=== PATIENT | female | born 1950 | race Caucasian/White ===

== ENCOUNTER → 2017-09-19 11:12 | Outpatient (CLI) | payer MEDICARE, OTHER, SELFPAY | PROVIDERS: Family Provider Internal Medicine; PCP Internal Medicine; Visit Provider Nurse Practitioner Adult Health | DX: R31.9 Hematuria, unspecified (principal) | CPT/HCPCS: 87086; 87088 ==

== ENCOUNTER → 2017-09-28 16:40 | Outpatient (CLI) | payer MEDICARE, OTHER, SELFPAY ==
--- NOTE | 2017-09-28 16:40 | DT_ITS ---
This patient was seen during an EMR downtime September 24, 2017 - October 01, 2017. This patient may have a combination of paper and electronic documentation or all paper documentation. All documentation is viewable within the e-chart portion of [facility] for each patient visit.
--- NOTE | 2017-09-28 16:48 | CT_ITS ---
STUDY: CT ABDOMEN AND PELVIS WITH AND WITHOUT CONTRAST REASON FOR EXAM: Female, 66 years old. Microscopic hematuria and LLQ pain x 6 weeks. Increased frequency of urination. Prev GIDEON/BSO,appendectomy and cholecystectomy. Noncontrast images included in scan. RADIATION DOSAGE (If Supplied By Facility): CTDIvol = ( 12.40 ) mGy, DLP = ( 848.35 ) mGycm TECHNIQUE: Transaxial images were obtained from the dome of the diaphragm to the symphysis pubis without oral contrast. 100ml ml of Isovue 300 contrast was administered. Sagittal and coronal images were reconstructed. Individualized dose optimization techniques were used for this CT. COMPARISON: None. FINDINGS: The visualized lung bases are unremarkable. The visualized portions of the heart are within normal limits. Normal liver. Normal spleen. Normal pancreas. Normal bilateral adrenal glands. Normal right kidney. Normal left kidney. Normal visualized stomach. Normal small intestine. Normal colon. The appendix is visualized and appears normal. There is diffuse atherosclerotic calcification of the abdominal aorta with elongation and tortuosity, there is an infrarenal aneurysm measures 3 cm in greatest diameter. Normal inferior vena cava. Normal retroperitoneum. Normal urinary bladder. Normal abdominal wall. There are diffuse degenerative changes of the visualized lumbar spine. CT/CT Abd/Pelvis W/WO Contrast IMPRESSION: There is an infrarenal abdominal aortic aneurysm measures 3 cm in greatest diameter. There is no evidence of kidney stones or renal neoplasm. Electronically Signed: Siomara Eduardo MD at 7:58 EDT Tel , Service support ,
[2017-10-07 14:59] LABS: CREATININE FINGERSTICK 0.89 mg/dL (0.55-1.02)
== END ==
PROVIDERS: Family Provider Internal Medicine; PCP Internal Medicine; Visit Provider Nurse Practitioner Adult Health
DX: R31.9 Hematuria, unspecified (principal); R10.32 Left lower quadrant pain
CPT/HCPCS: 74178; Q9967

== ENCOUNTER → 2018-04-22 15:31 | Outpatient (CLI) | payer MEDICARE, OTHER, SELFPAY ==
[2015-10-29 06:32] VITALS: BMI 23.1
== END ==
PROVIDERS: Family Provider Internal Medicine; PCP Internal Medicine; Referring Provider Otolaryngology; Visit Provider Otolaryngology
DX: J02.9 Acute pharyngitis, unspecified (principal)
CPT/HCPCS: 87070

== ENCOUNTER 2018-05-07 10:50 | Outpatient (RCR) | payer MEDICARE, OTHER, SELFPAY ==
--- NOTE | 2018-05-07 12:33 | HP.PTEVAL_ITS ---
Patient's Visit Information CLEVE WAGGONER is a 67 year old F referred to Physical Therapy by Guero Gonzalez DO with a diagnosis of c-spine disc disease and gait and balance off.. Date of Evaluation: 05/07/18 Physical Therapist: INGA Holguin - Visit Plan Plan: Pt wishes to return back to physician as she feels that there is something more going on and wishes to have more testing or referral to a specialist as her gait and balance have gotten so much worse over the last year and she has not been evaluated for her symptoms aside from her neck. - Subjective Findings: Dr Gonzalez did an MRI and she also has some arthritis. She did massage for years (about 4.5 years ago) and that really helps. Last year her neck pain got worse (had a shot of cortizone last July). Her balance is really off and her gait is bad for about a year ago... it gets better throughout the day. Pt report that she feels that she is going to lose her balance throughtout the day. She reports that she has a fuuny gait. Her gait is getting worse. Pt is getting freezing episodes and some withering movements.... that started about a year ago. She is cautious with her gait...she has to tell her self to walk at times heel to toe pattern. TENS, head and ice helps the neck pain. Pt has not been to a neurologist. Pt can not sleep unless she has ambien. She falls asleep all the time and has incredible fatigue. Pt reports that she has pain that is strictly on the L side and she has arthritis on the L side. Her neck is swollen and she can not twist her neck very far. The pain comes and goes. She can not bend over in the shower to shave her legs. She definitly has muscle spasm back there..... Pt does not think that PT is going to help with the shoulder....when she moves it, it is worse. Pt can get up and down the stairs fine and uses the handrail. Clif gup she is fine and going down the steps she is not good....she is like frozen at the top of the stairs. It is like she is frozen. Pt reports that she has a really bad sore metallic taste. SHe also has a hiatal hernia. Pt reports that she is chronically dizzy and is dizzy and off balance currently. Pt reports that she feels that something else is going on. She can not do the things she needs to do. IF she were to bend over to wash the bathtub she would fall fw. - Pain neck pain Pain Intensity (Out of 10): 7 - Objective c-spine AROM: R Rotation 50% and L rotation 25%, ext 50% normal ROM, flex 25% flexion and drastically decreased c-spine side bending. UE AROM: B WFL. Gait: pt stood up and first few steps pt was only able to take tiny festination of gait steps and then was able to take bigger steps that were still less than normal step length with decreased heel to toe gait pattern. Pt has decreased arm swing on the L as well. She also had this increased festination when turning around. Stairs: Pt was able to ascend a flight of stairs with 2 hand rails with reciprical gait pattern with SBA. On descending the stairs the pt's LE's were visably shaky and pt was fatigued at the end of ascending and descending the stairs. CATSIB 108/120. FGA: 02/19 (head turns with gait made pt nauseated) (turning 180 degrees pt was festination and almost tripping on her feet). Patella DTR's B 3+/3. +Clonus B at 2-3 beats each. LE MMT: hip flex B 4-/5, Leg extension R 4-/5 and L 3-/5, hip abd R 4/5 and L 4-/5, L knee flex 3- /5 and R 4/5. Pt reports that she was sweaty after todays eval and she gets sweaty when getting out of the shower. Pt very fatigued at the end of the evaluation - Balance Scores Functional Gait Assessment Score: 10 % Disability: 66.6700 CATSIB Score (Max score 120 seconds): 108 - Rehabilitation Potential Rehabilitation Potential: Good - Anticipated Interventions Thank you for the opportunity to evaluate your patient. For Medicare and Medicare HMO plans, please review the plan of care and approve it. It will need to be FAXED BACK to us at [phone] for Medicare purposes. For Medicare only, by signing this I certify the plan of care. Please let me know if there are questions or concerns regarding this plan of care. Physician Signature: Date:
--- NOTE | 2018-05-07 12:33 | HP.PTDCSUM ---
HP - PT D/C Summary It has been my pleasure to treat CLEVE WAGGONER under orders from Guero Gonzalez DO, for the diagnosis of c-spine disc disease and gait and balance off. for a total of 1 visit(s). Discharge Date: 05/07/18 Please see the following information for a summary of their discharge status. - Pain neck pain Pain Intensity (Out of 10): 7 - Plan Plan: Pt wishes to return back to physician as she feels that there is something more going on and wishes to have more testing or referral to a specialist as her gait and balance have gotten so much worse over the last year and she has not been evaluated for her symptoms aside from her neck. - D/C Information Discharge Comments: DC back to physician If there are questions or concerns regarding this patient's physical therapy, please feel free to call me at [phone]. Thank you for the referral of this patient. Sincerely, Emmanuelle Magallon, MPT
== END 2018-05-07 19:00 | disposition home or self-care (01) ==
LOC: PT 10:50
PROVIDERS: Family Provider Internal Medicine; PCP Internal Medicine; Referring Provider Orthopaedic Surgery; Visit Provider Orthopaedic Surgery
DX: M50.30 Other cervical disc degeneration, unspecified cervical region (principal)
CPT/HCPCS: 97162

== ENCOUNTER → 2018-10-14 16:19 | Outpatient (CLI) | payer MEDICARE, OTHER, SELFPAY ==
[2015-10-29 06:32] VITALS: BMI 23.1
--- NOTE | 2018-10-14 | CYSPIN_PTH ---
PATIENT: CLEVE WAGGONER LOC: [facility] U#:[id number] AGE/SX: 74/F ROOM: RE10/14/[address]: BETZAIDA Isbell : 1950 BED: DIS: SPEC #: [id number] RECD: 10/15/18 09:26 STATUS: STEPHANIE RENiyah #: [id number] PILI: 10/14/18 00:[address]: Angela Hyatt NP DEPT: CYTOLOGY RECD BY: Saul Arnold ENTERED: 10/15/18 09:27 SP TYPE: CYSPIN FL OTHR DR: Dr. Rocio Phoenix MD Tissues: Urine Procedures: Pap Stain (control) Special Stain Group II Cytospin Fluid HEADER OPERATION: Not noted PRE-OP DIAGNOSIS: R31.29 TISSUE SUBMITTED: Urine for cytology DIAGNOSIS CYTOLOGY Urine for cytology (cytospin): No malignant cells identified. See cytology study. FA:mable 10/16/18 CYTOLOGY STUDY Slides are reviewed. The specimen consists of reactive urothelial cells, squamous epithelial cells, WBCs and casts. CYTOLOGY GROSS Received is 10 ml of yellow cloudy fluid labeled with the patient's name and and designated per the requisition as urine. Submitted for cytology preparation. / 10/15/18 TC:4 CPT: 55058
[2018-10-14 16:42] LABS: Cytology, Body Fluid / CSF SEE PATHOLOGY REPORT
== END ==
PROVIDERS: Family Provider Internal Medicine; PCP Internal Medicine; Referring Provider Nurse Practitioner Adult Health; Visit Provider Nurse Practitioner Adult Health
DX: R31.29 Other microscopic hematuria (principal)
CPT/HCPCS: 88108; 88313

== ENCOUNTER → 2020-09-10 10:44 | Outpatient (CLI) | payer MEDICARE, OTHER, SELFPAY ==
[2020-08-31 14:29] VITALS: BMI 22.7
--- NOTE | 2020-09-10 10:47 | US_ITS ---
PROCEDURES: ULTRASOUND AORTA REASON FOR EXAM: Female, 69 years old. Abdominal aortic aneurysm infrarenal on CT 2018 TECHNIQUE: Ultrasound evaluation of the aorta was performed with real-time and static kauffman-scale imaging. COMPARISON: None. FINDINGS: There is tortuous elongation of the abdominal aorta along with diffuse atherosclerosis. Aorta measures: Proximal 1.6 cm. Middle 2.6 cm. Distal 1.9 cm. Aorta measure transversely: Proximal 1.8 cm. Middle 3.0 cm. Distal 2.2 cm. Right iliac artery measures: 0.8 cm. Right iliac artery measure transversely: 1.0 cm. Left iliac artery measures: 0.9 cm. Left iliac artery measure transversely: 1.0 cm. There is a peripherally calcified, saccular, infrarenal 3 x 4.6 cm peripherally calcified abdominal aortic aneurysm. No sonographic evidence of free fluid in the retroperitoneum US/Aorta IMPRESSION: Peripherally calcified infrarenal abdominal aortic aneurysm with maximum transverse dimensions of 3.0 x 4.6 cm Electronically Signed: Myles Stewart MD at 11:37 EDT , Service support ,
== END ==
PROVIDERS: PCP Internal Medicine; Referring Provider Internal Medicine; Visit Provider Internal Medicine
DX: I71.4 Abdominal aortic aneurysm, without rupture (principal)
CPT/HCPCS: 76775

== ENCOUNTER → 2021-02-10 16:54 | Outpatient (CLI) | payer MEDICARE, OTHER, SELFPAY ==
[2021-02-10 17:13] LABS: Mucous, Urine 0 SEEN /hpf (<or=2+); Squamous Epithelial Cells - UA 0 SEEN /hpf (5-10); White Blood Cells 0 SEEN /hpf (0-5)
[2021-02-10 17:21] LABS: Color, Urine Yellow (Yellow); Glucose, Dipstick Normal (Normal); Ketone-Dipstick Negative (Negative); Leukocyte Esterase-Dipstick Negative /ul (Negative); Nitrite-Dipstick Negative (Negative); Occult Blood-Urine 50 /ul (Negative); Protein-Dipstick Negative (Negative); Specific Gravity, Urine 1.015 (1.002-1.030); Urine Bilirubin Dipstick Negative (Negative); Urine Clarity Sl. Cloudy (Clear); Urine Urobilinogen Normal (Normal)
[2021-02-10 17:43] LABS: Bacteria 1+ /hpf (None Seen); Red Blood Cells-Urine 0-5 SEEN /hpf (0-5)
== END ==
PROVIDERS: PCP Internal Medicine; Visit Provider Urology
DX: R30.0 Dysuria (principal); R31.29 Other microscopic hematuria
CPT/HCPCS: 81001; 87086; 87088

== ENCOUNTER → 2021-04-06 10:56 | Outpatient (CLI) | payer MEDICARE, OTHER, SELFPAY ==
--- NOTE | 2021-04-06 11:09 | MRI_ITS ---
STUDY: MRI BRAIN WITH AND WITHOUT CONTRAST (ATTENTION INTERNAL AUDITORY CANALS - I.A.C.''s) REASON FOR EXAM: Female, 70 years old. DIZZINESS, ATTN IAC''S TECHNIQUE: Standardized multiplanar fat and water weighted pulse sequences were obtained. IV Yes YES was administered for the contrast portion of the examination. COMPARISON: 03 February 2015 FINDINGS: Normal bilateral temporal bones. Normal bilateral internal auditory canals. There is no demonstrated intracanalicular or cisternal vestibular schwannoma (acoustic neuroma). There is no enhancement of the bilateral VIIth or VIIIth cranial nerves. Normal bilateral cochlea, vestibules and semicircular canals. Normal size of the ventricles and extra-axial spaces for the patient''s age. Normal white matter tracts of the supratentorial brain. Normal bilateral basal ganglia. Normal thalami. Normal flow voids within the major intracranial circulation suggesting patency by spin echo criteria. Normal venous enhancement. There is no enhancing intra-axial or extra-axial abnormality. There is no extra-axial fluid accumulation. Normal sella turcica, pituitary gland, infundibular stalk, optic chiasm and hypothalamus. Normal tectal plate and pineal gland. Normal midbrain, pablo and medulla. Normal cerebellum. Normal basal cisterns. No demonstrated orbital abnormality, within the constraints of a routine brain study. Normal visualized paranasal sinuses. Normal calvarium and skull base. Normal visualized soft tissue structures. Normal visualized upper cervical spine. MRI/Brain W/WO Contrast IMPRESSION: Normal unenhanced and enhanced MRI of the bilateral internal auditory canals (I.A.C''s). Electronically Signed: Logan Velez MD at 15:35 EST Tel , Service support ,
[2021-04-06 11:30] LABS: CREATININE FINGERSTICK 0.7 mg/dL (0.55-1.02); EGFR FINGERSTICK > 60.0000 mL/min (>60)
== END ==
PROVIDERS: PCP Internal Medicine; Visit Provider Otolaryngology
DX: R42 Dizziness and giddiness (principal)
CPT/HCPCS: 70553; A9575

== ENCOUNTER 2021-08-15 12:00 | Outpatient (RCR) | payer MEDICARE, OTHER, SELFPAY ==
--- NOTE | 2021-08-01 14:32 | HP.PTEVAL_ITS ---
Patient's Visit Information CLEVE WAGGONER is a 70 year old F referred to Physical Therapy by Dr. Jimmy Calderon MD with a diagnosis of vestibular dysfunction. Date of Evaluation: 08/01/21 Physical Therapist: Lennox Ervin, BREONNAT, OCS, CSCS - Visit Plan Frequency: 2x /Week Duration: 4-6 Weeks Plan: 2x/week for 4 weeks for. 1. Given VOR standing todya, please progress as safety allows. 2. Pt needs functional weight shifting balance to help with turns, steps and is hesitant to shift weight on her own. Nataly ex to address this. - Subjective Had vertigo long time and has been treated for her neck. Went back to [facility] where she had seen Dr. Gerardo in the past under orders from Dr Altamirano. Used to get botox and cortisone for neck spasms. Balance has not been great the whole time. Decided to go back to [facility] and thought it was an ear problem. Saw ENT prior to [facility] and [facility] found no problems with PD or MS. Nothing to do and did not want to treat it at [facility] but that got old and went Back to [facility] again and has had therapy ordered and will have VNG and EEG. Is on meclizine for this which puts her to sleep and does not take it regularly. Takes flexeril for L shoulder spasms and pain. Describes symptoms as having no balance. L ear does not feel clean. No spinning. Lightheadedness and imbalance. Turning corners is hard. Going down steps is hard. No neuropathy. It has been bad for a year but started with pain in neck 5 yrs ago. The ear thing for a year and described as imbalance. Feels like L side of face feels swollen at times but not unsteady in sitting or lying down. Sleep is OK with ambien. NO cane or walker needed. Has walker. No falls. stops and can't get going at times though. Retired. Lives with in two story and basement and going up and down steps with rail, dresses self and cooks whoich is normal for her. Does avoid deep cleaning due to balance/unsteadiness. - Pain L neck Pain Intensity (Out of 10): 2 Pain Intensity Range: 0, 8 - Objective Walks I without AD. Straight lines are I and slightly hunched over but good gait pattern otherwise. That all changes with turns which are very small steps and hesitant taking extra time. Also slow when she gets to chair to take the final few steps, hesitant and worried. Steps are reciprocal requiring 2 rails and avoids FW weight shift. Transfers bed and chair I. Cervical aROM very limited to 30 L and 45 R and 25 extension which she says is normal for her. Scapula aare elevated and prominent UT on L with palpable noduiles that are not overly tender. reflexes 3/3 bi and tri and patella and achilles. Sensation UE and LE WNL to gross light touch.,. oculomotor: no nystagmus with gaze or head shake, - skew eye deviation, - ocular tilt. Pursuit and saccades are slow but asymptomatic. VOr is slightlydizzy but recovers quickly 07/31. - head thrust. - B hallpike dereje, - roll test. No MSQ positions create dizzyness. - Balance/Special Test Scores Functional Gait Assessment Score: 22 % Disability: 26.6700 Dizziness Score: 32 - Goals Goal 1:: Pt score 25/30 on FGA to diminish fall risk. Goal Time Frame: 2-4 Weeks Goal 2:: Pt I in appropriate HEp to minimze future problems Goal Time Frame: 2-4 Weeks Goal 3:: Pt feel dizzyness balance is 50% improved Goal Time Frame: 2-4 Weeks Goal 4:: Pt able to turn 180 degree turns in onyl 3 weight shifts easily adn I. Goal Time Frame: 2-4 Weeks - Rehabilitation Potential Physical Therapy Diagnosis: imbalance with possible vestibular dysfunction. Rehabilitation Potential: Questionable - Anticipated Interventions Patient/Client Instruction: Educate patient on: Condition, Plan of Care For the Purpose of:: To improve muscle performance and motor function, To increase tolerance to activity/condition/position, To improve gait and locomotor functions Therapeutic Exercise to Include: Balance training, Postural training, Gait and locomotor training, Neuromotor development For the Purpose of:: To improve muscle performance and motor function, To increase tolerance to activity/condition/position, To improve ability of physical actions for home/community/work/leisure, To improve gait and locomotor functions Thank you for the opportunity to evaluate your patient. For Medicare and Medicare HMO plans, please review the plan of care and approve it. It will need to be FAXED BACK to us at [phone] for Medicare purposes. For Medicare only, by signing this I certify the plan of care. Please let me know if there are questions or concerns regarding this plan of care. Physician Signature: Date:
--- NOTE | 2021-10-04 18:33 | HP.PTDCNRP_ITS ---
CLEVE WAGGONER was seen in my office for initial evaluation on 08/01/21. The following Plan of Care was established for this patient: Initial Frequency: 2x /Week Initial Duration: 4-6 Weeks Patient/Client Instruction: Educate patient on: Condition, Plan of Care For the Purpose of:: To improve muscle performance and motor function, To increase tolerance to activity/condition/position, To improve gait and locomotor functions Therapeutic Exercise to Include: Balance training, Postural training, Gait and locomotor training, Neuromotor development For the Purpose of:: To improve muscle performance and motor function, To incre ase tolerance to activity/condition/position, To improve ability of physical actions for home/community/work/leisure, To improve gait and locomotor functions This patient was last seen in our office 08/15/21. Pertinent comments regarding their Physical therapy will appear below: pt seen 4 visits of positional and balance exercises. she cancelled all of her visits after the last session stating she was having an inner ear test and wishes to hold on PT. At this point, it has been over 6 weeks and I will discontinue due to nonattendance At this point I will be discontinuing this patient from physical therapy. I would be happy to see this patient again in the future if found appropriate by the physician. Thank you! Lennox Ervin, DPT, OCS, CSCS Balance/Gait/Functional tests - Balance/Special Test Scores Functional Gait Assessment Score: 22 % Disability: 26.6700 Dizziness Score: 32
== END 2021-08-15 19:00 | disposition home or self-care (01) ==
LOC: PT 12:00
PROVIDERS: PCP Internal Medicine; Referring Provider Psychiatry & Neurology Neurology; Visit Provider Psychiatry & Neurology Neurology
DX: H81.92 Unspecified disorder of vestibular function, left ear (principal)
CPT/HCPCS: 97110; 97162; 97530

== ENCOUNTER 2021-12-13 12:30 | Outpatient (RCR) | payer SELFPAY ==
--- NOTE | 2022-03-23 07:30 | HP.PT.NRP ---
CLEVE WAGGONER was seen in my office for initial evaluation on 11/23/21. The following Plan of Care was established for this patient: Initial Frequency: 1x/Week Initial Duration: 3 Months Manual Therapy Techniques to Include: Functional dry needling This patient was last seen in our office . Pertinent comments regarding their Physical therapy will appear below: Self Pay DN- d/c At this point I will be discontinuing this patient from physical therapy. I would be happy to see this patient again in the future if found appropriate by the physician. Thank you! Gela Webster, BREONNAT
== END 2021-12-13 19:00 | disposition home or self-care (01) ==
LOC: PT 12:30
PROVIDERS: PCP Internal Medicine
DX: R69 Illness, unspecified (principal)

== ENCOUNTER → 2022-11-28 | Outpatient (CLI) | payer MEDICARE, OTHER, SELFPAY | END | disposition home or self-care (01) | LOC: LABSPEC 15:52 | PROVIDERS: PCP Internal Medicine; Referring Provider Urology; Visit Provider Urology | DX: N30.01 Acute cystitis with hematuria (principal) | CPT/HCPCS: 87086 ==

== ENCOUNTER → 2023-04-18 | Outpatient (CLI) | payer MEDICARE, OTHER, SELFPAY | END | disposition home or self-care (01) | LOC: LABSPEC 15:17 | PROVIDERS: PCP Internal Medicine; Referring Provider Otolaryngology; Visit Provider Otolaryngology | DX: J32.8 Other chronic sinusitis (principal) | CPT/HCPCS: 87070; 87205 ==

== ENCOUNTER → 2024-09-26 | Outpatient (CLI) | payer MEDICARE, OTHER, SELFPAY | END | disposition home or self-care (01) | LOC: LABSPEC 16:09 | PROVIDERS: PCP Internal Medicine; Referring Provider Otolaryngology; Visit Provider Otolaryngology | DX: J32.8 Other chronic sinusitis (principal) | CPT/HCPCS: 87070; 87205 ==

== ENCOUNTER → 2024-11-04 | Outpatient (CLI) | payer MEDICARE, OTHER, SELFPAY ==
--- OUTSIDE RECORDS SUMMARY | 2024-11-04 22:19 | XMS RPT_ITS | CCD ---
Author Organization [facility] Care Team Providers Care Burning Supervisor Name Role Phone DHARMESH SEVILLA JR. Attending Unavailable STEFANY SHERIDAN Primary Care Unavailable Stefany Sheridan MD Primary Care Provider Raine Min RN Unavailable Cinthia MARKHAM, Duarte Watson Unavailable Unavailhardeep Sheridan MD, Stefany Dc Primary Care Provider Cinthia MARKHAM, Duarte Watson Unavailable Unavailhardeep Sheridan MD, Stefany Dc Primary Care Provider Duarte RN, Cinthia Watson Unavailable Unavailhardeep Ramachandran RN, Cinthia Watson Unavailable Unavailhardeep Sheridan MD, Stefany Dc Primary Care Provider Almendarez SODA FOUNTAIN MANAGER.BASE FILLER, Vicky Unavailable Dieter SODA FOUNTAIN MANAGER.WOOD WEB WEAVING MACHINE OPERATOR, Sanjuana Unavailable Dieter SODA FOUNTAIN MANAGER.WOOD WEB WEAVING MACHINE OPERATOR, Sanjuana Unavailable Dieter SODA FOUNTAIN MANAGER.WOOD WEB WEAVING MACHINE OPERATOR, Sanjuana Unavailable Dieter SODA FOUNTAIN MANAGER.WOOD WEB WEAVING MACHINE OPERATOR, Sanjuana Unavailable Dr. Stefany Sheridan MD Primary Care Provider Dr. Ramos Hernandez MD Attending Provider Dr. Ramos Hernandez MD Referring Provider Stefany Sheridan Primary Care Unavailable Ramos Hernandez Referring UnavailRamos Singh Attending Unavailabl e Almendarez SODA FOUNTAIN MANAGER.BASE FILLER, Vicky Unavailable STEFANY SHERIDAN Attending Unavailable STEFANY SHERIDAN Primary Care Unavailable ARIANNA PEREZ Attending Unavailable TALAMPAS, STEFANY D Referring Unavailable TALAMPAS, STEFANY D Primary Care Unavailable TALAMPAS, STEFANY D Attending Unavailable TALAMPAS, STEFANY D Primary Care Unavailable ALMENDAREZ, VICKY Referring Unavailable TALAMPAS, STEFANY D Primary Care Unavailable TALAMPAS, STEFANY D Attending Unavailable TALAMPAS, STEFANY D Primary Care Unavailable ALMENDAREZ, VICKY Attending Unavailable TALAMPAS, STEFANY D Primary Care Unavailable ALMENDAREZ, VICKY Attending Unavailable TALAMPAS, STEFANY D Primary Care Unavailable ALMENDAREZ, VICKY Attending Unavailable TALAMPAS, STEFANY D Primary Care Unavailable ALMENDAREZ, VICKY Attending Unavailable TALAMPAS, STEFANY D Primary Care Unavailable CHRISTOPHE RAMOS Attending Unavailable ARIANNA PEREZ Referring Unavailable TALAMPAS, STEFANY D Primary Care Unavailable Allergies Allergy Classification Reported Allergen(s) Allergy Type Date of Onset Reaction(s) Facility Adrenergic Agonists (1 source) Pseudoephedrine Drug Allergy 3 Intolerance [facility] Amoxicillin / Clavulanate (1 source) Amoxicillin / Clavulanate Drug Allergy 7 GI Upset [facility] Work Phone: Cephalosporins (antibiotic) (2 sources) cefdinir Drug Allergy 8 Unknown, Diarrhea [facility] Work Phone: Corticosteroids (1 source) fluticasone Drug Allergy 8 [facility] Work Phone: cyclobenzaprine (1 source) cyclobenzaprine Drug Allergy 0 Intolerance [facility] Lincosamides (antibiotic) (1 source) Clindamycin Drug Allergy 8 Other: See Comments [facility] Macrolides (antibiotic) (1 source) Clarithromycin Drug Allergy 1 Diarrhea [facility] Work Phone: NITROFURANTOIN, MACROCRYSTALS / Nitrofurantoin, Monohydrate (1 source) NITROFURANTOIN, MACROCRYSTALS / Nitrofurantoin, Monohydrate Drug Allergy 2 Other: See Comments [facility] Proton Pump Inhibitors (1 source) Omeprazole Drug Allergy 8 [facility] (20 sources) Amoxicillin / Clavulanate; Translations: [AMOXICILLIN-POT CLAVULANATE] Drug Allergy 7 GI Upset [facility] Work Phone: (20 sources) Cefuroxime; Translations: [CEFUROXIME] Drug Allergy 8 Diarrhea [facility] Work Phone: [phone] (20 sources) Clarithromycin; Translations: [CLARITHROMYCIN] Drug Allergy 1 Diarrhea [facility] Work Phone: (20 sources) Clindamycin; Translations: [CLINDAMYCIN] Drug Allergy 8 Other: See Comments [facility] (20 sources) cyclobenzaprine; Translations: [CYCLOBENZAPRINE HCL] Drug Allergy 0 Intolerance [facility] Work Phone: (20 sources) fluticasone; Translations: [FLUTICASONE PROPIONATE] Drug Allergy 8 [facility] Work Phone: (20 sources) NITROFURANTOIN, MACROCRYSTALS / Nitrofurantoin, Monohydrate; Translations: [NITROFURANTOIN MONOHYD/M-CRYST] Drug Allergy 2 Other: See Comments [facility] Work Phone: [phone] (20 sources) Omeprazole; Translations: [OMEPRAZOLE] Drug Allergy 8 [facility] Work Phone: (20 sources) Pseudoephedrine; Translations: [PSEUDOEPHEDRINE] Drug Allergy 3 Intolerance [facility] Work Phone: [phone] (20 sources) cefdinir; Translations: [CEFDINIR] Drug Allergy 1 Unknown [facility] (1 source) cefdinir Drug Allergy 1 [facility] Repository Medications Current Medications Medication Drug Class(es) Dates Sig (Normalized) Sig (Original) [id number] 200 actuat albuterol 0.09 mg/actuat metered dose inhaler (20 sources) beta2-Adrenergic Agonist Start: 01-01-2024 End: 02-04-2024 take 2 puff(s) by inhalation every four hours as needed for wheezing albuterol HFA (VENTOLIN HFA) 90 mcg/actuation inhaler Indications: Obstructive chronic bronchitis without exacerbation (HCC) Inhale 2 Puffs as instructed every 4 hours as needed for wheezing/shortness of breath. 3 Each 3 02/04/2024 Active Start: 11-08-2021 End: 01-01-2024 take 2 puff(s) by inhalation every four hours as needed for wheezing albuterol HFA (VENTOLIN HFA) 90 mcg/actuation inhaler Inhale 2 Puffs as instructed every 4 hours as needed for wheezing/shortness of breath. 6.7 g 5 11/08/2021 01/01/2024 Discontinued Start: 11-29-2020 End: 11-04-2021 take 2 puff(s) by inhalation every four hours as needed for wheezing albuterol HFA (VENTOLIN HFA) 90 mcg/actuation inhaler Inhale 2 Puffs as instructed every 4 hours as needed for wheezing/shortness of breath. 6.7 g 5 11/29/2020 11/04/2021 Discontinued Start: 03-02-2020 Albuterol Sulf ate 90 mcg/actuation HFA aerosol inhaler Active 2 NMA INHALATION EVERY 6 HOURS March 02, 2020 1:00am Start: 03-02-2020 take 1 puff(s) by in halation every six hours Albuterol Sulfate Active 2 PUFF INHALATION EVERY 6 HOURS March 02, 2020 12:00am Comment on above: Inhale 2 Puffs as in structed every 4 hours as needed for wheezing/shortness of breath. amLODIPine 2.5 mg oral tablet (20 sources) Dihydropyridine Calcium Channel Jessica Star t: 02-21 End: 12-22 take 1 tablet by mouth once daily amLODIPine (NORVASC) 2.5 mg tablet Indications: Essential hypertension Take 1 tablet by mouth once daily. 90 tablet 3 01/01/2024 12/31/2024 Active Comment on above: Take 1 tablet by jeanette once daily. atorvastatin 10 mg oral tablet (20 sources) HMG-CoA Reductase Inhibitor Star t: 08-22 take 1 tablet by mouth once daily for hyperlipidemia atorvastatin (LIPITOR) 10 mg tablet Indications: Pure hypercholesterolemia Take 1 tablet by mouth once daily. For cholesterol 90 tablet 3 09/10/2024 Active Start: 10-22-2015 End: 11-21-2023 take 1 tablet by mouth at bedtime Atorvastatin 10 MG tablet Active 10 mg PO AT BEDTIME October 22, 2015 12:00am Comment on above: Take 1 tablet by jeanette once daily. For cholesterol cholecalciferol 0.025 mg oral tablet (5 sources) Vitamin D Start: take 1 tablet by mouth once daily Cholecalciferol (Vitamin D3) 1,000 UNIT tablet Active 1000 U PO DAILY October 22, 2015 12:00am ciprofloxacin 500 mg oral tablet (7 sources) Quinolone Antimicrobial Start: End: take 1 tablet by mouth twice daily ciprofloxacin HCl (CIPRO) 500 mg tablet Indications: Acute recurrent frontal sinusitis Take 1 tablet by mouth two times a day for 5 days. 10 tablet 0 11/29/2023 12/04/2023 Active Start: 07-16-2023 End: 07-21-2023 take 1 tablet by mouth twice daily ciprofloxacin HCl (CIPRO) 500 mg tablet Indications: Acute recurrent frontal sinusitis Take 1 tablet by mouth two times a day for 5 days. 10 tablet 0 07/16/2023 07/21/2023 Active Start: 07-16-2023 End: 07-16-2023 take 2 tablets by mouth twice daily ciprofloxacin HCl (CIPRO) 250 mg tablet Indications: UTI symptoms Take 2 tablets by mouth two times a day for 5 days. 10 tablet 0 07/16/2023 07/16/2023 Discontinued Comment on above: [facility] clotrimazole 10 mg oral lozenge (1 source) Azole Antifungal Start: End: clotrimazole (MYCELEX) 10 mg yoni Indications: Acute recurrent frontal sinusitis Use 1 Yoni as instructed four times daily for 14 days. 56 tablet 06/09/2024 06/23/2024 Active dicyclomine hydrochloride 20 mg oral tablet (20 sources) Anticholinergic Start: End: take 1 tablet by mouth three times daily before mealtime dicyclomine (BENTYL) 20 mg tablet Indications: Irritable bowel syndrome with constipation Take 1 tablet by mouth three times a day before meals. 90 tablet 5 01/01/2024 Active Comment on above: Take 1 tablet by jeanette three times daily before meals. doxycycline hyclate 100 mg oral tablet (15 sources) Tetracycline-class Drug Start: End: take 1 tablet by mouth twice daily doxycycline (VIBRA-TABS) 100 mg tablet Indications: Acute recurrent frontal sinusitis Take 1 tablet by mouth two times a day for 7 days. 14 tablet 06/09/2024 06/16/2024 Active Start: 04-14-2024 End: 04-21-2024 take 1 tablet by mouth twice daily doxycycline (VIBRA-TABS) 100 mg tablet Indications: UTI symptoms , Frequent urination , Burning with urination , Hematuria, microscopic Take 1 tablet by mouth two times a day for 7 days. 14 tablet 04/14/2024 04/21/2024 Active Start: 01-01-2024 End: 01-15-2024 take 1 tablet by mouth twice daily doxycycline (VIBRA-TABS) 100 mg tablet Indications: Acute non-recurrent pansinusitis Take 1 tablet by mouth two times a day for 14 days. 28 tablet 01/01/2024 01/15/2024 Active Start: 09-08-2023 End: 09-15-2023 take 1 tablet by mouth twice daily doxycycline (VIBRA-TABS) 100 mg tablet Take 1 tablet by mouth two times a day for 7 days. 14 tablet 0 09/08/2023 09/15/2023 Active Start: 02-02-2023 End: 02-12-2023 take 1 tablet by mouth twice daily doxycycline (VIBRA-TABS) 100 mg tablet Indications: Acute non-recurrent maxillary sinusitis Take 1 tablet by mouth two times a day for 10 days. 20 tablet 0 02/02/2023 02/12/2023 Start: 05-11-2022 End: 05-25-2022 take 1 capsule by mouth twice daily at mealtime doxycycline monohydrate (MONODOX) 100 mg capsule Take 1 capsule by mouth twice daily for 14 days. Take with food 28 capsule 0 05/11/2022 05/25/2022 Active Start: 01-31-2022 End: 02-14-2022 take 1 capsule by mouth twice daily at mealtime doxycycline monohydrate (MONODOX) 100 mg capsule Indications: Acute non-recurrent maxillary sinusitis Take 1 capsule by mouth twice daily for 14 days. Take with food 28 capsule 0 01/31/2022 02/14/2022 Start: 09-26-2021 End: 10-10-2021 take 1 capsule by mouth twice daily at mealtime doxycycline monohydrate (MONODOX) 100 mg capsule Indications: Acute non-recurrent maxillary sinusitis Take 1 capsule by mouth twice daily for 14 days. Take with food 28 capsule 0 09/26/2021 10/10/2021 Active Start: 08-31-2020 End: 09-10-2020 take 1 tablet by mouth twice daily as needed Doxycycline Hyclate 100 mg tablet Discontinued 100 mg PO TWICE A DAY as needed for sinus symptoms 09 02August 31, 2020 12:00am September 09, 2020 12:00am September 10, 2020 12:01am Comment on above: Take 1 capsule by [facility] twice daily for 14 days. Take with food Take 1 tablet by [facility] two times a day for 10 days. esomeprazole 20 mg delayed release oral capsule (20 sources) Proton Pump Inhibitor Start: 6 End: take 1 capsule by mouth once daily as needed esomeprazole (NEXIUM) 20 mg capsule Take 1 capsule by mouth once daily as needed. 05/05/2020 Active Comment on above: Take 1 capsule by [facility] once daily as needed. estrogens, conjugated (shelter) 0.625 mg/ml vaginal cream (20 sources) Estrogen Start: 3 End: conjugated estrogens (PREMARIN) vaginal cream Indications: Vaginitis and vulvovaginitis use 0.5 grams twice weekly as directed 90 g 3 07/07/2024 Active Start: 11-29-2020 End: 01-31-2022 conjugated estrogens (PREMAR IN) vaginal cream Indications: Vaginitis and vulvovaginitis use 0.5 grams twice weekly as directed 90 g 3 01/31/2022 Active Start: 08-19-2020 Conjugated Est rogens (Premarin) 0.625 mg/gram cream Active 0.625 mg VAGINAL TWICE A WEEK August 19, 2020 12:00am off 5 days; repeat cycle Comment on above: use 0.5 grams twice weekly as directed fexofenadine hydrochloride 30 mg oral tablet (20 sources) Histamine-1 Receptor Antagonist FEXOFENADINE HCL (TOÑO ALLERGY ORAL) Take 30 mg by mouth. Active Comment on above: Take 30 mg by mouth. 12 hr fexofenadine hydrochloride 60 mg / pseudoephedrine hydrochloride 120 mg extended release oral tablet (5 sources) alpha-Adrenergic Agonist, Histamine-1 Receptor Antagonist Start: 10-22-19 take 1 tablet by mouth every twelve hours as needed Fexofenadine-Pseudoe phedrine 1 EACH tablet extended release 12 hr Active 1 NMA PO DAILY as needed for Allergies October 22, 2015 12:00am Start: 10-22-2015 Fexofenadine-P seudoephedrine Active 1 EACH PO DAILY October 21, 2015 11:00pm fluconazole 150 mg oral tablet (4 sources) Azole Antifungal Start: 02-04-2024 End: 02-04-2024 fluconazole (DIFLUCAN) 150 mg tablet Indications: Antibiotic-induced yeast infection , Thrush Take 1 tablet by mouth one time only for 1 dose. Repeat in 3 to 5 days as needed. Treat for recurrent yeast infection as directed 6 tablet 02/04/2024 02/04/2024 Active Start: 08-03-2023 End: 08-03-2023 fluconazole (DIFLUCAN) 150 m g tablet Indications: Antibiotic-induced yeast infection , Thrush Take 1 tablet by mouth one time only for 1 dose. Repeat in 3 to 5 days as needed. Treat for recurrent yeast infection as directed 6 tablet 0 08/03/2023 08/03/2023 Active Start: 02-02-2023 End: 02-02-2023 fluconazole (DIFLUCAN) 150 m g tablet Indications: Antibiotic-induced yeast infection Take 1 tablet by mouth one time only for 1 dose. Repeat in 3 to 5 days as needed. Treat for recurrent yeast infection as directed 6 tablet 0 02/02/2023 02/02/2023 Start: 05-11-2022 End: 05-11-2022 fluconazole (DIFLUCAN) 150 m g tablet Indications: Thrush Take 1 tablet by mouth one time only for 1 dose. Repeat after 5 days if needed 2 tablet 0 05/11/2022 05/11/2022 Discontinued Comment on above: Take 1 tablet by jeanette th one time only for 1 dose. Repeat after 5 days if needed Take 1 tablet by jeanette th one time only for 1 dose. Repeat in 3 to 5 days as needed. Treat for recurrent yeast infection as directed lactobacillus acidophilus [id number] unt oral capsule (20 sources) Start: 6 Acidophilus-Bif Animalis 10 billion cell cap Take by mouth. 0 09/29/2015 Active Comment on above: Take by mouth. lisinopril 40 mg oral tablet (20 sources) Angiotensin Converting Enzyme Inhibitor Start: End: take 1 tablet by mouth once daily lisinopril (ZESTRIL) 40 mg tablet Indications: Essential hypertension Take 1 tablet by mouth once daily. 90 tablet 3 03/07/2024 Active Start: 03-02-2020 End: 08-19-2020 take 2 tablets by mouth once daily Lisinopril 20 mg tablet Discontinued 40 mg PO DAILY March 02, 2020 3:55pm August 19, 2020 11:37am Start: 03-02-2020 End: 08-19-2020 take 40 mg by mouth once daily Lisinopril Discontinued 40 MG PO DAILY March 02, 2020 2:55pm August 19, 2020 10:37am Start: 10-22-2015 End: 03-02-2020 take 1 tablet by mouth once daily Lisinopril 20 MG tablet Discontinued 20 mg PO DAILY October 22, 2015 12:00am March 02, 2020 4:00pm Comment on above: Take 1 tablet by jeanette th once daily. metroNIDAZOLE 500 mg oral tablet (2 sources) Nitroimidazole Antimicrobial Start: 06-09-19 End: 06-16-19 take 1 tablet by mouth three times daily metroNIDAZOLE (FLAGYL) 500 mg tablet Indications: Acute recurrent frontal sinusitis Take 1 tablet by mouth three times a day for 7 days. 21 tablet 06/09/2024 06/16/2024 Active Start: 05-11-2022 End: 05-18-2022 take 1 tablet by mouth three times daily metroNIDAZOLE (FLAGYL) 500 mg tablet Take 1 tablet by mouth three times daily for 7 days. 21 tablet 0 05/11/2022 05/18/2022 Active Comment on above: Take 1 tablet by jeanette th three times daily for 7 days. PARoxetine hydrochloride 10 mg oral tablet (20 sources) Serotonin Reuptake Inhibitor Start: take 1 tablet by mouth once daily PARoxetine (PAXIL) 10 mg tablet Take 1 tablet by mouth once daily. 90 each 3 10/09/2024 Active Start: 01-31-2022 End: 06-09-2024 take 1 tablet by mouth once daily PARoxetine (PAXIL) 10 mg tablet Indications: Anxiety and depression Take 1 tablet by mouth once daily. 90 tablet 3 06/12/2023 06/09/2024 Discontinued Start: 03-02-2020 End: 10-09-2024 take 1 tablet by mouth once daily Paroxetine Hcl 10 mg tablet Discontinued 10 mg PO DAILY March 02, 2020 1:00am August 19, 2020 11:39am Comment on above: Take 1 tablet by jeanette th once daily. polyethylene glycol 3350 [id number] mg / potassium chloride 2970 mg / sodium bicarbonate 6740 mg / sodium chloride 5860 mg / sodium sulfate 78896 mg powder for oral solution (1 source) Osmotic Laxative Start: 04-04-20 End: 04-04-20 peg 3350-Electrolytes (GOLYTELY) 236-22.74-6.74 -5.86 gram suspension Indications: Screen for colon cancer Take 4,000 mL by mouth one time only for 1 dose. Refer to printed prep instructions from your provider. 4000 mL 04/04/2024 04/04/2024 Active sulfamethoxazole 800 mg / trimethoprim 160 mg oral tablet (3 sources) Dihydrofolate Reductase Inhibitor Antibacterial, Sulfonamide Antimicrobial Start: 10-10-19 End: 10-13-19 take 1 tablet by mouth twice daily sulfamethoxazole-tr imethoprim (BACTRIM DS) 800-160 mg per tablet Take 1 tablet by mouth two times a day for 3 days. 6 tablet 10/09/2024 10/12/2024 Active Start: 08-01-2022 End: 08-04-2022 take 1 tablet by mouth twice daily at mealtime sulfamethoxazole-trimethoprim (BACTRIM D S) 800-160 mg per tablet Indications: UTI symptoms Take 1 tablet by mouth twice daily for 3 days. antibiotic, take with food 6 tablet 0 08/01/2022 08/04/2022 Active Comment on above: Take 1 tablet by jeanette th twice daily for 3 days. antibiotic, take with food vitamin b12 1 mg/ml injectable solution (20 sources) Vitamin B12 Start: End: inject 1 mL by intramuscular injection every month cyanocobalamin 1,000 mcg/mL Indications: B12 deficiency Inject 1 mL intramuscularly once every month. 3 Each 3 04/14/2024 Active Start: 10-22-2015 take 2 tablets by mo [facility] once daily Cyanocobalamin (Vitamin B-12) 500 MCG tablet Active 1000 ug PO DAILY@0800 October 22, 2015 12:00am Start: 10-22-2015 take 1000 ug by mout h once daily Cyanocobalamin (Vitamin B-12) Active 1000 MCG PO DAILY@00 October 21, 2015 11:00pm Comment on above: Inject 1 mL intramus cularly once every month. zolpidem tartrate 10 mg oral tablet (20 sources) gamma-Aminobutyric Acid-ergic Agonist Start: End: 5 take 0.5-1 tablets by mouth at bedtime as needed zolpidem (AMBIEN) 10 mg Indications: Primary insomnia Take 0.5-1 tablets by mouth at bedtime as needed (insomnia) for up to 180 days. 30 tablet 5 06/27/2024 12/24/2024 Active Start: 10-22-2015 End: 08-31-2020 take 1 tablet by mouth at bedtime as needed for sleep Zolpidem 5 MG tablet Discontinued 5 mg PO AT BEDTIME NEEDED as needed for Sleep October 22, 2015 12:00am August 31, 2020 2:23pm Comment on above: Take 0.5-1 tablets b y mouth at bedtime as needed (insomnia) for up to 180 days. Completed/Discontinued Medications Medication Drug Class(es) Dates Sig (Normalized) Sig (Original) acetaminophen 325 mg / oxyCODONE hydrochloride 7.5 mg oral tablet (5 sources) Opioid Agonist Start: 10-29-2015 End: 03-02-2020 Oxycodone-Acetamino phen 1 EACH tablet Discontinued 1 - 2 {tbl} PO EVERY 4 HOURS NEEDED as needed for Pain 60 October 29, 2015 8:37am March 02, 2020 3:55pm Start: 10-29-2015 End: 03-02-2020 take 1 tablet by mouth every four hours as needed Oxycodone-Acetaminophen Discontinued 1 - 2 TABLET PO EVERY 4 HOURS NEEDED 60 October 29, 2015 7:37am March 02, 2020 2:55pm aspirin 325 mg oral tablet (5 sources) Platelet Aggregation Inhibitor, Nonsteroidal Anti-inflammatory Drug Start: 10-29-2015 End: 03-02-2020 take 1 tablet by mouth twice daily Aspirin 325 MG tablet Discontinued 325 mg PO TWICE A DAY 60 October 29, 2015 12:00am March 02, 2020 3:58pm ciclesonide 0.05 mg/actuat metered dose nasal spray (5 sources) Start: 03-02-2020 End: 08-19-2020 take 50 ug nasal route once daily Ciclesonide 50 mcg spray,non-aerosol Discontinued 2 NMA INTRANASAL DAILY March 02, 2020 1:00am August 19, 2020 11:39am into each nostril Start: 03-02-2020 End: 08-19-2020 take 1 spray(s) nasal route once daily Ciclesonide Discontinued 2 SPRAY INTRANASAL DAILY March 02, 2020 12:00am August 19, 2020 10:39am into each nostril docusate sodium 100 mg oral capsule (5 sources) Start: 10-29-2015 End: 08-31-2020 take 1 capsule by mouth twice daily Docusate Sodium 100 MG capsule Discontinued 100 mg PO TWICE A DAY 20 October 29, 2015 12:00am August 31, 2020 2:22pm hydroCHLOROthiazide 12.5 mg oral capsule (5 sources) Thiazide Diuretic Start: 03-02-2020 End: 08-19-2020 take 1 capsule by mouth once daily Hydrochlorothiazide 12.5 mg capsule Discontinued 12.5 mg PO DAILY March 02, 2020 1:00am August 19, 2020 11:38am LORazepam 0.5 mg oral tablet (5 sources) Benzodiazepine Start: 10-22-2015 End: 03-02-2020 take 1 tablet by mouth at bedtime as needed for sleep Lorazepam 0.5 MG tablet Discontinued 0.5 mg PO AT BEDTIME as needed for Sleep October 22, 2015 12:00am March 02, 2020 3:55pm nystatin [id number] unt/ml oral suspension (20 sources) Polyene Antifungal Start: 01-01-2024 End: 06-09-2024 take 5 mL by mouth four times daily nystatin (MYCOSTATIN) 100,000 unit/mL suspension Indications: Thrush, oral 5 mL four times daily. Swish/swallow or swish/expectorate. For 10 to 14 days as directed 200 mL 01/01/2024 06/09/2024 Discontinued Start: 10-21-2021 End: 08-03-2023 nystatin (MYCOSTATIN) 100,00 0 unit/mL suspension 5 mL four times daily. Swish/swallow or swish/expectorate 200 mL 0 05/11/2022 08/03/2023 Discontinued Start: 10-20-2021 nystatin (MYCO STATIN) 100,000 unit/mL suspension 5 mL four times daily. Swish/swallow or swish/expectorate 200 mL 0 10/20/2021 Active Comment on above: 5 mL four times meliza y. Swish/swallow or swish/expectorate ondansetron 4 mg disintegrating oral tablet (5 sources) Serotonin-3 Receptor Antagonist Start: 016 End: take 1 tablet by mouth every six hours as needed for nausea Ondansetron 4 MG tablet Discontinued 4 mg PO EVERY 6 HOURS NEEDED as needed for Nausea October 29, 2015 12:00am March 02, 2020 3:55pm predniSONE 10 mg oral tablet (10 sources) Start: 024 End: predniSONE (DELTASONE) 10 mg tablet Take 4 tabs daily for 3 days, then 2 tabs daily for 3 days, then 1 tab daily for 3 days with food. 21 tablet 09/08/2023 04/04/2024 Discontinued (Discontinued by Patient) sertraline 25 mg oral tablet (11 sources) Serotonin Reuptake Inhibitor Start: 025 End: 025 take 1 tablet by mouth once daily sertraline (ZOLOFT) 25 mg tablet Indications: Anxiety and depression Take 1 tablet by mouth once daily. 90 tablet 3 06/09/2024 10/09/2024 Discontinued (Side Effects) Start: 12-06-2020 End: 01-31-2022 take 1 tablet by mouth once daily, then take 1 tablet by mouth once daily sertraline (ZOLOFT) 50 mg tablet Indications: Anxiety and depression Take 1 tablet by mouth once daily. Pill strength change: TAKE ONE DAILY 90 tablet 3 12/06/2020 01/31/2022 Discontinued (Patient chooses alternative therapy) Comment on above: Take 1 tablet by jeanette th once daily. Pill strength change: TAKE ONE DAILY traMADol hydrochloride 50 mg oral tablet (5 sources) Opioid Agonist Start: 10-29-19 End: 03-02-20 take 50-100 mg by mouth every four hours as needed for pain Tramadol 50 MG tablet Discontinued 50 - 100 mg PO EVERY 4 HOURS NEEDED as needed for Pain 60 October 29, 2015 12:00am March 02, 2020 3:56pm trihexyphenidyl hydrochloride 5 mg oral tablet (20 sources) Start: 03-02-20 End: 08-20-19 take 1 tablet by mouth after mealtime Trihexyphenidyl 5 mg tablet Discontinued 5 mg PO after meals March 02, 2020 1:00am August 19, 2020 11:39am End: 04-04-2024 take 1 mg by mouth twice daily trihexyphenidyl (ARTANE) 2 mg tablet Take 1 mg by mouth two times a day. Dr. Bond, Neurology 04/04/2024 Discontinued (Discontinued by Patient) Comment on above: Take 1 mg by mouth t wice daily. Dr. Bond, Neurology Problems Active Problems Problem Classification Problem Date Documented Da te Episodic/Chronic Anxiety disorders (20 sources) Anxiety; Translations: [Anxiety disorder, unspecified] Onset: 2 Resolved: 4 09-26-2011 Chronic Aortic; peripheral; and visceral artery aneurysms (20 sources) Abdominal aortic aneurysm; Translations: [Abdominal aortic aneurysm, without rupture] Onset: 8 10-09-2017 Chronic Asthma (5 sources) Asthma; Translations: [Unspecified asthma, uncomplicated] 03-02-2020 Chronic Chronic obstructive pulmonary disease and bronchiectasis (20 sources) Emphysematous bronchitis; Translations: [Chronic obstructive pulmonary disease, unspecified] Onset: 7 12-06-2006 Chronic Disorders of lipid metabolism (20 sources) Pure hypercholesterolemia; Translations: [Pure hypercholesterolemia, unspecified] Onset: 7 12-06-2006 Chronic Esophageal disorders (20 sources) Gastroesophageal reflux disease; Translations: [Gastro-esophageal reflux disease without esophagitis] Onset: 7 12-06-2006 Chronic Essential hypertension (20 sources) Essential hypertension; Translations: [Essential (primary) hypertension] Onset: 4 06-09-2021 Chronic Gastroduodenal ulcer (except hemorrhage) (20 sources) Peptic ulcer; Translations: [Peptic ulcer, site unspecified, unspecified as acute or chronic, without hemorrhage or perforation] 12-06-2006 Chronic Genitourinary symptoms and ill-defined conditions (1 source) Incontinence without sensory awareness; Translations: [Incontinence without sensory awareness] 01-01-2024 Chronic Inflammatory diseases of female pelvic organs (2 sources) Vulvovaginitis; Translations: [Acute vaginitis] Episodic Miscellaneous mental health disorders (20 sources) Primary insomnia; Translations: [Primary insomnia] Onset: 2 06-09-2021 Chronic Mood disorders (1 source) Mood disorders; Translations: [Anxiety and depression] Onset: 5 Nutritional deficiencies (20 sources) Vitamin D deficiency; Translations: [Vitamin D deficiency, unspecified] Onset: 4 12-13-2013 Chronic Occlusion or stenosis of precerebral arteries (5 sources) Bilateral stenosis of carotid arteries; Translations: [Occlusion and stenosis of bilateral carotid arteries] 03-02-2020 Chronic Other aftercare (4 sources) Patient encounter status; Translations: [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 watermelon inspector (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) drug therapy] Episodic Other and unspecified benign neoplasm (1 source) Tubular adenoma ; Translations: [Benign neoplasm, unspecified site] 01-01-2024 Episodic Other bone disease and musculoskeletal deformities (1 source) Osteopenia; Translations: [Other specified disorders of bone density and structure, unspecified site] 08-03-2023 Episodic Other gastrointestinal disorders (20 sources) Irritable bowel syndrome; Translations: [Other irritable bowel syndrome] Onset: 2 06-09-2021 Chronic Other gastrointestinal disorders (1 source) Irritable bowel syndrome characterized by constipation; Translations: [Irritable bowel syndrome with constipation] 01-01-2024 Chronic Other gastrointestinal disorders (1 source) Other irritable bowel syndrome; Translations: [Other irritable bowel syndrome] Onset: 2 Chronic Other gastrointestinal disorders (3 sources) History of irritable bowel syndrome; Translations: [Personal history of other diseases of the digestive system] 12-06-2022 Episodic Other upper respiratory disease (20 sources) Allergic rhinitis; Translations: [Allergic rhinitis, unspecified] Onset: 7 10-09-2017 Chronic Other upper respiratory infections (4 sources) Recurrent sinusitis; Translations: [Chronic sinusitis, unspecified] Onset: 5 Chronic Residual codes; unclassified (1 source) Postmenopausal state; Translations: [Asymptomatic menopausal state] 08-03-2023 Episodic Residual codes; unclassified (1 source) Intolerance to drug; Translations: [Other specified health status] 04-14-2024 Episodic Substance-related disorders (20 sources) Tobacco user; Translations: [Nicotine dependence, unspecified, uncomplicated] Onset: 7 12-06-2006 Chronic Thyroid disorders (20 sources) Goiter; Translations: [Nontoxic goiter, unspecified] 12-06-2006 Chronic Unclassified (20 sources) Parkinson's disease; Translations: [Parkinson's disease, unspecified whether dyskinesia present, unspecified whether manifestations fluctuate] Onset: 4 03-06-2023 Chronic Unclassified (10 sources) High Risk Chronic Disease Home Monitoring Problem Onset: 3 09-05-2022 Unclassified (1 source) History of colonic polyps; Translations: [History of colonic polyps] Onset: 5 Urinary tract infections (1 source) Acute cystitis; Translations: [Acute cystitis with hematuria] Episodic Past or Other Problems Problem Classification Problem Date Documented Date Episodic/Chronic Abdominal pain (20 sources) Abdominal pain; Translations: [Unspecified abdominal pain] Onset: 10-01-2008 10-01-2008 Episodic Biliary tract disease (20 sources) Gallstone; Translations: [Calculus of gallbladder without cholecystitis without obstruction] Onset: 05-10-2010 05-10-2010 Episodic E Codes: Adverse effects of medical drugs (1 source) Adverse effect of unspecified systemic antibiotic, initial encounter; Translations: [Antibiotic-induced yeast infection] Onset: 02-04-2024 Episodic Gastritis and duodenitis (20 sources) Acute gastritis; Translations: [Acute gastritis without bleeding] Onset: 10-01-2008 10-01-2008 Episodic Genitourinary symptoms and ill-defined conditions (20 sources) Blood in urine; Translations: [Hematuria, unspecified] Onset: 09-26-2011 09-26-2011 Episodic Hemorrhoids (20 sources) Internal hemorrhoids; Translations: [Other hemorrhoids] Onset: 10-01-2008 10-01-2008 Episodic Immunizations and screening for infectious disease (1 source) Encounter for immunization; Translations: [Encounter for immunization] Onset: 02-04-2024 Episodic Joint disorders and dislocations; trauma-related (20 sources) Dislocation of temporomandibular joint; Translations: [Dislocation of jaw, unspecified side, initial encounter] Onset: 12-11-2013 12-11-2013 Episodic Malaise and fatigue (20 sources) Fatigue; Translations: [Other fatigue] Onset: 06-09-2021 06-09-2021 Episodic Mycoses (10 sources) Candidiasis of mouth; Translations: [Candidal stomatitis] Onset: 02-04-2024 Episodic Nutritional deficiencies (20 sources) Cobalamin deficiency; Translations: [Deficiency of other specified B group vitamins] Onset: 06-09-2021 06-09-2021 Episodic Other and unspecified benign neoplasm (20 sources) History of polyp of colon; Translations: [Personal history of colonic polyps] Onset: 10-01-2008 10-01-2008 Episodic Other nervous system disorders (20 sources) H/O: brain disorder; Translations: [Personal history of other diseases of the nervous system and sense organs] Onset: 04-28-2019 04-28-2019 Episodic Other nervous system disorders (20 sources) Impairment of balance; Translations: [Other abnormalities of gait and mobility] Onset: 06-09-2021 06-09-2021 Episodic Other screening for suspected conditions (not mental disorders or infectious disease) (20 sources) Suspected malignancy; Translations: [Encounter for observation for other suspected diseases and conditions ruled out] Onset: 10-01-2008 10-01-2008 Episodic Other upper respiratory infections (20 sources) Acute maxillary sinusitis; Translations: [Acute maxillary sinusitis, unspecified] Onset: 12-06-2006 Episodic Residual codes; unclassified (20 sources) Difficulty sleeping ; Translations: [Sleep disorder, unspecified] Onset: 12-11-2013 12-11-2013 Episodic Residual codes; unclassified (1 source) Other specified health status; Translations: [Drug intolerance] Onset: 04-14-2024 Episodic Screening and history of mental health and substance abuse codes (20 sources) Tobacco use and exposure - finding; Translations: [Personal history of nicotine dependence] Onset: 03-23-2016 03-23-2016 Episodic Spondylosis; intervertebral disc disorders; other back problems (20 sources) Torticollis; Translations: [Torticollis] Onset: 04-28-2019 04-28-2019 Episodic Results Test Name Value Interpretation Reference Range Facility Bacteria Ur Culton 5 Bacteria identified Cx Nom (U) ORGANISM ID: 1 10,000 -<50,000 CFU/ml Normal urogenital kirk Normal [facility] [place] Comment on above: Performed By: #### 6 30-4 ####[facility] LABCLIA [id number] [address] [facility] CNOVon 10-09-2024 CNOV Office Visit (INTMWS ) CLEVE WAGGONER ([id number]) 1950 F Date Time Provider Department 10/09/24 1:40 PM VICKY ALMENDAREZ INTMWS During your visit today, we recorded the following information about you: Temperature Pulse Respiration Blood pressure 97.8 degrees 106/minute 16/minute 159/72 Weight 52 kg Vicky Almendarez, DEREJE.BASE FILLER 10/09/2024 2:11 PM Signed Subjective Patient ID: Luke is a 73 year old female who presents for uti symptom. HPI Luke Waggoner is a 73-year-old female with a history of depression, presenting for evaluation of a suspected UTI. Suspected UTI: - Onset of symptoms approximately 2 weeks ago. - Reports lower back pain and dysuria. - Increased urinary frequency; notes nocturnal enuresis. - Previous effective treatment with Macrobid for UTIs. Depression: - Recently switched from Zoloft to Paxil due to excessive somnolence. - Took Paxil this morning and reports it works for her. Family History: - Sister a month ago from alcoholic poisoning, liver and kidney failure. ROS Constitutional: (+) excessive sleepiness Genitourinary: (+) urinary frequency, (+) urinary incontinence, (+) dysuria Musculoskeletal: (+) burning lower back pain Objective BP 159/72 Pulse 106 Temp 36.6 ?C (97.8 ?F) Resp 16 Wt 52 kg (114 lb 10.2 oz) BMI 23.96 kg/m? Physical Exam Vitals and nursing note reviewed. Constitutional: Appearance: Normal appearance. HENT: Head: Normocephalic and atraumatic. Eyes: Conjunctiva/sclera: Conjunctivae normal. Cardiovascular: Rate and Rhythm: Normal rate. Pulmonary: Effort: Pulmonary effort is normal. Skin: General: Skin is warm and dry. Neurological: Mental Status: She is alert. Gait: Gait abnormal (shuffling/ataxic). 1. UTI symptoms (R39.9) - Dysuria and increased urinary frequency for approximately two weeks; suspect urinary tract infection. - Prescribed Macrobid, sent to [facility]. 2. Anxiety and depression (F41.9) - Previously on Zoloft, discontinued due to excessive somnolence. - Resumed Paxil with reported improvement in symptoms. - Refilled Paxil prescription, sent to [facility]. Vicky Almendarez APRN.BASE FILLER Medical Decision Making: Problems: Low: Acute, uncomplicated illness or injury Moderate: 2+ stable chronic illnesses Data: Unique test(s) ordered: 2 Risk: Moderate: Drug management Medical Decision Making Level: 4 - Moderate Allergies As of Date: 10/09/2024 Noted Allergy Reaction AUGMENTIN (AMOXICILLIN-POT CLAVUL*01/28/2007 8 - GI Upset CEFDINIR 08/31/2020 16 - Unknown CEFTIN (CEFUROXIME) 09/02/2007 6 - Diarrhea CLARITHROMYCIN 06/08/2010 6 - Diarrhea CLINDAMYCIN 10/16/2017 14 - Other: See Comments Comments: oral thrush FLEXERIL (CYCLOBENZAPRINE HCL) 12/28/2009 5 - Intolerance Comments: Hangover effect even with half a pill FLONASE (FLUTICASONE PROPIONATE) 08/21/2007 Comments: Severe headaches MACROBID (NITROFURANTOIN MONOHYD/*09/19/2011 14 - Other: See Comments Comments: Constipation, gi upset, overall sense of feeling ill. PRILOSEC (OMEPRAZOLE) 08/21/2007 Comments: Gi bloating PSEUDOEPHEDRINE 10/22/2012 5 - Intolerance Comments: drives BP up and causes heart racing Date Reviewed: 10/09/2024 Reviewed by: Amparo Toney LPN - Fully Assessed Reason for Visit: uti symptom [Other] Primary Visit Diagnosis:UTI symptoms [R39.9] Other Visit Diagnosis:Anxiety and depression [F41.9, F32.A] Order(s):UA DIP, URINE (POC) [[id number]] Order #: [id number]. #:[id number] BACTERIAL CULTURE, URINE [SQURCUL] Order #: [id number]. #:[id number] PARoxetine (PAXIL) 10 mg tabletTake 1 tablet by mouth once daily.Disp: 90 eachRfl: 3 sulfamethoxazole-trimet hoprim (BACTRIM DS) 800-160 mg per tabletTake 1 tablet by mouth two times a day for 3 days.Disp: 6 tabletRfl: 0 Prescriptions as of 10/09/2024 - PARoxetine (PAXIL) 10 mg tablet Take 1 tablet by mouth once daily. - sulfamethoxazole-trimet hoprim (BACTRIM DS) 800-160 mg per tablet Take 1 tablet by mouth two times a day for 3 days. - atorvastatin (LIPITOR) 10 mg tablet Take 1 tablet by mouth once daily. For cholesterol - conjugated estrogens (PREMARIN) vaginal cream use 0.5 grams twice weekly as directed - zolpidem (AMBIEN) 10 mg Take 0.5-1 tablets by mouth at bedtime as needed (insomnia) for up to 180 days. - cyanocobalamin 1,000 mcg/mL Inject 1 mL intramuscularly once every month. - lisinopril (ZESTRIL) 40 mg tablet Take 1 tablet by mouth once daily. - albuterol HFA (VENTOLIN HFA) 90 mcg/actuation inhaler Inhale 2 Puffs as instructed every 4 hours as needed for wheezing/shortness of breath. - dicyclomine (BENTYL) 20 mg tablet Take 1 tablet by mouth three times a day before meals. - amLODIPine (NORVASC) 2.5 mg tablet Take 1 tablet by mouth once daily. - esomeprazole (NEXIUM) 20 mg capsule Ta (more content not included)... Normal [facility] [place] UA DIP, URINE (POC)on 2024 BILIRUBIN UA (POCT) Negative Negative [facility] CLARITY UA (POCT) Cloudy [facility] COLOR UA (POCT) Yellow [facility] GLUCOSE UA (POCT) Negative Negative mg/dL [facility] Hemoglobin Ql (U) Moderate Abnormal Negative [facility] Interpretation and review of laboratory results Abnormal [facility] KETONE UA (POCT) Negative Negative mg/dL [facility] LEUKOCYTES UA (POCT) Negative Negative [facility] NITRITE UA (POCT) Negative Negative [facility] PH UA (POCT) 5.5 4.5 - 8.0 [facility] Protein Ql (U) Negative Negative mg/dL [facility] SPECIFIC GRAVITY UA (POCT) <=1.005 Abnormal 1.005 - 1.030 [facility] UROBILINOGEN UA (POCT) 0.2 Annita l E.U./dL [facility] Location:[address], [place], [address] [facility] POINT OF CARE [facility] Gram Stainon 09-29-2024 GS Gram Stain Rare Gram positive cocci 1+ Epithelial cells * This is an amended result. * A prior result that was reported as final has been changed. 09/29/24 1324 by CHAO Normal [facility] Comment on above: Performed By: #### M 100.1999, M100.2500 #### [facility] [address] [place], [place], [id number] Nasopharyngeal Cultureon NAC No growth in 48 hours. Normal [facility] Comment on above: Performed By: #### M 100.1999, M100.2500 #### [facility] [address] [place], [place], [id number] Gram stainOrdered By: Israel Hernandez on 09-26-2024 Microscopic observation Gram stain Nom (Unsp spec) [facility] CNOVon 08-15-2024 CNOV Office Visit (INTMWS ) CLEVE WAGGONER ([id number]) 1950 F Date Time Provider Department 08/15/24 1:40 PM VICKY ALMENDAREZ INTMWS During your visit today, we recorded the following information about you: Pulse Respiration Blood pressure Weight 97/minute 16/minute 145/68 53 kg Vicky Almendarez APRN.BASE FILLER 08/15/2024 2:13 PM Signed SUBJECTIVE: Lung Cancer Screening Never done DTaP,Tdap,Td Vaccine(2 - Td or Tdap) due on 04/11/2021 Covid-19 Vaccine( season) due on 03/18/2024 Advance Directive Discussion due on 04/23/2024 BP Controlled (<130/80) due on 08/02/2024 Mammogram Screening due on 07/31/2024 Depression Screening due on 08/02/2024 HPI Cleve Waggoner is a 73 year old female. Her past medical history is significant for Parkinson's, hypertension, hypercholesterolemia, tobacco use disorder, GERD, anxiety, dysuria, vitamin D deficiency. Presents today regarding sinus infection. She notes that she has had sinus congestion, drainage, maxillary and frontal headache for about 2 weeks. Not helped with OTC treatments. No ear pain. Afebrile. No report of cough, shortness of breath. Concern for thrush. Notes she has seen Dr. Bourne in the past for allergy shots, but not recently. Review of Systems HENT: Positive for rhinorrhea and sinus pressure. Psychiatric/Behavioral: Negative for dysphoric mood. The patient is not nervous/anxious. Objective BP 145/68 Pulse 97 Resp 16 Wt 53 kg (116 lb 13.5 oz) BMI 24.42 kg/m? Physical Exam Vitals and nursing note reviewed. Constitutional: General: She is not in acute distress. Appearance: She is not toxic-appearing or diaphoretic. HENT: Head: Normocephalic and atraumatic. Right Ear: Tympanic membrane and ear canal normal. Left Ear: Tympanic membrane and ear canal normal. Nose: Mucosal edema and rhinorrhea present. Right Sinus: Frontal sinus tenderness present. Left Sinus: Frontal sinus tenderness present. Mouth/Throat: Lips: Martorell. Mouth: Mucous membranes are moist. Pharynx: Oropharynx is clear. Eyes: General: Right eye: No discharge. Left eye: No discharge. Conjunctiva/sclera: Conjunctivae normal. Cardiovascular: Rate and Rhythm: Normal rate and regular rhythm. Heart sounds: Normal heart sounds. Pulmonary: Effort: Pulmonary effort is normal. Breath sounds: Normal breath sounds. Abdominal: General: Abdomen is flat. Bowel sounds are normal. Palpations: Abdomen is soft. Musculoskeletal: General: Deformity (kyphosis) present. No swelling. Right lower leg: No edema. Left lower leg: No edema. Skin: General: Skin is warm and dry. Neurological: Mental Status: She is alert and oriented to person, place, and time. Gait: Gait abnormal (short, shuffling, slow to start). Psychiatric: Mood and Affect: Mood normal. Thought Content: Thought content normal. ALLERGIES Allergen Reactions Augmentin [Amoxicil* GI Upset Cefdinir Unknown Ceftin [Cefuroxime] Diarrhea Clarithromycin Diarrhea Clindamycin Other: See Comments oral thrush Flexeril [Cyclobenz* Intolerance Hangover effect even with half a pill Flonase [Fluticason* Severe headaches Macrobid [Nitrofura* Other: See Comments Constipation, gi upset, overall sense of feeling ill. Prilosec [Omeprazol* Gi bloating Pseudoephedrine Intolerance drives BP up and causes heart racing Medications conjugated estrogens (PREMARIN) vaginal cream use 0.5 grams twice weekly as directed zolpidem (AMBIEN) 10 mg Take 0.5-1 tablets by mouth at bedtime as needed (insomnia) for up to 180 days. sertraline (ZOLOFT) 25 mg tablet Take 1 tablet by mouth once daily. cyanocobalamin 1,000 mcg/mL Inject 1 mL intramuscularly once every month. lisinopril (ZESTRIL) 40 mg tablet Take 1 tablet by mouth once daily. albuterol HFA (VENTOLIN HFA) 90 mcg/actuation inhaler Inhale 2 Puffs as instructed every 4 hours as needed for wheezing/shortness of breath. dicyclomine (BENTYL) 20 mg tablet Take 1 tablet by mouth three times a day before meals. amLODIPine (NORVASC) 2.5 mg tablet Take 1 tablet by mouth once daily. atorvastatin (LIPITOR) 10 mg tablet Take 1 tablet by mouth once daily. For cholesterol esomeprazole (NEXIUM) 20 mg capsule Take 1 capsule by mouth once daily as needed. Acidophilus-Bif Animalis 10 billion cell cap Take by mouth. FEXOFENADINE HCL (TOÑO ALLERGY ORAL) Take 30 mg by mouth. azithromycin (ZITHROMAX) 250 mg tablet Take 2 tablets by mouth once daily for 1 day, THEN 1 tablet once daily for 4 days. fluconazole (DIFLUCAN) 150 mg tablet Take 1 tablet by mouth one time only for 1 dose. Repeat in 3 to 5 days as needed. Treat for recurrent yeast infection as directed PAST MEDICAL HISTORY Diagnosis Date Abdominal pain, unspecified site Allergic rhinitis, cause unspecified 12/06/2006 Anxiety 09/26/2011 Asthma (HCC) Chronic airway obstruction, not (more content not included)... Normal [facility] CNOVon 06-09-2024 CNOV Office Visit (INTMWS ) CLEVE WAGGONER ([id number]) 1950 F Date Time Provider Department 06/09/24 12:00 PM VICKY ALMENDAREZ INTMWS During your visit today, we recorded the following information about you: Pulse Respiration Blood pressure Weight 79/minute 16/minute 155/77 53 kg Vicky Almendarez, DEREJE.BASE FILLER 06/09/2024 1:10 PM Signed SUBJECTIVE: Lung Cancer Screening Never done DTaP,Tdap,Td Vaccine(2 - Td or Tdap) due on 04/11/2021 Covid-19 Vaccine( season) due on 03/18/2024 Advance Directive Discussion due on 04/23/2024 Mammogram Screening due on 07/31/2024 DALTON Waggoner is a 73 year old female. Her past medical history is significant for Parkinson's, hypertension, hypercholesterolemia, tobacco use disorder, GERD, anxiety, dysuria, vitamin D deficiency. Presents today regarding sinus infection. She notes that she has had sinus congestion, drainage, maxillary and frontal headache for about 3 weeks. Not helped with OTC treatments. No ear pain. Afebrile. No report of cough, shortness of breath. Notes she has seen Dr. Bourne in the past for allergy shots, but not recently. She would like to switch from paxil to zolaft due to feeling fatigued lately, reports Stefany Sheridan MD recommended the change.Initially started paxil for anxiety, currently controlled. Review of Systems HENT: Positive for rhinorrhea and sinus pressure. Psychiatric/Behavioral: Negative for dysphoric mood. The patient is not nervous/anxious. Objective BP 155/77 Pulse 79 Resp 16 Wt 53 kg (116 lb 13.5 oz) BMI 24.42 kg/m? Physical Exam Vitals and nursing note reviewed. Constitutional: General: She is not in acute distress. Appearance: She is not toxic-appearing or diaphoretic. HENT: Head: Normocephalic and atraumatic. Right Ear: Tympanic membrane and ear canal normal. Left Ear: Tympanic membrane and ear canal normal. Nose: Mucosal edema and rhinorrhea present. Right Sinus: Frontal sinus tenderness present. Left Sinus: Frontal sinus tenderness present. Mouth/Throat: Lips: Martorell. Mouth: Mucous membranes are moist. Pharynx: Oropharynx is clear. Eyes: General: Right eye: No discharge. Left eye: No discharge. Conjunctiva/sclera: Conjunctivae normal. Cardiovascular: Rate and Rhythm: Normal rate and regular rhythm. Heart sounds: Normal heart sounds. Pulmonary: Effort: Pulmonary effort is normal. Breath sounds: Normal breath sounds. Abdominal: General: Abdomen is flat. Bowel sounds are normal. Palpations: Abdomen is soft. Musculoskeletal: General: Deformity (kyphosis) present. No swelling. Right lower leg: No edema. Left lower leg: No edema. Skin: General: Skin is warm and dry. Neurological: Mental Status: She is alert and oriented to person, place, and time. Gait: Gait abnormal (short, shuffling, slow to start). Psychiatric: Mood and Affect: Mood normal. Thought Content: Thought content normal. ALLERGIES Allergen Reactions Augmentin [Amoxicil* GI Upset Cefdinir Unknown Ceftin [Cefuroxime] Diarrhea Clarithromycin Diarrhea Clindamycin Other: See Comments oral thrush Flexeril [Cyclobenz* Intolerance Hangover effect even with half a pill Flonase [Fluticason* Severe headaches Macrobid [Nitrofura* Other: See Comments Constipation, gi upset, overall sense of feeling ill. Prilosec [Omeprazol* Gi bloating Pseudoephedrine Intolerance drives BP up and causes heart racing Medications cyanocobalamin 1,000 mcg/mL Inject 1 mL intramuscularly once every month. lisinopril (ZESTRIL) 40 mg tablet Take 1 tablet by mouth once daily. albuterol HFA (VENTOLIN HFA) 90 mcg/actuation inhaler Inhale 2 Puffs as instructed every 4 hours as needed for wheezing/shortness of breath. zolpidem (AMBIEN) 10 mg Take 0.5-1 tablets by mouth at bedtime as needed (insomnia) for up to 180 days. dicyclomine (BENTYL) 20 mg tablet Take 1 tablet by mouth three times a day before meals. amLODIPine (NORVASC) 2.5 mg tablet Take 1 tablet by mouth once daily. atorvastatin (LIPITOR) 10 mg tablet Take 1 tablet by mouth once daily. For cholesterol PARoxetine (PAXIL) 10 mg tablet Take 1 tablet by mouth once daily. conjugated estrogens (PREMARIN) vaginal cream use 0.5 grams twice weekly as directed esomeprazole (NEXIUM) 20 mg capsule Take 1 capsule by mouth once daily as needed. Acidophilus-Bif Animalis 10 billion cell cap Take by mouth. FEXOFENADINE HCL (TOÑO ALLERGY ORAL) Take 30 mg by mouth. nystatin (MYCOSTATIN) 100,000 unit/mL suspension 5 mL four times daily. Swish/swallow or swish/expectorate. For 10 to 14 days as directed (Patient not taking: Reported on 06/09/2024) PAST MEDICAL HISTORY Diagnosis Date Abdominal pain, unspecified site Allergic rhinitis, cause unspecified 12/06/2006 Anxiety 09/26/2011 Asthma Chronic airway obstruction, not elsewhere classified Esoph (more content not included)... Normal [facility] [id number] 05-16-2024 [id number] HNO ID: [id number] Author: LANCE YOO RN Service: ? Author Type: Registered Nurse Type: [id number] Filed: 05/16/2024 11:56 Note Text: The patient received a copy of Colonoscopy discharge instructions that contain information for how to contact the physician who performed the procedure and when to seek medical care. Normal [facility] Colonoscopyon 05-16-2024 Colonoscopy [place] [facility] Gastrointestinal Endoscopy Patient Name: Cleve Waggoner Procedure Date: 05/16/2024 11:05 AM Date of : 1950 Admit Type: Outpatient Age: 73 Gender: Female Note Status: Finalized Procedure: Colonoscopy Indications: High risk colon cancer surveillance: Personal history of adenomatous colonic polyps Providers: Christophe Ramos MD Patient Profile: This is a 73 year old female. Refer to note in patient chart for documentation of history and physical. Last Colonoscopy: 5 years ago. Referring Physician: Arianna Perez (Referring MD) Medicines: Monitored Anesthesia Care, Midazolam 4 mg IV, Fentanyl 75 micrograms IV Complications: No immediate complications. Requesting Provider: Procedure: Pre-Anesthesia Assessment: - Prior to the procedure, a History and Physical was performed, and patient medications and allergies were reviewed. The patient is competent. The risks and benefits of the procedure and the sedation options and risks were discussed with the patient. All questions were answered and informed consent was obtained. Patient identification and proposed procedure were verified by the physician and the nurse in the procedure room. CV Examination: normal. Prophylactic Antibiotics: The patient does not require prophylactic antibiotics. Prior Anticoagulants: The patient has taken no anticoagulant or antiplatelet agents. ASA Grade Assessment: II - A patient with mild systemic disease. After reviewing the risks and benefits, the patient was deemed in satisfactory condition to undergo the procedure. The anesthesia plan was to use moderate sedation / analgesia (conscious sedation). Immediately prior to administration of medications, the patient was re-assessed for adequacy to receive sedatives. The heart rate, respiratory rate, oxygen saturations, blood pressure, adequacy of pulmonary ventilation, and response to care were monitored throughout the procedure. The physical status of the patient was re-assessed after the procedure. After I obtained informed consent, the scope was passed under direct vision. Throughout the procedure, the patient's blood pressure, pulse, and oxygen saturations were monitored continuously. The Colonoscope was introduced through the anus and advanced to the cecum, identified by the appendiceal orifice, ileocecal valve and palpation. The colonoscopy was performed without difficulty. The patient tolerated the procedure well. The quality of the bowel preparation was good. The ileocecal valve, appendiceal orifice, and rectum were photographed. Moderate Sedation: Moderate (conscious) sedation was administered by the nurse and supervised by the endoscopist. The following parameters were monitored: oxygen saturation, heart rate, blood pressure, and response to care. Total physician intraservice time was 21 minutes. The administration of moderate sedation was initiated at 11:22. Findings: The perianal and digital rectal examinations were normal. A 7 mm polyp was found in the hepatic flexure. The polyp was sessile. The polyp was removed with a piecemeal technique using a cold biopsy forceps. Resection and retrieval were complete. Small-mouthed diverticula were found in the entire colon. The exam was otherwise without abnormality on direct and retroflexion views. Impression: - One 7 mm polyp at the hepatic flexure, removed piecemeal using a cold biopsy forceps. Resected and retrieved. - Diverticulosis in the sigmoid colon. - The examination was otherwise normal on direct and retroflexion views. Recommendation: - Discharge patient to home. - Resume previous diet. - Continue present medications. - Await pathology results. - Repeat colonoscopy for surveillance based on pathology results. - Return to nurse practitioner in 1 week. - Patient has a contact number available for emergencies. The signs and symptoms of potential delayed complications were discussed with the patient. Return to normal activities tomorrow. Written discharge instructions were provided to the patient. Procedure Code(s): --- Professional --- 22720, Colonoscopy, flexible; with biopsy, single or multiple G0500, Moderate sedation services provided by the same physician or other qualified health primary care coordinator performing a gastrointestinal endoscopic service that sedation supports, requiring the presence of an independent trained observer to assist in the monitoring of the patient's level of consciousness and physiological status; initial 15 minutes of intra-service time; patient age 5 years or older (additional time may be reported with 49960, as appropriate) CPT copyright 2020 [employer]. All rights reserved. The codes documented in this report are preliminary and upon hims coder review may be revised to meet current compliance requirements. Attending Participation: I (more content not included)... Normal [facility] HISTORY PHYSICALon HISTORY PHYSICAL HNO ID: [id number] Author: CHRISTOPHE RAMOS MD Service: General Surgery Author Type: Physician Type: H&P Filed: 05/16/2024 11:04 Note Text: REVIEW OF SYSTEMS: General: The patient denies fatigue, denies weight loss, denies weight gain, denies feeling hot, and denies feelings of cold. Eyes: The patient denies glaucoma, denies eye injury/surgery, does not wear glasses or contacts. Ear/Nose/Throat: The patient NOTES allergies, denies hayfever, denies ear infections, and denies bloody noses. Cardiovascular: The patient denies chest pain, denies heart disease, NOTES high blood pressure,denies cardiac stent, denies prior heart attack, denies irregular heart beat, denies high cholesterol, denies poor circulation, denies heart failure, other cardiac issues, denies claudication, denies cold feet, denies peripheral arterial stent. Respiratory: The patient denies tuberculosis, NOTES pneumonia, denies frequent cough, denies pulmonary embolism, denies shortness of breath, and denies coughing up blood. Gastrointestinal: The patient denies difficulty swallowing, NOTES acid reflux, denies ulcers, denies vomiting, denies jaundice/hepatitis, denies gallbladder problems, denies black or tarry stools, denies hemorrhoids, denies bleeding from rectum, denies diverticulitis, denies constipation, denies diarrhea, denies loss of stool control, and denies hernias. Kidney/Bladder: The patient denies kidney stones, denies urine infections, and denies bloody urine. Skin: The patient denies a history of skin cancer, denies bleeding/changing moles, and denies a history of skin rash. Neurologic: The patient denies a history of epilepsy/convulsions, denies headaches, denies head/spinal injuries, and denies stroke/TIA. Psychiatric: The patient denies psychiatric medications, denies depression, and denies voices, denies substance abuse. Endocrine: The patient denies thyroid disorders, denies diabetes, and denies hormonal problems. Hematologic: The patient denies a history of bruising, denies bleeding, and denies anemia, denies blood clots. Infections: The patient NOTES a history of measles and mumps, NOTES rheumatic fever, and denies sexually transmitted diseases. Musculoskeletal: The patient denies back pain/injury, NOTES back problems, denies sciatica, denies knee/foot trouble, denies arthritis, or denies gout. When was patient's last Mammogram screening? 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 Cleve notes due for screening colonoscopy- hx of polyps (2018, 2013). [place] notes occasional abdominal cramping. -relieved with bentyl Cleve denies diarrhea. [place] notes occasional constipation. -will take milk of mag as needed with good relief Cleve denies a change in bowel habits. [place] denies melena. [place] denies bright red blood per rectum. [place] denies hemorrhoids. [place] notes occasional heartburn. -will use nexium PRN when eating a large meal [place] denies dysphagia. [place] denies a history of ulcers/ peptic ulcer disease. [place] notes family history of colon issues. Maternal grandmother with colon cancer. Cleve has undergone prior endoscopy. Last colonoscopy was 10/2018 at [facility] with Dr. Seymour. Sedation:Fentanyl 100 micrograms IV, Midazolam 8 mg IV Impression: - One 5 mm polyp in the rectum, removed with a cold biopsy forceps. Resected and retrieved. CONVERTED FINAL DIAGNOSIS 1. Duodenum, biopsy (A) - No significant pathologic change. 2. Gastric antrum, biopsy (B) - No significant pathologic change. 3. Rectal polyp, biopsy (C) - Hyperplastic polyp. TIFFANIE/baron/10/22/18 CURRENT MEDICATIONS Current Outpatient Medications Medication Sig lisinopril (ZESTRIL) 40 mg tablet Take 1 tablet by mouth once daily. albuterol HFA (VENTOLIN HFA) 90 mcg/actuation inhaler Inhale 2 Puffs as instructed every 4 hours as needed for wheezing/shortness of breath. zolpidem (AMBIEN) 10 mg Take 0.5-1 tablets by mouth at bedtime as needed (insomnia) for up to 180 days. dicyclomine (BENTYL) 20 mg tablet Take 1 tablet by mouth three times a day before meals. (Patient taking differently: Take 20 mg by mouth three times a day as needed.) amLODIPine (NORVASC) 2.5 mg tablet Take 1 tablet by mouth once daily. nystatin (MYCOSTATIN) 100,000 unit/mL suspension 5 mL four times daily. Swish/swallow or swish/expectorate. For 10 to 14 days as directed atorvastatin (LIPITOR) 10 mg tablet Take 1 tablet by mouth once daily. For cholesterol PARoxetine (PAXIL) 10 mg tablet Take 1 (more content not included)... Normal [facility] SURGICAL PATHOLOGYon 025 CASE REPORT Normal [facility] Comment on above: Order Comment: Speci men Type: TISSUE SPECIMENOrdering Facility: [facility] Address: [address] [place] [address] Result Comment: [facility] Pathology Report Case: [id number] Authorizing Provider: Christophe Ramos MD Collected: 05/16/2024 11:42 AM Ordering Location: Ambulatory Surgery Received: 05/16/2024 01:21 PM Pathologist: Dharmesh Reno MD Specimen: Colon, Hepatic Flexure, Polyp Performed By: #### S ####[facility]ORATORYCLIA [id number] [address] LABCLIA [id number] [address] FINAL DIAGNOSIS Normal [facility] Comment on above: Order Comment: Speci men Type: TISSUE SPECIMENOrdering Facility: [facility] Address: [address] [place] [address] Result Comment: Hepa tic flexure polyp, biopsy: - Sessile serrated polyp. JEL 05/19/2024 Performed By: #### S ####[facility] LABORATORYCLIA [id number] [address] LABCLIA [id number] [place] [address] [place] FINAL PERFORMING LAB Normal [facility] Comment on above: Order Comment: Speci men Type: TISSUE SPECIMENOrdering Facility: [facility] Address: [address] [place] [address] Result Comment: Diag nostic interpretation performed at: [facility], [address] [id number] CLIA# [id number] 7Th Grade Social Studies Teacher: Nate Mcclain MD Performed By: #### S ####[facility]ITAL[facility] [id number] [address] LABCLIA [id number] [address] [place] GROSS DESCRIPTION Normal [facility] Comment on above: Order Comment: Speci men Type: TISSUE SPECIMENOrdering Facility: [facility] Address: [address] [place] [address] Result Comment: A. C olon, Hepatic Flexure, Polyp Received in formalin are multiple pieces of rai, soft tissue aggregating to 0.6 x 0.4 x 0.2 cm. Totally submitted in one cassette. [facility] May 16, 2024 8:48 PM Gross examination performed at [facility], [address] [place] [address] Performed By: #### S ####[facility]ITAL[facility] [id number] [address] LABCLIA [id number] [place] [address] [place] Bacteria Ur Culton 4 Bacteria identified Cx Nom (U) ORGANISM ID: 1 10,000 -<50,000 CFU/ml Mixed microbiota No further workup. Mixed microbiota can be due to???urine???contaminat ion with skin bacteria at time of collection or presence of a long-term urinary catheter. If a new culture is needed, please consider re-education of the patient on proper midstream collection technique or straight catheterization for???urine???collectio n. Normal [facility] Comment on above: Performed By: #### 6 30-4 ####[facility] LABCLIA [id number] [id number] [id number] [place] CNOVon 04-14-2024 CNOV Office Visit (INTMWS ) CLEVE WAGGONER ([id number]) 1950 F Date Time Provider Department 04/14/24 3:40 PM STEFANY SHERIDAN INTMWS During your visit today, we recorded the following information about you: Temperature Pulse Respiration Blood pressure 96.1 degrees 91/minute 16/minute 118/68 Weight 52.2 kg Stefany Sheridan MD 04/14/2024 4:38 PM Signed This note was created using Freebeepay. Subjective Cleve Waggoner is a 73 year old female. Patient presents with: Same Day Appointment: X 2 weeks frequent urination, burning with urination SUBJECTIVE: Cleve Waggoner is a 73 year old year old lady here today for acute appointment for review of medical conditions: UTI. Cleve Waggoner is a 73-year-old female presenting with urinary symptoms and fatigue. Cleve reports a 2-3 week history of dysuria, urinary frequency, and urgency. She describes a burning sensation during micturition and a constant ache in the lower abdomen, initially thought to be intestinal cramping. She also experiences left-sided flank pain and groin pain. She denies hematuria, nausea, or emesis. She has increased her water intake but has not taken any medications for symptom relief. She also reports significant fatigue, noting that she often falls asleep shortly after breakfast. She denies fever or chills but mentions feeling hot and sweaty. Additionally, she experiences aching in her legs, similar to previous UTI symptoms. She has a history of UTIs and has previously been treated with doxycycline and Cipro, with doxycycline being better tolerated. She has multiple medication allergies, including Augmentin, cefdinir, cefdin, clarithromycin, clindamycin, and Macrobid, which cause gastrointestinal intolerance. She also mentions a need for a refill of her B12 injections, which she previously received from [facility]. PAST MEDICAL HISTORY Diagnosis Date Abdominal pain, unspecified site Allergic rhinitis, cause unspecified 12/06/2006 Anxiety 09/26/2011 Asthma Chronic airway obstruction, not elsewhere classified Esophageal reflux Goiter, unspecified mulitnodular goiter based on ultrasound Hypertension Mental disorder anxiety Obstructive chronic bronchitis without exacerbation (HCC) 12/06/2006 Other and unspecified hyperlipidemia Peptic ulcer, unspecified site, unspecified as acute or chronic, without mention of hemorrhage, perforation, or obstruction EGD about 15 years ago () Snoring Current Outpatient Medications Medication Sig lisinopril (ZESTRIL) 40 mg tablet Take 1 tablet by mouth once daily. albuterol HFA (VENTOLIN HFA) 90 mcg/actuation inhaler Inhale 2 Puffs as instructed every 4 hours as needed for wheezing/shortness of breath. zolpidem (AMBIEN) 10 mg Take 0.5-1 tablets by mouth at bedtime as needed (insomnia) for up to 180 days. dicyclomine (BENTYL) 20 mg tablet Take 1 tablet by mouth three times a day before meals. (Patient taking differently: Take 20 mg by mouth three times a day as needed.) amLODIPine (NORVASC) 2.5 mg tablet Take 1 tablet by mouth once daily. nystatin (MYCOSTATIN) 100,000 unit/mL suspension 5 mL four times daily. Swish/swallow or swish/expectorate. For 10 to 14 days as directed atorvastatin (LIPITOR) 10 mg tablet Take 1 tablet by mouth once daily. For cholesterol PARoxetine (PAXIL) 10 mg tablet Take 1 tablet by mouth once daily. conjugated estrogens (PREMARIN) vaginal cream use 0.5 grams twice weekly as directed cyanocobalamin 1,000 mcg/mL Inject 1 mL intramuscularly once every month. esomeprazole (NEXIUM) 20 mg capsule Take 1 capsule by mouth once daily as needed. Acidophilus-Bif Animalis 10 billion cell cap Take by mouth. FEXOFENADINE HCL (TOÑO ALLERGY ORAL) Take 30 mg by mouth. No current facility-administered medications for this visit. Review of Systems Constitutional: Positive for fatigue. Negative for chills and fever. Gastrointestinal: Negative for nausea and vomiting. Genitourinary: Positive for dysuria (also burning down the front lower abdomen), flank pain (left), frequency, pelvic pain and urgency. Negative for hematuria. Musculoskeletal: Positive for back pain (lower). Leg pain like with prior UTIs Objective BP 118/68 Pulse 91 Temp (!) 35.6 ?C (96.1 ?F) Resp 16 Wt 52.2 kg (115 lb) SpO2 96% BMI 24.04 kg/m? Physical Exam Constitutional: Appearance: Normal appearance. HENT: Head: Normocephalic. Eyes: Conjunctiva/sclera: Conjunctivae normal. Cardiovascular: Rate and Rhythm: Normal rate and regular rhythm. Heart sounds: Normal heart sounds. Pulmonary: Effort: Pulmonary effort is normal. Breath sounds: Normal breath sounds. Musculoskeletal: Right lower leg: No edema. Left lower leg: No edema. Skin: General: Skin is warm and dry. Neurological: General: No focal deficit present. Mental Status: She is a (more content not included)... Normal [facility] UA DIP, URINE (POC)on 2023 BILIRUBIN UA (POCT) Negative Negative [facility] CLARITY UA (POCT) Slightly Cloudy [facility] COLOR UA (POCT) Yellow [facility] GLUCOSE UA (POCT) Negative Negative mg/dL [facility] Hemoglobin Ql (U) Small Abnormal Negative [facility] Interpretation and review of laboratory results Abnormal [facility] KETONE UA (POCT) Negative Negative mg/dL [facility] LEUKOCYTES UA (POCT) Negative Negative [facility] NITRITE UA (POCT) Negative Negative [facility] PH UA (POCT) 5.5 4.5 - 8.0 [facility] Protein Ql (U) Negative Negative mg/dL [facility] SPECIFIC GRAVITY UA (POCT) >=1.030 1.005 - 1.030 [facility] UROBILINOGEN UA (POCT) 0.2 Annita l E.U./dL [facility] Location:[address], [place], [place], [id number] [place] [address] POINT OF CARE [facility] Urinalysis complete panel (U )on 04-14-2024 BACTERIA UL 4336.7 uL High Negative [facility] Comment on above: Order Comment: Speci men Type: URINE SPECIMENOrdering Facility: [facility] Address: [address] [place] [address] Performed By: #### 2 4356-8 ####[facility] LABCLIA [id number] [place] [address] [place] Bilirubin Ql (U) Negative Normal Negative [facility] Comment on above: Order Comment: Speci men Type: URINE SPECIMENOrdering Facility: [facility] Address: [address] [place] [address] Performed By: #### 2 4356-8 ####[facility] LABCLIA [id number] [place] [address] [place] Clarity (Unsp spec) Clear Normal Clear [facility] Comment on above: Order Comment: Speci men Type: URINE SPECIMENOrdering Facility: [facility] Address: [address] [place] [address] Performed By: #### 2 4356-8 ####[facility] LABCLIA [id number] [place] [address] [place] Color (U) Yellow Normal Yellow [facility] Comment on above: Order Comment: Speci men Type: URINE SPECIMENOrdering Facility: [facility] Address: [address] [place] [address] Performed By: #### 2 4356-8 ####[facility] LABCLIA [id number] [place] [address] [place] Epithelial cells LM.HPF (Urine sed) [#/Area] Few Normal [facility] Comment on above: Order Comment: Speci men Type: URINE SPECIMENOrdering Facility: [facility] Address: [address] [place] [address] Performed By: #### 2 4356-8 ####[facility] LABCLIA [id number] [place] [address] [place] Glucose Test strip (U) [Mass/Vol] Negative Normal Negative [facility] Comment on above: Order Comment: Speci men Type: URINE SPECIMENOrdering Facility: [facility] Address: [address] [place] [address] Performed By: #### 2 4356-8 ####[facility] LABCLIA [id number] [place] [address] [place] Hemoglobin Ql (U) Trace Abnormal Negative [facility] Comment on above: Order Comment: Speci men Type: URINE SPECIMENOrdering Facility: [facility] Address: [address] [place] [address] Performed By: #### 2 4356-8 ####[facility] LABCLIA [id number] [place] [address] [place] Hyaline casts (Urine sed) [#/Area] 1-3 /LPF Abnormal 0 /LPF [facility] Comment on above: Order Comment: Speci men Type: URINE SPECIMENOrdering Facility: [facility] Address: [address] [place] [address] Performed By: #### 2 4356-8 ####[facility] LABCLIA [id number] [place] [address] [place] Ketones Ql (U) Negative Normal Negative [facility] [facility] [place] Comment on above: Order Comment: Speci men Type: URINE SPECIMENOrdering Facility: [facility] Address: [address] [place] [address] Performed By: #### 2 4356-8 ####[facility] LABCLIA [id number] [place] [address] [place] Leukocyte esterase Test strip Ql (U) Negative Normal Negative [facility] [place] Comment on above: Order Comment: Speci men Type: URINE SPECIMENOrdering Facility: [facility] Address: [address] [place] [address] Performed By: #### 2 4356-8 ####[facility] LABCLIA [id number] [place] [address] [place] Nitrite Ql (U) Negative Normal Negative [facility] [place] Comment on above: Order Comment: Speci men Type: URINE SPECIMENOrdering Facility: [facility] Address: [address] [place] [address] Performed By: #### 2 4356-8 ####[facility] LABIA [id number] [place] [address] [place] pH (U) 5.5 [pH] Normal <8.5 [facility] [place] Comment on above: Order Comment: Speci men Type: URINE SPECIMENOrdering Facility: [facility] Address: [address] [place] [address] Performed By: #### 2 4356-8 ####[facility] LABCLIA [id number] [place] [address] [place] Protein (U) [Mass/Vol] Negative Normal Negative [facility] Comment on above: Order Comment: Speci men Type: URINE SPECIMENOrdering Facility: [facility] Address: [address] [place] [address] Performed By: #### 2 4356-8 ####[facility] LABIA [id number] [place] [address] [place] RBC LM.HPF (Urine sed) [#/Area] 3-5 /HPF Abnormal 0-2 /HPF [facility] [place] Comment on above: Order Comment: Speci men Type: URINE SPECIMENOrdering Facility: [facility] Address: [address] [place] [address] Performed By: #### 2 4356-8 ####[facility] LABIA [id number] [place] [address] [place] Specific gravity (U) [Rel density] 1.019 Normal 1.005-1.030 [facility] [place] Comment on above: Order Comment: Speci men Type: URINE SPECIMENOrdering Facility: [facility] Address: [address] [place] [address] Performed By: #### 2 4356-8 ####[facility] LABIA [id number] [place] [address] [place] Urobilinogen Ql (U) 0.2 EU/dL Normal 0.2-1.0 EU/dL [facility] [place] Comment on above: Order Comment: Speci men Type: URINE SPECIMENOrdering Facility: [facility] Address: [address] [place] [address] Performed By: #### 2 4356-8 ####[facility] LABIA [id number] [place] [address] [place] WBC LM.HPF (Urine sed) [#/Area] 0-5 /HPF Normal 0-5 /HPF [facility] [place] Comment on above: Order Comment: Speci men Type: URINE SPECIMENOrdering Facility: [facility] Address: [address] [place] [address] Performed By: #### 2 4356-8 ####[facility] LABIA [id number] [place] [address] [place] CNPNahed 04-07-2024 CNPN Telephone ([employer]) CLEVE WAGGONER ([id number]) 1950 F Date Time Provider Department 04/07/24 ARIANNA PEREZS During your visit today, we recorded the following information about you: Chaz Gentile 04/07/2024 3:24 PM Signed 05-16-2024 [facility] provider gave all prep information and patient has direct number to call with any questions Chaz Gentile Allergies As of Date: 04/07/2024 Noted Allergy Reaction AUGMENTIN (AMOXICILLIN-POT CLAVUL*01/28/2007 8 - GI Upset CEFDINIR 08/31/2020 16 - Unknown CEFTIN (CEFUROXIME) 09/02/2007 6 - Diarrhea CLARITHROMYCIN 06/08/2010 6 - Diarrhea CLINDAMYCIN 10/16/2017 14 - Other: See Comments Comments: oral thrush FLEXERIL (CYCLOBENZAPRINE HCL) 12/28/2009 5 - Intolerance Comments: Hangover effect even with half a pill FLONASE (FLUTICASONE PROPIONATE) 08/21/2007 Comments: Severe headaches MACROBID (NITROFURANTOIN MONOHYD/*09/19/2011 14 - Other: See Comments Comments: Constipation, gi upset, overall sense of feeling ill. PRILOSEC (OMEPRAZOLE) 08/21/2007 Comments: Gi bloating PSEUDOEPHEDRINE 10/22/2012 5 - Intolerance Comments: drives BP up and causes heart racing Date Reviewed: 04/04/2024 Reviewed by: Teresa Bosch MA - Fully Assessed Prescriptions as of 07/21/2024 - conjugated estrogens (PREMARIN) vaginal cream use 0.5 grams twice weekly as directed - zolpidem (AMBIEN) 10 mg Take 0.5-1 tablets by mouth at bedtime as needed (insomnia) for up to 180 days. - sertraline (ZOLOFT) 25 mg tablet Take 1 tablet by mouth once daily. - cyanocobalamin 1,000 mcg/mL Inject 1 mL intramuscularly once every month. - lisinopril (ZESTRIL) 40 mg tablet Take 1 tablet by mouth once daily. - albuterol HFA (VENTOLIN HFA) 90 mcg/actuation inhaler Inhale 2 Puffs as instructed every 4 hours as needed for wheezing/shortness of breath. - dicyclomine (BENTYL) 20 mg tablet Take 1 tablet by mouth three times a day before meals. - amLODIPine (NORVASC) 2.5 mg tablet Take 1 tablet by mouth once daily. - atorvastatin (LIPITOR) 10 mg tablet Take 1 tablet by mouth once daily. For cholesterol - esomeprazole (NEXIUM) 20 mg capsule Take 1 capsule by mouth once daily as needed. - Acidophilus-Bif Animalis 10 billion cell cap Take by mouth. - FEXOFENADINE HCL (TOÑO ALLERGY ORAL) Take 30 mg by mouth. Meds Comments as of 04/03/2016: Problem List As Of Date 04/07/2024 Noted Resolved ESOPHAGEAL REFLUX [K21.9] PEPTIC ULCER NOS [K27.9] OBST CHRON BRONCHITIS W/O EXAC [J44.89] 12/06/2006 Allergic rhinitis [J30.9] 12/06/2006 OTHER ACUTE SINUSITIS [J01.80] 12/06/2006 GOITER NOS [E04.9] TOBACCO USE DISORDER [F17.200] 12/06/2006 PURE HYPERCHOLESTEROLEM [E78.00] 12/06/2006 ACUTE GASTRITIS W/O HEMORRHAGE [K29.00] 10/01/2008 ABDOMINAL PAIN UNSPEC SITE [R10.9] 10/01/2008 PERS HX COLONIC POLYPS [Z86.0100] 10/01/2008 OBSERVATION-SUSPCT MAL NEOPLASM [Z03.89] 10/01/2008 INT HEMORRHOID W/O COMPL [K64.8] 10/01/2008 Cholelithiasis NOS [K80.20] 05/10/2010 Hematuria [R31.9] 09/26/2011 Anxiety [F41.9] 09/26/2011 08/03/2023 Urgency of urination [R39.15] 09/26/2011 Frequency of urination [R35.0] 09/26/2011 Dysuria [R30.0] 09/26/2011 Essential hypertension [I10] 10/01/2013 DAVID (generalized anxiety disorder) [F41.1] 11/26/2013 Sleep difficulties [G47.9] 12/11/2013 TMJ (dislocation of temporomandibular joint) [S*12/11/2013 Vitamin D deficiency [E55.9] 12/13/2013 Left flank pain [R10.9] 03/23/2016 Smoking history [Z87.891] 03/23/2016 AAA (abdominal aortic aneurysm) (HCC) [I71.40] 10/09/2017 History of Parkinson's disease [Z86.69] 04/28/2019 Torticollis [M43.6] 04/28/2019 B12 deficiency [E53.8] 06/09/2021 Fatigue [R53.83] 06/09/2021 Primary insomnia [F51.01] 06/09/2021 Balance problems [R26.89] 06/09/2021 Other irritable bowel syndrome [K58.8] 06/09/2021 Parkinson's disease, unspecified whether dyskin*08/03/2023 Encounter Status:Closed by CHAZ GENTILE on 07/21/24 [facility] CNOVon 04-04-2024 CNOV Office Visit (GENSWS ) CLEVE WAGGONER ([id number]) 1950 F Date Time Provider Department 04/04/24 1:30 PM ARIANNA PEREZ During your visit today, we recorded the following information about you: Pulse Blood pressure Weight 82/minute 155/75 52.2 kg Arianna Perez APRN.CNP 04/04/2024 2:22 PM Signed HISTORY AND PHYSICAL Cleve Waggoner : 1950 REFERRING PHYSICIAN: Stefany Sheridan [address] [facility] [address] CHIEF COMPLAINT: Patient presents with: Consult: colonoscopy HPI: Cleve is a 73 year old female referred for endoscopy. Cleve notes due for screening colonoscopy- hx of polyps (2018, 2013). Cleve notes occasional abdominal cramping. -relieved with bentyl Cleve denies diarrhea. Cleve notes occasional constipation. -will take milk of mag as needed with good relief Cleve denies a change in bowel habits. Cleve denies melena. Cleve denies bright red blood per rectum. Cleve denies hemorrhoids. Cleve notes occasional heartburn. -will use nexium PRN when eating a large meal Cleve denies dysphagia. Cleve denies a history of ulcers/ peptic ulcer disease. Cleve notes family history of colon issues. Maternal grandmother with colon cancer. Cleve has undergone prior endoscopy. Last colonoscopy was 10/2018 at [facility] with Dr. Seymour. Sedation:Fentanyl 100 micrograms IV, Midazolam 8 mg IV Impression: - One 5 mm polyp in the rectum, removed with a cold biopsy forceps. Resected and retrieved. CONVERTED FINAL DIAGNOSIS 1. Duodenum, biopsy (A) - No significant pathologic change. 2. Gastric antrum, biopsy (B) - No significant pathologic change. 3. Rectal polyp, biopsy (C) - Hyperplastic polyp. TIFFANIE/baron/10/22/18 Current Outpatient Medications Medication Sig lisinopril (ZESTRIL) 40 mg tablet Take 1 tablet by mouth once daily. albuterol HFA (VENTOLIN HFA) 90 mcg/actuation inhaler Inhale 2 Puffs as instructed every 4 hours as needed for wheezing/shortness of breath. zolpidem (AMBIEN) 10 mg Take 0.5-1 tablets by mouth at bedtime as needed (insomnia) for up to 180 days. dicyclomine (BENTYL) 20 mg tablet Take 1 tablet by mouth three times a day before meals. (Patient taking differently: Take 20 mg by mouth three times a day as needed.) amLODIPine (NORVASC) 2.5 mg tablet Take 1 tablet by mouth once daily. nystatin (MYCOSTATIN) 100,000 unit/mL suspension 5 mL four times daily. Swish/swallow or swish/expectorate. For 10 to 14 days as directed atorvastatin (LIPITOR) 10 mg tablet Take 1 tablet by mouth once daily. For cholesterol PARoxetine (PAXIL) 10 mg tablet Take 1 tablet by mouth once daily. conjugated estrogens (PREMARIN) vaginal cream use 0.5 grams twice weekly as directed cyanocobalamin 1,000 mcg/mL Inject 1 mL intramuscularly once every month. esomeprazole (NEXIUM) 20 mg capsule Take 1 capsule by mouth once daily as needed. Acidophilus-Bif Animalis 10 billion cell cap Take by mouth. FEXOFENADINE HCL (TOÑO ALLERGY ORAL) Take 30 mg by mouth. predniSONE (DELTASONE) 10 mg tablet Take 4 tabs daily for 3 days, then 2 tabs daily for 3 days, then 1 tab daily for 3 days with food. trihexyphenidyl (ARTANE) 2 mg tablet Take 1 mg by mouth two times a day. Dr. Bond, Neurology No current facility-administered medications for this visit. ALLERGIES: Augmentin [Amoxicillin-Pot Clavulanate], Cefdinir, Ceftin [Cefuroxime], Clarithromycin, Clindamycin, Flexeril [Cyclobenzaprine Hcl], Flonase [Fluticasone Propionate], Macrobid [Nitrofurantoin Monohyd/M-Cryst], Prilosec [Omeprazole], and Pseudoephedrine PAST MEDICAL HISTORY Diagnosis Date Abdominal pain, unspecified site Allergic rhinitis, cause unspecified 12/06/2006 Anxiety 09/26/2011 Asthma Chronic airway obstruction, not elsewhere classified Esophageal reflux Goiter, unspecified mulitnodular goiter based on ultrasound Hypertension Mental disorder anxiety Obstructive chronic bronchitis without exacerbation (HCC) 12/06/2006 Other and unspecified hyperlipidemia Peptic ulcer, unspecified site, unspecified as acute or chronic, without mention of hemorrhage, perforation, or obstruction EGD about 15 years ago () Snoring PAST SURGICAL HISTORY Procedure Laterality Date APPENDECTOMY 1985 COLONOSCOPY FLX DX W/COLLJ SPEC WHEN PFRMD 2003 Colonoscopy COLONOSCOPY FLX DX W/COLLJ SPEC WHEN PFRMD 10/01/08 COLONOSCOPY FLX DX W/COLLJ SPEC WHEN PFRMD 10/30/13 Colonoscopy COLONOSCOPY FLX DX W/COLLJ SPEC WHEN PFRMD 10/21/2018 Colonoscopy EGD TRANSORAL BIOPSY SINGLE/MULTIPLE 10/01/08 ESOPHAGOGASTRODUODENOSC OPY TRANSORAL DIAGNOSTIC 08/05/2015 EGD ESOPHAGOGASTRODUODENOSC OPY TRANSORAL DIAGNOSTIC 10/21/2018 EGD LAPS SURG CHOLECYSTECTOMY W/CHOLANGIOGRAPHY 05/19/10 Normal IOC TONSILLECTOMY AND ADENOIDECTOMY T/A (under age 12 years) TOTAL ABDOMIN (more content not included)... Normal [facility] [place] CNOVon 02-04-2024 CNOV Office Visit (INTMWS ) CLEVE WAGGONER ([id number]) 1950 F Date Time Provider Department 02/04/24 3:40 PM STEFANY SHERIDAN INTMWS During your visit today, we recorded the following information about you: Temperature Pulse Respiration Blood pressure 96.9 degrees 90/minute 16/minute 142/78 Weight 53.1 kg Stefany Sheridan MD 02/04/2024 4:46 PM Signed Cleve Waggoner is a 73 year old female here for a Medicare wellness visit. Medicare Health Risk Assessment General Health Exercise: Minutes/Day 10 min Exercise: Days/Week 1 day Alcohol: Daily Use Never Alcohol: Drinks/Day Patient does not drink Alcohol: 6 or more drinks Never Feel off balance Yes (Working with neurology) Concerns: Teeth/Dentures No Concerns: Sexual function No Troubled by feelings None of the above Frequency: Eating healthy diet Several days ADLs requiring help None of the above Safety precautions in home/vehicle Yes Smoke, vape, chews tobacco Yes, but I'm not ready to quit Difficulty hearing No Difficulty seeing No Current Providers Specialists: I have reviewed specialist-related care of the patient in the medical record. Outside specialists seen: Neurology--Willy (?sp); Dr. Malloy (pain management in [place]),Dr. Hernandez--ENT. Dr. Lele Pulliam (date night sitter) Medical/Family history review Reviewed and updated problem list, medical/surgical/family /social history, medications, and allergies. PAST MEDICAL HISTORY Diagnosis Date Abdominal pain, unspecified site Allergic rhinitis, cause unspecified 12/06/2006 Anxiety 09/26/2011 Asthma Chronic airway obstruction, not elsewhere classified Esophageal reflux Goiter, unspecified mulitnodular goiter based on ultrasound Hypertension Mental disorder anxiety Obstructive chronic bronchitis without exacerbation (HCC) 12/06/2006 Other and unspecified hyperlipidemia Peptic ulcer, unspecified site, unspecified as acute or chronic, without mention of hemorrhage, perforation, or obstruction EGD about 15 years ago () Snoring Current Outpatient Medications Medication Sig zolpidem (AMBIEN) 10 mg Take 0.5-1 tablets by mouth at bedtime as needed (insomnia) for up to 180 days. dicyclomine (BENTYL) 20 mg tablet Take 1 tablet by mouth three times a day before meals. (Patient taking differently: Take 20 mg by mouth three times a day as needed.) amLODIPine (NORVASC) 2.5 mg tablet Take 1 tablet by mouth once daily. nystatin (MYCOSTATIN) 100,000 unit/mL suspension 5 mL four times daily. Swish/swallow or swish/expectorate. For 10 to 14 days as directed atorvastatin (LIPITOR) 10 mg tablet Take 1 tablet by mouth once daily. For cholesterol PARoxetine (PAXIL) 10 mg tablet Take 1 tablet by mouth once daily. lisinopril (ZESTRIL) 40 mg tablet Take 1 tablet by mouth once daily. conjugated estrogens (PREMARIN) vaginal cream use 0.5 grams twice weekly as directed cyanocobalamin 1,000 mcg/mL Inject 1 mL intramuscularly once every month. esomeprazole (NEXIUM) 20 mg capsule Take 1 capsule by mouth once daily as needed. Acidophilus-Bif Animalis 10 billion cell cap Take by mouth. FEXOFENADINE HCL (TOÑO ALLERGY ORAL) Take 30 mg by mouth. albuterol HFA (VENTOLIN HFA) 90 mcg/actuation inhaler Inhale 2 Puffs as instructed every 4 hours as needed for wheezing/shortness of breath. fluconazole (DIFLUCAN) 150 mg tablet Take 1 tablet by mouth one time only for 1 dose. Repeat in 3 to 5 days as needed. Treat for recurrent yeast infection as directed predniSONE (DELTASONE) 10 mg tablet Take 4 tabs daily for 3 days, then 2 tabs daily for 3 days, then 1 tab daily for 3 days with food. (Patient not taking: Reported on 11/29/2023) trihexyphenidyl (ARTANE) 2 mg tablet Take 1 mg by mouth twice daily. Dr. Bond, Neurology (Patient not taking: Reported on 01/01/2024) No current facility-administered medications for this visit. Opioid use review Opioid Medications (last 90 days) No data to display Anxiety/Depression screening PHQ-9 Score: 2 (Minimal Depression) Recommendation: continuing current treatment plan Cognitive screening Mini Cog Score: 3 Cognitive screening reviewed and No further action needed (score 3-5). Functional Observation Was the patient's Timed Up AND Go test unsteady or >= 12 seconds? No Advance Care Planning Surrogate decision maker and/or advance care plan documented Has HCDPOA and is surrogate decision maker Measurements BP 142/78 Pulse 90 Temp 36.1 ?C (96.9 ?F) Resp 16 Wt 53.1 kg (117 lb 1 oz) SpO2 98% BMI 24.47 kg/m? Vision Screening: Follows with optometry/ophthalmology Assessment/Plan Medicare annual wellness visit, subsequent (Z00.00) - Counseled on healthy diet and regular exercise - Fall avoidance information provided - Personalized prevention plan provided Additional Concerns The following concerns w (more content not included)... Normal [facility] [place] 25(OH)D3 SerPl-mCncon 2023 25-hydroxyvitamin D3 [Mass/Vol] 31.5 ng/mL Normal 31.0-80.0 [facility] [place] Comment on above: Order Comment: Speci men Type: BLOOD SPECIMENOrdering Facility: [facility] Address: [address] [place] [address] Result Comment: Clas sification of 25 [place] Vitamin D status: Deficiency/Insufficiency: < or = 30 ng/ml. Sufficiency/Optimal Levels: 31-80 ng/mL Toxicity: > 100 ng/mL. Test performed by chemiluminescent immunoassay. Performed By: #### 1 989-3 ####[facility] LABCLIA [id number] [place] [address] [place] CBC W Auto Differential pane l (Bld)on 01-01-2024 Basophils (Bld) [#/Vol] 0.06 10*3/uL Normal <0.11 [facility] [place] Comment on above: Order Comment: Speci men Type: BLOOD SPECIMENOrdering Facility: [facility] Address: [address] [place] [address] Performed By: #### 5 7021-8 ####[facility] LABCLIA [id number] [place] [address] [place] Basophils/100 WBC (Bld) 0.8 % Normal [facility] [place] Comment on above: Order Comment: Speci men Type: BLOOD SPECIMENOrdering Facility: [facility] Address: [address] [place] [address] Performed By: #### 5 7021-8 ####[facility] LABCLIA [id number] [place] [address] [place] Differential cell count method Nom (Bld) Auto Normal [facility] [place] Comment on above: Order Comment: Speci men Type: BLOOD SPECIMENOrdering Facility: [facility] Address: [address] [place] [address] Performed By: #### 5 7021-8 ####[facility] LABCLIA [id number] [place] [address] [place] Eosinophils (Bld) [#/Vol] 0.13 10*3/uL Normal <0.46 [facility] [place] Comment on above: Order Comment: Speci men Type: BLOOD SPECIMENOrdering Facility: [facility] Address: [address] [place] [address] Performed By: #### 5 7021-8 ####[facility] LABIA [id number] [place] [address] [place] Eosinophils/100 WBC (Bld) 1.7 % Normal [facility] [place] Comment on above: Order Comment: Speci men Type: BLOOD SPECIMENOrdering Facility: [facility] Address: [address] [place] [address] Performed By: #### 5 7021-8 ####[facility] LABIA [id number] [place] [address] [place] Erythrocyte distribution width (RBC) [Ratio] 12.7 % Normal 11.5-15.0 [facility] [place] Comment on above: Order Comment: Speci men Type: BLOOD SPECIMENOrdering Facility: [facility] Address: [address] [place] [address] Performed By: #### 5 7021-8 ####[facility] LABIA [id number] [place] [address] [place] Hematocrit (Bld) [Volume fraction] 45.1 % Normal 36.0-46.0 [facility] [place] Comment on above: Order Comment: Speci men Type: BLOOD SPECIMENOrdering Facility: [facility] Address: [address] [place] [address] Performed By: #### 5 7021-8 ####[facility] LABCLIA [id number] [place] [address] [place] Hemoglobin (Bld) [Mass/Vol] 14.7 g/dL Normal 11.5-15.5 [facility] [place] Comment on above: Order Comment: Speci men Type: BLOOD SPECIMENOrdering Facility: [facility] Address: [address] [place] [address] Performed By: #### 5 7021-8 ####[facility] LABCLIA [id number] [place] [address] [place] Immature granulocytes (Bld) [#/Vol] 10*3/uL Normal <0.10 [facility] [place] Comment on above: Order Comment: Speci men Type: BLOOD SPECIMENOrdering Facility: [facility] Address: [address] [place] [address] Performed By: #### 5 7021-8 ####[facility] LABIA [id number] [place] [address] [place] Immature granulocytes/100 WBC (Bld) 0.0 % Normal [facility] [place] Comment on above: Order Comment: Speci men Type: BLOOD SPECIMENOrdering Facility: [facility] Address: [address] [place] [address] Performed By: #### 5 7021-8 ####[facility] LABIA [id number] [place] [address] [place] Lymphocytes (Bld) [#/Vol] 2.08 10*3/uL Normal 1.00-4.00 [facility] [place] Comment on above: Order Comment: Speci men Type: BLOOD SPECIMENOrdering Facility: [facility] Address: [address] [place] [address] Performed By: #### 5 7021-8 ####[facility] LABIA [id number] [place] [address] [place] Lymphocytes/100 WBC (Bld) 28.0 % Normal [facility] [place] Comment on above: Order Comment: Speci men Type: BLOOD SPECIMENOrdering Facility: [facility] Address: [address] [place] [address] Performed By: #### 5 7021-8 ####[facility] LABIA [id number] [place] [address] [place] MCH (RBC) [Entitic mass] 29.9 pg Normal 26.0-34.0 [facility] [place] Comment on above: Order Comment: Speci men Type: BLOOD SPECIMENOrdering Facility: [facility] Address: [address] [place] [address] Performed By: #### 5 7021-8 ####[facility] LABIA [id number] [place] [address] [place] MCHC (RBC) [Mass/Vol] 32.6 g/dL Normal 30.5-36.0 [facility] Comment on above: Order Comment: Speci men Type: BLOOD SPECIMENOrdering Facility: [facility] Address: [address] [place] [address] Performed By: #### 5 7021-8 ####[facility] LABIA [id number] [place] [address] [place] [place] MCV (RBC) [Entitic vol] 91.9 fL Normal 80.0-100.0 [facility] [place] Comment on above: Order Comment: Speci men Type: BLOOD SPECIMENOrdering Facility: [facility] Address: [address] [place] [address] Performed By: #### 5 7021-8 ####[facility] LABIA [id number] [place] [address] [place] Monocytes (Bld) [#/Vol] 0.39 10*3/uL Normal <0.87 [facility] [place] Comment on above: Order Comment: Speci men Type: BLOOD SPECIMENOrdering Facility: [facility] Address: [address] [place] [address] Performed By: #### 5 7021-8 ####[facility] LABCLIA [id number] [place] [address] [place] Monocytes/100 WBC (Bld) 5.2 % Normal [facility] [place] Comment on above: Order Comment: Speci men Type: BLOOD SPECIMENOrdering Facility: [facility] Address: [address] [place] [address] Performed By: #### 5 7021-8 ####[facility] LABCLIA [id number] [place] [address] [place] Neutrophils (Bld) [#/Vol] 4.78 10*3/uL Normal 1.45-7.50 [facility] [place] Comment on above: Order Comment: Speci men Type: BLOOD SPECIMENOrdering Facility: [facility] Address: [address] [place] [address] Performed By: #### 5 7021-8 ####[facility] LABCLIA [id number] [place] [address] [place] Neutrophils/100 WBC (Bld) 64.3 % Normal [facility] [place] Comment on above: Order Comment: Speci men Type: BLOOD SPECIMENOrdering Facility: [facility] Address: [address] [place] [address] Performed By: #### 5 7021-8 ####[facility] LABCLIA [id number] [place] [address] [place] Nucleated RBC (Bld) [#/Vol] 10*3/uL Normal <0.01 [facility] [place] Comment on above: Order Comment: Speci men Type: BLOOD SPECIMENOrdering Facility: [facility] Address: [address] [place] [address] Performed By: #### 5 7021-8 ####[facility] LABCLIA [id number] [place] [address] [place] Nucleated RBC/100 WBC (Bld) [Ratio] 0.0 /100 WBC Normal [facility] [place] Comment on above: Order Comment: Speci men Type: BLOOD SPECIMENOrdering Facility: [facility] Address: [address] [place] [address] Performed By: #### 5 7021-8 ####[facility] LABCLIA [id number] [place] [address] [place] Platelet mean volume (Bld) [Entitic vol] 12.2 fL Normal 9.0-12.7 [facility] [place] Comment on above: Order Comment: Speci men Type: BLOOD SPECIMENOrdering Facility: [facility] Address: [address] [place] [address] Performed By: #### 5 7021-8 ####[facility] LABCLIA [id number] [place] [address] [place] Platelets (Bld) [#/Vol] 232 10*3/uL Normal 150-400 [facility] [place] Comment on above: Order Comment: Speci men Type: BLOOD SPECIMENOrdering Facility: [facility] Address: [address] [place] [address] Performed By: #### 5 7021-8 ####[facility] LABCLIA [id number] [place] [address] [place] RBC (Bld) [#/Vol] 4.91 10*6/uL Normal 3.90-5.20 [facility] Comment on above: Order Comment: Speci men Type: BLOOD SPECIMENOrdering Facility: [facility] Address: [address] [place] [address] Performed By: #### 5 7021-8 ####[facility] LABCLIA [id number] [place] [address] [place] WBC (Bld) [#/Vol] 7.44 10*3/uL Normal 3.70-11.00 [facility] Comment on above: Order Comment: Speci men Type: BLOOD SPECIMENOrdering Facility: [facility] Address: [address] [place] [address] Performed By: #### 5 7021-8 ####[facility] LABCLIA [id number] [id number] [id number] [place] CNOVon 01-01-2024 CNOV Office Visit (INTMWS ) CLEVE WAGGONER ([id number]) 1950 F Date Time Provider Department 01/01/24 1:20 PM STEFANY SHERIDAN INTMWS During your visit today, we recorded the following information about you: Temperature Pulse Respiration Blood pressure 96.6 degrees 95/minute 16/minute 112/72 Weight 52.2 kg Stefany Sheridan MD 01/01/2024 2:14 PM Signed This note was created using Freebeepay. Subjective Cleve Waggoner is a 73 year old female. Patient presents with: Same Day Appointment: X 1 week possible sinus infection SUBJECTIVE: Cleve Waggoner is a 73 year old year old lady here today for follow up appointment for review of medical conditions.: sinus congestion. Patient is a 73-year-old female with a history of sinusitis, presenting today with ongoing sinus congestion. She reports that her symptoms are really bad and have been persistent. She was last seen in November by José and in August by Elodia at Urgent [facility], where she was prescribed Cipro and doxycycline, respectively. Patient was unable to tolerate Cipro due to gastrointestinal upset, but reports that doxycycline is effective and does not cause any adverse effects. She notes that her sinus congestion is accompanied by post-nasal drip and chest congestion, which she describes as a throat sensation. She has been receiving allergy shots from Dr. Celis, but has not been able to schedule them recently due to her 's intermediate and desire to accompany her to appointments. Patient also requests a refill of Ambien, which she uses for insomnia. She reports that her current prescription is due for refill tomorrow, but she is out of medication. She also requests a refill of dicyclomine, which she uses for abdominal cramping associated with constipation. She denies diarrhea and manages constipation with Milk of Magnesia as needed. She also requests a refill of albuterol, which she uses for wheezing and bronchitis symptoms. She reports that her symptoms are currently well-controlled, but she likes to have the medication on hand. She also requests a refill of nystatin swish and swallow for thrush prevention, which she uses as needed. Patient has a history of bladder incontinence, which she attributes to a hysterectomy at age 36. She reports that her symptoms have worsened over the past year, and she manages them with topical estrogen applied to the urethral area twice a week. She denies any issues with sedation or anesthesia in the past. She is due for a colonoscopy, but has been putting it off due to the prep process. She has a family history of colon cancer in her maternal grandmother, who was diagnosed in her early 90s. Patient reports that her grandmother had a small portion of her colon removed and lived to be just shy of 100 years old. Patient has a history of tubular adenoma, which was found during her last colonoscopy in 2019. She is due for a repeat colonoscopy this year, but prefers to schedule it for next year. She has been receiving her COVID-19 vaccines and flu shots at [facility] and plans to continue doing so. PAST MEDICAL HISTORY No date: Abdominal pain, unspecified site 12/06/2006: Allergic rhinitis, cause unspecified 09/26/2011: Anxiety No date: Asthma No date: Chronic airway obstruction, not elsewhere classified No date: Esophageal reflux No date: Goiter, unspecified Comment: mulitnodular goiter based on ultrasound No date: Hypertension No date: Mental disorder Comment: anxiety 12/06/2006: Obstructive chronic bronchitis without exacerbation (HCC) No date: Other and unspecified hyperlipidemia No date: Peptic ulcer, unspecified site, unspecified as acute or chronic, without mention of hemorrhage, perforation, or obstruction Comment: EGD about 15 years ago () No date: Snoring Current Outpatient Medications Medication Sig atorvastatin (LIPITOR) 10 mg tablet Take 1 tablet by mouth once daily. For cholesterol predniSONE (DELTASONE) 10 mg tablet Take 4 tabs daily for 3 days, then 2 tabs daily for 3 days, then 1 tab daily for 3 days with food. (Patient not taking: Reported on 11/29/2023) zolpidem (AMBIEN) 10 mg Take 0.5-1 tablets by mouth at bedtime as needed (insomnia) for up to 180 days. PARoxetine (PAXIL) 10 mg tablet Take 1 tablet by mouth once daily. lisinopril (ZESTRIL) 40 mg tablet Take 1 tablet by mouth once daily. conjugated estrogens (PREMARIN) vaginal cream use 0.5 grams twice weekly as directed amLODIPine (NORVASC) 2.5 mg tablet Take 1 tablet by mouth once daily. cyanocobalamin 1,000 mcg/mL Inject 1 mL intramuscularly once every month. dicyclomine (BENTYL) 20 mg tablet Take 1 tablet by mouth three times daily before meals. albuterol HFA (VENTOLIN HFA) 90 mcg/actuation inhaler Inhale 2 Puffs as instructed every 4 hours as needed for wheezing/shortness of breath. esomeprazole (NEXIUM) 20 (more content not included)... Normal [facility] [place] Comprehensive metabolic 2000 panelon 01-01-2024 Albumin [Mass/Vol] 4.2 g/dL Normal 3.9-4.9 [facility] Comment on above: Order Comment: Speci men Type: BLOOD SPECIMENOrdering Facility: [facility] Address: [address] [place] [address] Performed By: #### 2 4323-8, 67943-8, 2131-12, 3015-3 ####[facility] LABCLIA [id number] [place] [address] [place] ALP [Catalytic activity/Vol] 106 U/L Normal 34-123 [facility] [place] Comment on above: Order Comment: Speci men Type: BLOOD SPECIMENOrdering Facility: [facility] Address: [address] [place] [address] Performed By: #### 2 4323-8, 37818-2, 2131-12, 6-3 ####[facility] LABCLIA [id number] [address] [address] [place] ALT [Catalytic activity/Vol] 10 U/L Normal 7-38 [facility] [place] Comment on above: Order Comment: Speci men Type: BLOOD SPECIMENOrdering Facility: [facility] Address: [address] [place] [address] Performed By: #### 2 4323-8, 70728-5, 2131-12, 3015-3 ####[facility] LABCLIA [id number] [place] [address] [place] Anion gap [Moles/Vol] 11 mmol/L Normal 8-15 [facility] Comment on above: Order Comment: Speci men Type: BLOOD SPECIMENOrdering Facility: [facility] Address: [address] [place] [address] Performed By: #### 2 4323-8, 01491-1, 2131-12, 3015-3 ####[facility] LABIA [id number] [place] [address] [place] AST [Catalytic activity/Vol] 21 U/L Normal 13-35 [facility] [place] Comment on above: Order Comment: Speci men Type: BLOOD SPECIMENOrdering Facility: [facility] Address: [address] [place] [address] Performed By: #### 2 4323-8, 68105-0, 2131-12, 3015-3 ####[facility] LABCLIA [id number] [place] [address] [place] Bilirubin [Mass/Vol] 0.2 mg/dL Normal 0.2-1.3 [facility] Comment on above: Order Comment: Speci men Type: BLOOD SPECIMENOrdering Facility: [facility] Address: [address] [place] [address] Performed By: #### 2 4323-8, 34395-4, 2131-12, 6-3 ####[facility] LABCLIA [id number] [address] [address] [place] Calcium [Mass/Vol] 9.4 mg/dL Normal 8.5-10.2 [facility] Comment on above: Order Comment: Speci men Type: BLOOD SPECIMENOrdering Facility: [facility] Address: [address] [place], [place] [address] Performed By: #### 2 4323-8, 53495-1, 2131-12, 3015-3 ####[facility] LABCLIA [id number] [address] [address] [place] Chloride [Moles/Vol] 101 mmol/L Normal 98-107 [facility] Comment on above: Order Comment: Speci men Type: BLOOD SPECIMENOrdering Facility: [facility] Address: [address] [place] [address] Performed By: #### 2 4323-8, 25884-3, 2131-12, 3015-3 ####[facility] LABCLIA [id number] [place] [address] [place] CO2 [Moles/Vol] 26 mmol/L Normal 22-30 [facility] [place] Comment on above: Order Comment: Speci men Type: BLOOD SPECIMENOrdering Facility: [facility] Address: [address] [place] [address] Performed By: #### 2 4323-8, 12201-5, 2131-12, 3015-3 ####[facility] LABCLIA [id number] [address] [address] [place] Creatinine [Mass/Vol] 0.89 mg/dL Normal 0.58-0.96 [facility] Comment on above: Order Comment: Speci men Type: BLOOD SPECIMENOrdering Facility: [facility] Address: [address] [place], [place] [address] Performed By: #### 2 4323-8, 30975-9, 2131-12, 6-3 ####[facility] LABCLIA [id number] [place] [address] [place] Creatinine and Glomerular filtration rate.predicted panel (S/P/Bld) 69 mL/min/1.73m??? Normal >=60 [facility] [place] Comment on above: Order Comment: Christy campbell Type: BLOOD SPECIMENOrdering Facility: [facility] Address: [address] [place] [address] Result Comment: Leny mated Glomerular Filtration Rate (eGFR) is calculated using the 2020 CKD-EPI creatinine equation. This equation utilizes serum creatinine, sex, and age as parameters. The creatinine assay has traceable calibration to isotope dilution-mass spectrometry. Refer to KDIGO guidelines for clinical interpretation. In patients with unstable renal function, e.g. those with acute kidney injury, the eGFR may not accurately reflect actual GFR. Performed By: #### 2 4323-8, 24282-4, 2131-12, 6-3 ####[facility] LABCLIA [id number] [place] [address] [place] Glucose [Mass/Vol] 87 mg/dL Normal 74-99 [facility] Comment on above: Order Comment: Christy campbell Type: BLOOD SPECIMENOrdering Facility: [facility] Address: [address] [place] [address] Result Comment: The [place] Diabetes Association (ADA) provides guidance for cutoff values for fasting glucose and random glucose. The ADA defines fasting as no caloric intake for at least 8 hours. Fasting plasma glucose results between 100 to 125 mg/dL indicate increased risk for diabetes (prediabetes). Fasting plasma glucose results greater than or equal to 126 mg/dL meet the criteria for diagnosis of diabetes. In the absence of unequivocal hyperglycemia, results should be confirmed by repeat testing. In a patient with classic symptoms of hyperglycemia or hyperglycemic crisis, random plasma glucose results greater than or equal to 200 mg/dL meet the criteria for diagnosis of diabetes. Reference: Standards of Medical Care in Diabetes 2016, [place] Diabetes Association. Diabetes Care. 2016.39(Suppl 1). Performed By: #### 2 4323-8, 11572-1, 9, 6-3 ####[facility] LABCLIA [id number] [address] [address] [place] Potassium [Moles/Vol] 4.8 mmol/L Normal 3.7-5.1 [facility] Comment on above: Order Comment: Speci men Type: BLOOD SPECIMENOrdering Facility: [facility] Address: [address] [place] [address] Performed By: #### 2 4323-8, 00821-6, 2131-12, 3015-3 ####[facility] LABCLIA [id number] [address] [address] [place] Protein [Mass/Vol] 6.7 g/dL Normal 6.3-8.0 [facility] Comment on above: Order Comment: Speci men Type: BLOOD SPECIMENOrdering Facility: [facility] Address: [address] [place] [address] Performed By: #### 2 4323-8, 42583-7, 2131-12, 3015-3 ####[facility] LABCLIA [id number] [place] [address] [place] Sodium [Moles/Vol] 138 mmol/L Normal 136-144 [facility] Comment on above: Order Comment: Speci men Type: BLOOD SPECIMENOrdering Facility: [facility] Address: [address] [place] [address] Performed By: #### 2 4323-8, 60747-2, 2131-12, 3015-3 ####[facility] LABCLIA [id number] [address] [address] [place] Urea nitrogen [Mass/Vol] 15 mg/dL Normal 7-21 [facility] [place] Comment on above: Order Comment: Speci men Type: BLOOD SPECIMENOrdering Facility: [facility] Address: [address] [place], [place] [address] Performed By: #### 2 4323-8, 59358-1, 2131-12, 3015-3 ####[facility] LABCLIA [id number] [address] [address] [place] Lipid 1996 panelon 4 Cholesterol [Mass/Vol] 176 mg/dL Normal <200 [facility] Comment on above: Order Comment: Speci men Type: BLOOD SPECIMENOrdering Facility: [facility] Address: [address] [place] [address] Result Comment: <200 mg/dL, Desirable 200-239 mg/dL, Borderline high >239 mg/dL, High Performed By: #### 2 4323-8, 32044-5, 2131-12, 3015-3 ####[facility] LABCLIA [id number] [place] [address] [place] Cholesterol in HDL [Mass/Vol] 56 mg/dL Normal >39 [facility] [place] Comment on above: Order Comment: Speci men Type: BLOOD SPECIMENOrdering Facility: [facility] Address: [address] [place] [address] Result Comment: 40-5 9 mg/dL, Acceptable >59 mg/dL, High: Negative risk factor for coronary heart disease <40 mg/dL, Low: Positive risk factor for coronary heart disease Performed By: #### 2 4323-8, 77869-1, 2131-12, 6-3 ####[facility] LABCLIA [id number] [place] [address] [place] Cholesterol in LDL [Mass/Vol] 94 mg/dL Normal <100 [facility] [place] Comment on above: Order Comment: Speci men Type: BLOOD SPECIMENOrdering Facility: [facility] Address: [address] [place] [address] Result Comment: <100 mg/dL, Optimal 100-129 mg/dL, Near optimal/above optimal 130-159 mg/dL, Borderline high 160-189 mg/dL, High >189 mg/dL, Very high Secondary prevention optimal LDL Cholesterol levels are recommended to be < 70 mg/dL Performed By: #### 2 4323-8, 09324-5, 2131-12, 3015-3 ####[facility] LABCLIA [id number] [place] [address] [place] Cholesterol in LDL/Cholesterol in HDL [Mass ratio] 1.68 {ratio} Normal <2.54 [facility] [place] Comment on above: Order Comment: Speci men Type: BLOOD SPECIMENOrdering Facility: [facility] Address: [address] [place] [address] Result Comment: Yazan keller: 1. National Cholesterol Education Program ATP III Guideline At-A-Glance Quick Desk Reference: National Heart, Lung, and Blood Forrest. National Institutes of Health. 2001: NIH Publication No. 01-3305. 2. An International Atherosclerosis Society position paper: global recommendations for the management of dyslipidemia: executive summary, Atherosclerosis. 2014: 232(2):410-413. Performed By: #### 2 4323-8, 08385-3, 2131-9, 3016-3 ####[facility] LABCLIA [id number] [place] [address] [place] Cholesterol in VLDL [Mass/Vol] 26 mg/dL Normal <30 [facility] [place] Comment on above: Order Comment: Speci men Type: BLOOD SPECIMENOrdering Facility: [facility] Address: [address] [place] [address] Performed By: #### 2 4323-8, 99425-6, 2131-9, 3016-3 ####[facility] LABCLIA [id number] [place] [address] [place] Cholesterol non HDL [Mass/Vol] 120 mg/dL Normal <130 [facility] Comment on above: Order Comment: Speci men Type: BLOOD SPECIMENOrdering Facility: [facility] Address: [address] [place] [address] Result Comment: <130 mg/dL, Optimal 130-159 mg/dL, Near optimal/above optimal 160-189 mg/dL, Borderline high 190-219 mg/dL, High >219 mg/dL, Very high Secondary prevention optimal non HDL Cholesterol levels are recommended to be <100 mg/dL Performed By: #### 2 4323-8, 63927-6, 2131-12, 3 ####[facility] LABCLIA [id number] [place] [address] [place] Cholesterol.total/Chol esterol in HDL [Mass ratio] 3.14 {ratio} Normal <5.10 [facility] Comment on above: Order Comment: Speci men Type: BLOOD SPECIMENOrdering Facility: [facility] Address: [address] [place] [address] Performed By: #### 2 4323-8, 07287-9, 2131-12, 3 ####[facility] LABIA [id number] [place] [address] [place] FASTING TIME 7 hrs Normal [facility] Comment on above: Order Comment: Speci men Type: BLOOD SPECIMENOrdering Facility: [facility] Address: [address] [place] [address] Result Comment: Per patient Dr. Sheridan said to do it even thoe she had something to eat. Performed By: #### 2 4323-8, 29666-0, 2131-12, 3 ####[facility] LABIA [id number] [place] [address] [place] Triglyceride [Mass/Vol] 129 mg/dL Normal <150 [facility] Comment on above: Order Comment: Speci men Type: BLOOD SPECIMENOrdering Facility: [facility] Address: [address] [place] [address] Result Comment: <150 mg/dL, Normal 150-199 mg/dL, Borderline high 200-499 mg/dL, High >499 mg/dL, Very high Performed By: #### 2 4323-8, 59152-2, 2131-12, 3 ####[facility] LABCLIA [id number] [place] [id number] [place] TSH SerPl-aCncon 01-01-2024 TSH Qn 1.390 m[IU]/L Normal 0.270-4.200 [facility] Comment on above: Order Comment: Specmark campbell Type: BLOOD SPECIMENOrdering Facility: [facility] Address: [address] [place] [address] Performed By: #### 2 4323-8, 14654-0, 2131-9, 6-3 ####[facility] LABCLIA [id number] [address] [place] Vit B12 [facility]Pl[facility] [place] 024 Cobalamin (Vitamin B12) [Mass/Vol] 943 pg/mL Normal [id number] [facility] [place] Comment on above: Order Comment: Christy shannan Type: BLOOD SPECIMENOrdering Facility: [facility] Address: [address] [place], [place] [address] [address] Performed By: #### 2 4323-8, 23635-7, 9, 6-3 ####[facility] LABCLIA [id number] [address] [place] CNPNon 11-30-2023 CNPN Telephone (INTMWS) CLEVE WAGGONER ([id number]) 1950 F Date Time Provider Department 11/30/23 STEFANY SHERIDAN INTMWS During your visit today, we recorded the following information about you: Kaylee Conrad LPN 11/30/2023 2:13 PM Signed Patient calling, states that lab work was to be placed at her OV on 11/28. Asking for these to be placed. Aware that provider is not in until Sunday. Vicky Almendarez APRN.BASE FILLER 12/03/2023 7:46 AM Signed She had labs July 2023. I placed orders for her January appt. Allergies As of Date: 11/30/2023 Noted Allergy Reaction AUGMENTIN (AMOXICILLIN-POT CLAVUL*01/28/2007 8 - GI Upset CEFDINIR 08/31/2020 16 - Unknown CEFTIN (CEFUROXIME) 09/02/2007 6 - Diarrhea CLARITHROMYCIN 06/08/2010 6 - Diarrhea CLINDAMYCIN 10/16/2017 14 - Other: See Comments Comments: oral thrush FLEXERIL (CYCLOBENZAPRINE HCL) 12/28/2009 5 - Intolerance Comments: Hangover effect even with half a pill FLONASE (FLUTICASONE PROPIONATE) 08/21/2007 Comments: Severe headaches MACROBID (NITROFURANTOIN MONOHYD/*09/19/2011 14 - Other: See Comments Comments: Constipation, gi upset, overall sense of feeling ill. PRILOSEC (OMEPRAZOLE) 08/21/2007 Comments: Gi bloating PSEUDOEPHEDRINE 10/22/2012 5 - Intolerance Comments: drives BP up and causes heart racing Date Reviewed: 11/29/2023 Reviewed by: Amparo Toney LPN - Fully Assessed Primary Visit Diagnosis:Gastroesophag eal reflux disease, unspecified whether esophagitis present [K21.9] Other Visit Diagnoses:Pure hypercholesterolemia [E78.00] Vitamin D deficiency [E55.9] Essential hypertension [I10] B12 deficiency [E53.8] Fatigue, unspecified type [R53.83] Order(s):COMPREHENSIVE METABOLIC PANEL [SQCMP] Order #: [id number] FUTURE COMPLETE BLOOD COUNT AND DIFFERENTIAL [SQCBCDIF] Order #: [id number] FUTURE THYROID STIMULATING HORMONE [SQTSH] Order #: [id number] FUTURE LIPID PANEL BASIC [SQLIPB] Order #: [id number] FUTURE VITAMIN D 25 HYDROXY [SQVITD] Order #: [id number] FUTURE VITAMIN B12 [SQB12] Order #: [id number] FUTURE Prescriptions as of 12/03/2023 - ciprofloxacin HCl (CIPRO) 500 mg tablet Take 1 tablet by mouth two times a day for 5 days. - atorvastatin (LIPITOR) 10 mg tablet Take 1 tablet by mouth once daily. For cholesterol - predniSONE (DELTASONE) 10 mg tablet Take 4 tabs daily for 3 days, then 2 tabs daily for 3 days, then 1 tab daily for 3 days with food. - zolpidem (AMBIEN) 10 mg Take 0.5-1 tablets by mouth at bedtime as needed (insomnia) for up to 180 days. - PARoxetine (PAXIL) 10 mg tablet Take 1 tablet by mouth once daily. - lisinopril (ZESTRIL) 40 mg tablet Take 1 tablet by mouth once daily. - conjugated estrogens (PREMARIN) vaginal cream use 0.5 grams twice weekly as directed - amLODIPine (NORVASC) 2.5 mg tablet Take 1 tablet by mouth once daily. - cyanocobalamin 1,000 mcg/mL Inject 1 mL intramuscularly once every month. - dicyclomine (BENTYL) 20 mg tablet Take 1 tablet by mouth three times daily before meals. - albuterol HFA (VENTOLIN HFA) 90 mcg/actuation inhaler Inhale 2 Puffs as instructed every 4 hours as needed for wheezing/shortness of breath. - esomeprazole (NEXIUM) 20 mg capsule Take 1 capsule by mouth once daily as needed. - trihexyphenidyl (ARTANE) 2 mg tablet Take 1 mg by mouth twice daily. Dr. Bond, Neurology - Acidophilus-Bif Animalis 10 billion cell cap Take by mouth. - FEXOFENADINE HCL (TOÑO ALLERGY ORAL) Take 30 mg by mouth. Meds Comments as of 04/03/2016: Problem List As Of Date 11/30/2023 Noted Resolved ESOPHAGEAL REFLUX [K21.9] PEPTIC ULCER NOS [K27.9] OBST CHRON BRONCHITIS W/O EXAC [J44.89] 12/06/2006 Allergic rhinitis [J30.9] 12/06/2006 OTHER ACUTE SINUSITIS [J01.80] 12/06/2006 GOITER NOS [E04.9] TOBACCO USE DISORDER [F17.200] 12/06/2006 PURE HYPERCHOLESTEROLEM [E78.00] 12/06/2006 ACUTE GASTRITIS W/O HEMORRHAGE [K29.00] 10/01/2008 ABDOMINAL PAIN UNSPEC SITE [R10.9] 10/01/2008 PERS HX COLONIC POLYPS [Z86.010] 10/01/2008 OBSERVATION-SUSPCT MAL NEOPLASM [Z03.89] 10/01/2008 INT HEMORRHOID W/O COMPL [K64.8] 10/01/2008 Cholelithiasis NOS [K80.20] 05/10/2010 Hematuria [R31.9] 09/26/2011 Anxiety [F41.9] 09/26/2011 08/03/2023 Urgency of urination [R39.15] 09/26/2011 Frequency of urination [R35.0] 09/26/2011 Dysuria [R30.0] 09/26/2011 Essential hypertension [I10] 10/01/2013 DAVID (generalized anxiety disorder) [F41.1] 11/26/2013 Sleep difficulties [G47.9] 12/11/2013 TMJ (dislocation of temporomandibular joint) [S*12/11/2013 Vitamin D deficiency [E55.9] 12/13/2013 Left flank pain [R10.9] 03/23/2016 Smoking history [Z87.891] 03/23/2016 AAA (abdominal aortic aneurysm) (HCC) [I71.40] 10/09/2017 History of Parkinson's disease [Z86.69] 04/28/2019 Torticollis [M43.6] 04/28/2019 B12 deficiency [E53.8] 06/09/2021 Fatigue [R53.83] 06/09/2021 Primary insomni (more content not included)... Normal [facility] [place] CNOVon 11-29-2023 CNOV Office Visit (INTMWS ) CLEVE WAGGONER ([id number]) 1950 F Date Time Provider Department 11/29/23 1:00 PM VICKY ALMENDAREZ INTMWS During your visit today, we recorded the following information about you: Temperature Pulse Respiration Blood pressure 96 degrees 78/minute 16/minute 152/66 Weight 53.8 kg Vicky Almendarez APRN.BASE FILLER 11/29/2023 1:52 PM Signed SUBJECTIVE: Lung Cancer Screening Never done RSV Vaccine(1 - 1-dose 60+ series) Never done Covid-19 Vaccine(7 ) due on 05/25/2023 Colorectal Cancer Screening due on 10/22/2023 HPI Cleve Waggoner is a 72 year old female. Her past medical history is significant for Parkinson's, hypertension, hypercholesterolemia, tobacco use disorder, GERD, anxiety, dysuria, vitamin D deficiency. Presents today regarding sinus infection. She notes that she has had sinus congestion, drainage, frontal headache for about one month. Not helped with OTC treatments. Bilateral ear pain. Afebrile. No report of cough, shortness of breath. She has had cervical spine ablation with Dr. Mccormick pain management that has helped with neck pain. Notes she has seen Dr. Bourne in the past for allergy shots, but not recently. HPI Review of Systems HENT: Positive for rhinorrhea and sinus pressure. Psychiatric/Behavioral: Negative for dysphoric mood. The patient is not nervous/anxious. Objective BP 152/66 Pulse 78 Temp (!) 35.6 ?C (96 ?F) Resp 16 Wt 53.8 kg (118 lb 9.7 oz) BMI 24.79 kg/m? Physical Exam Vitals and nursing note reviewed. Constitutional: General: She is not in acute distress. Appearance: She is not toxic-appearing or diaphoretic. HENT: Head: Normocephalic and atraumatic. Right Ear: Tympanic membrane and ear canal normal. Left Ear: Tympanic membrane and ear canal normal. Nose: Mucosal edema and rhinorrhea present. Right Sinus: Frontal sinus tenderness present. Left Sinus: Frontal sinus tenderness present. Mouth/Throat: Lips: Martorell. Mouth: Mucous membranes are moist. Pharynx: Oropharynx is clear. Eyes: General: Right eye: No discharge. Left eye: No discharge. Conjunctiva/sclera: Conjunctivae normal. Cardiovascular: Rate and Rhythm: Normal rate and regular rhythm. Heart sounds: Normal heart sounds. Pulmonary: Effort: Pulmonary effort is normal. Breath sounds: Normal breath sounds. Abdominal: General: Abdomen is flat. Bowel sounds are normal. Palpations: Abdomen is soft. Musculoskeletal: General: Deformity (kyphosis) present. No swelling. Right lower leg: No edema. Left lower leg: No edema. Skin: General: Skin is warm and dry. Neurological: Mental Status: She is alert and oriented to person, place, and time. Gait: Gait abnormal (short, shuffling, slow to start). Psychiatric: Mood and Affect: Mood normal. Thought Content: Thought content normal. ALLERGIES Allergen Reactions Augmentin [Amoxicil* GI Upset Cefdinir Unknown Ceftin [Cefuroxime] Diarrhea Clarithromycin Diarrhea Clindamycin Other: See Comments oral thrush Flexeril [Cyclobenz* Intolerance Hangover effect even with half a pill Flonase [Fluticason* Severe headaches Macrobid [Nitrofura* Other: See Comments Constipation, gi upset, overall sense of feeling ill. Prilosec [Omeprazol* Gi bloating Pseudoephedrine Intolerance drives BP up and causes heart racing Medications atorvastatin (LIPITOR) 10 mg tablet Take 1 tablet by mouth once daily. For cholesterol zolpidem (AMBIEN) 10 mg Take 0.5-1 tablets by mouth at bedtime as needed (insomnia) for up to 180 days. PARoxetine (PAXIL) 10 mg tablet Take 1 tablet by mouth once daily. lisinopril (ZESTRIL) 40 mg tablet Take 1 tablet by mouth once daily. conjugated estrogens (PREMARIN) vaginal cream use 0.5 grams twice weekly as directed amLODIPine (NORVASC) 2.5 mg tablet Take 1 tablet by mouth once daily. cyanocobalamin 1,000 mcg/mL Inject 1 mL intramuscularly once every month. dicyclomine (BENTYL) 20 mg tablet Take 1 tablet by mouth three times daily before meals. albuterol HFA (VENTOLIN HFA) 90 mcg/actuation inhaler Inhale 2 Puffs as instructed every 4 hours as needed for wheezing/shortness of breath. esomeprazole (NEXIUM) 20 mg capsule Take 1 capsule by mouth once daily as needed. trihexyphenidyl (ARTANE) 2 mg tablet Take 1 mg by mouth twice daily. Dr. Bond, Neurology Acidophilus-Bif Animalis 10 billion cell cap Take by mouth. FEXOFENADINE HCL (TOÑO ALLERGY ORAL) Take 30 mg by mouth. ciprofloxacin HCl (CIPRO) 500 mg tablet Take 1 tablet by mouth two times a day for 5 days. predniSONE (DELTASONE) 10 mg tablet Take 4 tabs daily for 3 days, then 2 tabs daily for 3 days, then 1 tab daily for 3 days with food. (Patient not taking: Reported on 11/29/2023) PAST MEDICAL HISTORY No date: Abdominal pain, unspecified site 12/06/2006: Allergic rhinitis, cause unspe (more content not included)... Normal [facility] [place] Gram stain for investigation of transfusion reactionOrdered By: Ramos Hernandez on 04-18-2023 Microscopic observation Gram stain Nom (Unsp spec) [facility] No Panel InformationOrdered By: Ramos Hernandez on 04-18-2023 Nasopharyngeal Culture No growth in 48 hours. [facility] Culture, urineOrdered By: Yasmin Boggs on 11-28-2022 Bacteria identified Cx Nom (U) Culture exhibits no growth. [facility] UA DIP, URINE (POC)on 2022 BILIRUBIN UA (POCT) Negative Negative [facility] CLARITY UA (POCT) Clear [facility] COLOR UA (POCT) Yellow [facility] GLUCOSE UA (POCT) Negative Negative mg/dL [facility] HEMOGLOBIN/BLOOD UA (POCT) Small Abnormal Negative [facility] KETONE UA (POCT) Negative Negative mg/dL [facility] LEUKOCYTES UA (POCT) Negative Negative [facility] NITRITE UA (POCT) Negative Negative [facility] PH UA (POCT) 5.5 4.5 - 8.0 [facility] Protein Ql (U) Negative Negative mg/dL [facility] SPECIFIC GRAVITY UA (POCT) 1.015 1.005 - 1.030 [facility] UROBILINOGEN UA (POCT) 0.2 E.U./dL Annita l E.U./dL [facility] MRI BRAIN W/ + W/O CONTRASTo n 06-07-2018 MRI BRAIN W/ + W/O CONTRAST ORIGINAL MR of the brain, 06/07/2018 11:17 AM INDICATION: ACQUIRED TORSION DYSTONIA COMPARISON: No TECHNIQUE: 1. Axial and sagittal T1-weighted images. 2. Axial T2-weighted images. 3. Axial FLAIR images. 4. Axial diffusion-weighted images with ADC map. 5. Axial, coronal and sagittal T1-weighted images following uncomplicated administration of intravenous gadolinium contrast. FINDINGS: The study is mildly degraded by motion. The ventricles and sulci are normal in size and configuration. There are no abnormal intra or extra-axial fluid collections. There are mild scattered punctate T2 hyperintensities in the cerebral white matter; kauffman-white matter differentiation is maintained. There is no abnormal restriction of diffusion. There is no abnormal enhancement of the brain or its coverings. The orbital contents are normal in appearance. The paranasal sinuses are clear. IMPRESSION: Very mild small vessel ischemic changes, otherwise unremarkable. Interpreted By: Dharmesh Crowley MD Preliminary Report By: Dharmesh Crowley MD Electronically Signed By: Dharmesh Crowley MD Dictated Date: 06/07/2018 12:15:47 PM Prelim Date: 06/07/2018 12:15:47 PM Sign Date: 06/07/2018 12:44:09 PM Normal [facility] ([place] Vital Signs Date Time Vital Sign Value Performing Clinician [facility] 10-09-2024 13:50-0400 Diastolic blood pressure 72 mm[Hg] Vicky Almendarez SODA FOUNTAIN MANAGER.BASE FILLER Work Phone: [facility] 10-09-2024 13:50-0400 Heart rate 106 /min Vicky Almendarez SODA FOUNTAIN MANAGER.BASE FILLER Work Phone: [facility] 10-09-2024 13:50-0400 Systolic blood pressure 159 mm[Hg] Vicky Almendarez SODA FOUNTAIN MANAGER.BASE FILLER Work Phone: [facility] 10-09-2024 13:48-0400 Body mass index (BMI) [Ratio] 23.96 kg/m2 Vicky Almendarez SODA FOUNTAIN MANAGER.BASE FILLER Work Phone: [facility] 10-09-2024 13:48-0400 Body temperature 97.81 [degF] Vicky Almendarez SODA FOUNTAIN MANAGER.BASE FILLER Work Phone: [facility] 10-09-2024 13:48-0400 Body weight 52 kg Vicky Almendarez SODA FOUNTAIN MANAGER.BASE FILLER Work Phone: [facility] 10-09-2024 13:48-0400 Respiratory rate 16 /min Vicky Almendarez SODA FOUNTAIN MANAGER.BASE FILLER Work Phone: [facility] 06-09-2024 12:15-0500 Diastolic blood pressure 77 mm[Hg] Vicky Almendarez SODA FOUNTAIN MANAGER.BASE FILLER Work Phone: [facility] 06-09-2024 12:15-0500 Heart rate 79 /min Vicky Almendarez SODA FOUNTAIN MANAGER.BASE FILLER Work Phone: [facility] 06-09-2024 12:15-0500 Systolic blood pressure 155 mm[Hg] Vicky Almendarez SODA FOUNTAIN MANAGER.BASE FILLER Work Phone: [facility] 06-09-2024 12:14-0500 Body mass index (BMI) [Ratio] 24.42 kg/m2 Vicky Almendarez SODA FOUNTAIN MANAGER.BASE FILLER Work Phone: [facility] 06-09-2024 12:14-0500 Body weight 53 kg Vicky Almendarez SODA FOUNTAIN MANAGER.BASE FILLER Work Phone: [facility] 06-09-2024 12:14-0500 Respiratory rate 16 /min [facility] SODA FOUNTAIN MANAGER.BASE FILLER Work Phone: [facility] 04-14-2024 16:17-0500 Body mass index (BMI) [Ratio] 24.04 kg/m2 Stefany Sheridan MD Work Phone: [facility] 04-14-2024 16:17-0500 Body temperature 96.1 [degF] Stefany Sheridan MD Work Phone: [facility] 04-14-2024 16:17-0500 Body weight 52.16 kg Stefany Sheridan MD Work Phone: [facility] 04-14-2024 16:17-0500 Diastolic blood pressure 68 mm[Hg] Stefany Sheridna MD Work Phone: [facility] 04-14-2024 16:17-0500 Heart rate 91 /min Stefany Sheridan MD Work Phone: [facility] 04-14-2024 16:17-0500 Respiratory rate 16 /min Stefany Sheridan MD Work Phone: [facility] 04-14-2024 16:17-0500 SaO2% (BldA) [Mass fraction] 96 % Stefany Sheridan MD Work Phone: [facility] 04-14-2024 16:17-0500 Systolic blood pressure 118 mm[Hg] Stefany Sheridan MD Work Phone: [facility] 04-04-2024 13:22-0500 Body mass index (BMI) [Ratio] 24.04 kg/m2 Arianna Sukhdev SODA FOUNTAIN MANAGER.WOOD WEB WEAVING MACHINE OPERATOR Work Phone: [facility] 04-04-2024 13:22-0500 Body weight 52.16 kg Arianna Sukhdev SODA FOUNTAIN MANAGER.WOOD WE[employer] WEAVING MACHINE OPERATOR Work Phone: [facility] 04-04-2024 13:22-0500 Diastolic blood pressure 75 mm[Hg] Arianna Sukhdev SODA FOUNTAIN MANAGER.WOOD WEB WEAVING MACHINE OPERATOR Work Phone: [facility] 04-04-2024 13:22-0500 Heart rate 82 /min Arianna Sukhdev SODA FOUNTAIN MANAGER.WOOD WEB WEAVING MACHINE OPERATOR Work Phone: [facility] 04-04-2024 13:22-0500 SaO2% (BldA) [Mass fraction] 98 % Arianna Sukhdev SODA FOUNTAIN MANAGER.WOOD WEB WEAVING MACHINE OPERATOR Work Phone: [facility] 04-04-2024 13:22-0500 Systolic blood pressure 155 mm[Hg] Arianna Sukhdev SODA FOUNTAIN MANAGER.WOOD WEB WEAVING MACHINE OPERATOR Work Phone: [facility] 02-04-2024 16:00-0400 Body mass index (BMI) [Ratio] 24.47 kg/m2 Stefany Sheridan MD Work Phone: [facility] 02-04-2024 16:00-0400 Body temperature 96.91 [degF] Stefany Sheridan MD Work Phone: [facility] 02-04-2024 16:00-0400 Body weight 53.1 kg Stefany Sheridan MD Work Phone: [facility] 02-04-2024 16:00-0400 Diastolic blood pressure 78 mm[Hg] Stefany Sheridan MD Work Phone: [facility] 02-04-2024 16:00-0400 Heart rate 90 /min Stefany Sheridan MD Work Phone: [facility] 02-04-2024 16:00-0400 Respiratory rate 16 /min Stefany Sheridan MD Work Phone: [facility] 02-04-2024 16:00-0400 SaO2% (BldA) [Mass fraction] 98 % Stefany Sheridan MD Work Phone: [facility] 02-04-2024 16:00-0400 Systolic blood pressure 142 mm[Hg] Stefany Sheridan MD Work Phone: [facility] 01-01-2024 13:36-0400 Body mass index (BMI) [Ratio] 24.05 kg/m2 Stefany Sheridan MD Work Phone: [facility] 01-01-2024 13:36-0400 Body temperature 96.6 [degF] Stefany Sheridan MD Work Phone: [facility] 01-01-2024 13:36-0400 Body weight 52.2 kg Stefany Sheridan MD Work Phone: [facility] 01-01-2024 13:36-0400 Diastolic blood pressure 72 mm[Hg] Stefany Sheridan MD Work Phone: [facility] 01-01-2024 13:36-0400 Heart rate 95 /min Stefany Sheridan MD Work Phone: [facility] 01-01-2024 13:36-0400 Respiratory rate 16 /min Stefany Sheridan MD Work Phone: [facility] 01-01-2024 13:36-0400 SaO2% (BldA) [Mass fraction] 97 % Stefany Sheridan MD Work Phone: [facility] 01-01-2024 13:36-0400 Systolic blood pressure 112 mm[Hg] Stefany Sheridan MD Work Phone: [facility] 11-29-2023 13:08-0400 Body temperature 96.01 [degF] Vicky Almendarez APRN.BASE FILLER Work Phone: [facility] 11-29-2023 13:08-0400 Diastolic blood pressure 66 mm[Hg] Vicky Almendarez APRN.BASE FILLER Work Phone: [facility] 11-29-2023 13:08-0400 Systolic blood pressure 152 mm[Hg] Vicky Almendarez SODA FOUNTAIN MANAGER.BASE FILLER Work Phone: [facility] 11-29-2023 13:06-0400 Body mass index (BMI) [Ratio] 24.79 kg/m2 Vicky Almendarez SODA FOUNTAIN MANAGER.BASE FILLER Work Phone: [facility] 11-29-2023 13:06-0400 Body weight 53.8 kg Vicky Almendarez SODA FOUNTAIN MANAGER.BASE FILLER Work Phone: [facility] 11-29-2023 13:06-0400 Heart rate 78 /min Vicky Almendarez SODA FOUNTAIN MANAGER.BASE FILLER Work Phone: [facility] 11-29-2023 13:06-0400 Respiratory rate 16 /min Vicky Almendarez SODA FOUNTAIN MANAGER.BASE FILLER Work Phone: [facility] 09-08-2023 13:22-0400 Body mass index (BMI) [Ratio] 23.96 kg/m2 Elodia Schulz SODA FOUNTAIN MANAGER.WOOD WEB WEAVING MACHINE OPERATOR Work Phone: [facility] 09-08-2023 13:22-0400 Body temperature 97.39 [degF] Elodia Schulz SODA FOUNTAIN MANAGER.WOOD WEB WEAVING MACHINE OPERATOR Work Phone: [facility] 09-08-2023 13:22-0400 Body weight 52 kg Elodia Schulz SODA FOUNTAIN MANAGER.WOOD WE[employer] WEAVING MACHINE OPERATOR Work Phone: [facility] 09-08-2023 13:22-0400 Diastolic blood pressure 80 mm[Hg] Elodia Schulz SODA FOUNTAIN MANAGER.WOOD WEB WEAVING MACHINE OPERATOR Work Phone: [facility] 09-08-2023 13:22-0400 Heart rate 102 /min Elodia Schulz SODA FOUNTAIN MANAGER.WOOD WEB WEAVING MACHINE OPERATOR Work Phone: [facility] 09-08-2023 13:22-0400 Respiratory rate 18 /min Elodia Schulz SODA FOUNTAIN MANAGER.WOOD WEB WEAVING MACHINE OPERATOR Work Phone: [facility] 09-08-2023 13:22-0400 SaO2% (BldA) [Mass fraction] 98 % Elodia Schulz SODA FOUNTAIN MANAGER.WOOD WEB WEAVING MACHINE OPERATOR Work Phone: [facility] 09-08-2023 13:22-0400 Systolic blood pressure 128 mm[Hg] Elodia Schulz SODA FOUNTAIN MANAGER.WOOD WEB WEAVING MACHINE OPERATOR Work Phone: [facility] 08-03-2023 13:02-0400 Body weight 51.26 kg Vicky Almendarez SODA FOUNTAIN MANAGER.BASE FILLER Work Phone: [facility] 08-03-2023 13:02-0400 Diastolic blood pressure 67 mm[Hg] Vicky Almendarez SODA FOUNTAIN MANAGER.BASE FILLER Work Phone: [facility] 08-03-2023 13:02-0400 Heart rate 101 /min Vicky Almendarez SODA FOUNTAIN MANAGER.BASE FILLER Work Phone: [facility] 08-03-2023 13:02-0400 Respiratory rate 16 /min Vicky Almendarez SODA FOUNTAIN MANAGER.BASE FILLER Work Phone: [facility] 08-03-2023 13:02-0400 Systolic blood pressure 135 mm[Hg] Vicky Almendarez SODA FOUNTAIN MANAGER.BASE FILLER Work Phone: [facility] 07-16-2023 12:06-0400 Diastolic blood pressure 74 mm[Hg] Vicky Almendarez SODA FOUNTAIN MANAGER.BASE FILLER Work Phone: [facility] 07-16-2023 12:06-0400 Heart rate 89 /min Vicky Almendarez SODA FOUNTAIN MANAGER.BASE FILLER Work Phone: [facility] 07-16-2023 12:06-0400 Systolic blood pressure 161 mm[Hg] Vicky Almendarez SODA FOUNTAIN MANAGER.BASE FILLER Work Phone: [facility] 07-16-2023 11:57-0400 Body temperature 98.91 [degF] Vicky Almendarez SODA FOUNTAIN MANAGER.BASE FILLER Work Phone: [facility] 07-16-2023 11:57-0400 Body weight 52.16 kg Vicky Almendarez SODA FOUNTAIN MANAGER.BASE FILLER Work Phone: [facility] 07-16-2023 11:57-0400 Respiratory rate 16 /min Vicky Almendarez SODA FOUNTAIN MANAGER.BASE FILLER Work Phone: [facility] 07-16-2023 11:57-0400 SaO2% (BldA) [Mass fraction] 95 % Vicky Almendarez SODA FOUNTAIN MANAGER.BASE FILLER Work Phone: [facility] 02-02-2023 14:50-0400 Diastolic blood pressure 80 mm[Hg] Stefany Sheridan MD Work Phone: [facility] 02-02-2023 14:50-0400 Systolic blood pressure 156 mm[Hg] Stefany Sheridan MD Work Phone: [facility] 02-02-2023 13:45-0400 Body temperature 97 [degF] Stefany Sheridan MD Work Phone: [facility] 02-02-2023 13:45-0400 Body weight 52.16 kg Stefany Sheridan MD Work Phone: [facility] 02-02-2023 13:45-0400 Heart rate 80 /min Stefany Sheridan MD Work Phone: [facility] 02-02-2023 13:45-0400 Respiratory rate 20 /min Stefany Sheridan MD Work Phone: [facility] [facility] 08-01-2022 11:57-0400 Body weight 51.71 kg Vicky Almendarez SODA FOUNTAIN MANAGER.BASE FILLER Work Phone: [facility] 08-01-2022 11:57-0400 Diastolic blood pressure 72 mm[Hg] Vicky Almendarez SODA FOUNTAIN MANAGER.BASE FILLER Work Phone: [facility] 08-01-2022 11:57-0400 Heart rate 88 /min Vicky Almendarez SODA FOUNTAIN MANAGER.BASE FILLER Work Phone: [facility] 08-01-2022 11:57-0400 Respiratory rate 16 /min Vicky Almendarez SODA FOUNTAIN MANAGER.BASE FILLER Work Phone: [facility] 08-01-2022 11:57-0400 Systolic blood pressure 138 mm[Hg] Vicky Almendarez SODA FOUNTAIN MANAGER.BASE FILLER Work Phone: [facility] 05-11-2022 14:14-0500 Diastolic blood pressure 71 mm[Hg] Vicky Almendarez SODA FOUNTAIN MANAGER.BASE FILLER Work Phone: [facility] 05-11-2022 14:14-0500 Systolic blood pressure 132 mm[Hg] Vicky Almendarez SODA FOUNTAIN MANAGER.BASE FILLER Work Phone: [facility] 05-11-2022 14:09-0500 Body weight 51.71 kg Vicky Almendarez SODA FOUNTAIN MANAGER.BASE FILLER Work Phone: [facility] 05-11-2022 14:09-0500 Heart rate 91 /min Vicky Almendarez SODA FOUNTAIN MANAGER.BASE FILLER Work Phone: [facility] 05-11-2022 14:09-0500 Respiratory rate 16 /min Vicky Almendarez SODA FOUNTAIN MANAGER.BASE FILLER Work Phone: [facility] 05-11-2022 14:09-0500 SaO2% (BldA) [Mass fraction] 97 % Vicky Almendarez SODA FOUNTAIN MANAGER.BASE FILLER Work Phone: [facility] 01-31-2022 16:05-0400 Body weight 49.9 kg Stefany Sheridan MD Work Phone: [facility] 01-31-2022 16:05-0400 Diastolic blood pressure 82 mm[Hg] Stefany Sheridan MD Work Phone: [facility] 01-31-2022 16:05-0400 Heart rate 90 /min Stefany Sheridan MD Work Phone: [facility] 01-31-2022 16:05-0400 SaO2% (BldA) [Mass fraction] 96 % Stefany Sheridan MD Work Phone: [facility] 01-31-2022 16:05-0400 Systolic blood pressure 128 mm[Hg] Stefany Sheridan MD Work Phone: [facility] 09-26-2021 11:07-0400 Diastolic blood pressure 82 mm[Hg] Vicky Almendarez SODA FOUNTAIN MANAGER.BASE FILLER Work Phone: [facility] 09-26-2021 11:07-0400 Systolic blood pressure 144 mm[Hg] Vicky Almendarez SODA FOUNTAIN MANAGER.BASE FILLER Work Phone: [facility] 09-26-2021 11:03-0400 Body temperature 96.49 [degF] Vicky Almendarez SODA FOUNTAIN MANAGER.BASE FILLER Work Phone: [facility] 09-26-2021 11:03-0400 Body weight 50.35 kg Vicky Almendarez SODA FOUNTAIN MANAGER.BASE FILLER Work Phone: [facility] 09-26-2021 11:03-0400 Heart rate 82 /min Vicky Almendarez SODA FOUNTAIN MANAGER.BASE FILLER Work Phone: [facility] 09-26-2021 11:03-0400 Respiratory rate 16 /min Vicky Almendarez SODA FOUNTAIN MANAGER.BASE FILLER Work Phone: [facility] 09-26-2021 11:03-0400 SaO2% (BldA) [Mass fraction] 99 % Vicky Ramírezs SODA FOUNTAIN MANAGER.BASE FILLER Work Phone: [facility] Encounters Encounter Date Encounter Type Care Provider Facility Start: 10-09-2024 End: 10-09-2024 Office outpatient visit 25 minutes Vicky Almendarez SODA FOUNTAIN MANAGER.BASE FILLER Work Phone: [facility] [place] Comment on above: UTI symptoms (Primar y Dx); Anxiety and depression Start: 10-09-2024 End: 10-09-2024 ambulatory [facility] Facility:[facility] Start: 09-26-2024 End: 09-26-[address] Stefany Sheridan MD Work Phone: [facility] Work Phone: Start: 09-26-2024 End: 09-26-[address] Ramos Hernandez MD -Laboratory Specimen Work Phone: Start: 09-26-2024 End: 09-26-2024 ambulatory Stefany Sheridan Facility:[facility] Start: 08-28-2024 End: 08-28-[facility] [place] Start: 08-28-2024 End: 08-28-2024 Patient encounter procedure Kassy Lilly MA [facility] Comment on above: Population Health Na vigation Outreach (Fabi/Workbench/ACO ) Start: 08-15-2024 End: 08-15-2024 ambulatory [facility] Facility:[facility] Start: 07-07-2024 End: 07-08-2024 Refill Stefany Sheridan MD Work Phone: [facility] Comment on above: Refill Request Start: 06-27-2024 End: 06-27-2024 Refill Stefany Sheridan MD Work Phone: [facility] [place] Comment on above: Refill Request Start: 06-09-2024 End: 06-09-2024 ambulatory [facility] Facility:[facility] Start: 06-09-2024 End: 06-09-2024 Office outpatient visit 25 minutes Vicky Almendarez APRN.BASE FILLER Work Phone: [facility] [place] Comment on above: Acute recurrent fron alec sinusitis (Primary Dx); Anxiety and depression Start: 05-16-2024 End: 05-16-2024 ambulatory CHRISTOPHE RAMOS Facility:[facility] Start: 04-14-2024 End: 04-14-2024 ambulatory STEFANY SHERIDAN Facility:[facility] Start: 04-14-2024 End: 04-14-2024 Office outpatient visit 25 minutes Stefany Sheridan MD Work Phone: [facility] [place] Comment on above: UTI symptoms (Primar y Dx); B12 deficiency; Frequent urination; Burning with urination; Hematuria, microscopic; Drug intolerance Start: 04-07-2024 End: 07-21-2024 Telephone encounter Arianna Perez APRN.WOOD WEB WEAVING MACHINE OPERATOR Work Phone: General Surgery Start: 04-04-2024 End: 04-04-2024 ambulatory ARIANNA PEREZ Facility:[facility] Start: 04-04-2024 End: 04-04-2024 Patient encounter procedure Arianna Perez APRN.WOOD WEB WEAVING MACHINE OPERATOR Work Phone: General Surgery Comment on above: Screen for colon can cer (Primary Dx); History of colonic polyps Start: 03-07-2024 End: 03-07-2024 Refill Stefany Sheridan MD Work Phone: [facility] [place] Comment on above: Refill Request Start: 02-04-2024 End: 02-04-2024 ambulatory STEFANY SHERIDAN Facility:[facility] Start: 02-04-2024 End: 02-04-2024 Patient encounter procedure Stefany Sheridan MD Work Phone: [facility] [place] Comment on above: Medicare annual [facility], subsequent (Primary Dx); Obstructive chronic bronchitis without exacerbation (HCC); Thrush; Antibiotic-induced yeast infection; Encounter for screening mammogram for breast cancer; Encounter for immunization Start: 01-01-2024 End: 01-01-2024 [facility] Facility:[facility] Start: 01-01-2024 End: 01-01-2024 ambulatory STEFANY SHERIDAN Facility:[facility] Start: 01-01-2024 End: 01-01-2024 Office outpatient visit 25 minutes Stefany Sheridan MD Work Phone: [facility] [place] Comment on above: Acute non-recurrent pansinusitis (Primary Dx); Primary insomnia; Irritable bowel syndrome with constipation; Essential hypertension; Obstructive chronic bronchitis without exacerbation (HCC); Thrush, oral; Urinary incontinence without sensory awareness; Tubular adenoma; Screening for colon cancer Start: 11-30-2023 Telephone encounter Stefany streeter MD Work Phone: [facility] [place] Start: 11-29-2023 End: 11-29-2023 Office outpatient visit 15 minutes Vicky Almendarez SODA FOUNTAIN MANAGER.BASE FILLER Work Phone: [facility] [place] Comment on above: Acute recurrent fron alec sinusitis (Primary Dx) Start: 11-29-2023 End: 11-29-2023 [facility] Facility:[facility] Start: 11-21-2023 Refill Stefany rubin MD Work Phone: [facility] [place] Comment on above: Refill Request Start: 11-19-2023 ambulatory Cinthia Ramachandran RN [facility] Comment on above: Community Monitoring Outreach Start: 10-08-2023 ambulatory Cinthia Ramachandran RN [facility] Comment on above: Community Monitoring Outreach Start: 09-08-2023 End: 09-08-2023 Patient encounter procedure Elodia Schulz SODA FOUNTAIN MANAGER.WOOD WEB WEAVING MACHINE OPERATOR Work Phone: [place] [facility] Comment on above: Rhinosinusitis (Prim remi Dx) Start: 08-17-2023 ambulatory Cinthia Ramachandran RN [facility] Comment on above: Community Monitoring Outreach Start: 08-03-2023 End: 08-03-2023 Office outpatient visit 25 minutes Vicky Almendarez APRN.BASE FILLER Work Phone: [facility] [place] Comment on above: Essential hypertensi on (Primary Dx); Encounter for screening for lung cancer; Encounter for immunization; Screening for colon cancer; Parkinson's disease, unspecified whether dyskinesia present, unspecified whether manifestations fluctuate (HCC); Obstructive chronic bronchitis without exacerbation (HCC); Abdominal aortic aneurysm (AAA) without rupture, unspecified part (HCC); Antibiotic-induced yeast infection; Thrush; Encounter for screening for osteoporosis; Asymptomatic postmenopausal status; Osteopenia, unspecified location; Primary insomnia; Pure hypercholesterolemia; Tobacco use disorder; DAVID (generalized anxiety disorder) Start: 08-02-2023 Documentation procedure Mammog hector Coordinator [facility] Start: 08-02-2023 Letter encounter Mammography Coordinator [facility] Department Start: 08-01-2023 End: 08-01-2023 Subsequent hospital visit by physician Screen Mammo [facility] Comment on above: Encounter for screen ing mammogram for malignant neoplasm of breast [Z12.31] Start: 07-16-2023 ambulatory Cinthia Ramachandran RN [facility] Comment on above: Community Monitoring Outreach Start: 07-16-2023 Refill Vicky HUFFBASE FILLER Work Phone: [facility] [place] Comment on above: Med Change Request Start: 07-16-2023 End: 07-16-2023 Office outpatient visit 25 minutes Vicky Almendarez APRN.BASE FILLER Work Phone: [facility] [place] Comment on above: Acute non-recurrent maxillary sinusitis (Primary Dx); Pure hypercholesterolemia; Essential hypertension; Other acute recurrent sinusitis; Tobacco use disorder; B12 deficiency; Vitamin D deficiency; Fatigue, unspecified type; History of Parkinson's disease; Antibiotic-induced yeast infection; Acute recurrent frontal sinusitis; Chronic sinusitis, unspecified location; UTI symptoms Start: 07-02-2023 Refill Stefany rubin MD Work Phone: [facility] [place] Comment on above: Refill Request Start: 06-12-2023 Refill Stefany rubin MD Work Phone: [facility] [place] Comment on above: Refill Request Start: 05-30-2023 ambulatory Cinthia Ramachandran RN [facility] Comment on above: Community Monitoring Outreach Start: 04-18-2023 End: 04-18-2023 [facility] Work Phone: Start: 04-18-2023 End: 04-18-2023 Patient encounter procedure [facility]-Laboratory, Specimen Work Phone: Start: 02-02-2023 End: 02-02-2023 Office outpatient visit 25 minutes Stefany Sheridan MD Work Phone: [facility] [place] Comment on above: Essential hypertensi on (Primary Dx); Acute non-recurrent maxillary sinusitis; Torticollis; Balance problems; Parkinson's disease, unspecified whether dyskinesia present, unspecified whether manifestations fluctuate; Antibiotic-induced yeast infection; B12 deficiency Start: 01-01-2023 Refill Stefany rubin MD Work Phone: [facility] [place] Comment on above: Refill Request Start: 12-06-2022 Refill Stefany rubin MD Work Phone: [facility] [place] Comment on above: Refill Request Refill Request (medi cation sent to the wrong pharmacy) Start: 12-05-2022 ambulatory Cinthia Ramachandran RN [facility] Start: 11-30-2022 ambulatory Cinthia Ramachandran RN [facility] Comment on above: Community Monitoring Outreach Start: 11-28-2022 End: 11-28-2022 [facility] Work Phone: Start: 11-28-2022 End: 11-28-2022 Patient encounter procedure [facility]-Laboratory, Specimen Work Phone: Start: 08-30-2022 ambulatory Terra Catalan MA [facility] [place] Comment on above: Opened In Error Start: 08-01-2022 End: 08-01-2022 Office outpatient visit 15 minutes Vicky Ramírezs SODA FOUNTAIN MANAGER.BASE FILLER Work Phone: [facility] [place] Comment on above: Acute cystitis with hematuria (Primary Dx); Encounter for screening for lung cancer; Encounter for immunization; UTI symptoms; Abdominal aortic aneurysm (AAA) without rupture, unspecified part (HCC); Sleep difficulties; Obstructive chronic bronchitis without exacerbation (HCC); Essential hypertension; Primary insomnia; Anxiety and depression Start: 07-05-2022 Documentation procedure Mammog hector Coordinator [facility] Start: 07-05-2022 Letter encounter Mammography Coordinator [facility] Department Start: 06-19-2022 Refill Stefany rubin MD Work Phone: Internal [facility] Comment on above: Refill Request Start: 06-07-2022 ambulatory Terra Catalan MA [facility] [place] Comment on above: Population [facility] ([facility] [facility]) Refill Request Start: 05-11-2022 End: 05-11-2022 Office outpatient visit 15 minutes Vicky Almendarez SODA FOUNTAIN MANAGER.BASE FILLER Work Phone: Internal [facility] Comment on above: Recurrent sinusitis (Primary Dx); Thrush Start: 05-01-2022 Refill Stefany rubin MD Work Phone: [facility] Comment on above: Refill Request Start: 03-30-2022 ambulatory Stefany rubin MD Work Phone: Internal Medicine [facility] Start: 01-31-2022 End: 01-31-2022 Office outpatient visit 25 minutes Stefany Sheridan MD Work Phone: [facility] [place] Comment on above: Acute non-recurrent maxillary sinusitis (Primary Dx); Anxiety and depression; Essential hypertension; Vaginitis and vulvovaginitis; Vitamin D deficiency; B12 deficiency; Fatigue, unspecified type; Encounter for long-term current use of medication Start: 12-13-2021 End: 12-13-2021 ambulatory [facility] Work Phone: Start: 12-13-2021 End: 12-13-2021 [facility] Start: 12-08-2021 Refill Stefany rubin MD Work Phone: [facility] [place] Comment on above: Refill Request Start: 11-04-2021 Refill Vicky Thomason PRNAyshaBASE FILLER Work Phone: Internal [facility] Comment on above: Refill Request Start: 10-19-2021 ambulatory Duarte Arroyo RN [facility] Care Management Comment on above: Community Monitoring Outreach (Chronic Obstructive Bronchitis / CDM Outreach) Start: 10-05-2021 ambulatory Raine Min RN Work Phone: [facility] Comment on above: Community Monitoring Outreach ([employer] CDM enrollment) Start: 09-26-2021 End: 09-26-2021 Patient encounter procedure Vicky Almendarez SODA FOUNTAIN MANAGER.BASE FILLER Work Phone: [facility] Comment on above: Acute non-recurrent maxillary sinusitis Start: 08-15-2021 End: 08-15-2021 [facility] Start: 06-07-2018 End: 06-08-2018 Patient encounter [facility] Procedures Date Procedure Procedure Detail Performing Clinician Start: 10-09-2024 Urnls dip stick/tabl et rgnt auto w/o microscopy Vicky Almendarez SODA FOUNTAIN MANAGER.BASE FILLER Work Phone: Start: 09-26-2024 Gram stain microscopy Dao Sheridan MD Work Phone: Start: 09-26-2024 End: 09-26-[address] Stefany Sheridan MD Work Phone: Start: 05-16-2024 Colonoscopy Vicky forbes SODA FOUNTAIN MANAGER.BASE FILLER Work Phone: Start: 04-14-2024 Urnls dip stick/tabl et rgnt auto w/o microscopy Stefany Sheridan MD Work Phone: Start: 01-01-2024 Lipid 1995 panel - S emma or Plasma Stefany Sheridan MD Work Phone: Start: 08-03-2023 Adult depression scr eening assessment Cinthiagabrielle Ramachandran RN Start: 07-23-2023 Lipid 1995 panel - S emma or Plasma Screen Wstr Start: 04-18-2023 Investigation of transfusion reaction Start: 04-18-2023 Nasopharyngeal Culture Start: 11-28-2022 Urine culture Start: 08-01-2022 Urnls dip stick/tabl et rgnt auto w/o microscopy Vicky Almendarez SODA FOUNTAIN MANAGER.BASE FILLER Work Phone: Start: 07-05-2022 Lipid 1996 panel - S emma or Plasma Stefany Sheridan MD Work Phone: Start: 07-05-2022 Mammography Mammograph y Coordinator Start: 06-06-2021 Adult depression scr eening assessment Vicky Almendarez SODA FOUNTAIN MANAGER.BASE FILLER Work Phone: Start: 02-14-2021 Mammography Vicky forbes SODA FOUNTAIN MANAGER.BASE FILLER Work Phone: Start: 10-21-2018 Colonoscopy Vicky Broo andrei SODA FOUNTAIN MANAGER.BASE FILLER Work Phone: Plan of Treatment Date Care Activity Detail Author Start: 05-16-2029 Screening for malignant neoplasm of colon [facility] Start: 12-31-2028 Lipid panel Lipid Screening [facility] Start: 07-22-2028 Lipid panel Lipid Screening [facility] Start: 07-06-2027 Lipid 1996 panel - Serum or Plasma Lipid Screening [facility] Start: 07-06-2027 Lipid panel Lipid Screening [facility] Start: 07-06-2027 LIPID SCREEN LIPID SCREEN [facility] Start: 12-31-2026 Diabetes Screening Diabetes Screening [facility] Start: 07-22-2026 Diabetes Screening Diabetes Screening [facility] Start: 2025 RSV Vaccine (1 - 1-dose 75+ series) RSV Vaccine (1 - 1-dose 75+ series) [facility] Start: 11-29-2025 LIPID SCREEN LIPID SCREEN [facility] Start: 07-05-2025 DIABETES SCREEN DIABETES SCREEN [facility] Start: 07-05-2025 Diabetes Screening Diabetes Screening [facility] Start: 04-14-2025 Annual PCP Team Chronic Disease Visit Annual PCP Team Chronic Disease Visit [facility] Start: 04-14-2025 BP Controlled (<130/80) BP Controlled (<130/80) [facility] Start: 02-03-2025 Annual PCP Team Chronic Disease Visit Annual PCP Team Chronic Disease Visit [facility] Start: 02-03-2025 Medicare Annual Wellness Visit Medicare Annual Wellness Visit [facility] Start: 12-31-2024 Annual PCP Team Chronic Disease Visit Annual PCP Team Chronic Disease Visit [facility] Start: 12-31-2024 BP Controlled (<130/80) BP Controlled (<130/80) [facility] Start: 12-31-2024 Covid-19 Vaccine () Covid-19 Vaccine () [facility] Comment on above: Postponed from 12/23/2023 (Not Currently Available) Start: 12-10-2024 End: 12-10-2024 Patient encounter procedure 12/10/2024 4:00 PM EDT Office Visit [facility] [address] [place] [address] Stefany Sheridan MD [address] [place] [address] Medicare Wellness [facility] Comment on above: Medicare Wellness Start: 10-20-2024 Influenza [facility] Comment on above: Postponed from 12/23/2023 (Declined at t his time) Start: 08-02-2024 BP Controlled (<130/80) BP Controlled (<130/80) [facility] Start: 08-02-2024 Depression Screening Depression Screening [facility] Start: 07-31-2024 Screening for malignant neoplasm of breast Mammogram Screening [facility] Start: 06-06-2024 DIABETES SCREEN DIABETES SCREEN [facility] Start: 05-16-2024 End: 05-16-2024 Patient encounter procedure 05/16/2024 11:15 AM EST Appointment Ambulatory Surgery [address] [place] [address] Christophe Ramos MD [address] [place] [address] Ambulatory Surgery Start: 04-23-2024 Advance Directive Discussion Advance Directive Discussion [facility] Start: 04-14-2024 End: 07-14-2024 Urinalysis complete panel - Urine URINALYSIS, WITH MICROSCOPIC Lab Routine UTI symptoms Frequent urination Burning with urination Hematuria, microscopic Expected: 04/14/2024, Expires: 07/14/2024 [facility] Comment on above: Expected: 04/14/2024, Expires: Start: 04-02-2024 End: 04-02-2024 Patient encounter procedure 04/02/2024 1:30 PM EST Office Visit General Surgery [address] [place] [address] Arianna Perez APRN.WOOD 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 Ramos for colonoscopy General Surgery Comment on above: colonoscopy consult / Patient requesting Dr. Ramos for colonoscopy Start: 03-18-2024 Covid-19 Vaccine ( season) Covid-19 Vaccine () [facility] Start: 02-04-2024 End: 02-04-2024 Patient encounter procedure 02/04/2024 3:40 PM EDT Office Visit [facility] [address] [facility] [place] [address] Stefany Sheridan MD [address] [place] [address] Physical [facility] Comment on above: Physical Start: 02-03-2024 Annual PCP Team Chronic Disease Visit Annual PCP Team Chronic Disease Visit [facility] Start: 02-03-2024 Urine microalbumin profile DTaP,Tdap,Td Vaccine (2 - Td or Tdap) [facility] Comment on above: Postponed from 04/11/2021 (Declined at t his time) Start: 01-21-2024 End: 11-21-2024 25-hydroxyvitamin D3 [Mass/volume] in Serum or Plasma VITAMIN D 25 HYDROXY Lab Routine Vitamin D deficiency Fatigue, unspecified type Expected: 01/21/2024 (Approximate), Expires: 11/21/2024 [facility] Comment on above: Expected: 01/21/2024 (Approximate), Expi res: 11/21/2024 Start: 01-21-2024 End: 11-21-2024 CBC W Auto Differential panel - Blood COMPLETE BLOOD COUNT AND DIFFERENTIAL Lab Routine Gastroesophageal reflux disease, unspecified whether esophagitis present Essential hypertension Fatigue, unspecified type Expected: 01/21/2024 (Approximate), Expires: 11/21/2024 [facility] Comment on above: Expected: 01/21/2024 (Approximate), Expi res: 11/21/2024 Start: 01-21-2024 End: 11-21-2024 Cobalamin (Vitamin B12) [Mass/volume] in Serum or Plasma VITAMIN B12 Lab Routine B12 deficiency Fatigue, unspecified type Expected: 01/21/2024 (Approximate), Expires: 11/21/2024 [facility] Comment on above: Expected: 01/21/2024 (Approximate), Expi res: 11/21/2024 Start: 01-21-2024 End: 11-21-2024 Comprehensive metabolic 2000 panel - Serum or Plasma COMPREHENSIVE METABOLIC PANEL Lab Routine Gastroesophageal reflux disease, unspecified whether esophagitis present Pure hypercholesterolemia Essential hypertension Fatigue, unspecified type Expected: 01/21/2024 (Approximate), Expires: 11/21/2024 [facility] Work Phone: Comment on above: Expected: 01/21/2024 (Approximate), Expi res: 11/21/2024 Start: 01-21-2024 End: 11-21-2024 Lipid 1996 panel - Serum or Plasma LIPID PANEL BASIC Lab Routine Pure hypercholesterolemia Fatigue, unspecified type Expected: 01/21/2024 (Approximate), Expires: 11/21/2024 [facility] Comment on above: Expected: 01/21/2024 (Approximate), Expi res: 11/21/2024 Start: 01-21-2024 End: 11-21-2024 Thyrotropin [Units/volume] in Serum or Plasma THYROID STIMULATING HORMONE Lab Routine Fatigue, unspecified type Expected: 01/21/2024 (Approximate), Expires: 11/21/2024 [facility] [facility] Comment on above: Expected: 01/21/2024 (Approximate), Expi res: 11/21/2024 Start: 12-23-2023 Influenza vaccination Influenza Vaccine (#1) [facility] Start: 10-22-2023 Colonoscopy COLONOSCOPY [facility] Start: 10-22-2023 COLORECTAL CANCER SCREENING COLORECTAL CANCER SCREENING [facility] Start: 10-22-2023 Screening for malignant neoplasm of colon [facility] Start: 08-02-2023 BP CONTROLLED (<130/80) BP CONTROLLED (<130/80) [facility] Start: 07-16-2023 End: 10-15-2023 25-hydroxyvitamin D3 [Mass/volume] in Serum or Plasma VITAMIN D 25 HYDROXY Lab Routine Vitamin D deficiency Expected: 07/16/2023, Expires: 10/15/2023 [facility] Work Phone: Comment on above: Expected: 07/16/2023, Expires: Start: 07-16-2023 End: 10-15-2023 CBC W Auto Differential panel - Blood CBC + DIFF Lab Routine Essential hypertension Tobacco use disorder Expected: 07/16/2023, Expires: 10/15/2023 [facility] Work Phone: Comment on above: Expected: 07/16/2023, Expires: Start: 07-16-2023 End: 10-15-2023 Cobalamin (Vitamin B12) [Mass/volume] in Serum or Plasma VITAMIN B12 BLOOD Lab Routine B12 deficiency Expected: 07/16/2023, Expires: 10/15/2023 [facility] Work Phone: Comment on above: Expected: 07/16/2023, Expires: Start: 07-16-2023 End: 10-15-2023 Comprehensive metabolic 2000 panel - Serum or Plasma COMP METABOLIC PANEL Lab Routine Pure hypercholesterolemia Essential hypertension Tobacco use disorder Expected: 07/16/2023, Expires: 10/15/2023 [facility] Work Phone: Comment on above: Expected: 07/16/2023, Expires: Start: 07-16-2023 End: 10-15-2023 Lipid 1996 panel - Serum or Plasma LIPID PANEL BASIC Lab Routine Pure hypercholesterolemia Essential hypertension Tobacco use disorder Expected: 07/16/2023, Expires: 10/15/2023 [facility] Work Phone: Comment on above: Expected: 07/16/2023, Expires: Start: 07-16-2023 End: 10-15-2023 Thyrotropin [Units/volume] in Serum or Plasma TSH BLD Lab Routine Fatigue, unspecified type Expected: 07/16/2023, Expires: 10/15/2023 [facility] Work Phone: Comment on above: Expected: 07/16/2023, Expires: Start: 07-06-2023 Mammography [facility] Start: 07-06-2023 Screening for malignant neoplasm of breast Mammogram Screening [facility] Start: 05-25-2023 Covid-19 Vaccine () Covid-19 Vaccine () [facility] Start: 04-23-2023 Advance Directive Discussion Advance Directive Discussion [facility] Start: 04-23-2023 Behavioral Health Screening Behavioral Health Screening [facility] Start: 04-23-2023 Depression Assessment Depression Assessment [facility] Start: 01-31-2023 ANNUAL PCP TEAM CHRONIC DISEASE VISIT ANNUAL PCP TEAM CHRONIC DISEASE VISIT [facility] Start: 2022 Influenza vaccination [facility] Start: 08-01-2022 End: 10-01-2022 25-hydroxyvitamin D3 [Mass/volume] in Serum or Plasma VITAMIN D 25 HYDROXY Lab Routine Essential hypertension Vitamin D deficiency Fatigue, unspecified type Encounter for long-term current use of medication Expected: 08/01/2022 (Approximate), Expires: 10/01/2022 [facility] Work Phone: Comment on above: Expected: 08/01/2022 (Approximate), Expi res: 10/01/2022 Start: 08-01-2022 End: 10-01-2022 CBC panel - Blood by Automated count CBC Lab Routine Essential hypertension Fatigue, unspecified type Encounter for long-term current use of medication Expected: 08/01/2022 (Approximate), Expires: 10/01/2022 [facility] Work Phone: Comment on above: Expected: 08/01/2022 (Approximate), Expi res: 10/01/2022 Start: 08-01-2022 End: 10-01-2022 Cobalamin (Vitamin B12) [Mass/volume] in Serum or Plasma VITAMIN B12 BLOOD Lab Routine Essential hypertension B12 deficiency Fatigue, unspecified type Encounter for long-term current use of medication Expected: 08/01/2022 (Approximate), Expires: 10/01/2022 [facility] Work Phone: Comment on above: Expected: 08/01/2022 (Approximate), Expi res: 10/01/2022 Start: 08-01-2022 End: 10-01-2022 Comprehensive metabolic 2000 panel - Serum or Plasma COMP METABOLIC PANEL Lab Routine Essential hypertension Fatigue, unspecified type Encounter for long-term current use of medication Expected: 08/01/2022 (Approximate), Expires: 10/01/2022 [facility] Work Phone: Comment on above: Expected: 08/01/2022 (Approximate), Expi res: 10/01/2022 Start: 08-01-2022 End: 10-01-2022 Lipid 1996 panel - Serum or Plasma LIPID PANEL BASIC Lab Routine Essential hypertension Fatigue, unspecified type Encounter for long-term current use of medication Expected: 08/01/2022 (Approximate), Expires: 10/01/2022 [facility] Work Phone: Comment on above: Expected: 08/01/2022 (Approximate), Expi res: 10/01/2022 Start: 08-01-2022 End: 10-01-2022 Thyrotropin [Units/volume] in Serum or Plasma TSH BLD Lab Routine Essential hypertension Fatigue, unspecified type Encounter for long-term current use of medication Expected: 08/01/2022 (Approximate), Expires: 10/01/2022 [facility] Work Phone: Comment on above: Expected: 08/01/2022 (Approximate), Expi res: 10/01/2022 Start: 08-01-2022 End: 10-01-2022 Thyroxine (T4) free [Mass/volume] in Serum or Plasma T4 FREE/FREE THYROX Lab Routine Essential hypertension Fatigue, unspecified type Encounter for long-term current use of medication Expected: 08/01/2022 (Approximate), Expires: 10/01/2022 [facility] Work Phone: Comment on above: Expected: 08/01/2022 (Approximate), Expi res: 10/01/2022 Start: 08-01-2022 End: 10-01-2022 Triiodothyronine (T3) Free [Mass/volume] in Serum or Plasma T3 FREE BLD Lab Routine Essential hypertension Fatigue, unspecified type Encounter for long-term current use of medication Expected: 08/01/2022 (Approximate), Expires: 10/01/2022 [facility] Work Phone: Comment on above: Expected: 08/01/2022 (Approximate), Expi res: 10/01/2022 Start: 06-27-2022 COVID-19 VACCINE (6 - Moderna series) COVID-19 VACCINE (6 - Moderna series) [facility] Start: 06-06-2022 Adult depression screening assessment DEPRESSION SCREENING [facility] Start: 06-06-2022 ANNUAL PCP TEAM CHRONIC DISEASE VISIT ANNUAL PCP TEAM CHRONIC DISEASE VISIT [facility] Start: 06-06-2022 Urine microalbumin profile DTAP,TDAP,TD (2 - Td or Tdap) [facility] Comment on above: Postponed from 04/11/2021 (Declined at t his time) Start: 04-23-2022 ADVANCE DIRECTIVE DISCUSSION ADVANCE DIRECTIVE DISCUSSION [facility] Start: 04-23-2022 DEPRESSION ASSESSMENT DEPRESSION ASSESSMENT [facility] Start: 02-14-2022 Mammography MAMMOGRAM [facility] Start: 01-06-2022 COVID-19 VACCINE (5 - Booster for Moderna series) COVID-19 VACCINE (5 - Booster for Moderna series) [facility] Start: 2021 Influenza vaccination [facility] Start: 11-29-2021 Influenza vaccination LUNG CANCER SCREENING [facility] Comment on above: Postponed from 2000 (Declined at t his time) Start: 08-06-2021 COVID-19 VACCINE (4 - Booster for Moderna series) COVID-19 VACCINE (4 - Booster for Moderna series) [facility] Start: 04-23-2021 ADVANCE DIRECTIVE DISCUSSION ADVANCE DIRECTIVE DISCUSSION [facility] Start: 04-23-2021 DEPRESSION ASSESSMENT DEPRESSION ASSESSMENT [facility] Start: 04-11-2021 Urine microalbumin profile [facility] Start: 08-03-2019 BP CONTROLLED (<130/80) BP CONTROLLED (<130/80) [facility] Start: 04-25-2011 FECAL OCCULT BLOOD FECAL OCCULT BLOOD [facility] Start: 04-25-2011 Screening for malignant neoplasm of colon Fecal Occult Blood [facility] Start: 2010 RSV Vaccine (1 - 1-dose 60+ series) RSV Vaccine (1 - 1-dose 60+ series) [facility] Start: 2000 Influenza vaccination LUNG CANCER SCREENING [facility] Start: 2000 Screening for malignant neoplasm of lung Lung Cancer Screening [facility] Start: 12-23-1995 COLOGUARD (FIT-DNA) COLOGUARD (FIT-DNA) [facility] Start: 12-23-[address] COLONOGRAPHY [facility] Start: 12-23-1995 Screening for malignant neoplasm of colon [facility] Start: 12-23-1995 SIGMOIDOSCOPY SIGMOIDOSCOPY [facility] Bacteria identified in Urine by Culture URINE CULTURE Microbiology Routine Acute cystitis with hematuria 08/01/2022 12:43 PM EDT [facility] Work Phone: Bacteria identified in Urine by Culture URINE CULTURE Microbiology Routine UTI symptoms Frequent urination Burning with urination Hematuria, microscopic Ordered: 04/14/2024 [facility] Comment on above: Ordered: 04/14/2024 Bacteria identified in Urine by Culture BACTERIAL CULTURE, URINE Microbiology Routine UTI symptoms 10/09/2024 2:07 PM EDT [facility] Work Phone: End: 09-01-2024 BD DXA TRABECULAR BONE SCORE (TBS) BD DXA TRABECULAR BONE SCORE (TBS) Radiology Routine Encounter for screening for osteoporosis Asymptomatic postmenopausal status Osteopenia, unspecified location 1 Occurrences starting 08/03/2023 until 09/01/2024 [facility] Work Phone: Comment on above: 1 Occurrences starting 08/03/2023 until 09/01/2024 End: 09-01-2024 DXA Skeletal system.axial Views for bone density DXA-AXIAL SKELETON Radiology Routine Encounter for screening for osteoporosis Asymptomatic postmenopausal status Osteopenia, unspecified location 1 Occurrences starting 08/03/2023 until 09/01/2024 [facility] Work Phone: Comment on above: 1 Occurrences starting 08/03/2023 until 09/01/2024 End: 04-29-2023 NAFISA SCREENING NAFISA SCREENING Radiology Routine Encounter for screening mammogram for breast cancer 1 Occurrences starting 03/30/2022 until 04/29/2023 [facility] Work Phone: Comment on above: 1 Occurrences starting 03/30/2022 until 04/29/2023 MG Breast Screening NAFISA SCREENIN G Radiology Routine Encounter for screening mammogram for malignant neoplasm of breast 08/01/2023 1:52 PM EDT [facility] Work Phone: End: 03-05-2025 MG Breast Screening NAFISA SCREENING Radiology Routine Encounter for screening mammogram for breast cancer 1 Occurrences starting 02/04/2024 until 03/05/2025 [facility] Work Phone: Comment on above: 1 Occurrences starting 02/04/2024 until 03/05/2025 End: 12-31-2024 Screening colonoscopy COLONOSCOPY SCREENING Endoscopy Routine Tubular adenoma Screening for colon cancer 1 Occurrences starting 01/01/2024 until 12/31/2024 [facility] Work Phone: Comment on above: 1 Occurrences starting 01/01/2024 until 12/31/2024 End: 04-04-2025 Screening colonoscopy COLONOSCOPY SCREENING Endoscopy Routine Screen for colon cancer History of colonic polyps 1 Occurrences starting 04/04/2024 until 04/04/2025 [facility] Work Phone: Comment on above: 1 Occurrences starting 04/04/2024 until 04/04/2025 UA DIP, URINE (POC) UA DIP, URIN E (POC) Lab Routine UTI symptoms Ordered: 04/14/2024 [facility] Work Phone: Comment on above: Ordered: 04/14/2024 [facility] Immunizations Immunization Date Immunization Notes Care Provider Ana ramirez 01-22-2024 COVID-19 original vaccine, booster dose, monovalent (MODERNA) Stefany Sheridan MD Work Phone: [facility] 01-22-2024 Seasonal trivalent influenza vaccine, adjuvanted, preservative free Stefany Sheridan MD Work Phone: [facility] 01-22-2023 influenza (aIIV4) vaccine, age 65+ yr, quadrivalent, PF (FLUAD QUAD) Stefany Sheridan MD Work Phone: [facility] 01-22-2023 influenza virus vacc ine, unspecified formulation Cinthia Ramachandran RN [facility] 02-27-2022 COVID-19 booster vaccine, age 12+ yr, bivalent (MODERNA) Stefany Sheridan MD Work Phone: [facility] Work Phone: 02-27-2022 influenza (aIIV4) vaccine, age 65+ yr, quadrivalent, PF (FLUAD QUAD) Stefany Sheridan MD Work Phone: [facility] Work Phone: 02-27-2022 influenza, injectabl e, quadrivalent, contains preservative Stefany Sheridan MD Work Phone: [facility] Work Phone: 02-27-2022 influenza virus vacc ine, unspecified formulation Stefany Sheridan MD Work Phone: [facility] 11-11-2021 COVID-19 vaccine, booster dose (MODERNA) Stefany Sheridan MD Work Phone: [facility] Work Phone: 08-18-2020 COVID-19 vaccine, fu ll dose (MODERNA) Vicky Almendarez APRN.CNS Work Phone: [facility] Work Phone: 07-21-2020 COVID-19 vaccine, fu ll dose (MODERNA) Vicky Almendarez SODA FOUNTAIN MANAGER.BASE FILLER Work Phone: [facility] Work Phone: 04-12-2020 zoster vaccine recombinant Vicky Almendarez SODA FOUNTAIN MANAGER.BASE FILLER Work Phone: [facility] Work Phone: 01-19-2020 influenza (aIIV4) vaccine, age 65+ yr, quadrivalent, PF (FLUAD QUADRIVALENT) Vicky Almendarez SODA FOUNTAIN MANAGER.BASE FILLER Work Phone: [facility] Work Phone: 01-19-2020 influenza, high dose seasonal, preservative-free Vicky Almendarez SODA FOUNTAIN MANAGER.BASE FILLER Work Phone: [facility] Work Phone: 01-19-2020 influenza, injectabl e, quadrivalent, contains preservative Vicky Almendarez SODA FOUNTAIN MANAGER.BASE FILLER Work Phone: [facility] Work Phone: 12-15-2019 zoster vaccine recombinant Vicky Almendarez SODA FOUNTAIN MANAGER.BASE FILLER Work Phone: [facility] Work Phone: 03-04-2019 influenza, high dose seasonal, preservative-free Vicky Almendarez SODA FOUNTAIN MANAGER.BASE FILLER Work Phone: [facility] 02-13-2018 influenza, high dose seasonal, preservative-free Vicky Almendarez SODA FOUNTAIN MANAGER.BASE FILLER Work Phone: [facility] Work Phone: 03-07-2017 pneumococcal polysaccharide vaccine, 23 valent Vicky Almendarez SODA FOUNTAIN MANAGER.BASE FILLER Work Phone: [facility] Work Phone: 01-30-2017 influenza, high dose seasonal, preservative-free Vicky Almendarez SODA FOUNTAIN MANAGER.BASE FILLER Work Phone: [facility] 02-17-2016 influenza, high dose seasonal, preservative-free Vicky Almendarez SODA FOUNTAIN MANAGER.BASE FILLER Work Phone: [facility] Work Phone: 02-17-2016 pneumococcal conjuga te vaccine, 13 valent Vicky Almendarez SODA FOUNTAIN MANAGER.BASE FILLER Work Phone: [facility] Work Phone: 02-16-2015 influenza, injectabl e, quadrivalent, contains preservative Vicky Almendarez SODA FOUNTAIN MANAGER.BASE FILLER Work Phone: [facility] 02-16-2015 zoster vaccine, live Vicky B rolando SODA FOUNTAIN MANAGER.BASE FILLER Work Phone: [facility] 02-20-2014 influenza, seasonal, injectable Vicky Almendarez SODA FOUNTAIN MANAGER.BASE FILLER Work Phone: [facility] 03-05-2012 influenza virus vacc ine, unspecified formulation Vicky Almendarez SODA FOUNTAIN MANAGER.BASE FILLER Work Phone: [facility] 04-11-2011 influenza virus vacc ine, unspecified formulation Vicky Almendarez SODA FOUNTAIN MANAGER.BASE FILLER Work Phone: [facility] 04-11-2011 pneumococcal polysaccharide vaccine, 23 valent Vicky Almendarez SODA FOUNTAIN MANAGER.BASE FILLER Work Phone: [facility] 04-11-2011 tetanus toxoid, redu trinity diphtheria toxoid, and acellular pertussis vaccine, adsorbed Vicky Almendarez SODA FOUNTAIN MANAGER.BASE FILLER Work Phone: [facility] 02-24-2010 influenza virus vacc ine, unspecified formulation Vicky Almendarez SODA FOUNTAIN MANAGER.BASE FILLER Work Phone: [facility] 01-21-2009 influenza virus vacc ine, unspecified formulation Vicky Almendarez SODA FOUNTAIN MANAGER.BASE FILLER Work Phone: [facility] Work Phone: 03-21-2007 influenza virus vacc ine, unspecified formulation Vicky Almendarez SODA FOUNTAIN MANAGER.BASE FILLER Work Phone: [facility] Payers Date Payer Category Payer Self-pay [id number] 2018 Medicare [id number] 2016 Private Health Insurance [facility] AARP SUPPLEMENT [id number] 2016-Present [phone] [address] [place] [address] Indemnity [id number] 2016 Private Health Insurance [id number] 2016 Private Health Insurance [id number] 2015 Medicare MEDICARE MEDICAR E A AND B [id number] 2015-Present [phone] [address] [address] [place] [address] Medicare [id number] 2015 Medicare [id number] 2015 Medicare [id number] 1950 Unknown [id number] Unknown [id number] Social History Date Type Detail Facility Start: 05-02-2012 End: 04-04-2024 Tobacco smoking status WAIS Smokes tobacco daily [facility] Work Phone: History of tobacco use Cigarette Smoker [facility] Work Phone: Start: 09-26-2021 End: 10-09-2024 Alcohol intake Current non-drinker of alcohol (finding) [facility] Start: 03-24-2019 End: 01-24-2022 History SDOH Alcohol Frequency 1 [facility] Start: 01-28-2020 End: 01-24-2022 History SDOH Social Connections Phone 3 [facility] Start: 10-12-2019 End: 01-24-2022 History SDOH Social Connections Get Together 2 [facility] Start: 03-24-2019 End: 01-24-2022 History SDOH Financial 5 [facility] Start: 10-12-2019 Education 17 [facility] Start: 1950 Sex Assigned At Female [facility] Start: 09-16-2021 End: 01-31-2022 Exposure to SARS-CoV-2 (event) Not sure [facility] Work Phone: Start: 08-31-2020 End: 08-31-2020 Tobacco smoking status NHIS Unknown if ever smoked [facility] Start: 05-02-2012 End: 01-26-2023 Cigarettes smoked current (pack per day) - Reported 1 [facility] Start: 05-02-2012 End: 04-04-2024 Tobacco use and exposure Smokeless tobacco non-user [facility] Start: 01-24-2022 History SDOH Alcohol Std Drinks 0 [facility] Start: 01-24-2022 End: 01-26-2023 Social connection and isolation panel [facility] Do you belong to any clubs or organizations such as synagogue groups, unions, fraternal or athletic groups, or school groups? No [facility] Are you now , , , , never or living with a partner? [facility] How often to you hav e a drink containing alcohol? Never [facility] How many standard dr inks containing alcohol do you have on a typical day? Patient does not drink [facility] Do you feel stress - tense, restless, nervous, or anxious, or unable to sleep at night because your mind is troubled all the time - these days [OSQ] Only a little [facility] (I/We) worried wheth er (my/our) food would run out before (I/we) got money to buy more. Never true [facility] Start: 11-05-2018 Gender identity Identifies as female gender (finding) [facility] Do you feel stress - tense, restless, nervous, or anxious, or unable to sleep at night because your mind is troubled all the time - these days [OSQ] Not at all [facility] Goals Date Patient Goal Desired Activity /State Personal health goal Comment on above: Formatting of this n ote might be different from the original. Find why and how to get relief from my constant neck spasm Personal health goal Personal health goal Comment on above: Formatting of this n ote might be different from the original. Patient has the following Chronic Obstructive Pulmonary Disease goals: Two PCP visits annually Education provided and reviewed with patient - sent on 12/05/22 Understanding COPD Patient will meet these goals by 12/06/23 (describe interventions done by PCC) Pt's Goal: Maintain Function Formatting of this n ote might be different from the original. Patient has the following Chronic Obstructive Pulmonary Disease goals: Two PCP visits annually Education provided and reviewed with patient - sent on 12/05/22 Understanding COPD Patient will meet these goals by 12/06/23 (describe interventions done by PCC) Pt's Goal: Maintain Function 05/30/23 Unchanged t's Goal: Maintain Function Comment on above: Formatting of this n ote might be different from the original. Find why and how to get relief from my constant neck spasm Functional Status Date Assessment Result Facility 10-30-2014 Are you deaf, or do you have serious difficulty hearing No 10/30/2014 1:03 PM Gilda Boogie Cma No [facility] 10-30-2014 Are you blind, or do you have serious difficulty seeing, even when wearing glasses No 10/30/2014 1:03 PM G[facility] Cma No [facility] 10-30-2014 Do you have serious difficulty walking or climbing stairs No 10/30/2014 1:03 PM Gilda [facility] Cma No [facility] 10-30-2014 Do you have difficul ty dressing or bathing No 10/30/2014 1:03 PM Gilda Boogie Cma No [facility] 10-30-2014 Because of a physica l, mental, or emotional condition, do you have difficulty doing errands alone such as visiting a physician's office or shopping No 10/30/2014 1:03 PM G[facility]ogie Cma No [facility] Mental Status Date Assessment Result Facility 10-30-2014 Because of a physica l, mental, or emotional condition, do you have serious difficulty concentrating, remembering, or making decisions No 10/30/2014 1:03 PM G[facility] C[facility] No [facility] Clinical Notes 09-26-2011 to 10-09-2024 AlmendarezAna Lilia rubinDEREJE flores.BASE FILLER - 10/09/2024 1:40 PM Kassy King MA - 08/28/2024 10:52 AM EDTTelephone Encounter - Stefany Sheridan MD - 07/07/2024 7:11 PM EDTPatient InstructionsPatient Instructions Note Date & Type Note Facility 10-09-2024 History of Present illness Narrative Subjective Patient ID: Luke is a 73 year old female who presents for uti symptom. HPI Luke Waggoner is a 73-year-old female with a history of depression, presenting for evaluation of a suspected UTI. Suspected UTI: - Onset of symptoms approximately 2 weeks ago. - Reports lower back pain and dysuria. - Increased urinary frequency; notes nocturnal enuresis. - Previous effective treatment with Macrobid for UTIs. Depression: - Recently switched from Zoloft to Paxil due to excessive somnolence. - Took Paxil this morning and reports it works for her. Family History: - Sister a month ago from alcoholic poisoning, liver and kidney failure. ROS Constitutional: (+) excessive sleepiness Genitourinary: (+) urinary frequency, (+) urinary incontinence, (+) dysuria Musculoskeletal: (+) burning lower back pain Objective BP 159/72 Pulse 106 Temp 36.6 C (97.8 F) Resp 16 Wt 52 kg (114 lb 10.2 oz) BMI 23.96 kg/m Physical Exam Vitals and nursing note reviewed. Constitutional: Appearance: Normal appearance. HENT: Head: Normocephalic and atraumatic. Eyes: Conjunctiva/sclera: Conjunctivae normal. Cardiovascular: Rate and Rhythm: Normal rate. Pulmonary: Effort: Pulmonary effort is normal. Skin: General: Skin is warm and dry. Neurological: Mental Status: She is alert. Gait: Gait abnormal (shuffling/ataxic). 1. UTI symptoms (R39.9) - Dysuria and increased urinary frequency for approximately two weeks; suspect urinary tract infection. - Prescribed Macrobid, sent to [facility]. 2. Anxiety and depression (F41.9) - Previously on Zoloft, discontinued due to excessive somnolence. - Resumed Paxil with reported improvement in symptoms. - Refilled Paxil prescription, sent to [facility]. Vicky Almendarez APRN.BIB Medical Decision Making: Problems: Low: Acute, uncomplicated illness or injury Moderate: 2+ stable chronic illnesses Data: Unique test(s) ordered: 2 Risk: Moderate: Drug management Medical Decision Making Level: 4 - Moderate documented in this encounter [facility] 10-09-2024 Note HNO ID: [id number] Author: VICKY ALMENDAREZ APRN.BASE FILLER Service: ? Author Type: Nurse Specialist Type: Progress Notes Filed: 10/09/2024 14:11 Note Text: Subjective Patient ID: Luke is a 73 year old female who presents for uti symptom. HPI Luke Waggoner is a 73-year-old female with a history of depression, presenting for evaluation of a suspected UTI. Suspected UTI: - Onset of symptoms approximately 2 weeks ago. - Reports lower back pain and dysuria. - Increased urinary frequency; notes nocturnal enuresis. - Previous effective treatment with Macrobid for UTIs. Depression: - Recently switched from Zoloft to Paxil due to excessive somnolence. - Took Paxil this morning and reports it works for her. Family History: - Sister a month ago from alcoholic poisoning, liver and kidney failure. ROS Constitutional: (+) excessive sleepiness Genitourinary: (+) urinary frequency, (+) urinary incontinence, (+) dysuria Musculoskeletal: (+) burning lower back pain Objective BP 159/72 Pulse 106 Temp 36.6 ?C (97.8 ?F) Resp 16 Wt 52 kg (114 lb 10.2 oz) BMI 23.96 kg/m? Physical Exam Vitals and nursing note reviewed. Constitutional: Appearance: Normal appearance. HENT: Head: Normocephalic and atraumatic. Eyes: Conjunctiva/sclera: Conjunctivae normal. Cardiovascular: Rate and Rhythm: Normal rate. Pulmonary: Effort: Pulmonary effort is normal. Skin: General: Skin is warm and dry. Neurological: Mental Status: She is alert. Gait: Gait abnormal (shuffling/ataxic). 1. UTI symptoms (R39.9) - Dysuria and increased urinary frequency for approximately two weeks; suspect urinary tract infection. - Prescribed Macrobid, sent to [facility]. 2. Anxiety and depression (F41.9) - Previously on Zoloft, discontinued due to excessive somnolence. - Resumed Paxil with reported improvement in symptoms. - Refilled Paxil prescription, sent to [facility]. Vicky Almendarez APRN.BASE FILLER Medical Decision Making: Problems: Low: Acute, uncomplicated illness or injury Moderate: 2+ stable chronic illnesses Data: Unique test(s) ordered: 2 Risk: Moderate: Drug management Medical Decision Making Level: 4 - Moderate [facility] [place] 08-28-2024 Note HNO ID: [id number] Author: KASSY LILLY MA Service: ? Author Type: Ell Teacher Type: Progress Notes Filed: 08/28/2024 10:52 Note Text: POPULATION HEALTH NAVIGATION OUTREACH Action/FYI Spoke to patient and Medicare WEllness, BP control and HCC gap closure scheduled. Topic Due (Y or N) Comments Annual Wellness Exam Yes PCP Follow up No Colorectal Cancer Screening No A1C No HTN/Controlling BP Yes HCC Yes Updated appointment notes No Reason for Outreach Care Gap/HCC or Scheduling Wellness Visits Care Gaps due: Medicare Annual Wellness Visit Controlling Blood Pressure Patient Contacted: Spoke to patient/parent/or legal guardian Patient identified by name and : Yes Care Gap/HCC/Scheduling Wellness actions taken: Patient scheduled/pended orders: Medicare Annual Wellness Visit Controlling Blood Pressure 12/10/2024 in [facility] with STEFANY SHERIDAN - Medicare Wellness, HCC gap closure HCC related Navigation Signature: Kassy Lilly MA August 28, 2024 10:52 AM [facility] [place] 08-28-2024 History of Present illness Narrative POPULATION HEALTH NAVIGATION OUTREACH Action/FYI Spoke to patient and Medicare WEllness, BP control and HCC gap closure scheduled. Topic Due (Y or N) Comments Annual Wellness Exam Yes PCP Follow up No Colorectal Cancer Screening No A1C No HTN/Controlling BP Yes HCC Yes Updated appointment notes No Reason for Outreach Care Gap/HCC or Scheduling Wellness Visits Care Gaps due: Medicare Annual Wellness Visit Controlling Blood Pressure Patient Contacted: Spoke to patient/parent/or legal guardian Patient identified by name and : Yes Care Gap/HCC/Scheduling Wellness actions taken: Patient scheduled/pended orders: Medicare Annual Wellness Visit Controlling Blood Pressure 12/10/2024 in [facility] with STEFANY SHERIDAN - Medicare Wellness, HCC gap closure HCC related Navigation Signature: Kassy Lilly MA August 28, 2024 10:52 AM documented in this encounter [facility] 08-28-2024 Note Patient Outreach (NE TNAV) CLEVE WAGGONER Karie ([id number]) 1950 F Date Time Provider Department 08/28/24 KASSY LILLYV During your visit today, we recorded the following information about you: Kassy Lilly MA 08/28/2024 10:52 AM Signed POPULATION HEALTH NAVIGATION OUTREACH Action/FYI Spoke to patient and Medicare WEllness, BP control and HCC gap closure scheduled. Topic Due (Y or N) Comments Annual Wellness Exam Yes PCP Follow up No Colorectal Cancer Screening No A1C No HTN/Controlling BP Yes HCC Yes Updated appointment notes No Reason for Outreach Care Gap/HCC or Scheduling Wellness Visits Care Gaps due: Medicare Annual Wellness Visit Controlling Blood Pressure Patient Contacted: Spoke to patient/parent/or legal guardian Patient identified by name and : Yes Care Gap/HCC/Scheduling Wellness actions taken: Patient scheduled/pended orders: Medicare Annual Wellness Visit Controlling Blood Pressure 12/10/2024 in [facility] with STEFANY SHERIDAN - Medicare Wellness, HCC gap closure HCC related Navigation Signature: Kassy Lilly MA August 28, 2024 10:52 AM Allergies As of Date: 08/28/2024 Noted Allergy Reaction AUGMENTIN (AMOXICILLIN-POT CLAVUL*01/28/2007 8 - GI Upset CEFDINIR 08/31/2020 16 - Unknown CEFTIN (CEFUROXIME) 09/02/2007 6 - Diarrhea CLARITHROMYCIN 06/08/2010 6 - Diarrhea CLINDAMYCIN 10/16/2017 14 - Other: See Comments Comments: oral thrush FLEXERIL (CYCLOBENZAPRINE HCL) 12/28/2009 5 - Intolerance Comments: Hangover effect even with half a pill FLONASE (FLUTICASONE PROPIONATE) 08/21/2007 Comments: Severe headaches MACROBID (NITROFURANTOIN MONOHYD/*09/19/2011 14 - Other: See Comments Comments: Constipation, gi upset, overall sense of feeling ill. PRILOSEC (OMEPRAZOLE) 08/21/2007 Comments: Gi bloating PSEUDOEPHEDRINE 10/22/2012 5 - Intolerance Comments: drives BP up and causes heart racing Date Reviewed: 08/15/2024 Reviewed by: Vicky Almendarez APRN.BASE FILLER - Fully Assessed Reason for Visit: Population Health Navigation Outreach [3910] Cmt: Fabi/Jeannette/SAPNA Prescriptions as of 08/28/2024 - conjugated estrogens (PREMARIN) vaginal cream use 0.5 grams twice weekly as directed - zolpidem (AMBIEN) 10 mg Take 0.5-1 tablets by mouth at bedtime as needed (insomnia) for up to 180 days. - sertraline (ZOLOFT) 25 mg tablet Take 1 tablet by mouth once daily. - cyanocobalamin 1,000 mcg/mL Inject 1 mL intramuscularly once every month. - lisinopril (ZESTRIL) 40 mg tablet Take 1 tablet by mouth once daily. - albuterol HFA (VENTOLIN HFA) 90 mcg/actuation inhaler Inhale 2 Puffs as instructed every 4 hours as needed for wheezing/shortness of breath. - dicyclomine (BENTYL) 20 mg tablet Take 1 tablet by mouth three times a day before meals. - amLODIPine (NORVASC) 2.5 mg tablet Take 1 tablet by mouth once daily. - atorvastatin (LIPITOR) 10 mg tablet Take 1 tablet by mouth once daily. For cholesterol - esomeprazole (NEXIUM) 20 mg capsule Take 1 capsule by mouth once daily as needed. - Acidophilus-Bif Animalis 10 billion cell cap Take by mouth. - FEXOFENADINE HCL (TOÑO ALLERGY ORAL) Take 30 mg by mouth. Meds Comments as of 04/03/2016: Problem List As Of Date 08/28/2024 Noted Resolved ESOPHAGEAL REFLUX [K21.9] PEPTIC ULCER NOS [K27.9] OBST CHRON BRONCHITIS W/O EXAC [J44.89] 12/06/2006 Allergic rhinitis [J30.9] 12/06/2006 OTHER ACUTE SINUSITIS [J01.80] 12/06/2006 GOITER NOS [E04.9] TOBACCO USE DISORDER [F17.200] 12/06/2006 PURE HYPERCHOLESTEROLEM [E78.00] 12/06/2006 ACUTE GASTRITIS W/O HEMORRHAGE [K29.00] 10/01/2008 ABDOMINAL PAIN UNSPEC SITE [R10.9] 10/01/2008 PERS HX COLONIC POLYPS [Z86.0100] 10/01/2008 OBSERVATION-SUSPCT MAL NEOPLASM [Z03.89] 10/01/2008 INT HEMORRHOID W/O COMPL [K64.8] 10/01/2008 Cholelithiasis NOS [K80.20] 05/10/2010 Hematuria [R31.9] 09/26/2011 Anxiety [F41.9] 09/26/2011 08/03/2023 Urgency of urination [R39.15] 09/26/2011 Frequency of urination [R35.0] 09/26/2011 Dysuria [R30.0] 09/26/2011 Essential hypertension [I10] 10/01/2013 DAVID (generalized anxiety disorder) [F41.1] 11/26/2013 Sleep difficulties [G47.9] 12/11/2013 TMJ (dislocation of temporomandibular joint) [S*12/11/2013 Vitamin D deficiency [E55.9] 12/13/2013 Left flank pain [R10.9] 03/23/2016 Smoking history [Z87.891] 03/23/2016 AAA (abdominal aortic aneurysm) ([facility]) [I71.40] 10/09/2017 History of Parkinson's disease [Z86.69] 04/28/2019 Torticollis [M43.6] 04/28/2019 B12 deficiency [E53.8] 06/09/2021 Fatigue [R53.83] 06/09/2021 Primary insomnia [F51.01] 06/09/2021 Balance problems [R26.89] 06/09/2021 Other irritable bowel syndrome [K58.8] 06/09/2021 Parkinson's disease, unspecified whether dyskin*08/03/2023 Encounter Status:Closed by BESANCON, KASSY on 08/28/24 [facility] [place] 08-15-2024 Note HNO ID: [id number] Author: VICKY ALMENDAREZ APRN.BASE FILLER Service: ? Author Type: Nurse Specialist Type: Progress Notes Filed: 08/15/2024 14:13 Note Text: SUBJECTIVE: Lung Cancer Screening Never done DTaP,Tdap,Td Vaccine(2 - Td or Tdap) due on 04/11/2021 Covid-19 Vaccine( season) due on 03/18/2024 Advance Directive Discussion due on 04/23/2024 BP Controlled (<130/80) due on 08/02/2024 Mammogram Screening due on 07/31/2024 Depression Screening due on 08/02/2024 DALTON Waggoner is a 73 year old female. Her past medical history is significant for Parkinson's, hypertension, hypercholesterolemia, tobacco use disorder, GERD, anxiety, dysuria, vitamin D deficiency. Presents today regarding sinus infection. She notes that she has had sinus congestion, drainage, maxillary and frontal headache for about 2 weeks. Not helped with OTC treatments. No ear pain. Afebrile. No report of cough, shortness of breath. Concern for thrush. Notes she has seen Dr. Bourne in the past for allergy shots, but not recently. Review of Systems HENT: Positive for rhinorrhea and sinus pressure. Psychiatric/Behavioral: Negative for dysphoric mood. The patient is not nervous/anxious. Objective BP 145/68 Pulse 97 Resp 16 Wt 53 kg (116 lb 13.5 oz) BMI 24.42 kg/m? Physical Exam Vitals and nursing note reviewed. Constitutional: General: She is not in acute distress. Appearance: She is not toxic-appearing or diaphoretic. HENT: Head: Normocephalic and atraumatic. Right Ear: Tympanic membrane and ear canal normal. Left Ear: Tympanic membrane and ear canal normal. Nose: Mucosal edema and rhinorrhea present. Right Sinus: Frontal sinus tenderness present. Left Sinus: Frontal sinus tenderness present. Mouth/Throat: Lips: Martorell. Mouth: Mucous membranes are moist. Pharynx: Oropharynx is clear. Eyes: General: Right eye: No discharge. Left eye: No discharge. Conjunctiva/sclera: Conjunctivae normal. Cardiovascular: Rate and Rhythm: Normal rate and regular rhythm. Heart sounds: Normal heart sounds. Pulmonary: Effort: Pulmonary effort is normal. Breath sounds: Normal breath sounds. Abdominal: General: Abdomen is flat. Bowel sounds are normal. Palpations: Abdomen is soft. Musculoskeletal: General: Deformity (kyphosis) present. No swelling. Right lower leg: No edema. Left lower leg: No edema. Skin: General: Skin is warm and dry. Neurological: Mental Status: She is alert and oriented to person, place, and time. Gait: Gait abnormal (short, shuffling, slow to start). Psychiatric: Mood and Affect: Mood normal. Thought Content: Thought content normal. ALLERGIES Allergen Reactions Augmentin [Amoxicil* GI Upset Cefdinir Unknown Ceftin [Cefuroxime] Diarrhea Clarithromycin Diarrhea Clindamycin Other: See Comments oral thrush Flexeril [Cyclobenz* Intolerance Hangover effect even with half a pill Flonase [Fluticason* Severe headaches Macrobid [Nitrofura* Other: See Comments Constipation, gi upset, overall sense of feeling ill. Prilosec [Omeprazol* Gi bloating Pseudoephedrine Intolerance drives BP up and causes heart racing Medications conjugated estrogens (PREMARIN) vaginal cream use 0.5 grams twice weekly as directed zolpidem (AMBIEN) 10 mg Take 0.5-1 tablets by mouth at bedtime as needed (insomnia) for up to 180 days. sertraline (ZOLOFT) 25 mg tablet Take 1 tablet by mouth once daily. cyanocobalamin 1,000 mcg/mL Inject 1 mL intramuscularly once every month. lisinopril (ZESTRIL) 40 mg tablet Take 1 tablet by mouth once daily. albuterol HFA (VENTOLIN HFA) 90 mcg/actuation inhaler Inhale 2 Puffs as instructed every 4 hours as needed for wheezing/shortness of breath. dicyclomine (BENTYL) 20 mg tablet Take 1 tablet by mouth three times a day before meals. amLODIPine (NORVASC) 2.5 mg tablet Take 1 tablet by mouth once daily. atorvastatin (LIPITOR) 10 mg tablet Take 1 tablet by mouth once daily. For cholesterol esomeprazole (NEXIUM) 20 mg capsule Take 1 capsule by mouth once daily as needed. Acidophilus-Bif Animalis 10 billion cell cap Take by mouth. FEXOFENADINE HCL (TOÑO ALLERGY ORAL) Take 30 mg by mouth. azithromycin (ZITHROMAX) 250 mg tablet Take 2 tablets by mouth once daily for 1 day, THEN 1 tablet once daily for 4 days. fluconazole (DIFLUCAN) 150 mg tablet Take 1 tablet by mouth one time only for 1 dose. Repeat in 3 to 5 days as needed. Treat for recurrent yeast infection as directed PAST MEDICAL HISTORY Diagnosis Date Abdominal pain, unspecified site Allergic rhinitis, cause unspecified 12/06/2006 Anxiety 09/26/2011 Asthma (HCC) Chronic airway obstruction, not elsewhere classified Esophageal reflux Goiter, unspecified mulitnodular goiter based on ultrasound Hypertension Mental disorder anxiety Obstructive chronic bronchitis without exacerbation (HCC) 12/06/2006 Other and unspecified hyperlipidemia Pept (more content not included)... [facility] [place] 07-07-2024 Telephone encounter Note The following approved medication requests have been transmitted electronically. Requested Prescriptions Pending Prescriptions Disp Refills conjugated estrogens (PREMARIN) vaginal cream 90 g 3 Sig: use 0.5 grams twice weekly as directed Stefany Sheridan MD [facility] 07-07-2024 Miscellaneous Notes The following approved medication requests have been transmitted electronically. Requested Prescriptions Pending Prescriptions Disp Refills conjugated estrogens (PREMARIN) vaginal cream 90 g 3 Sig: use 0.5 grams twice weekly as directed Stefany Sheridan MD Prescription Refill Information The patient has been identified by name and date of : Yes Caregiver verified no other encounters exist for this prescription request: Yes Caregiver confirmed with patient/requestor that no other refills are due, in the near future, with this provider at this time: Yes The last office visit in the department: 06/09/24 Does the patient have a future office visit with this provider/department: No Requested Prescriptions Pending Prescriptions Disp Refills conjugated estrogens (PREMARIN) vaginal cream 90 g 3 Sig: use 0.5 grams twice weekly as directed Mariella Rain July 07, 2024 12:51 PM documented in this encounter [facility] 07-07-2024 Telephone encounter Note Prescription Refill Information The patient has been identified by name and date of : Yes Caregiver verified no other encounters exist for this prescription request: Yes Caregiver confirmed with patient/requestor that no other refills are due, in the near future, with this provider at this time: Yes The last office visit in the department: 06/09/24 Does the patient have a future office visit with this provider/department: No Requested Prescriptions Pending Prescriptions Disp Refills conjugated estrogens (PREMARIN) vaginal cream 90 g 3 Sig: use 0.5 grams twice weekly as directed Mariella Rain July 07, 2024 12:51 PM [facility] 06-27-2024 Telephone encounter Note Prescription Refill Information The patient has been identified by name and date of : Yes Caregiver verified no other encounters exist for this prescription request: Yes Caregiver confirmed with patient/requestor that no other refills are due, in the near future, with this provider at this time: Yes The last office visit in the department: 06/09/24 Does the patient have a future office visit with this provider/department: No Requested Prescriptions Pending Prescriptions Disp Refills zolpidem (AMBIEN) 10 mg 30 tablet 5 Sig: Take 0.5-1 tablets by mouth at bedtime as needed (insomnia) for up to 180 days. Martha Reyna June 27, 2024 1:01 PM [facility] 06-27-2024 Miscellaneous Notes Prescription Refill Information The patient has been identified by name and date of : Yes Caregiver verified no other encounters exist for this prescription request: Yes Caregiver confirmed with patient/requestor that no other refills are due, in the near future, with this provider at this time: Yes The last office visit in the department: 06/09/24 Does the patient have a future office visit with this provider/department: No Requested Prescriptions Pending Prescriptions Disp Refills zolpidem (AMBIEN) 10 mg 30 tablet 5 Sig: Take 0.5-1 tablets by mouth at bedtime as needed (insomnia) for up to 180 days. Martha Reyna June 27, 2024 1:01 PM documented in this encounter [facility] 06-09-2024 Note HNO ID: [id number] Author: VICKY ALMENDAREZ APRN.BASE FILLER Service: ? Author Type: Nurse Specialist Type: Progress Notes Filed: 06/09/2024 13:10 Note Text: SUBJECTIVE: Lung Cancer Screening Never done DTaP,Tdap,Td Vaccine(2 - Td or Tdap) due on 04/11/2021 Covid-19 Vaccine( season) due on 03/18/2024 Advance Directive Discussion due on 04/23/2024 Mammogram Screening due on 07/31/2024 DALTON Waggoner is a 73 year old female. Her past medical history is significant for Parkinson's, hypertension, hypercholesterolemia, tobacco use disorder, GERD, anxiety, dysuria, vitamin D deficiency. Presents today regarding sinus infection. She notes that she has had sinus congestion, drainage, maxillary and frontal headache for about 3 weeks. Not helped with OTC treatments. No ear pain. Afebrile. No report of cough, shortness of breath. Notes she has seen Dr. Bourne in the past for allergy shots, but not recently. She would like to switch from paxil to zolaft due to feeling fatigued lately, reports Stefany Sheridan MD recommended the change.Initially started paxil for anxiety, currently controlled. Review of Systems HENT: Positive for rhinorrhea and sinus pressure. Psychiatric/Behavioral: Negative for dysphoric mood. The patient is not nervous/anxious. Objective BP 155/77 Pulse 79 Resp 16 Wt 53 kg (116 lb 13.5 oz) BMI 24.42 kg/m? Physical Exam Vitals and nursing note reviewed. Constitutional: General: She is not in acute distress. Appearance: She is not toxic-appearing or diaphoretic. HENT: Head: Normocephalic and atraumatic. Right Ear: Tympanic membrane and ear canal normal. Left Ear: Tympanic membrane and ear canal normal. Nose: Mucosal edema and rhinorrhea present. Right Sinus: Frontal sinus tenderness present. Left Sinus: Frontal sinus tenderness present. Mouth/Throat: Lips: Martorell. Mouth: Mucous membranes are moist. Pharynx: Oropharynx is clear. Eyes: General: Right eye: No discharge. Left eye: No discharge. Conjunctiva/sclera: Conjunctivae normal. Cardiovascular: Rate and Rhythm: Normal rate and regular rhythm. Heart sounds: Normal heart sounds. Pulmonary: Effort: Pulmonary effort is normal. Breath sounds: Normal breath sounds. Abdominal: General: Abdomen is flat. Bowel sounds are normal. Palpations: Abdomen is soft. Musculoskeletal: General: Deformity (kyphosis) present. No swelling. Right lower leg: No edema. Left lower leg: No edema. Skin: General: Skin is warm and dry. Neurological: Mental Status: She is alert and oriented to person, place, and time. Gait: Gait abnormal (short, shuffling, slow to start). Psychiatric: Mood and Affect: Mood normal. Thought Content: Thought content normal. ALLERGIES Allergen Reactions Augmentin [Amoxicil* GI Upset Cefdinir Unknown Ceftin [Cefuroxime] Diarrhea Clarithromycin Diarrhea Clindamycin Other: See Comments oral thrush Flexeril [Cyclobenz* Intolerance Hangover effect even with half a pill Flonase [Fluticason* Severe headaches Macrobid [Nitrofura* Other: See Comments Constipation, gi upset, overall sense of feeling ill. Prilosec [Omeprazol* Gi bloating Pseudoephedrine Intolerance drives BP up and causes heart racing Medications cyanocobalamin 1,000 mcg/mL Inject 1 mL intramuscularly once every month. lisinopril (ZESTRIL) 40 mg tablet Take 1 tablet by mouth once daily. albuterol HFA (VENTOLIN HFA) 90 mcg/actuation inhaler Inhale 2 Puffs as instructed every 4 hours as needed for wheezing/shortness of breath. zolpidem (AMBIEN) 10 mg Take 0.5-1 tablets by mouth at bedtime as needed (insomnia) for up to 180 days. dicyclomine (BENTYL) 20 mg tablet Take 1 tablet by mouth three times a day before meals. amLODIPine (NORVASC) 2.5 mg tablet Take 1 tablet by mouth once daily. atorvastatin (LIPITOR) 10 mg tablet Take 1 tablet by mouth once daily. For cholesterol PARoxetine (PAXIL) 10 mg tablet Take 1 tablet by mouth once daily. conjugated estrogens (PREMARIN) vaginal cream use 0.5 grams twice weekly as directed esomeprazole (NEXIUM) 20 mg capsule Take 1 capsule by mouth once daily as needed. Acidophilus-Bif Animalis 10 billion cell cap Take by mouth. FEXOFENADINE HCL (TOÑO ALLERGY ORAL) Take 30 mg by mouth. nystatin (MYCOSTATIN) 100,000 unit/mL suspension 5 mL four times daily. Swish/swallow or swish/expectorate. For 10 to 14 days as directed (Patient not taking: Reported on 06/09/2024) PAST MEDICAL HISTORY Diagnosis Date Abdominal pain, unspecified site Allergic rhinitis, cause unspecified 12/06/2006 Anxiety 09/26/2011 Asthma Chronic airway obstruction, not elsewhere classified Esophageal reflux Goiter, unspecified mulitnodular goiter based on ultrasound Hypertension Mental disorder anxiety Obstructive chronic bronchitis without exacerbation (HCC) 12/06/2006 Other and unspecified hyperlipidemia Peptic ulcer, unspecified site, u (more content not included)... [facility] [place] 06-09-2024 History of Present illness Narrative SUBJECTIVE: Lung Cancer Screening Never done DTaP,Tdap,Td Vaccine(2 - Td or Tdap) due on 04/11/2021 Covid-19 Vaccine(2023- season) due on 03/18/2024 Advance Directive Discussion due on 04/23/2024 Mammogram Screening due on 07/31/2024 DALTON Waggoner is a 73 year old female. Her past medical history is significant for Parkinson's, hypertension, hypercholesterolemia, tobacco use disorder, GERD, anxiety, dysuria, vitamin D deficiency. Presents today regarding sinus infection. She notes that she has had sinus congestion, drainage, maxillary and frontal headache for about 3 weeks. Not helped with OTC treatments. No ear pain. Afebrile. No report of cough, shortness of breath. Notes she has seen Dr. Bourne in the past for allergy shots, but not recently. She would like to switch from paxil to zolaft due to feeling fatigued lately, reports Stefany Sheridan MD recommended the change.Initially started paxil for anxiety, currently controlled. Review of Systems HENT: Positive for rhinorrhea and sinus pressure. Psychiatric/Behavioral: Negative for dysphoric mood. The patient is not nervous/anxious. Objective BP 155/77 Pulse 79 Resp 16 Wt 53 kg (116 lb 13.5 oz) BMI 24.42 kg/m Physical Exam Vitals and nursing note reviewed. Constitutional: General: She is not in acute distress. Appearance: She is not toxic-appearing or diaphoretic. HENT: Head: Normocephalic and atraumatic. Right Ear: Tympanic membrane and ear canal normal. Left Ear: Tympanic membrane and ear canal normal. Nose: Mucosal edema and rhinorrhea present. Right Sinus: Frontal sinus tenderness present. Left Sinus: Frontal sinus tenderness present. Mouth/Throat: Lips: Martorell. Mouth: Mucous membranes are moist. Pharynx: Oropharynx is clear. Eyes: General: Right eye: No discharge. Left eye: No discharge. Conjunctiva/sclera: Conjunctivae normal. Cardiovascular: Rate and Rhythm: Normal rate and regular rhythm. Heart sounds: Normal heart sounds. Pulmonary: Effort: Pulmonary effort is normal. Breath sounds: Normal breath sounds. Abdominal: General: Abdomen is flat. Bowel sounds are normal. Palpations: Abdomen is soft. Musculoskeletal: General: Deformity (kyphosis) present. No swelling. Right lower leg: No edema. Left lower leg: No edema. Skin: General: Skin is warm and dry. Neurological: Mental Status: She is alert and oriented to person, place, and time. Gait: Gait abnormal (short, shuffling, slow to start). Psychiatric: Mood and Affect: Mood normal. Thought Content: Thought content normal. ALLERGIES Allergen Reactions Augmentin [Amoxicil* GI Upset Cefdinir Unknown Ceftin [Cefuroxime] Diarrhea Clarithromycin Diarrhea Clindamycin Other: See Comments oral thrush Flexeril [Cyclobenz* Intolerance Hangover effect even with half a pill Flonase [Fluticason* Severe headaches Macrobid [Nitrofura* Other: See Comments Constipation, gi upset, overall sense of feeling ill. Prilosec [Omeprazol* Gi bloating Pseudoephedrine Intolerance drives BP up and causes heart racing Medications cyanocobalamin 1,000 mcg/mL Inject 1 mL intramuscularly once every month. lisinopril (ZESTRIL) 40 mg tablet Take 1 tablet by mouth once daily. albuterol HFA (VENTOLIN HFA) 90 mcg/actuation inhaler Inhale 2 Puffs as instructed every 4 hours as needed for wheezing/shortness of breath. zolpidem (AMBIEN) 10 mg Take 0.5-1 tablets by mouth at bedtime as needed (insomnia) for up to 180 days. dicyclomine (BENTYL) 20 mg tablet Take 1 tablet by mouth three times a day before meals. amLODIPine (NORVASC) 2.5 mg tablet Take 1 tablet by mouth once daily. atorvastatin (LIPITOR) 10 mg tablet Take 1 tablet by mouth once daily. For cholesterol PARoxetine (PAXIL) 10 mg tablet Take 1 tablet by mouth once daily. conjugated estrogens (PREMARIN) vaginal cream use 0.5 grams twice weekly as directed esomeprazole (NEXIUM) 20 mg capsule Take 1 capsule by mouth once daily as needed. Acidophilus-Bif Animalis 10 billion cell cap Take by mouth. FEXOFENADINE HCL (TOÑO ALLERGY ORAL) Take 30 mg by mouth. nystatin (MYCOSTATIN) 100,000 unit/mL suspension 5 mL four times daily. Swish/swallow or swish/expectorate. For 10 to 14 days as directed (Patient not taking: Reported on 06/09/2024) PAST MEDICAL HISTORY Diagnosis Date Abdominal pain, unspecified site Allergic rhinitis, cause unspecified 12/06/2006 Anxiety 09/26/2011 Asthma Chronic airway obstruction, not elsewhere classified Esophageal reflux Goiter, unspecified mulitnodular goiter based on ultrasound Hypertension Mental disorder anxiety Obstructive chronic bronchitis without exacerbation (HCC) 12/06/2006 Other and unspecified hyperlipidemia Peptic ulcer, unspecified site, unspecified as acute or chronic, without mention of hemorrhage, perforation, or obstruction EGD about 15 years ago () Snoring Social History Tobacco Use Smoking status: Every Day Current packs/day: 1.00 Average packs/day: 1 pack/day for 35.0 years (35.0 ttl pk-yrs) Types: Cigarettes Smokeless tobacco: Never Substance Use Topics Alcohol use: No Drug use: No ASSESSMENT/PLAN: 1. Acute recurrent frontal sinusitis - ICD9: 461.1, ICD10: J01.11 - Will begin treatment with as per antibiotic as written, see orders - Supportive care with plenty of fluids, rest, and analgesia prn. - Follow up if symptoms persist or worsen. - DOXYCYCLINE HYCLATE 100 MG TABLET - METRONIDAZOLE 500 MG TABLET - CLOTRIMAZOLE 10 MG YONI 2. Anxiety and depression - ICD9: 300.00, 311, ICD10: F41.9, F32.A Would alyson to switch from Paxil to Zoloft. - SERTRALINE 25 MG TABLET Vicky Almendarez APRN.[employer] Medical Decision Making: Problems: Low: Acute, uncomplicated illness or injury Moderate: 1+ chronic illnesses with change Risk: Moderate: Drug management Medical Decision Making Level: 4 - Moderate documented in this encounter [facility] 04-14-2024 Instructions Stefany Sheridan MD - 04/14/2024 4:38 PM EST - Take Doxycycline as prescribed for 7 days; prescription sent to [facility]. - Drink plenty of water to stay hydrated. - B12 shots prescription sent to [facility]. - Urine sample sent for culture; await results. documented in this encounter [facility] 04-14-2024 History of Present illness Narrative This note was created using Freebeepay. Subjective Cleve Waggoner is a 73 year old female. Patient presents with: Same Day Appointment: X 2 weeks frequent urination, burning with urination SUBJECTIVE: Cleve Waggoner is a 73 year old year old lady here today for acute appointment for review of medical conditions: UTI. Cleve Waggoner is a 73-year-old female presenting with urinary symptoms and fatigue. Cleve reports a 2-3 week history of dysuria, urinary frequency, and urgency. She describes a burning sensation during micturition and a constant ache in the lower abdomen, initially thought to be intestinal cramping. She also experiences left-sided flank pain and groin pain. She denies hematuria, nausea, or emesis. She has increased her water intake but has not taken any medications for symptom relief. She also reports significant fatigue, noting that she often falls asleep shortly after breakfast. She denies fever or chills but mentions feeling hot and sweaty. Additionally, she experiences aching in her legs, similar to previous UTI symptoms. She has a history of UTIs and has previously been treated with doxycycline and Cipro, with doxycycline being better tolerated. She has multiple medication allergies, including Augmentin, cefdinir, cefdin, clarithromycin, clindamycin, and Macrobid, which cause gastrointestinal intolerance. She also mentions a need for a refill of her B12 injections, which she previously received from [facility]. PAST MEDICAL HISTORY Diagnosis Date Abdominal pain, unspecified site Allergic rhinitis, cause unspecified 12/06/2006 Anxiety 09/26/2011 Asthma Chronic airway obstruction, not elsewhere classified Esophageal reflux Goiter, unspecified mulitnodular goiter based on ultrasound Hypertension Mental disorder anxiety Obstructive chronic bronchitis without exacerbation (HCC) 12/06/2006 Other and unspecified hyperlipidemia Peptic ulcer, unspecified site, unspecified as acute or chronic, without mention of hemorrhage, perforation, or obstruction EGD about 15 years ago () Snoring Current Outpatient Medications Medication Sig lisinopril (ZESTRIL) 40 mg tablet Take 1 tablet by mouth once daily. albuterol HFA (VENTOLIN HFA) 90 mcg/actuation inhaler Inhale 2 Puffs as instructed every 4 hours as needed for wheezing/shortness of breath. zolpidem (AMBIEN) 10 mg Take 0.5-1 tablets by mouth at bedtime as needed (insomnia) for up to 180 days. dicyclomine (BENTYL) 20 mg tablet Take 1 tablet by mouth three times a day before meals. (Patient taking differently: Take 20 mg by mouth three times a day as needed.) amLODIPine (NORVASC) 2.5 mg tablet Take 1 tablet by mouth once daily. nystatin (MYCOSTATIN) 100,000 unit/mL suspension 5 mL four times daily. Swish/swallow or swish/expectorate. For 10 to 14 days as directed atorvastatin (LIPITOR) 10 mg tablet Take 1 tablet by mouth once daily. For cholesterol PARoxetine (PAXIL) 10 mg tablet Take 1 tablet by mouth once daily. conjugated estrogens (PREMARIN) vaginal cream use 0.5 grams twice weekly as directed cyanocobalamin 1,000 mcg/mL Inject 1 mL intramuscularly once every month. esomeprazole (NEXIUM) 20 mg capsule Take 1 capsule by mouth once daily as needed. Acidophilus-Bif Animalis 10 billion cell cap Take by mouth. FEXOFENADINE HCL (TOÑO ALLERGY ORAL) Take 30 mg by mouth. No current facility-administered medications for this visit. Review of Systems Constitutional: Positive for fatigue. Negative for chills and fever. Gastrointestinal: Negative for nausea and vomiting. Genitourinary: Positive for dysuria (also burning down the front lower abdomen), flank pain (left), frequency, pelvic pain and urgency. Negative for hematuria. Musculoskeletal: Positive for back pain (lower). Leg pain like with prior UTIs Objective BP 118/68 Pulse 91 Temp (!) 35.6 C (96.1 F) Resp 16 Wt 52.2 kg (115 lb) SpO2 96% BMI 24.04 kg/m Physical Exam Constitutional: Appearance: Normal appearance. HENT: Head: Normocephalic. Eyes: Conjunctiva/sclera: Conjunctivae normal. Cardiovascular: Rate and Rhythm: Normal rate and regular rhythm. Heart sounds: Normal heart sounds. Pulmonary: Effort: Pulmonary effort is normal. Breath sounds: Normal breath sounds. Musculoskeletal: Right lower leg: No edema. Left lower leg: No edema. Skin: General: Skin is warm and dry. Neurological: General: No focal deficit present. Mental Status: She is alert and oriented to person, place, and time. Psychiatric: Mood and Affect: Mood normal. Behavior: Behavior normal. Thought Content: Thought content normal. Judgment: Judgment normal. Assessment and Plan # UTI symptoms (R39.9) # Frequent urination (R35.0) # Burning with urination (R30.0) # Hematuria, microscopic (R31.29) - Symptoms include dysuria, urinary frequency, urgency, lower back and pelvic pain, leg aches, fatigue, and left-sided flank pain. No fever, chills, nausea, or vomiting reported. - Urinalysis shows concentrated urine with microscopic hematuria, minimal nitrates, and leukocytes. - Sent urine sample for culture due to significant dysuria. - Prescribed Doxycycline for 7 days, which has been well-tolerated in the past. - Advised increased fluid intake. # B12 deficiency (E53.8) - Reordered B12 injections, 3 doses with 3 refills, sent to [facility]. - Discussed potential insurance coverage issues; advised patient on possible [id number] expenses. # Drug intolerance (Z78.9) - Documented intolerances to Augmentin, cefdinir, cefdin, clarithromycin, clindamycin, and Macrobid, primarily due to gastrointestinal side effects. - Doxycycline and Cipro are well-tolerated; Doxycycline preferred for current UTI treatment. Stefany Sheridan MD documented in this encounter [facility] 04-14-2024 Note HNO ID: [id number] Author: STEFANY SHERIDAN MD Service: ? Author Type: Physician Type: Progress Notes Filed: 04/14/2024 16:38 Note Text: This note was created using Freebeepay. Subjective Cleve Waggoner is a 73 year old female. Patient presents with: Same Day Appointment: X 2 weeks frequent urination, burning with urination SUBJECTIVE: Cleve Waggoner is a 73 year old year old lady here today for acute appointment for review of medical conditions: UTI. Cleve Waggoner is a 73-year-old female presenting with urinary symptoms and fatigue. Cleve reports a 2-3 week history of dysuria, urinary frequency, and urgency. She describes a burning sensation during micturition and a constant ache in the lower abdomen, initially thought to be intestinal cramping. She also experiences left-sided flank pain and groin pain. She denies hematuria, nausea, or emesis. She has increased her water intake but has not taken any medications for symptom relief. She also reports significant fatigue, noting that she often falls asleep shortly after breakfast. She denies fever or chills but mentions feeling hot and sweaty. Additionally, she experiences aching in her legs, similar to previous UTI symptoms. She has a history of UTIs and has previously been treated with doxycycline and Cipro, with doxycycline being better tolerated. She has multiple medication allergies, including Augmentin, cefdinir, cefdin, clarithromycin, clindamycin, and Macrobid, which cause gastrointestinal intolerance. She also mentions a need for a refill of her B12 injections, which she previously received from [facility]. PAST MEDICAL HISTORY Diagnosis Date Abdominal pain, unspecified site Allergic rhinitis, cause unspecified 12/06/2006 Anxiety 09/26/2011 Asthma Chronic airway obstruction, not elsewhere classified Esophageal reflux Goiter, unspecified mulitnodular goiter based on ultrasound Hypertension Mental disorder anxiety Obstructive chronic bronchitis without exacerbation ([facility]) 12/06/2006 Other and unspecified hyperlipidemia Peptic ulcer, unspecified site, unspecified as acute or chronic, without mention of hemorrhage, perforation, or obstruction EGD about 15 years ago () Snoring Current Outpatient Medications Medication Sig lisinopril (ZESTRIL) 40 mg tablet Take 1 tablet by mouth once daily. albuterol HFA (VENTOLIN HFA) 90 mcg/actuation inhaler Inhale 2 Puffs as instructed every 4 hours as needed for wheezing/shortness of breath. zolpidem (AMBIEN) 10 mg Take 0.5-1 tablets by mouth at bedtime as needed (insomnia) for up to 180 days. dicyclomine (BENTYL) 20 mg tablet Take 1 tablet by mouth three times a day before meals. (Patient taking differently: Take 20 mg by mouth three times a day as needed.) amLODIPine (NORVASC) 2.5 mg tablet Take 1 tablet by mouth once daily. nystatin (MYCOSTATIN) 100,000 unit/mL suspension 5 mL four times daily. Swish/swallow or swish/expectorate. For 10 to 14 days as directed atorvastatin (LIPITOR) 10 mg tablet Take 1 tablet by mouth once daily. For cholesterol PARoxetine (PAXIL) 10 mg tablet Take 1 tablet by mouth once daily. conjugated estrogens (PREMARIN) vaginal cream use 0.5 grams twice weekly as directed cyanocobalamin 1,000 mcg/mL Inject 1 mL intramuscularly once every month. esomeprazole (NEXIUM) 20 mg capsule Take 1 capsule by mouth once daily as needed. Acidophilus-Bif Animalis 10 billion cell cap Take by mouth. FEXOFENADINE HCL (TOÑO ALLERGY ORAL) Take 30 mg by mouth. No current facility-administered medications for this visit. Review of Systems Constitutional: Positive for fatigue. Negative for chills and fever. Gastrointestinal: Negative for nausea and vomiting. Genitourinary: Positive for dysuria (also burning down the front lower abdomen), flank pain (left), frequency, pelvic pain and urgency. Negative for hematuria. Musculoskeletal: Positive for back pain (lower). Leg pain like with prior UTIs Objective BP 118/68 Pulse 91 Temp (!) 35.6 ?C (96.1 ?F) Resp 16 Wt 52.2 kg (115 lb) SpO2 96% BMI 24.04 kg/m? Physical Exam Constitutional: Appearance: Normal appearance. HENT: Head: Normocephalic. Eyes: Conjunctiva/sclera: Conjunctivae normal. Cardiovascular: Rate and Rhythm: Normal rate and regular rhythm. Heart sounds: Normal heart sounds. Pulmonary: Effort: Pulmonary effort is normal. Breath sounds: Normal breath sounds. Musculoskeletal: Right lower leg: No edema. Left lower leg: No edema. Skin: General: Skin is warm and dry. Neurological: General: No focal deficit present. Mental Status: She is alert and oriented to person, place, and time. Psychiatric: Mood and Affect: Mood normal. Behavior: Behavior normal. Thought Content: Thought content normal. Judgment: Judgment normal. Assessment and Plan # UTI symptoms (R39.9) # Frequent urination (R35.0) # Burning with urination (R30.0) (more content not included)... [facility] [place] 04-07-2024 Telephone encounter Note 05-16-2024 [facility] provider gave all prep information and patient has direct number to call with any questions Chaz Gentile [facility] 04-07-2024 Miscellaneous Notes 05-16-2024 [facility] provider gave all prep information and patient has direct number to call with any questions Chaz Gentile documented in this encounter [facility] 04-04-2024 Note HNO ID: [id number] Author: TERESA BOSCH MA Service: ? Author Type: Ell Teacher Type: Progress Notes Filed: 04/04/2024 14:22 Note Text: REVIEW OF SYSTEMS: General: The patient denies fatigue, denies weight loss, denies weight gain, denies feeling hot, and denies feelings of cold. Eyes: The patient denies glaucoma, denies eye injury/surgery, does not wear glasses or contacts. Ear/Nose/Throat: The patient NOTES allergies, denies hayfever, denies ear infections, and denies bloody noses. Cardiovascular: The patient denies chest pain, denies heart disease, NOTES high blood pressure,denies cardiac stent, denies prior heart attack, denies irregular heart beat, denies high cholesterol, denies poor circulation, denies heart failure, other cardiac issues, denies claudication, denies cold feet, denies peripheral arterial stent. Respiratory: The patient denies tuberculosis, NOTES pneumonia, denies frequent cough, denies pulmonary embolism, denies shortness of breath, and denies coughing up blood. Gastrointestinal: The patient denies difficulty swallowing, NOTES acid reflux, denies ulcers, denies vomiting, denies jaundice/hepatitis, denies gallbladder problems, denies black or tarry stools, denies hemorrhoids, denies bleeding from rectum, denies diverticulitis, denies constipation, denies diarrhea, denies loss of stool control, and denies hernias. Kidney/Bladder: The patient denies kidney stones, denies urine infections, and denies bloody urine. Skin: The patient denies a history of skin cancer, denies bleeding/changing moles, and denies a history of skin rash. Neurologic: The patient denies a history of epilepsy/convulsions, denies headaches, denies head/spinal injuries, and denies stroke/TIA. Psychiatric: The patient denies psychiatric medications, denies depression, and denies voices, denies substance abuse. Endocrine: The patient denies thyroid disorders, denies diabetes, and denies hormonal problems. Hematologic: The patient denies a history of bruising, denies bleeding, and denies anemia, denies blood clots. Infections: The patient NOTES a history of measles and mumps, NOTES rheumatic fever, and denies sexually transmitted diseases. Musculoskeletal: The patient denies back pain/injury, NOTES back problems, denies sciatica, denies knee/foot trouble, denies arthritis, or denies gout. When was patient's last Mammogram screening? 07/2023 Last Colonoscopy: 10/21/2018 Teresa Bosch MA [facility] [place] 04-04-2024 History of Present illness Narrative REVIEW OF SYSTEMS: General: The patient denies fatigue, denies weight loss, denies weight gain, denies feeling hot, and denies feelings of cold. Eyes: The patient denies glaucoma, denies eye injury/surgery, does not wear glasses or contacts. Ear/Nose/Throat: The patient NOTES allergies, denies hayfever, denies ear infections, and denies bloody noses. Cardiovascular: The patient denies chest pain, denies heart disease, NOTES high blood pressure,denies cardiac stent, denies prior heart attack, denies irregular heart beat, denies high cholesterol, denies poor circulation, denies heart failure, other cardiac issues, denies claudication, denies cold feet, denies peripheral arterial stent. Respiratory: The patient denies tuberculosis, NOTES pneumonia, denies frequent cough, denies pulmonary embolism, denies shortness of breath, and denies coughing up blood. Gastrointestinal: The patient denies difficulty swallowing, NOTES acid reflux, denies ulcers, denies vomiting, denies jaundice/hepatitis, denies gallbladder problems, denies black or tarry stools, denies hemorrhoids, denies bleeding from rectum, denies diverticulitis, denies constipation, denies diarrhea, denies loss of stool control, and denies hernias. Kidney/Bladder: The patient denies kidney stones, denies urine infections, and denies bloody urine. Skin: The patient denies a history of skin cancer, denies bleeding/changing moles, and denies a history of skin rash. Neurologic: The patient denies a history of epilepsy/convulsions, denies headaches, denies head/spinal injuries, and denies stroke/TIA. Psychiatric: The patient denies psychiatric medications, denies depression, and denies voices, denies substance abuse. Endocrine: The patient denies thyroid disorders, denies diabetes, and denies hormonal problems. Hematologic: The patient denies a history of bruising, denies bleeding, and denies anemia, denies blood clots. Infections: The patient NOTES a history of measles and mumps, NOTES rheumatic fever, and denies sexually transmitted diseases. Musculoskeletal: The patient denies back pain/injury, NOTES back problems, denies sciatica, denies knee/foot trouble, denies arthritis, or denies gout. When was patient's last Mammogram screening? 07/2023 Last Colonoscopy: 10/21/2018 Teresa Bosch MA HISTORY AND PHYSICAL Cleve Waggoner : 1950 REFERRING PHYSICIAN: Stefany Sheridan [address] [place] [address] CHIEF COMPLAINT: Patient presents with: Consult: colonoscopy HPI: Cleve is a 73 year old female referred for endoscopy. Cleve notes due for screening colonoscopy- hx of polyps (2018, 2013). Cleve notes occasional abdominal cramping. -relieved with bentyl Cleve denies diarrhea. Cleve notes occasional constipation. -will take milk of mag as needed with good relief Cleve denies a change in bowel habits. Cleve denies melena. Cleve denies bright red blood per rectum. Cleve denies hemorrhoids. Cleve notes occasional heartburn. -will use nexium PRN when eating a large meal Cleve denies dysphagia. Cleve denies a history of ulcers/ peptic ulcer disease. Cleve notes family history of colon issues. Maternal grandmother with colon cancer. Cleve has undergone prior endoscopy. Last colonoscopy was 10/2018 at [facility] with Dr. Seymour. Sedation:Fentanyl 100 micrograms IV, Midazolam 8 mg IV Impression: - One 5 mm polyp in the rectum, removed with a cold biopsy forceps. Resected and retrieved. CONVERTED FINAL DIAGNOSIS 1. Duodenum, biopsy (A) - No significant pathologic change. 2. Gastric antrum, biopsy (B) - No significant pathologic change. 3. Rectal polyp, biopsy (C) - Hyperplastic polyp. TIFFANIE/baron/10/22/18 Current Outpatient Medications Medication Sig lisinopril (ZESTRIL) 40 mg tablet Take 1 tablet by mouth once daily. albuterol HFA (VENTOLIN HFA) 90 mcg/actuation inhaler Inhale 2 Puffs as instructed every 4 hours as needed for wheezing/shortness of breath. zolpidem (AMBIEN) 10 mg Take 0.5-1 tablets by mouth at bedtime as needed (insomnia) for up to 180 days. dicyclomine (BENTYL) 20 mg tablet Take 1 tablet by mouth three times a day before meals. (Patient taking differently: Take 20 mg by mouth three times a day as needed.) amLODIPine (NORVASC) 2.5 mg tablet Take 1 tablet by mouth once daily. nystatin (MYCOSTATIN) 100,000 unit/mL suspension 5 mL four times daily. Swish/swallow or swish/expectorate. For 10 to 14 days as directed atorvastatin (LIPITOR) 10 mg tablet Take 1 tablet by mouth once daily. For cholesterol PARoxetine (PAXIL) 10 mg tablet Take 1 tablet by mouth once daily. conjugated estrogens (PREMARIN) vaginal cream use 0.5 grams twice weekly as directed cyanocobalamin 1,000 mcg/mL Inject 1 mL intramuscularly once every month. esomeprazole (NEXIUM) 20 mg capsule Take 1 capsule by mouth once daily as needed. Acidophilus-Bif Animalis 10 billion cell cap Take by mouth. FEXOFENADINE HCL (TOÑO ALLERGY ORAL) Take 30 mg by mouth. predniSONE (DELTASONE) 10 mg tablet Take 4 tabs daily for 3 days, then 2 tabs daily for 3 days, then 1 tab daily for 3 days with food. trihexyphenidyl (ARTANE) 2 mg tablet Take 1 mg by mouth two times a day. Dr. Bond, Neurology No current facility-administered medications for this visit. ALLERGIES: Augmentin [Amoxicillin-Pot Clavulanate], Cefdinir, Ceftin [Cefuroxime], Clarithromycin, Clindamycin, Flexeril [Cyclobenzaprine Hcl], Flonase [Fluticasone Propionate], Macrobid [Nitrofurantoin Monohyd/M-Cryst], Prilosec [Omeprazole], and Pseudoephedrine PAST MEDICAL HISTORY Diagnosis Date Abdominal pain, unspecified site Allergic rhinitis, cause unspecified 12/06/2006 Anxiety 09/26/2011 Asthma Chronic airway obstruction, not elsewhere classified Esophageal reflux Goiter, unspecified mulitnodular goiter based on ultrasound Hypertension Mental disorder anxiety Obstructive chronic bronchitis without exacerbation (HCC) 12/06/2006 Other and unspecified hyperlipidemia Peptic ulcer, unspecified site, unspecified as acute or chronic, without mention of hemorrhage, perforation, or obstruction EGD about 15 years ago () Snoring PAST SURGICAL HISTORY Procedure Laterality Date APPENDECTOMY 1985 COLONOSCOPY FLX DX W/COLLJ SPEC WHEN PFRMD 2003 Colonoscopy COLONOSCOPY FLX DX W/COLLJ SPEC WHEN PFRMD 10/01/08 COLONOSCOPY FLX DX W/COLLJ SPEC WHEN PFRMD 10/30/13 Colonoscopy COLONOSCOPY FLX DX W/COLLJ SPEC WHEN PFRMD 10/21/2018 Colonoscopy EGD TRANSORAL BIOPSY SINGLE/MULTIPLE 6/11/09 ESOPHAGOGASTRODUODENOSCOPY TRANSORAL DIAGNOSTIC 08/05/2015 EGD ESOPHAGOGASTRODUODENOSCOPY TRANSORAL DIAGNOSTIC 10/21/2018 EGD LAPS SURG CHOLECYSTECTOMY W/CHOLANGIOGRAPHY 05/19/10 Normal IOC TONSILLECTOMY & ADENOIDECTOMY <AGE 12 at age 2 T/A (under age 12 years) TOTAL ABDOMINAL HYSTERECT W/WO RMVL TUBE OVARY 1988 Hysterectomy, GIDEON FAMILY HISTORY Problem Relation Age of Onset other (Congestive Heart Failure) Mother at 91 Stroke Father at 84 other (Hypercholesterolemia) Father other (Peripheral Vascular Disease) Father Breast Cancer Sister Social History Tobacco Use Smoking status: Every Day Current packs/day: 1.00 Average packs/day: 1 pack/day for 35.0 years (35.0 ttl pk-yrs) Types: Cigarettes Smokeless tobacco: Never Substance Use Topics Alcohol use: No Drug use: No REVIEW OF SYMPTOMS: See nursing note PHYSICAL EXAMINATION: General: The patient is 73 year old, female well nourished, well hydrated in no acute distress. The patient is oriented to time, place, and person. VITALS: Blood pressure 155/75, pulse 82, weight 52.2 kg (115 lb), SpO2 98%. Body mass index is 24.04 kg/m . HEENT: Normal cephalic, ataumatic, pupils are equally round, sclera are anicteric, mucous membranes are moist, oropharynx is clear. Neck has no masses, asymmetry or lymphadenopathy. Respiratory: Clear to auscultation and percussion. Normal respiratory excursion and pattern. Cardiac: Examination is regular rate and rhythm. Normal S1/S2 Abdominal exam: Soft, nontender, with no palpable masses. No hepatosplenomegaly. No palpable hernias. Extremities: no clubbing, cyanosis or edema. No adenopathy. LABORATORY VALUES: As Noted RADIOLOGIC STUDIES: As Noted Assessment IMPRESSION: screen for colon cancer, history of colon polyps PLAN: I have reviewed my findings with the surgeon. Will plan for lower endoscopy. We discussed the risks and benefits of the planned endoscopy. I have informed the patient that complications can occur including failure to complete the endoscopy and perforation. Cleve had the opportunity to ask questions concerning the planned endoscopy. My staff has also explained the procedure to the patient in understandable terms and has given the patient printed material concerning the procedure. Cleve freely consents to surgery. I plan to use Golytely bowel preparation I have explained to the patient the difference between IV conscious sedation and MAC anesthesia - and I have offered either, according to the patient's wishes. I have explained that with IV conscious sedation there is no anesthesia provider available and therefore there is a limitation of the amount of IV medications that can be given and that the patient may wake up in the middle of the procedure and/or experience pain/discomfort during the procedure. Further discussion was done and the patient was given the opportunity to ask questions and all questions were answered. Cleve chooses IV conscious sedation. Clvee was counseled that if there are changes in his/her medical condition, to let the office know if surgery should proceed. If there are changes in patient's medical condition from time of this encounter to the day of the procedure that preclude anesthesia, patient may have procedure cancelled for patient's safety. Diagnoses: (Z12.11) Screen for colon cancer (primary encounter diagnosis) (Z86.0100) History of colonic polyps Consultation requested by Vicky Almendarez CNP for an opinion regarding colon cancer screening. My final recommendations will be communicated back to the requesting physician by way of shared Medical record or letter to requesting physician via US mail. Portions of this documentation were copied and pasted from previous office visit notes in order to provide a cohesive continuity of the history. The note has been reviewed and edited and updated as necessary. Arianna Perez APRN.CNP documented in this encounter [facility] 04-04-2024 Note HNO ID: [id number] Author: ARIANNA PEREZ APRN.CNP Service: ? Author Type: Nurse Practitioner Type: Progress Notes Filed: 04/04/2024 14:22 Note Text: HISTORY AND PHYSICAL Cleve Waggoner : 1950 REFERRING PHYSICIAN: Stefany Sheridan [address] [facility] [address] CHIEF COMPLAINT: Patient presents with: Consult: colonoscopy HPI: Cleve is a 73 year old female referred for endoscopy. Cleve notes due for screening colonoscopy- hx of polyps (2018, 2013). Cleve notes occasional abdominal cramping. -relieved with bentyl Cleve denies diarrhea. Cleve notes occasional constipation. -will take milk of mag as needed with good relief Cleve denies a change in bowel habits. Cleve denies melena. Cleve denies bright red blood per rectum. Cleve denies hemorrhoids. Cleve notes occasional heartburn. -will use nexium PRN when eating a large meal Cleve denies dysphagia. Cleve denies a history of ulcers/ peptic ulcer disease. Cleve notes family history of colon issues. Maternal grandmother with colon cancer. Cleve has undergone prior endoscopy. Last colonoscopy was 10/2018 at [facility] with Dr. Seymour. Sedation:Fentanyl 100 micrograms IV, Midazolam 8 mg IV Impression: - One 5 mm polyp in the rectum, removed with a cold biopsy forceps. Resected and retrieved. CONVERTED FINAL DIAGNOSIS 1. Duodenum, biopsy (A) - No significant pathologic change. 2. Gastric antrum, biopsy (B) - No significant pathologic change. 3. Rectal polyp, biopsy (C) - Hyperplastic polyp. TIFFANIE/baron/10/22/18 Current Outpatient Medications Medication Sig lisinopril (ZESTRIL) 40 mg tablet Take 1 tablet by mouth once daily. albuterol HFA (VENTOLIN HFA) 90 mcg/actuation inhaler Inhale 2 Puffs as instructed every 4 hours as needed for wheezing/shortness of breath. zolpidem (AMBIEN) 10 mg Take 0.5-1 tablets by mouth at bedtime as needed (insomnia) for up to 180 days. dicyclomine (BENTYL) 20 mg tablet Take 1 tablet by mouth three times a day before meals. (Patient taking differently: Take 20 mg by mouth three times a day as needed.) amLODIPine (NORVASC) 2.5 mg tablet Take 1 tablet by mouth once daily. nystatin (MYCOSTATIN) 100,000 unit/mL suspension 5 mL four times daily. Swish/swallow or swish/expectorate. For 10 to 14 days as directed atorvastatin (LIPITOR) 10 mg tablet Take 1 tablet by mouth once daily. For cholesterol PARoxetine (PAXIL) 10 mg tablet Take 1 tablet by mouth once daily. conjugated estrogens (PREMARIN) vaginal cream use 0.5 grams twice weekly as directed cyanocobalamin 1,000 mcg/mL Inject 1 mL intramuscularly once every month. esomeprazole (NEXIUM) 20 mg capsule Take 1 capsule by mouth once daily as needed. Acidophilus-Bif Animalis 10 billion cell cap Take by mouth. FEXOFENADINE HCL (TOÑO ALLERGY ORAL) Take 30 mg by mouth. predniSONE (DELTASONE) 10 mg tablet Take 4 tabs daily for 3 days, then 2 tabs daily for 3 days, then 1 tab daily for 3 days with food. trihexyphenidyl (ARTANE) 2 mg tablet Take 1 mg by mouth two times a day. Dr. Bond, Neurology No current facility-administered medications for this visit. ALLERGIES: Augmentin [Amoxicillin-Pot Clavulanate], Cefdinir, Ceftin [Cefuroxime], Clarithromycin, Clindamycin, Flexeril [Cyclobenzaprine Hcl], Flonase [Fluticasone Propionate], Macrobid [Nitrofurantoin Monohyd/M-Cryst], Prilosec [Omeprazole], and Pseudoephedrine PAST MEDICAL HISTORY Diagnosis Date Abdominal pain, unspecified site Allergic rhinitis, cause unspecified 12/06/2006 Anxiety 09/26/2011 Asthma Chronic airway obstruction, not elsewhere classified Esophageal reflux Goiter, unspecified mulitnodular goiter based on ultrasound Hypertension Mental disorder anxiety Obstructive chronic bronchitis without exacerbation (HCC) 12/06/2006 Other and unspecified hyperlipidemia Peptic ulcer, unspecified site, unspecified as acute or chronic, without mention of hemorrhage, perforation, or obstruction EGD about 15 years ago () Snoring PAST SURGICAL HISTORY Procedure Laterality Date APPENDECTOMY 1985 COLONOSCOPY FLX DX W/COLLJ SPEC WHEN PFRMD 2003 Colonoscopy COLONOSCOPY FLX DX W/COLLJ SPEC WHEN PFRMD 10/01/08 COLONOSCOPY FLX DX W/COLLJ SPEC WHEN PFRMD 10/30/13 Colonoscopy COLONOSCOPY FLX DX W/COLLJ SPEC WHEN PFRMD 10/21/2018 Colonoscopy EGD TRANSORAL BIOPSY SINGLE/MULTIPLE 10/01/08 ESOPHAGOGASTRODUODENOSCOPY TRANSORAL DIAGNOSTIC 08/05/2015 EGD ESOPHAGOGASTRODUODENOSCOPY TRANSORAL DIAGNOSTIC 10/21/2018 EGD LAPS SURG CHOLECYSTECTOMY W/CHOLANGIOGRAPHY 05/19/10 Normal IOC TONSILLECTOMY AND ADENOIDECTOMY T/A (under age 12 years) TOTAL ABDOMINAL HYSTERECT W/WO RMVL TUBE OVARY 1988 Hysterectomy, GIDEON FAMILY HISTORY Problem Relation Age of Onset other (Congestive Heart Failure) Mother at 91 Stroke Father at 84 other (Hypercholesterolemia) Father other (Perip (more content not included)... [facility] [place] 03-07-2024 Telephone encounter Note Prescription Refill Information The patient has been identified by name and date of : Yes Caregiver verified no other encounters exist for this prescription request: Yes Caregiver confirmed with patient/requestor that no other refills are due, in the near future, with this provider at this time: Yes The last office visit in the department: 02/04/24 Does the patient have a future office visit with this provider/department: No Requested Prescriptions Pending Prescriptions Disp Refills lisinopril (ZESTRIL) 40 mg tablet 90 tablet 3 Sig: Take 1 tablet by mouth once daily. Diamante Sanchez March 07, 2024 3:19 PM [facility] 03-07-2024 Miscellaneous Notes Prescription Refill Information The patient has been identified by name and date of : Yes Caregiver verified no other encounters exist for this prescription request: Yes Caregiver confirmed with patient/requestor that no other refills are due, in the near future, with this provider at this time: Yes The last office visit in the department: 02/04/24 Does the patient have a future office visit with this provider/department: No Requested Prescriptions Pending Prescriptions Disp Refills lisinopril (ZESTRIL) 40 mg tablet 90 tablet 3 Sig: Take 1 tablet by mouth once daily. Diamante Sanchez March 07, 2024 3:19 PM documented in this encounter [facility] 02-04-2024 Note HNO ID: [id number] Author: STEFANY SHERIDAN MD Service: ? Author Type: Physician Type: Progress Notes Filed: 02/04/2024 16:46 Note Text: Cleve Waggoner is a 73 year old female here for a Medicare wellness visit. Medicare Health Risk Assessment General Health Exercise: Minutes/Day 10 min Exercise: Days/Week 1 day Alcohol: Daily Use Never Alcohol: Drinks/Day Patient does not drink Alcohol: 6 or more drinks Never Feel off balance Yes (Working with neurology) Concerns: Teeth/Dentures No Concerns: Sexual function No Troubled by feelings None of the above Frequency: Eating healthy diet Several days ADLs requiring help None of the above Safety precautions in home/vehicle Yes Smoke, vape, chews tobacco Yes, but I'm not ready to quit Difficulty hearing No Difficulty seeing No Current Providers Specialists: I have reviewed specialist-related care of the patient in the medical record. Outside specialists seen: Neurology--Willy (?sp); Dr. Malloy (pain management in [place]),Dr. Hernandez--ENT. Dr. Lele Pulliam (date night sitter) Medical/Family history review Reviewed and updated problem list, medical/surgical/family/social history, medications, and allergies. PAST MEDICAL HISTORY Diagnosis Date Abdominal pain, unspecified site Allergic rhinitis, cause unspecified 12/06/2006 Anxiety 09/26/2011 Asthma Chronic airway obstruction, not elsewhere classified Esophageal reflux Goiter, unspecified mulitnodular goiter based on ultrasound Hypertension Mental disorder anxiety Obstructive chronic bronchitis without exacerbation (HCC) 12/06/2006 Other and unspecified hyperlipidemia Peptic ulcer, unspecified site, unspecified as acute or chronic, without mention of hemorrhage, perforation, or obstruction EGD about 15 years ago () Snoring Current Outpatient Medications Medication Sig zolpidem (AMBIEN) 10 mg Take 0.5-1 tablets by mouth at bedtime as needed (insomnia) for up to 180 days. dicyclomine (BENTYL) 20 mg tablet Take 1 tablet by mouth three times a day before meals. (Patient taking differently: Take 20 mg by mouth three times a day as needed.) amLODIPine (NORVASC) 2.5 mg tablet Take 1 tablet by mouth once daily. nystatin (MYCOSTATIN) 100,000 unit/mL suspension 5 mL four times daily. Swish/swallow or swish/expectorate. For 10 to 14 days as directed atorvastatin (LIPITOR) 10 mg tablet Take 1 tablet by mouth once daily. For cholesterol PARoxetine (PAXIL) 10 mg tablet Take 1 tablet by mouth once daily. lisinopril (ZESTRIL) 40 mg tablet Take 1 tablet by mouth once daily. conjugated estrogens (PREMARIN) vaginal cream use 0.5 grams twice weekly as directed cyanocobalamin 1,000 mcg/mL Inject 1 mL intramuscularly once every month. esomeprazole (NEXIUM) 20 mg capsule Take 1 capsule by mouth once daily as needed. Acidophilus-Bif Animalis 10 billion cell cap Take by mouth. FEXOFENADINE HCL (TOÑO ALLERGY ORAL) Take 30 mg by mouth. albuterol HFA (VENTOLIN HFA) 90 mcg/actuation inhaler Inhale 2 Puffs as instructed every 4 hours as needed for wheezing/shortness of breath. fluconazole (DIFLUCAN) 150 mg tablet Take 1 tablet by mouth one time only for 1 dose. Repeat in 3 to 5 days as needed. Treat for recurrent yeast infection as directed predniSONE (DELTASONE) 10 mg tablet Take 4 tabs daily for 3 days, then 2 tabs daily for 3 days, then 1 tab daily for 3 days with food. (Patient not taking: Reported on 11/29/2023) trihexyphenidyl (ARTANE) 2 mg tablet Take 1 mg by mouth twice daily. Dr. Bond, Neurology (Patient not taking: Reported on 01/01/2024) No current facility-administered medications for this visit. Opioid use review Opioid Medications (last 90 days) No data to display Anxiety/Depression screening PHQ-9 Score: 2 (Minimal Depression) Recommendation: continuing current treatment plan Cognitive screening Mini Cog Score: 3 Cognitive screening reviewed and No further action needed (score 3-5). Functional Observation Was the patient's Timed Up AND Go test unsteady or >= 12 seconds? No Advance Care Planning Surrogate decision maker and/or advance care plan documented Has HCDPOA and is surrogate decision maker Measurements BP 142/78 Pulse 90 Temp 36.1 ?C (96.9 ?F) Resp 16 Wt 53.1 kg (117 lb 1 oz) SpO2 98% BMI 24.47 kg/m? Vision Screening: Follows with optometry/ophthalmology Assessment/Plan Medicare annual wellness visit, subsequent (Z00.00) - Counseled on healthy diet and regular exercise - Fall avoidance information provided - Personalized prevention plan provided Additional Concerns The following concerns were also discussed with the patient: Thrush PHYSICAL EXAM BP 142/78 Pulse 90 Temp 36.1 ?C (96.9 ?F) Resp 16 Wt 53.1 kg (117 lb 1 oz) SpO2 98% BMI 24.47 kg/m? GENERAL: well appearing, alert, in no acute distress CARDIOVASCULAR: regular rate and rhythm. No murmur, rubs or gallops. (more content not included)... [facility] 02-04-2024 History of Present illness Narrative Images from the original note were not included. Cleve Waggoner is a 73 year old female here for a Medicare wellness visit. Medicare Health Risk Assessment General Health Exercise: Minutes/Day 10 min Exercise: Days/Week 1 day Alcohol: Daily Use Never Alcohol: Drinks/Day Patient does not drink Alcohol: 6 or more drinks Never Feel off balance Yes (Working with neurology) Concerns: Teeth/Dentures No Concerns: Sexual function No Troubled by feelings None of the above Frequency: Eating healthy diet Several days ADLs requiring help None of the above Safety precautions in home/vehicle Yes Smoke, vape, chews tobacco Yes, but I'm not ready to quit Difficulty hearing No Difficulty seeing No Current Providers Specialists: I have reviewed specialist-related care of the patient in the medical record. Outside specialists seen: Neurology--Willy (?sp); Dr. Malloy (pain management in [place]),Dr. Hernandez--ENT. Dr. Lele Pulliam (date night sitter) Medical/Family history review Reviewed and updated problem list, medical/surgical/family/social history, medications, and allergies. PAST MEDICAL HISTORY Diagnosis Date Abdominal pain, unspecified site Allergic rhinitis, cause unspecified 12/06/2006 Anxiety 09/26/2011 Asthma Chronic airway obstruction, not elsewhere classified Esophageal reflux Goiter, unspecified mulitnodular goiter based on ultrasound Hypertension Mental disorder anxiety Obstructive chronic bronchitis without exacerbation (HCC) 12/06/2006 Other and unspecified hyperlipidemia Peptic ulcer, unspecified site, unspecified as acute or chronic, without mention of hemorrhage, perforation, or obstruction EGD about 15 years ago () Snoring Current Outpatient Medications Medication Sig zolpidem (AMBIEN) 10 mg Take 0.5-1 tablets by mouth at bedtime as needed (insomnia) for up to 180 days. dicyclomine (BENTYL) 20 mg tablet Take 1 tablet by mouth three times a day before meals. (Patient taking differently: Take 20 mg by mouth three times a day as needed.) amLODIPine (NORVASC) 2.5 mg tablet Take 1 tablet by mouth once daily. nystatin (MYCOSTATIN) 100,000 unit/mL suspension 5 mL four times daily. Swish/swallow or swish/expectorate. For 10 to 14 days as directed atorvastatin (LIPITOR) 10 mg tablet Take 1 tablet by mouth once daily. For cholesterol PARoxetine (PAXIL) 10 mg tablet Take 1 tablet by mouth once daily. lisinopril (ZESTRIL) 40 mg tablet Take 1 tablet by mouth once daily. conjugated estrogens (PREMARIN) vaginal cream use 0.5 grams twice weekly as directed cyanocobalamin 1,000 mcg/mL Inject 1 mL intramuscularly once every month. esomeprazole (NEXIUM) 20 mg capsule Take 1 capsule by mouth once daily as needed. Acidophilus-Bif Animalis 10 billion cell cap Take by mouth. FEXOFENADINE HCL (TOÑO ALLERGY ORAL) Take 30 mg by mouth. albuterol HFA (VENTOLIN HFA) 90 mcg/actuation inhaler Inhale 2 Puffs as instructed every 4 hours as needed for wheezing/shortness of breath. fluconazole (DIFLUCAN) 150 mg tablet Take 1 tablet by mouth one time only for 1 dose. Repeat in 3 to 5 days as needed. Treat for recurrent yeast infection as directed predniSONE (DELTASONE) 10 mg tablet Take 4 tabs daily for 3 days, then 2 tabs daily for 3 days, then 1 tab daily for 3 days with food. (Patient not taking: Reported on 11/29/2023) trihexyphenidyl (ARTANE) 2 mg tablet Take 1 mg by mouth twice daily. Dr. Bond, Neurology (Patient not taking: Reported on 01/01/2024) No current facility-administered medications for this visit. Opioid use review Opioid Medications (last 90 days) No data to display Anxiety/Depression screening PHQ-9 Score: 2 (Minimal Depression) Recommendation: continuing current treatment plan Cognitive screening Mini Cog Score: 3 Cognitive screening reviewed and No further action needed (score 3-5). Functional Observation Was the patient's Timed Up & Go test unsteady or >= 12 seconds? No Advance Care Planning Surrogate decision maker and/or advance care plan documented Has HCDPOA and is surrogate decision maker Measurements BP 142/78 Pulse 90 Temp 36.1 C (96.9 F) Resp 16 Wt 53.1 kg (117 lb 1 oz) SpO2 98% BMI 24.47 kg/m Vision Screening: Follows with optometry/ophthalmology Assessment/Plan Medicare annual wellness visit, subsequent () - Counseled on healthy diet and regular exercise - Fall avoidance information provided - Personalized prevention plan provided Additional Concerns The following concerns were also discussed with the patient: Thrush PHYSICAL EXAM BP 142/78 Pulse 90 Temp 36.1 C (96.9 F) Resp 16 Wt 53.1 kg (117 lb 1 oz) SpO2 98% BMI 24.47 kg/m GENERAL: well appearing, alert, in no acute distress CARDIOVASCULAR: regular rate and rhythm. No murmur, rubs or gallops. PULMONARY: clear to auscultation, no wheezing, rhonchi, or crackles EXTREMITY: no lower extremity edema. No skin discoloration. ASSESSMENT/PLAN: # Medicare annual wellness visit, subsequent () - Completed Medicare annual wellness visit. - Discussed balance issues; patient is currently under the care of Dr. Bond at [facility] for neck spasms contributing to imbalance. - Patient is seeing Dr. Malloy for pain management and has been recommended Dysport injections. - Completed cognitive assessment including clock drawing and three-word recall; patient performed well on clock drawing but had difficulty recalling all three words. - Discussed dietary habits; patient reports eating healthy foods several days a week. - Patient is not ready to quit smoking. - Patient has a healthcare power of helper shear operator, Sahil, and will provide a copy for the medical record. - Advised patient to ensure adequate intake of vitamin C and protein to support hair growth. - Continue current medications, including Paxil. - Follow-up as needed. # Obstructive chronic bronchitis without exacerbation (HCC) (J44.89) - Clinically stable. - Refilled albuterol prescription with three refills sent to [facility]. # Thrush (B37.0) # Antibiotic-induced yeast infection (B37.9) - Oral mucosa shows erythema on the tongue and palate consistent with thrush. - Reordered Fluconazole 150 mg, six tablets, with instructions to take one tablet and repeat in 3-5 days as needed. - Prescription sent to [facility] in [place]. # Encounter for screening mammogram for breast cancer (Z12.31) - Last mammogram performed in July. - Ordered next screening mammogram for July of the following year. # Encounter for immunization (Z23) - Discussed tetanus vaccination; advised patient to obtain at the pharmacy as it is not covered in the doctor's office. Stefany Sheridan MD documented in this encounter [facility] 02-04-2024 Instructions Stefany Sheridan MD - 02/04/2024 4:14 PM EDT - Continue taking Paxil as prescribed. - Refill for Albuterol sent to [facility]. - Refill for Diflucan 150 mg sent to [facility] in [place]; take one tablet and repeat in 3-5 days as needed for thrush. - Maintain a diet rich in fruits, vegetables, whole grains, and fiber; aim to eat these foods at least four days a week. - Ensure adequate intake of Vitamin C and protein to support hair health. - Next mammogram scheduled for July; order placed. - Reschedule your colonoscopy appointment with Adriane Perez NP, to avoid conflict with your neuro care appointment. 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 - Tetanus shot available at the pharmacy if needed. Screening schedule The following prevention plan is recommended: Lung Cancer Screening Never done DTaP,Tdap,Td Vaccine(2 - Td or Tdap) due on 04/11/2021 Colorectal Cancer Screening due on 10/22/2023 Mammogram Screening due on 07/31/2024 WHAT YOU CAN DO TO PREVENT FALLS Many falls can be prevented. By making some changes, you can lower your chances of falling. Four things YOU can do to prevent falls for you* and your caregiver 1. Begin a regular exercise program Exercise is one of the most important ways to lower your chances of falling. It makes you stronger and helps you feel better. Exercises that improve balance and coordination (like Les Chi) are the most helpful. Lack of exercise leads to weakness and increases your chances of falling. Ask your doctor or health care provider about the best type of exercise program for you. 2. Have your health care provider review your medicines Have your doctor or pharmacist review all the medicines you take, even [id number] medicines. As you get older, the way medicines work in your body can change. Some medicines, or combinations of medicines, can make you sleepy or dizzy and can cause you to fall. 3. Have your vision checked Have your eyes checked by an eye doctor at least once a year. You may be wearing the wrong glasses or have a condition like glaucoma or cataracts that limits your vision. Poor vision can increase your chances of falling. 4. Make your home safer About half of all falls happen at home. To make your home safer: Remove things you can trip over (like papers, books, clothes, and shoes) from stairs and places where you walk. Remove small throw rugs or use double-sided tape to keep the rugs from slipping. Keep items you use often in cabinets you can reach easily without using a step stool. Have grab bars put in next to your toilet and in the tub or shower. Use non-slip mats in the bathtub and on shower floors. Improve the lighting in your home. As you get older, you need brighter lights to see well. Hang light-weight curtains or shades to reduce glare. Have handrails and lights put in on all staircases. Wear shoes both inside and outside the house. Avoid going barefoot or wearing slippers. For more information, contact: Centers for Disease Control and Prevention www.cdc.gov/injury * This information may not apply if you have certain medical conditions. Screening schedule The following prevention plan is recommended: Lung Cancer Screening Never done DTaP,Tdap,Td Vaccine(2 - Td or Tdap) due on 04/11/2021 Colorectal Cancer Screening due on 10/22/2023 Mammogram Screening due on 07/31/2024 WHAT YOU CAN DO TO PREVENT FALLS Many falls can be prevented. By making some changes, you can lower your chances of falling. Four things YOU can do to prevent falls for you* and your caregiver 1. Begin a regular exercise program Exercise is one of the most important ways to lower your chances of falling. It makes you stronger and helps you feel better. Exercises that improve balance and coordination (like Les Chi) are the most helpful. Lack of exercise leads to weakness and increases your chances of falling. Ask your doctor or health care provider about the best type of exercise program for you. 2. Have your health care provider review your medicines Have your doctor or pharmacist review all the medicines you take, even [id number] medicines. As you get older, the way medicines work in your body can change. Some medicines, or combinations of medicines, can make you sleepy or dizzy and can cause you to fall. 3. Have your vision checked Have your eyes checked by an eye doctor at least once a year. You may be wearing the wrong glasses or have a condition like glaucoma or cataracts that limits your vision. Poor vision can increase your chances of falling. 4. Make your home safer About half of all falls happen at home. To make your home safer: Remove things you can trip over (like papers, books, clothes, and shoes) from stairs and places where you walk. Remove small throw rugs or use double-sided tape to keep the rugs from slipping. Keep items you use often in cabinets you can reach easily without using a step stool. Have grab bars put in next to your toilet and in the tub or shower. Use non-slip mats in the bathtub and on shower floors. Improve the lighting in your home. As you get older, you need brighter lights to see well. Hang light-weight curtains or shades to reduce glare. Have handrails and lights put in on all staircases. Wear shoes both inside and outside the house. Avoid going barefoot or wearing slippers. For more information, contact: Centers for Disease Control and Prevention www.cdc.gov/injury * This information may not apply if you have certain medical conditions. documented in this encounter [facility] 01-01-2024 Instructions Stefany Sheridan MD - 01/01/2024 2:03 PM EDT Images from the original note were not included. -Doxycycline 100mg twice daily for 14 days has been sent to your pharmacy; you may stop taking it earlier if your symptoms resolve. - Nystatin suspension 100,000 units/mL 5mL QID for 10-14 days has been sent to your pharmacy to prevent or treat thrush. - Ambien prescription has been refilled and sent to your pharmacy. - Consider resuming allergy shots with Dr. Bourne's team to help manage your sinus issues. - Consider scheduling a colonoscopy after April 23 for colon cancer screening, especially due to your history of tubular adenoma. - Continue using topical estrogen for bladder incontinence as needed. - Continue using Milk of Magnesia as needed for constipation. - Consider getting your flu shot and COVID vaccine at [facility] in January. Bowel Preparation Instructions for: Miralax-Gatorade Preparations IF YOU DO NOT FOLLOW THESE DIRECTIONS, YOUR COLONOSCOPY WILL BE CANCELLED. Dia Instructions: Your bowel must be empty so that your doctor can clearly view your colon. Follow all of the instructions in this handout EXACTLY as they are written. Do NOT eat any solid food the ENTIRE day before your colonoscopy. Buy your bowel preparation at least 5 days before your colonoscopy. Four (4) Dulcolax laxative tablets containing 5mg of bisacodyl each (NOT Dulcolax stool softener) One (1) 8.3oz. bottle Miralax (238 grams) or generic equivalent 2 x 32oz. Bottles of Gatorade (NOT RED) Diabetic Patients: Use G2 (Gatorade 2) TRANSPORTATION on the Day of Your Exam A responsible adult MUST be present with you at Check In prior to your colonoscopy and REMAIN in the endoscopy area until you are discharged. You are NOT ALLOWED to drive, take a taxi or bus, or leave the Endoscopy Center ALONE. If you do not have a responsible starting gate driver (family member or friend) with you to take you home, your exam cannot be done with sedation and will be cancelled. Please bring a list of all of your current medications, including any Tiag-hvd-Sryrutl medications with you. Medications If you take insulin, diabetic medications or blood thinners such as Coumadin (warfarin), Plavix (clopidogrel), Ticlid (ticlopidine hydrochloride), Agrylin (anagrelide), Xarelto (Rivaroxaban), Pradaxa (Dabigatran), Eliquis (Apixaban), and Effient (Prasugrel). You MUST call the doctors who orders those medicines for instructions on altering the dosage before your colonoscopy. All other medications should be taken the day of the exam with a sip of water including ASPIRIN. Five (5) Days Before Your Colonoscopy Do NOT take medicines that stop diarrhea - such as Imodium, Kaopectate, or Pepto Bismol. Do NOT take fiber supplements - such as Metamucil, Citrucel, or Perdiem. Do NOT take products that contain iron - such as multi-vitamins (the label lists what is in the products). Three (3) Days Before Your Colonoscopy Do NOT eat high-fiber foods - such as popcorn, beans, seeds (flax, sunflower, quinoa), multigrain bread, nuts, salad/vegetables, or fresh and dried fruit. 1 Bowel Preparation Instructions for: Miralax-Gatorade Preparations One (1) Day Before Your Colonoscopy Only drink clear liquids the ENTIRE DAY before your colonoscopy. Do NOT eat any solid foods. Drink at least 8 ounces of clear liquids every hour after waking up. The clear liquids you can drink include: Clear Liquid (NO RED LIQUIDS) DO NOT DRINK Gatorade, Pedialyte or Powerade Clear broth or bouillon Coffee or tea (no milk or non-dairy creamer) Carbonated and non-carbonated soft drinks Rafael-Aid or other fruit flavored drinks Strained fruit juices (no pulp) Jell-O, popsicles, hard candy Water Alcohol Milk or non-dairy creamers Noodles or vegetables in soup Juice with pulp Liquid you cannot see through Do not use tobacco/vaping products Mix 1/2 of Miralax bottle (119 grams) in each 32 ounces of Gatorade bottle until dissolved. Keep cool in the refrigerator. DO NOT ADD ICE. The bowel preparation solution will be consumed in two parts. Part 1 5:00 PM - Evening before your colonoscopy Take 4 Dulcolax tablets. 6 PM - Evening before your colonoscopy Drink 32 oz. of the mixed solution. Drink an 8 oz. glass of bowel preparation every 15 minutes for a total of 4 glasses. Fifteen (15) minutes later, drink an 8 oz. glass of of clear liquids every 15 minutes for a total of 2 glasses. You may continue to drink clear liquids till midnight. Part 2 On the day of your colonoscopy you may drink clear liquids up to (three) 3 hours prior to procedure. 4 1/2 hours before your colonoscopy Take another 32 oz. bottle of mixed solution. Drink an 8 oz. glass of bowel prep every 15 minutes for a total of 4 glasses. Fifteen (15) minutes later, drink an 8 oz. glass of clear liquids every 15 minutes for a total of 2 glasses. You may continue to drink clear liquids up to (three) 3 hours before your exam. 2 03/2019 documented in this encounter [facility] 01-01-2024 History of Present illness Narrative This note was created using Freebeepay. Subjective Cleve Waggoner is a 73 year old female. Patient presents with: Same Day Appointment: X 1 week possible sinus infection SUBJECTIVE: Cleve Waggoner is a 73 year old year old lady here today for follow up appointment for review of medical conditions.: sinus congestion. Patient is a 73-year-old female with a history of sinusitis, presenting today with ongoing sinus congestion. She reports that her symptoms are really bad and have been persistent. She was last seen in November by José and in August by Elodia at [facility], where she was prescribed Cipro and doxycycline, respectively. Patient was unable to tolerate Cipro due to gastrointestinal upset, but reports that doxycycline is effective and does not cause any adverse effects. She notes that her sinus congestion is accompanied by post-nasal drip and chest congestion, which she describes as a throat sensation. She has been receiving allergy shots from Dr. Celis, but has not been able to schedule them recently due to her 's intermediate and desire to accompany her to appointments. Patient also requests a refill of Ambien, which she uses for insomnia. She reports that her current prescription is due for refill tomorrow, but she is out of medication. She also requests a refill of dicyclomine, which she uses for abdominal cramping associated with constipation. She denies diarrhea and manages constipation with Milk of Magnesia as needed. She also requests a refill of albuterol, which she uses for wheezing and bronchitis symptoms. She reports that her symptoms are currently well-controlled, but she likes to have the medication on hand. She also requests a refill of nystatin swish and swallow for thrush prevention, which she uses as needed. Patient has a history of bladder incontinence, which she attributes to a hysterectomy at age 36. She reports that her symptoms have worsened over the past year, and she manages them with topical estrogen applied to the urethral area twice a week. She denies any issues with sedation or anesthesia in the past. She is due for a colonoscopy, but has been putting it off due to the prep process. She has a family history of colon cancer in her maternal grandmother, who was diagnosed in her early 90s. Patient reports that her grandmother had a small portion of her colon removed and lived to be just shy of 100 years old. Patient has a history of tubular adenoma, which was found during her last colonoscopy in 2019. She is due for a repeat colonoscopy this year, but prefers to schedule it for next year. She has been receiving her COVID-19 vaccines and flu shots at [facility] and plans to continue doing so. PAST MEDICAL HISTORY No date: Abdominal pain, unspecified site 12/06/2006: Allergic rhinitis, cause unspecified 09/26/2011: Anxiety No date: Asthma No date: Chronic airway obstruction, not elsewhere classified No date: Esophageal reflux No date: Goiter, unspecified Comment: mulitnodular goiter based on ultrasound No date: Hypertension No date: Mental disorder Comment: anxiety 12/06/2006: Obstructive chronic bronchitis without exacerbation (HCC) No date: Other and unspecified hyperlipidemia No date: Peptic ulcer, unspecified site, unspecified as acute or chronic, without mention of hemorrhage, perforation, or obstruction Comment: EGD about 15 years ago () No date: Snoring Current Outpatient Medications Medication Sig atorvastatin (LIPITOR) 10 mg tablet Take 1 tablet by mouth once daily. For cholesterol predniSONE (DELTASONE) 10 mg tablet Take 4 tabs daily for 3 days, then 2 tabs daily for 3 days, then 1 tab daily for 3 days with food. (Patient not taking: Reported on 11/29/2023) zolpidem (AMBIEN) 10 mg Take 0.5-1 tablets by mouth at bedtime as needed (insomnia) for up to 180 days. PARoxetine (PAXIL) 10 mg tablet Take 1 tablet by mouth once daily. lisinopril (ZESTRIL) 40 mg tablet Take 1 tablet by mouth once daily. conjugated estrogens (PREMARIN) vaginal cream use 0.5 grams twice weekly as directed amLODIPine (NORVASC) 2.5 mg tablet Take 1 tablet by mouth once daily. cyanocobalamin 1,000 mcg/mL Inject 1 mL intramuscularly once every month. dicyclomine (BENTYL) 20 mg tablet Take 1 tablet by mouth three times daily before meals. albuterol HFA (VENTOLIN HFA) 90 mcg/actuation inhaler Inhale 2 Puffs as instructed every 4 hours as needed for wheezing/shortness of breath. esomeprazole (NEXIUM) 20 mg capsule Take 1 capsule by mouth once daily as needed. trihexyphenidyl (ARTANE) 2 mg tablet Take 1 mg by mouth twice daily. Dr. Bond, Neurology Acidophilus-Bif Animalis 10 billion cell cap Take by mouth. FEXOFENADINE HCL (TOÑO ALLERGY ORAL) Take 30 mg by mouth. No current facility-administered medications for this visit. Review of Systems Objective There were no vitals taken for this visit. Physical Exam Constitutional: Appearance: Normal appearance. HENT: Head: Normocephalic. Eyes: Conjunctiva/sclera: Conjunctivae normal. Cardiovascular: Rate and Rhythm: Normal rate and regular rhythm. Heart sounds: Normal heart sounds. Pulmonary: Effort: Pulmonary effort is normal. Breath sounds: Wheezing (Low pitched) and rales (few scattered) present. Musculoskeletal: Right lower leg: No edema. Left lower leg: No edema. Lymphadenopathy: Cervical: No cervical adenopathy. Skin: General: Skin is warm and dry. Neurological: General: No focal deficit present. Mental Status: She is alert and oriented to person, place, and time. Psychiatric: Mood and Affect: Mood normal. Behavior: Behavior normal. Thought Content: Thought content normal. Judgment: Judgment normal. Assessment and Plan # Acute non-recurrent pansinusitis - Chronic condition with recurrent episodes; previously treated with doxycycline and ciprofloxacin, with doxycycline being better tolerated. - Prescribed doxycycline for 14 days; instructed to complete the course unless symptoms resolve earlier. - Recommended resuming allergy immunotherapy with Dr. Ramos Bourne. # Primary insomnia - Managed with Ambien. - Refilled Ambien prescription: 5-10 mg PO at bedtime as needed, 180 days supply with 5 refills. # Irritable bowel syndrome with constipation - Managed with dicyclomine and Milk of Magnesia as needed. - Refilled dicyclomine prescription. - Advised to maintain adequate hydration and fiber intake. # Essential hypertension - Well-controlled on amlodipine. - Refilled amlodipine prescription through [facility]. # Obstructive chronic bronchitis without exacerbation (HCC) - Mild wheezing noted on auscultation. - Refilled albuterol inhaler prescription through [facility]. - Advised to use albuterol inhaler as needed for wheezing. # Thrush, oral - Prescribed Nystatin swish and swallow, 4 times daily for 10-14 days. # Urinary incontinence without sensory awareness - Managed with topical estrogen (Premarin) applied to the urethral area twice weekly. - Refilled Premarin prescription through [facility]. # Tubular adenoma # Screening for colon cancer - Due for colonoscopy; last performed in 2018 revealed tubular adenoma. - Discussed importance of screening due to history of precancerous lesion. - Ordered colonoscopy with Dr. Ramos, scheduled for after April 23. - Discussed alternative bowel preparation options. Stefany Sheridan MD documented in this encounter [facility] 01-01-2024 Note HNO ID: [id number] Author: STEFANY SHERIDAN MD Service: ? Author Type: Physician Type: Progress Notes Filed: 01/01/2024 14:14 Note Text: This note was created using [id number]. Subjective Cleve Waggoner is a 73 year old female. Patient presents with: Same Day Appointment: X 1 week possible sinus infection SUBJECTIVE: Cleve Waggoner is a 73 year old year old lady here today for follow up appointment for review of medical conditions.: sinus congestion. Patient is a 73-year-old female with a history of sinusitis, presenting today with ongoing sinus congestion. She reports that her symptoms are really bad and have been persistent. She was last seen in November by José and in August by Elodia at Urgent Care, where she was prescribed Cipro and doxycycline, respectively. Patient was unable to tolerate Cipro due to gastrointestinal upset, but reports that doxycycline is effective and does not cause any adverse effects. She notes that her sinus congestion is accompanied by post-nasal drip and chest congestion, which she describes as a throat sensation. She has been receiving allergy shots from Dr. Celis, but has not been able to schedule them recently due to her 's intermediate and desire to accompany her to appointments. Patient also requests a refill of Ambien, which she uses for insomnia. She reports that her current prescription is due for refill tomorrow, but she is out of medication. She also requests a refill of dicyclomine, which she uses for abdominal cramping associated with constipation. She denies diarrhea and manages constipation with Milk of Magnesia as needed. She also requests a refill of albuterol, which she uses for wheezing and bronchitis symptoms. She reports that her symptoms are currently well-controlled, but she likes to have the medication on hand. She also requests a refill of nystatin swish and swallow for thrush prevention, which she uses as needed. Patient has a history of bladder incontinence, which she attributes to a hysterectomy at age 36. She reports that her symptoms have worsened over the past year, and she manages them with topical estrogen applied to the urethral area twice a week. She denies any issues with sedation or anesthesia in the past. She is due for a colonoscopy, but has been putting it off due to the prep process. She has a family history of colon cancer in her maternal grandmother, who was diagnosed in her early 90s. Patient reports that her grandmother had a small portion of her colon removed and lived to be just shy of 100 years old. Patient has a history of tubular adenoma, which was found during her last colonoscopy in 2019. She is due for a repeat colonoscopy this year, but prefers to schedule it for next year. She has been receiving her COVID-19 vaccines and flu shots at [facility] and plans to continue doing so. PAST MEDICAL HISTORY No date: Abdominal pain, unspecified site 12/06/2006: Allergic rhinitis, cause unspecified 09/26/2011: Anxiety No date: Asthma No date: Chronic airway obstruction, not elsewhere classified No date: Esophageal reflux No date: Goiter, unspecified Comment: mulitnodular goiter based on ultrasound No date: Hypertension No date: Mental disorder Comment: anxiety 12/06/2006: Obstructive chronic bronchitis without exacerbation (HCC) No date: Other and unspecified hyperlipidemia No date: Peptic ulcer, unspecified site, unspecified as acute or chronic, without mention of hemorrhage, perforation, or obstruction Comment: EGD about 15 years ago () No date: Snoring Current Outpatient Medications Medication Sig atorvastatin (LIPITOR) 10 mg tablet Take 1 tablet by mouth once daily. For cholesterol predniSONE (DELTASONE) 10 mg tablet Take 4 tabs daily for 3 days, then 2 tabs daily for 3 days, then 1 tab daily for 3 days with food. (Patient not taking: Reported on 11/29/2023) zolpidem (AMBIEN) 10 mg Take 0.5-1 tablets by mouth at bedtime as needed (insomnia) for up to 180 days. PARoxetine (PAXIL) 10 mg tablet Take 1 tablet by mouth once daily. lisinopril (ZESTRIL) 40 mg tablet Take 1 tablet by mouth once daily. conjugated estrogens (PREMARIN) vaginal cream use 0.5 grams twice weekly as directed amLODIPine (NORVASC) 2.5 mg tablet Take 1 tablet by mouth once daily. cyanocobalamin 1,000 mcg/mL Inject 1 mL intramuscularly once every month. dicyclomine (BENTYL) 20 mg tablet Take 1 tablet by mouth three times daily before meals. albuterol HFA (VENTOLIN HFA) 90 mcg/actuation inhaler Inhale 2 Puffs as instructed every 4 hours as needed for wheezing/shortness of breath. esomeprazole (NEXIUM) 20 mg capsule Take 1 capsule by mouth once daily as needed. trihexyphenidyl (ARTANE) 2 mg tablet Take 1 mg by mouth twice daily. Dr. Bond, Neurology Acidophilus-Bif Animalis 10 billion cell cap Take by mouth. FEXOFENADINE HCL (TOÑO ALLERGY ORAL) Take 30 mg by mouth. No current facility- (more content not included)... [facility] [place] 12-03-2023 Telephone encounter Note She had labs July 2023. I placed orders for her January appt. [facility] 12-03-2023 Miscellaneous Notes She had labs July 2023. I placed orders for her January appt. Patient calling, states that lab work was to be placed at her OV on 11/28. Asking for these to be placed. Aware that provider is not in until Sunday. documented in this encounter [facility] 11-30-2023 Telephone encounter Note Patient calling, states that lab work was to be placed at her OV on 11/28. Asking for these to be placed. Aware that provider is not in until Sunday. [facility] 11-29-2023 History of Present illness Narrative SUBJECTIVE: Lung Cancer Screening Never done RSV Vaccine(1 - 1-dose 60+ series) Never done Covid-19 Vaccine( season) due on 05/25/2023 Colorectal Cancer Screening due on 10/22/2023 HPI Cleve Waggoner is a 72 year old female. Her past medical history is significant for Parkinson's, hypertension, hypercholesterolemia, tobacco use disorder, GERD, anxiety, dysuria, vitamin D deficiency. Presents today regarding sinus infection. She notes that she has had sinus congestion, drainage, frontal headache for about one month. Not helped with OTC treatments. Bilateral ear pain. Afebrile. No report of cough, shortness of breath. She has had cervical spine ablation with Dr. Mccormick pain management that has helped with neck pain. Notes she has seen Dr. Bourne in the past for allergy shots, but not recently. HPI Review of Systems HENT: Positive for rhinorrhea and sinus pressure. Psychiatric/Behavioral: Negative for dysphoric mood. The patient is not nervous/anxious. Objective BP 152/66 Pulse 78 Temp (!) 35.6 C (96 F) Resp 16 Wt 53.8 kg (118 lb 9.7 oz) BMI 24.79 kg/m Physical Exam Vitals and nursing note reviewed. Constitutional: General: She is not in acute distress. Appearance: She is not toxic-appearing or diaphoretic. HENT: Head: Normocephalic and atraumatic. Right Ear: Tympanic membrane and ear canal normal. Left Ear: Tympanic membrane and ear canal normal. Nose: Mucosal edema and rhinorrhea present. Right Sinus: Frontal sinus tenderness present. Left Sinus: Frontal sinus tenderness present. Mouth/Throat: Lips: Martorell. Mouth: Mucous membranes are moist. Pharynx: Oropharynx is clear. Eyes: General: Right eye: No discharge. Left eye: No discharge. Conjunctiva/sclera: Conjunctivae normal. Cardiovascular: Rate and Rhythm: Normal rate and regular rhythm. Heart sounds: Normal heart sounds. Pulmonary: Effort: Pulmonary effort is normal. Breath sounds: Normal breath sounds. Abdominal: General: Abdomen is flat. Bowel sounds are normal. Palpations: Abdomen is soft. Musculoskeletal: General: Deformity (kyphosis) present. No swelling. Right lower leg: No edema. Left lower leg: No edema. Skin: General: Skin is warm and dry. Neurological: Mental Status: She is alert and oriented to person, place, and time. Gait: Gait abnormal (short, shuffling, slow to start). Psychiatric: Mood and Affect: Mood normal. Thought Content: Thought content normal. ALLERGIES Allergen Reactions Augmentin [Amoxicil* GI Upset Cefdinir Unknown Ceftin [Cefuroxime] Diarrhea Clarithromycin Diarrhea Clindamycin Other: See Comments oral thrush Flexeril [Cyclobenz* Intolerance Hangover effect even with half a pill Flonase [Fluticason* Severe headaches Macrobid [Nitrofura* Other: See Comments Constipation, gi upset, overall sense of feeling ill. Prilosec [Omeprazol* Gi bloating Pseudoephedrine Intolerance drives BP up and causes heart racing Medications atorvastatin (LIPITOR) 10 mg tablet Take 1 tablet by mouth once daily. For cholesterol zolpidem (AMBIEN) 10 mg Take 0.5-1 tablets by mouth at bedtime as needed (insomnia) for up to 180 days. PARoxetine (PAXIL) 10 mg tablet Take 1 tablet by mouth once daily. lisinopril (ZESTRIL) 40 mg tablet Take 1 tablet by mouth once daily. conjugated estrogens (PREMARIN) vaginal cream use 0.5 grams twice weekly as directed amLODIPine (NORVASC) 2.5 mg tablet Take 1 tablet by mouth once daily. cyanocobalamin 1,000 mcg/mL Inject 1 mL intramuscularly once every month. dicyclomine (BENTYL) 20 mg tablet Take 1 tablet by mouth three times daily before meals. albuterol HFA (VENTOLIN HFA) 90 mcg/actuation inhaler Inhale 2 Puffs as instructed every 4 hours as needed for wheezing/shortness of breath. esomeprazole (NEXIUM) 20 mg capsule Take 1 capsule by mouth once daily as needed. trihexyphenidyl (ARTANE) 2 mg tablet Take 1 mg by mouth twice daily. Dr. Bond, Neurology Acidophilus-Bif Animalis 10 billion cell cap Take by mouth. FEXOFENADINE HCL (TOÑO ALLERGY ORAL) Take 30 mg by mouth. ciprofloxacin HCl (CIPRO) 500 mg tablet Take 1 tablet by mouth two times a day for 5 days. predniSONE (DELTASONE) 10 mg tablet Take 4 tabs daily for 3 days, then 2 tabs daily for 3 days, then 1 tab daily for 3 days with food. (Patient not taking: Reported on 11/29/2023) PAST MEDICAL HISTORY No date: Abdominal pain, unspecified site 12/06/2006: Allergic rhinitis, cause unspecified 09/26/2011: Anxiety No date: Asthma No date: Chronic airway obstruction, not elsewhere classified No date: Esophageal reflux No date: Goiter, unspecified Comment: mulitnodular goiter based on ultrasound No date: Hypertension No date: Mental disorder Comment: anxiety 12/06/2006: Obstructive chronic bronchitis without exacerbation (HCC) No date: Other and unspecified hyperlipidemia No date: Peptic ulcer, unspecified site, unspecified as acute or chronic, without mention of hemorrhage, perforation, or obstruction Comment: EGD about 15 years ago () No date: Snoring Social History Tobacco Use Smoking status: Every Day Packs/day: 1.00 Years: 35.00 Additional pack years: 0.00 Total pack years: 35.00 Types: Cigarettes Smokeless tobacco: Never Substance Use Topics Alcohol use: No Drug use: No Latest Ref Rn 07/05/2022 07/23/2023 WBC 3.70 - 11.00 k/uL 7.80 12.61 (H) RBC 3.90 - 5.20 m/uL 4.57 4.93 Hemoglobin 11.5 - 15.5 g/dL 14.3 15.2 Hematocrit 36.0 - 46.0 % 41.9 46.5 (H) MCV 80.0 - 100.0 fL 91.7 94.3 MCH 26.0 - 34.0 pg 31.3 30.8 MCHC 30.5 - 36.0 g/dL 34.1 32.7 RDW-CV 11.5 - 15.0 % 12.9 13.1 Platelet Count 150 - 400 k/uL 220 270 MPV 9.0 - 12.7 fL 11.2 11.7 Neut% % 66.1 Abs Neut (ANC) 1.45 - 7.50 k/uL 8.33 (H) Lymph% % 26.7 Abs Lymph 1.00 - 4.00 k/uL 3.37 [place]% % 5.1 Abs [place] <0.87 k/uL 0.64 Eosin% % 1.1 Abs Eosin <0.46 k/uL 0.14 Baso% % 0.8 Abs Baso <0.11 k/uL 0.10 Immature Gran % % 0.2 IMMATURE GRANS (ABS) <0.10 k/uL 0.03 NRBC /100 WBC 0.0 Absolute nRBC <0.01 k/uL <0.01 <0.01 DTYPE Auto Protein, Total 6.3 - 8.0 g/dL 6.8 6.9 Albumin 3.9 - 4.9 g/dL 4.2 4.2 Calcium 8.5 - 10.2 mg/dL 9.4 9.3 Bilirubin, Total 0.2 - 1.3 mg/dL 0.2 0.3 Alkaline Phosphatase 34 - 123 U/L 100 103 AST 13 - 35 U/L 16 21 ALT 7 - 38 U/L 6 (L) 12 Glucose 74 - 99 mg/dL 83 90 BUN 7 - 21 mg/dL 14 19 Creatinine 0.58 - 0.96 mg/dL 0.78 0.82 Sodium 136 - 144 mmol/L 139 141 Potassium 3.7 - 5.1 mmol/L 4.4 4.2 Chloride 97 - 105 mmol/L 104 102 CO2 22 - 30 mmol/L 27 27 Anion Gap 9 - 18 mmol/L 8 (L) 12 eGFR >=60 mL/min/1.73m 81 76 Cholesterol, Total <200 mg/dL 173 214 (H) Triglyceride <150 mg/dL 176 (H) 199 (H) HDL Cholesterol >39 mg/dL 49 65 Non HDL Cholesterol <130 mg/dL 124 149 (H) Fasting Time hrs 12 12 VLDL Cholesterol <30 mg/dL 35 (H) 40 (H) TC:HDL Ratio <5.10 3.53 3.29 LDL Cholesterol <100 mg/dL 89 109 (H) LDL:HDL Ratio <2.54 1.82 1.68 TSH 0.270 - 4.200 mIU/L 1.490 1.380 Free T4 0.9 - 1.7 ng/dL 1.1 Free T3 2.3 - 4.1 pg/mL 2.9 Vitamin D 25 Hydroxy 31.0 - 80.0 ng/mL 35.6 29.4 (L) Vitamin B12 232 - 1,245 pg/mL [phone] The 10-year ASCVD risk score (New SALAZAR, et al., 2019) is: 31.2% Values used to calculate the score: Age: 72 years Sex: Female Is Non- : No Diabetic: No Tobacco smoker: Yes Systolic Blood Pressure: 152 mmHg Is BP treated: Yes HDL Cholesterol: 65 mg/dL Total Cholesterol: 214 mg/dL ASSESSMENT/PLAN: 1. Acute recurrent frontal sinusitis - ICD9: 461.1, ICD10: J01.11 - Will begin treatment with as per antibiotic as written, see orders - Supportive care with plenty of fluids, rest, and analgesia prn. - Follow up if symptoms persist or worsen. - CIPROFLOXACIN 500 MG TABLET Jan 2024 follow up MD Vicky You APRN.BASE FILLER Medical Decision Making: Problems: Low: Acute, uncomplicated illness or injury Risk: Moderate: Drug management Medical Decision Making Level: 3 - Low documented in this encounter [facility] 11-29-2023 Note HNO ID: [id number] Author: VICKY ALMENDAREZ APRN.BASE FILLER Service: ? Author Type: Nurse Specialist Type: Progress Notes Filed: 11/29/2023 13:52 Note Text: SUBJECTIVE: Lung Cancer Screening Never done RSV Vaccine(1 - 1-dose 60+ series) Never done Covid-19 Vaccine( season) due on 05/25/2023 Colorectal Cancer Screening due on 10/22/2023 DALTON Waggoner is a 72 year old female. Her past medical history is significant for Parkinson's, hypertension, hypercholesterolemia, tobacco use disorder, GERD, anxiety, dysuria, vitamin D deficiency. Presents today regarding sinus infection. She notes that she has had sinus congestion, drainage, frontal headache for about one month. Not helped with OTC treatments. Bilateral ear pain. Afebrile. No report of cough, shortness of breath. She has had cervical spine ablation with Dr. Mccormick pain management that has helped with neck pain. Notes she has seen Dr. Bourne in the past for allergy shots, but not recently. HPI Review of Systems HENT: Positive for rhinorrhea and sinus pressure. Psychiatric/Behavioral: Negative for dysphoric mood. The patient is not nervous/anxious. Objective BP 152/66 Pulse 78 Temp (!) 35.6 ?C (96 ?F) Resp 16 Wt 53.8 kg (118 lb 9.7 oz) BMI 24.79 kg/m? Physical Exam Vitals and nursing note reviewed. Constitutional: General: She is not in acute distress. Appearance: She is not toxic-appearing or diaphoretic. HENT: Head: Normocephalic and atraumatic. Right Ear: Tympanic membrane and ear canal normal. Left Ear: Tympanic membrane and ear canal normal. Nose: Mucosal edema and rhinorrhea present. Right Sinus: Frontal sinus tenderness present. Left Sinus: Frontal sinus tenderness present. Mouth/Throat: Lips: Martorell. Mouth: Mucous membranes are moist. Pharynx: Oropharynx is clear. Eyes: General: Right eye: No discharge. Left eye: No discharge. Conjunctiva/sclera: Conjunctivae normal. Cardiovascular: Rate and Rhythm: Normal rate and regular rhythm. Heart sounds: Normal heart sounds. Pulmonary: Effort: Pulmonary effort is normal. Breath sounds: Normal breath sounds. Abdominal: General: Abdomen is flat. Bowel sounds are normal. Palpations: Abdomen is soft. Musculoskeletal: General: Deformity (kyphosis) present. No swelling. Right lower leg: No edema. Left lower leg: No edema. Skin: General: Skin is warm and dry. Neurological: Mental Status: She is alert and oriented to person, place, and time. Gait: Gait abnormal (short, shuffling, slow to start). Psychiatric: Mood and Affect: Mood normal. Thought Content: Thought content normal. ALLERGIES Allergen Reactions Augmentin [Amoxicil* GI Upset Cefdinir Unknown Ceftin [Cefuroxime] Diarrhea Clarithromycin Diarrhea Clindamycin Other: See Comments oral thrush Flexeril [Cyclobenz* Intolerance Hangover effect even with half a pill Flonase [Fluticason* Severe headaches Macrobid [Nitrofura* Other: See Comments Constipation, gi upset, overall sense of feeling ill. Prilosec [Omeprazol* Gi bloating Pseudoephedrine Intolerance drives BP up and causes heart racing Medications atorvastatin (LIPITOR) 10 mg tablet Take 1 tablet by mouth once daily. For cholesterol zolpidem (AMBIEN) 10 mg Take 0.5-1 tablets by mouth at bedtime as needed (insomnia) for up to 180 days. PARoxetine (PAXIL) 10 mg tablet Take 1 tablet by mouth once daily. lisinopril (ZESTRIL) 40 mg tablet Take 1 tablet by mouth once daily. conjugated estrogens (PREMARIN) vaginal cream use 0.5 grams twice weekly as directed amLODIPine (NORVASC) 2.5 mg tablet Take 1 tablet by mouth once daily. cyanocobalamin 1,000 mcg/mL Inject 1 mL intramuscularly once every month. dicyclomine (BENTYL) 20 mg tablet Take 1 tablet by mouth three times daily before meals. albuterol HFA (VENTOLIN HFA) 90 mcg/actuation inhaler Inhale 2 Puffs as instructed every 4 hours as needed for wheezing/shortness of breath. esomeprazole (NEXIUM) 20 mg capsule Take 1 capsule by mouth once daily as needed. trihexyphenidyl (ARTANE) 2 mg tablet Take 1 mg by mouth twice daily. Dr. Bond, Neurology Acidophilus-Bif Animalis 10 billion cell cap Take by mouth. FEXOFENADINE HCL (TOÑO ALLERGY ORAL) Take 30 mg by mouth. ciprofloxacin HCl (CIPRO) 500 mg tablet Take 1 tablet by mouth two times a day for 5 days. predniSONE (DELTASONE) 10 mg tablet Take 4 tabs daily for 3 days, then 2 tabs daily for 3 days, then 1 tab daily for 3 days with food. (Patient not taking: Reported on 11/29/2023) PAST MEDICAL HISTORY No date: Abdominal pain, unspecified site 12/06/2006: Allergic rhinitis, cause unspecified 09/26/2011: Anxiety No date: Asthma No date: Chronic airway obstruction, not elsewhere classified No date: Esophageal reflux No date: Goiter, unspecified Comment: mulitnodular goiter based on ultrasound No date: Hypertension No date: Mental disorder Comment: anxiet (more content not included)... [facility] [place] 11-21-2023 Telephone encounter Note The following approved medication requests have been transmitted electronically. Requested Prescriptions Pending Prescriptions Disp Refills atorvastatin (LIPITOR) 10 mg tablet 90 tablet 3 Sig: Take 1 tablet by mouth once daily. For cholesterol Stefany Sheridan MD [facility] 11-21-2023 Miscellaneous Notes The following approved medication requests have been transmitted electronically. Requested Prescriptions Pending Prescriptions Disp Refills atorvastatin (LIPITOR) 10 mg tablet 90 tablet 3 Sig: Take 1 tablet by mouth once daily. For cholesterol Stefany Sheridan MD Prescription Refill Information The patient has been identified by name and date of : Yes Caregiver verified no other encounters exist for this prescription request: Yes Caregiver confirmed with patient/requestor that no other refills are due, in the near future, with this provider at this time: Yes The last office visit in the department: 08/03/23 Does the patient have a future office visit with this provider/department: Yes Requested Prescriptions Pending Prescriptions Disp Refills atorvastatin (LIPITOR) 10 mg tablet 90 tablet 3 Sig: Take 1 tablet by mouth once daily. For cholesterol Diamante Martin [facility] November 21, 2023 3:44 PM documented in this encounter [facility] 11-21-2023 Telephone encounter Note Prescription Refill Information The patient has been identified by name and date of : Yes Caregiver verified no other encounters exist for this prescription request: Yes Caregiver confirmed with patient/requestor that no other refills are due, in the near future, with this provider at this time: Yes The last office visit in the department: 08/03/23 Does the patient have a future office visit with this provider/department: Yes Requested Prescriptions Pending Prescriptions Disp Refills atorvastatin (LIPITOR) 10 mg tablet 90 tablet 3 Sig: Take 1 tablet by mouth once daily. For cholesterol Diamante Martin [facility] November 21, 2023 3:44 PM [facility] 11-19-2023 Note HNO ID: [id number] Author: CINTHIA RAMACHANDRAN RN Service: ? Author Type: Registered Nurse Type: Progress Notes Filed: 11/20/2023 12:12 Note Text: CDM Telephonic Outreach Provider Action/FYI CDM: Chronic Obstructive Bronchitis Pt denies symptom changes or concerns Pt reports she follows closely with PCP/Provider and will contact PCP for symptom or condition changes or needs, noted appreciation for the follow up call SDH, Goals updated Contacted for: Engagement Contact made with patient: Yes Patient identified by name and date of . Discussed care with patient Outcomes: Are you experiencing any new or worsening symptoms you need to talk about today? No Based on consulting group analyst, the following disposition is advised: No symptoms or symptoms present, not severe. Routed to: No Action Needed VALENTIN Education Provided this Outreach: No Cinthia Ramachandran RN November 20, 2023 11:59 AM [facility] [place] 11-19-2023 History of Present illness Narrative CDM Telephonic Outreach Provider Action/FYI CDM: Chronic Obstructive Bronchitis Pt denies symptom changes or concerns Pt reports she follows closely with PCP/Provider and will contact PCP for symptom or condition changes or needs, noted appreciation for the follow up call SDH, Goals updated Contacted for: Engagement Contact made with patient: Yes Patient identified by name and date of . Discussed care with patient Outcomes: Are you experiencing any new or worsening symptoms you need to talk about today? No Based on consulting group analyst, the following disposition is advised: No symptoms or symptoms present, not severe. Routed to: No Action Needed VALENTIN Education Provided this Outreach: No Cinthia Ramachandran RN November 20, 2023 11:59 AM documented in this encounter [facility] 11-19-2023 Note Patient Outreach ([facility] [place] CLEVE WAGGONER ([id number]) 1950 F Date Time Provider Department 11/19/23 CINTHIA RAMACHANDRAN [facility]IL[facility] During your visit today, we recorded the following information about you: Cinthia Ramachandran, RN 11/20/2023 12:12 PM Signed CDM Telephonic Outreach Provider Action/FYI CDM: Chronic Obstructive Bronchitis Pt denies symptom changes or concerns Pt reports she follows closely with PCP/Provider and will contact PCP for symptom or condition changes or needs, noted appreciation for the follow up call SDH, Goals updated Contacted for: Engagement Contact made with patient: Yes Patient identified by name and date of . Discussed care with patient Outcomes: Are you experiencing any new or worsening symptoms you need to talk about today? No Based on consulting group analyst, the following disposition is advised: No symptoms or symptoms present, not severe. Routed to: No Action Needed VALENTIN Education Provided this Outreach: No Cinthia Ramachandran RN November 20, 2023 11:59 AM Allergies As of Date: 11/19/2023 Noted Allergy Reaction AUGMENTIN (AMOXICILLIN-POT CLAVUL*01/28/2007 8 - GI Upset CEFDINIR 08/31/2020 16 - Unknown CEFTIN (CEFUROXIME) 09/02/2007 6 - Diarrhea CLARITHROMYCIN 06/08/2010 6 - Diarrhea CLINDAMYCIN 10/16/2017 14 - Other: See Comments Comments: oral thrush FLEXERIL (CYCLOBENZAPRINE HCL) 12/28/2009 5 - Intolerance Comments: Hangover effect even with half a pill FLONASE (FLUTICASONE PROPIONATE) 08/21/2007 Comments: Severe headaches MACROBID (NITROFURANTOIN MONOHYD/*09/19/2011 14 - Other: See Comments Comments: Constipation, gi upset, overall sense of feeling ill. PRILOSEC (OMEPRAZOLE) 08/21/2007 Comments: Gi bloating PSEUDOEPHEDRINE 10/22/2012 5 - Intolerance Comments: drives BP up and causes heart racing Date Reviewed: 09/08/2023 Reviewed by: Viry Todd MA - Fully Assessed Reason for Visit: Community Monitoring Outreach [Other] Prescriptions as of 11/21/2023 - predniSONE (DELTASONE) 10 mg tablet Take 4 tabs daily for 3 days, then 2 tabs daily for 3 days, then 1 tab daily for 3 days with food. - zolpidem (AMBIEN) 10 mg Take 0.5-1 tablets by mouth at bedtime as needed (insomnia) for up to 180 days. - PARoxetine (PAXIL) 10 mg tablet Take 1 tablet by mouth once daily. - lisinopril (ZESTRIL) 40 mg tablet Take 1 tablet by mouth once daily. - conjugated estrogens (PREMARIN) vaginal cream use 0.5 grams twice weekly as directed - amLODIPine (NORVASC) 2.5 mg tablet Take 1 tablet by mouth once daily. - cyanocobalamin 1,000 mcg/mL Inject 1 mL intramuscularly once every month. - atorvastatin (LIPITOR) 10 mg tablet Take 1 tablet by mouth once daily. For cholesterol - dicyclomine (BENTYL) 20 mg tablet Take 1 tablet by mouth three times daily before meals. - albuterol HFA (VENTOLIN HFA) 90 mcg/actuation inhaler Inhale 2 Puffs as instructed every 4 hours as needed for wheezing/shortness of breath. - esomeprazole (NEXIUM) 20 mg capsule Take 1 capsule by mouth once daily as needed. - trihexyphenidyl (ARTANE) 2 mg tablet Take 1 mg by mouth twice daily. Dr. Bond, Neurology - Acidophilus-Bif Animalis 10 billion cell cap Take by mouth. - FEXOFENADINE HCL (TOÑO ALLERGY ORAL) Take 30 mg by mouth. Meds Comments as of 04/03/2016: Problem List As Of Date 11/19/2023 Noted Resolved ESOPHAGEAL REFLUX [K21.9] PEPTIC ULCER NOS [K27.9] OBST CHRON BRONCHITIS W/O EXAC [J44.89] 12/06/2006 Allergic rhinitis [J30.9] 12/06/2006 OTHER ACUTE SINUSITIS [J01.80] 12/06/2006 GOITER NOS [E04.9] TOBACCO USE DISORDER [F17.200] 12/06/2006 PURE HYPERCHOLESTEROLEM [E78.00] 12/06/2006 ACUTE GASTRITIS W/O HEMORRHAGE [K29.00] 10/01/2008 ABDOMINAL PAIN UNSPEC SITE [R10.9] 10/01/2008 PERS HX COLONIC POLYPS [Z86.010] 10/01/2008 OBSERVATION-SUSPCT MAL NEOPLASM [Z03.89] 10/01/2008 INT HEMORRHOID W/O COMPL [K64.8] 10/01/2008 Cholelithiasis NOS [K80.20] 05/10/2010 Hematuria [R31.9] 09/26/2011 Anxiety [F41.9] 09/26/2011 08/03/2023 Urgency of urination [R39.15] 09/26/2011 Frequency of urination [R35.0] 09/26/2011 Dysuria [R30.0] 09/26/2011 Essential hypertension [I10] 10/01/2013 DAVID (generalized anxiety disorder) [F41.1] 11/26/2013 Sleep difficulties [G47.9] 12/11/2013 TMJ (dislocation of temporomandibular joint) [S*12/11/2013 Vitamin D deficiency [E55.9] 12/13/2013 Left flank pain [R10.9] 03/23/2016 Smoking history [Z87.891] 03/23/2016 AAA (abdominal aortic aneurysm) ([facility]) [I71.40] 10/09/2017 History of Parkinson's disease [Z86.69] 04/28/2019 Torticollis [M43.6] 04/28/2019 B12 deficiency [E53.8] 06/09/2021 Fatigue [R53.83] 06/09/2021 Primary insomnia [F51.01] 06/09/2021 Balance problems [R26.89] 06/09/2021 Other irritable bowel syndrome [K58.8] 06/09/2021 Parkinson's disease, unspecified whether dyskin*08/03/2023 Encounter Number: [id number] (more content not included)... [facility] [place] 10-09-2023 History of Present illness Narrative CDM Telephonic Outreach Provider Action/FYI CDM: Chronic Obstructive Bronchitis. Pt reports she has a history of sinus infections, reports has head and sinus pressure and will schedule Appt with ENT. Pt denies CP, Sob, wheezing, coughing, fever, chills or other symptom concerns. Instructed to call PCP with any symptom or condition changes. Pt verbalized understanding. ADL's, Falls, Goals, SDH updated Contacted for: Goals/Falls/ADL Update Contact made with patient: Yes Patient identified by name and date of . Discussed care with: patient Falls completed:Yes ADL's updated: Yes Are you experiencing any new or worsening symptoms you need to talk about today? Yes Based on consulting group analyst, the following disposition is advised: No symptoms or symptoms present, not severe. Routed to: No Action Needed VALENTIN Education Provided this Outreach: No Cinthia Ramachandran RN October 09, 2023 9:20 AM CDM Telephonic Outreach Provider Action/FYI CDM: Chronic Obstructive Bronchitis Left a message to verify symptom status, instructed to contact PCP for condition changes and needs. Contacted for: Engagement Contact made with patient: No, left message. Cinthia Ramachandran RN October 08, 2023 2:11 PM documented in this encounter [facility] 09-08-2023 History of Present illness Narrative This note was created using Freebeep[employer]. Subjective Cleve Waggoner is a 72 year old female. 72 year old female with PMH Parkinsons, AAA, HTN, presents for sinus infection. Acute onset of symptoms A few weeks ago +sinus pressure +post nasal drainage +cough Denies fever or chills Denies N/V/D Denies skin rash or lesions. Denies dyspnea Denies increased sputum Denies increased SOB +tobacco usage The history is provided by the patient. No language specialist was used. Sinus Problem This is a new problem. The current episode started 1 to 4 weeks ago. The problem occurs constantly. The problem has been gradually worsening. Associated symptoms include congestion, coughing, headaches and a sore throat. Pertinent negatives include no abdominal pain, anorexia, arthralgias, change in bowel habit, chest pain, chills, diaphoresis, fatigue, fever, joint swelling, myalgias, nausea, neck pain, numbness, rash, swollen glands, urinary symptoms, vertigo, visual change, vomiting or weakness. Nothing aggravates the symptoms. She has tried nothing for the symptoms. The treatment provided no relief. PAST MEDICAL HISTORY Diagnosis Date Abdominal pain, unspecified site Allergic rhinitis, cause unspecified 12/06/2006 Anxiety 09/26/2011 Asthma Chronic airway obstruction, not elsewhere classified Esophageal reflux Goiter, unspecified mulitnodular goiter based on ultrasound Hypertension Mental disorder anxiety Obstructive chronic bronchitis without exacerbation (HCC) 12/06/2006 Other and unspecified hyperlipidemia Peptic ulcer, unspecified site, unspecified as acute or chronic, without mention of hemorrhage, perforation, or obstruction EGD about 15 years ago () Snoring PAST SURGICAL HISTORY Procedure Laterality Date APPENDECTOMY 1985 COLONOSCOPY FLX DX W/COLLJ SPEC WHEN PFRMD 2003 Colonoscopy COLONOSCOPY FLX DX W/COLLJ SPEC WHEN PFRMD 10/01/08 COLONOSCOPY FLX DX W/COLLJ SPEC WHEN PFRMD 10/30/13 Colonoscopy COLONOSCOPY FLX DX W/COLLJ SPEC WHEN PFRMD 10/21/2018 Colonoscopy EGD TRANSORAL BIOPSY SINGLE/MULTIPLE 10/01/08 ESOPHAGOGASTRODUODENOSCOPY TRANSORAL DIAGNOSTIC 08/05/2015 EGD ESOPHAGOGASTRODUODENOSCOPY TRANSORAL DIAGNOSTIC 10/21/2018 EGD LAPS SURG CHOLECYSTECTOMY W/CHOLANGIOGRAPHY 05/19/10 Normal IOC TONSILLECTOMY & ADENOIDECTOMY <AGE 12 at age 2 T/A (under age 12 years) TOTAL ABDOMINAL HYSTERECT W/WO RMVL TUBE OVARY 1987 Hysterectomy, GIDEON ALLERGIES Augmentin [Amoxicillin-Pot Clavulanate], Cefdinir, Ceftin [Cefuroxime], Clarithromycin, Clindamycin, Flexeril [Cyclobenzaprine Hcl], Flonase [Fluticasone Propionate], Macrobid [Nitrofurantoin Monohyd/M-Cryst], Prilosec [Omeprazole], and Pseudoephedrine MEDICATIONS zolpidem (AMBIEN) 10 mg Take 0.5-1 tablets by mouth at bedtime as needed (insomnia) for up to 180 days. PARoxetine (PAXIL) 10 mg tablet Take 1 tablet by mouth once daily. lisinopril (ZESTRIL) 40 mg tablet Take 1 tablet by mouth once daily. conjugated estrogens (PREMARIN) vaginal cream use 0.5 grams twice weekly as directed amLODIPine (NORVASC) 2.5 mg tablet Take 1 tablet by mouth once daily. cyanocobalamin 1,000 mcg/mL Inject 1 mL intramuscularly once every month. atorvastatin (LIPITOR) 10 mg tablet Take 1 tablet by mouth once daily. For cholesterol dicyclomine (BENTYL) 20 mg tablet Take 1 tablet by mouth three times daily before meals. albuterol HFA (VENTOLIN HFA) 90 mcg/actuation inhaler Inhale 2 Puffs as instructed every 4 hours as needed for wheezing/shortness of breath. esomeprazole (NEXIUM) 20 mg capsule Take 1 capsule by mouth once daily as needed. trihexyphenidyl (ARTANE) 2 mg tablet Take 1 mg by mouth twice daily. Dr. Bond, Neurology Acidophilus-Bif Animalis 10 billion cell cap Take by mouth. FEXOFENADINE HCL (TOÑO ALLERGY ORAL) Take 30 mg by mouth. doxycycline (VIBRA-TABS) 100 mg tablet Take 1 tablet by mouth two times a day for 7 days. predniSONE (DELTASONE) 10 mg tablet Take 4 tabs daily for 3 days, then 2 tabs daily for 3 days, then 1 tab daily for 3 days with food. FAMILY HISTORY Problem Relation Age of Onset other (Congestive Heart Failure) Mother at 91 Stroke Father at 84 other (Hypercholesterolemia) Father other (Peripheral Vascular Disease) Father Breast Cancer Sister Social History Tobacco Use Smoking status: Every Day Packs/day: 1.00 Years: 35.00 Additional pack years: 0.00 Total pack years: 35.00 Types: Cigarettes Smokeless tobacco: Never Substance Use Topics Alcohol use: No Drug use: No Review of Systems Constitutional: Negative for chills, diaphoresis, fatigue and fever. HENT: Positive for congestion, ear pain, sinus pressure, sinus pain and sore throat. Eyes: Negative for pain, discharge, redness and itching. Respiratory: Positive for cough. Negative for apnea, choking and chest tightness. Cardiovascular: Negative for chest pain. Gastrointestinal: Negative for abdominal pain, anorexia, change in bowel habit, nausea and vomiting. Musculoskeletal: Negative for arthralgias, joint swelling, myalgias and neck pain. Skin: Negative for rash. Allergic/Immunologic: Negative for environmental allergies, food allergies and immunocompromised state. Neurological: Positive for headaches. Negative for dizziness, vertigo, facial asymmetry, weakness and numbness. Hematological: Negative for adenopathy. Does not bruise/bleed easily. Psychiatric/Behavioral: Negative for agitation and behavioral problems. Objective BP 128/80 Pulse 102 Temp 36.3 C (97.4 F) Resp 18 Wt 52 kg (114 lb 10.2 oz) SpO2 98% BMI 23.96 kg/m Physical Exam Vitals and nursing note reviewed. Constitutional: General: She is not in acute distress. Appearance: Normal appearance. She is normal weight. She is not ill-appearing, toxic-appearing or diaphoretic. Comments: Large odor of tobacco smoke HENT: Head: Normocephalic and atraumatic. Comments: +frontal sinus pressure +maxillary sinus pressure Right Ear: Ear canal and external ear normal. Left Ear: Ear canal and external ear normal. Nose: Congestion present. No rhinorrhea. Mouth/Throat: Mouth: Mucous membranes are moist. Pharynx: Posterior oropharyngeal erythema present. No oropharyngeal exudate. Eyes: General: Right eye: No discharge. Left eye: No discharge. Extraocular Movements: Extraocular movements intact. Conjunctiva/sclera: Conjunctivae normal. Pupils: Pupils are equal, round, and reactive to light. Cardiovascular: Rate and Rhythm: Normal rate and regular rhythm. Pulses: Normal pulses. Heart sounds: Normal heart sounds. No murmur heard. No friction rub. Pulmonary: Effort: Pulmonary effort is normal. No respiratory distress. Breath sounds: Normal breath sounds. No stridor. No wheezing, rhonchi or rales. Chest: Chest wall: No tenderness. Abdominal: General: Abdomen is flat. There is no distension. Palpations: Abdomen is soft. There is no mass. Tenderness: There is no abdominal tenderness. There is no right CVA tenderness, left CVA tenderness, guarding or rebound. Hernia: No hernia is present. Musculoskeletal: General: No swelling, tenderness, deformity or signs of injury. Normal range of motion. Cervical back: Normal range of motion and neck supple. No rigidity. Right lower leg: No edema. Left lower leg: No edema. Lymphadenopathy: Cervical: Cervical adenopathy present. Skin: General: Skin is warm and dry. Capillary Refill: Capillary refill takes less than 2 seconds. Coloration: Skin is not jaundiced or pale. Findings: No bruising, erythema, lesion or rash. Neurological: General: No focal deficit present. Mental Status: She is alert and oriented to person, place, and time. Cranial Nerves: No cranial nerve deficit. Sensory: No sensory deficit. Motor: No weakness. Coordination: Coordination normal. Gait: Gait normal. Psychiatric: Mood and Affect: Mood normal. Behavior: Behavior normal. Thought Content: Thought content normal. Judgment: Judgment normal. Assessment and Plan ASSESSMENT/PLAN: 1. Rhinosinusitis - ICD9: 473.9, ICD10: J32.9 - Will begin treatment with as per antibiotic as written, see orders - The patient should also be given OTC cough and cold meds as needed and warm salt water gargles, throat lozenges and/or OTC throat spray as needed for the first 5-7 days of treatment. - Supportive care with plenty of fluids, rest, and analgesia prn. - Follow up in 3-5 days if symptoms persist or worsen. Elodia Schulz APRN.[employer] WEAVING MACHINE OPERATOR documented in this encounter [facility] 08-17-2023 History of Present illness Narrative CDM Telephonic Outreach Provider Action/FYI CDM: Chronic Obstructive Bronchitis Pt noted seeing Pain Mgt Dr. Jace Dunlap, will have a C 6-7 Ablation Provide My Chart 'Home Monitoring questionnaire location, and updates. SDH, Goals updated Contacted for: Engagement Contact made with patient: Yes Patient identified by name and date of . Discussed care with patient Outcomes: Patient forgot, reminder given Are you experiencing any new or worsening symptoms you need to talk about today? Yes Based on consulting group analyst, the following disposition is advised: No symptoms or symptoms present, not severe. Routed to: No Action Needed VALENTIN Education Provided this Outreach: No Cinthia Ramachandran RN August 17, 2023 3:37 PM documented in this encounter [facility] 08-03-2023 Instructions Vicky Almendarez APRN.BASE FILLER - 08/03/2023 1:46 PM EDT BONE MINERAL DENSITY PATIENT INSTRUCTIONS ======= Bone mineral density testing measures the amount of calcium in certain parts of your bones. This information determines how strong your bones are. The test is used to detect osteoporosis, a disease in which the bone's mineral content and density are low, increasing a person's risk of fractures. The lumbar spine (lower back) and the hip are the skeletal sites usually examined. For the test, remember that: 1. You cannot take this test if you are . 2. Eat a normal diet on the day of the test. 3. Take your medications as you normally would. 4. DO NOT take calcium supplements (such as Tums) for 24 hours before the test. 5. On the day of the test, leave valuables (jewelry or credit cards) at home. 6. The test should be performed prior to oral, rectal or IV contrast studies, or at least 7 days after any of these studies. For the test, you may be asked to wear a hospital gown. You will lie on your back, on a padded table, in a comfortable position. Generally, you can resume your usual activities immediately. documented in this encounter [facility] 08-03-2023 History of Present illness Narrative SUBJECTIVE: Lung Cancer Screening Never done RSV Vaccine(1 - 1-dose 60+ series) Never done Colorectal Cancer Screening due on 10/22/2023 DALTON Waggoner is a 72 year old female. Her past medical history is significant for Parkinson's, hypertension, hypercholesterolemia, tobacco use disorder, GERD, anxiety, dysuria, vitamin D deficiency. Continues with paroxetine for anxiety depression which is currently well-controlled. Has seen neurologist in the past but not recently. Still with ataxic gait. Followed by Dr. Mccormick pain management at [facility], C6-C7 nerve ablation is planned for August 21. AAA: Notes she has seen vascular surgeon regarding this and SHASHANK, vascular provider in [place]. Has had imaging there since she was seen here. She reports thrush. HTN:Today reports she is without headache, chest pain, palpitations, dyspnea and peripheral edema. Last 14 Encounter BP Readings: Date: BP: 08/03/2023 135/67 07/16/2023 161/74 02/02/2023 156/80 08/01/2022 138/72 05/11/2022 132/71[average bp[ 01/31/2022 128/82 09/26/2021 144/82 06/06/2021 142/82 01/11/2021 160/89[trubp average[ 11/29/2020 140/77[trubp average[ 05/05/2020 152/72 03/08/2020 148/102 12/02/2019 144/80 10/27/2019 180/90 Review of Systems Psychiatric/Behavioral: Negative for dysphoric mood. The patient is not nervous/anxious. Objective BP 135/67 Pulse 101 Resp 16 Wt 51.3 kg (113 lb) BMI 23.62 kg/m Physical Exam Vitals and nursing note reviewed. Constitutional: General: She is not in acute distress. Appearance: She is not toxic-appearing or diaphoretic. HENT: Head: Normocephalic and atraumatic. Mouth/Throat: Mouth: Mucous membranes are moist. Eyes: General: Right eye: No discharge. Left eye: No discharge. Conjunctiva/sclera: Conjunctivae normal. Cardiovascular: Rate and Rhythm: Normal rate and regular rhythm. Heart sounds: Normal heart sounds. Pulmonary: Effort: Pulmonary effort is normal. Breath sounds: Normal breath sounds. Abdominal: General: Abdomen is flat. Bowel sounds are normal. Palpations: Abdomen is soft. Musculoskeletal: General: Deformity (kyphosis) present. No swelling. Right lower leg: No edema. Left lower leg: No edema. Skin: General: Skin is warm and dry. Neurological: Mental Status: She is alert and oriented to person, place, and time. Gait: Gait abnormal (short, shuffling, slow to start). Psychiatric: Mood and Affect: Mood normal. Thought Content: Thought content normal. ALLERGIES Allergen Reactions Augmentin [Amoxicil* GI Upset Cefdinir Unknown Ceftin [Cefuroxime] Diarrhea Clarithromycin Diarrhea Clindamycin Other: See Comments oral thrush Flexeril [Cyclobenz* Intolerance Hangover effect even with half a pill Flonase [Fluticason* Severe headaches Macrobid [Nitrofura* Other: See Comments Constipation, gi upset, overall sense of feeling ill. Prilosec [Omeprazol* Gi bloating Pseudoephedrine Intolerance drives BP up and causes heart racing Medications zolpidem (AMBIEN) 10 mg Take 0.5-1 tablets by mouth at bedtime as needed (insomnia) for up to 180 days. PARoxetine (PAXIL) 10 mg tablet Take 1 tablet by mouth once daily. lisinopril (ZESTRIL) 40 mg tablet Take 1 tablet by mouth once daily. conjugated estrogens (PREMARIN) vaginal cream use 0.5 grams twice weekly as directed amLODIPine (NORVASC) 2.5 mg tablet Take 1 tablet by mouth once daily. cyanocobalamin 1,000 mcg/mL Inject 1 mL intramuscularly once every month. atorvastatin (LIPITOR) 10 mg tablet Take 1 tablet by mouth once daily. For cholesterol dicyclomine (BENTYL) 20 mg tablet Take 1 tablet by mouth three times daily before meals. albuterol HFA (VENTOLIN HFA) 90 mcg/actuation inhaler Inhale 2 Puffs as instructed every 4 hours as needed for wheezing/shortness of breath. esomeprazole (NEXIUM) 20 mg capsule Take 1 capsule by mouth once daily as needed. trihexyphenidyl (ARTANE) 2 mg tablet Take 1 mg by mouth twice daily. Dr. Bond, Neurology Acidophilus-Bif Animalis 10 billion cell cap Take by mouth. FEXOFENADINE HCL (TOÑO ALLERGY ORAL) Take 30 mg by mouth. fluconazole (DIFLUCAN) 150 mg tablet Take 1 tablet by mouth one time only for 1 dose. Repeat in 3 to 5 days as needed. Treat for recurrent yeast infection as directed PAST MEDICAL HISTORY Diagnosis Date Abdominal pain, unspecified site Allergic rhinitis, cause unspecified 12/06/2006 Asthma Chronic airway obstruction, not elsewhere classified Esophageal reflux Goiter, unspecified mulitnodular goiter based on ultrasound Hypertension Mental disorder anxiety Obstructive chronic bronchitis without exacerbation (HCC) 12/06/2006 Other and unspecified hyperlipidemia Peptic ulcer, unspecified site, unspecified as acute or chronic, without mention of hemorrhage, perforation, or obstruction EGD about 15 years ago () Snoring Social History Tobacco Use Smoking status: Every Day Packs/day: 1.00 Years: 35.00 Additional pack years: 0.00 Total pack years: 35.00 Types: Cigarettes Smokeless tobacco: Never Substance Use Topics Alcohol use: No Drug use: No Latest Ref Rng 07/05/2022 07/23/2023 WBC 3.70 - 11.00 k/uL 7.80 12.61 (H) RBC 3.90 - 5.20 m/uL 4.57 4.93 Hemoglobin 11.5 - 15.5 g/dL 14.3 15.2 Hematocrit 36.0 - 46.0 % 41.9 46.5 (H) MCV 80.0 - 100.0 fL 91.7 94.3 MCH 26.0 - 34.0 pg 31.3 30.8 MCHC 30.5 - 36.0 g/dL 34.1 32.7 RDW-CV 11.5 - 15.0 % 12.9 13.1 Platelet Count 150 - 400 k/uL 220 270 MPV 9.0 - 12.7 fL 11.2 11.7 Neut% % 66.1 Abs Neut (ANC) 1.45 - 7.50 k/uL 8.33 (H) Lymph% % 26.7 Abs Lymph 1.00 - 4.00 k/uL 3.37 [place]% % 5.1 Abs [place] <0.87 k/uL 0.64 Eosin% % 1.1 Abs Eosin <0.46 k/uL 0.14 Baso% % 0.8 Abs Baso <0.11 k/uL 0.10 Immature Gran % % 0.2 IMMATURE GRANS (ABS) <0.10 k/uL 0.03 NRBC /100 WBC 0.0 Absolute nRBC <0.01 k/uL <0.01 <0.01 DTYPE Auto Protein, Total 6.3 - 8.0 g/dL 6.8 6.9 Albumin 3.9 - 4.9 g/dL 4.2 4.2 Calcium 8.5 - 10.2 mg/dL 9.4 9.3 Bilirubin, Total 0.2 - 1.3 mg/dL 0.2 0.3 Alkaline Phosphatase 34 - 123 U/L 100 103 AST 13 - 35 U/L 16 21 ALT 7 - 38 U/L 6 (L) 12 Glucose 74 - 99 mg/dL 83 90 BUN 7 - 21 mg/dL 14 19 Creatinine 0.58 - 0.96 mg/dL 0.78 0.82 Sodium 136 - 144 mmol/L 139 141 Potassium 3.7 - 5.1 mmol/L 4.4 4.2 Chloride 97 - 105 mmol/L 104 102 CO2 22 - 30 mmol/L 27 27 Anion Gap 9 - 18 mmol/L 8 (L) 12 eGFR >=60 mL/min/1.73m 81 76 Cholesterol, Total <200 mg/dL 173 214 (H) Triglyceride <150 mg/dL 176 (H) 199 (H) HDL Cholesterol >39 mg/dL 49 65 Non HDL Cholesterol <130 mg/dL 124 149 (H) Fasting Time hrs 12 12 VLDL Cholesterol <30 mg/dL 35 (H) 40 (H) TC:HDL Ratio <5.10 3.53 3.29 LDL Cholesterol <100 mg/dL 89 109 (H) LDL:HDL Ratio <2.54 1.82 1.68 TSH 0.270 - 4.200 mIU/L 1.490 1.380 Free T4 0.9 - 1.7 ng/dL 1.1 Free T3 2.3 - 4.1 pg/mL 2.9 Vitamin D 25 Hydroxy 31.0 - 80.0 ng/mL 35.6 29.4 (L) Vitamin B12 232 - 1,245 pg/mL [phone] The 10-year ASCVD risk score (New SALAZAR, et al., 2019) is: 25.5% Values used to calculate the score: Age: 72 years Sex: Female Is Non- : No Diabetic: No Tobacco smoker: Yes Systolic Blood Pressure: 135 mmHg Is BP treated: Yes HDL Cholesterol: 65 mg/dL Total Cholesterol: 214 mg/dL ASSESSMENT/PLAN: 1. Essential hypertension - ICD9: 401.9, ICD10: I10 (primary diagnosis) - Controlled - Continue current medications - Encouraged sodium restriction, DASH or Mediterranean diet - Recommend regular aerobic exercise 2. Encounter for screening for lung cancer - ICD9: V76.0, ICD10: Z12.2 - CONSULT LUNG CANCER SCREENING CLINIC 3. Encounter for immunization - ICD9: V03.89, ICD10: Z23 - RSV PRINTED PHARMACY INSTRUCTIONS 4. Screening for colon cancer - ICD9: V76.51, ICD10: Z12.11 - CONSULT TO GENERAL SURGERY 5. Parkinson's disease, unspecified whether dyskinesia present, unspecified whether manifestations fluctuate (HCC) - ICD9: 332.0, ICD10: G20.A1 States not currently seeing neurologist, defers for now. States no Parkinsons diagnosis 6. Obstructive chronic bronchitis without exacerbation (HCC) - ICD9: 491.20, ICD10: J44.89 Stable, currently controlled, continue to monitor. Continues to smoke, not ready to quit 7. Abdominal aortic aneurysm (AAA) without rupture, unspecified part (HCC) - ICD9: 441.4, ICD10: I71.40 Followed by vascular doctor in [place] 8. Antibiotic-induced yeast infection - ICD9: 112.9, E930.9, ICD10: B37.9, T36.95XA 9. Thrush - ICD9: 112.0, ICD10: B37.0 States topical treatment does not help oral thrush - FLUCONAZOLE 150 MG TABLET 10. Encounter for screening for osteoporosis - ICD9: V82.81, ICD10: Z13.820 11. Asymptomatic postmenopausal status - ICD9: V49.81, ICD10: Z78.0 12. Osteopenia, unspecified location - ICD9: 733.90, ICD10: M85.80 - Reviewed the need for Calcium and Vitamin D supplements and weight bearing exercise as tolerated - DXA-AXIAL SKELETON - BD DXA TRABECULAR BONE SCORE (TBS) 13. Primary insomnia - ICD9: 307.42, ICD10: F51.01 Stable, currently controlled, continue to monitor. 14. Pure hypercholesterolemia - ICD9: 272.0, ICD10: E78.00 Recommend a plant based diet such as Mediterranean diet with plenty of vegetables, fruits,whole grains, fish, chicken, turkey or plant proteins and routine exercise such as walking 15. Tobacco use disorder - ICD9: 305.1, ICD10: F17.200 - Cessation encouraged. 16. DAVID (generalized anxiety disorder) - ICD9: 300.02, ICD10: F41.1 Stable, currently controlled, continue to monitor. 6 mo follow up MD Vicky You APRN.BASE FILLER Medical Decision Making: Problems: Moderate: 2+ stable chronic illnesses Data: Unique test(s) ordered: 1 Risk: Moderate: Drug management Medical Decision Making Level: 4 - Moderate documented in this encounter [facility] 08-02-2023 Miscellaneous Notes August 02, 2023 PID: [id number] Cleve Waggoner [address] [place] [address] Dear Ms. Waggoner, We are pleased to inform you that the results of your recent breast imaging exam on 08/01/2023 are normal. Your mammogram demonstrates that you have dense breast tissue, which could hide abnormalities. Dense breast tissue, in and of itself, is a relatively common condition. Therefore, this information is not provided to cause undue concern; rather, it is to raise your awareness and promote discussion with your health care provider regarding the presence of dense breast tissue in addition to other risk factors. Early detection of cancer is very important. We also understand recommendations regarding breast cancer screening are controversial. Please discuss with your primary care provider which strategy is best for you and whether a mammogram is right for you. Your imaging studies and report will be kept on file at [facility] as part of your permanent medical record and are available for your continuing care. Thank you for allowing us to help in meeting your health care needs. Sincerely, Dr. Abbasi Interpreting Radiologist [facility] (Normal over 40) documented in this encounter [facility] 08-01-2023 History of Present illness Narrative Radiology Service Progress Note PATIENT NAME: Cleve Waggoner DATE OF SERVICE: August 01, 2023 TIME: 1:41 PM PATIENT IDENTITY VERIFICATION COMPLETED USING TWO (2) IDENTIFIERS: Name and Date of confirmed by patient verbally. FALL SCREENING: Has the patient had 2 falls in the last year or 1 fall with injury or currently using an Ambulatory Assistive Device (Walker, Cane, Wheelchair, Crutches, etc.)? No PATIENT GENDER DATA: Female. status: : No status: NO. PATIENT RELEVANT IMPLANT DATA REVIEWED: Not Applicable PATIENT PRESENTS WITH AN IMPLANTABLE OR ATTACHED BELT AND LINK ASSEMBLY SUPERVISOR: No RADIOLOGY DEPARTMENT: Mammography PERIPHERAL IV DATA: Not applicable SIGNED BY: Nida Sánchez August 01, 2023 1:41 PM documented in this encounter [facility] 07-16-2023 Miscellaneous Notes Addended by: VICKY ALMENDAREZ on: 07/16/2023 03:25 PM Modules accepted: Orders ok Please see note from pharmacist on pended order. Krystin Rogel MA documented in this encounter [facility] 07-16-2023 History of Present illness Narrative CDM Telephonic Outreach Provider Dipti/BROCK Left a message to verify symptom status, instructed to contact PCP for condition changes and needs. My Chart Home Monitoring questionnaire location and updates provided Contacted for: Engagement Contact made with patient: No, left message. Cinthia Ramachandran RN July 16, 2023 12:04 PM documented in this encounter [facility] 07-16-2023 History of Present illness Narrative SUBJECTIVE: Lung Cancer Screening Never done RSV Vaccine(1 - 1-dose 60+ series) Never done Advance Directive Discussion due on 04/23/2023 Depression Assessment due on 04/23/2023 Mammogram Screening due on 07/06/2023 HPI Cleve Waggoner is a 72 year old female. Her past medical history is significant for ACTIVE PROBLEM LIST Esophageal Reflux Peptic Ulcer, Unspecified Site, Unspecified As Acute Or Chronic, Without Mention of Hemorrhage, Perforation, Or Obstruction Obstructive Chronic Bronchitis Without Exacerbation (Hcc) Allergic Rhinitis Other Acute Sinusitis Goiter, Unspecified Tobacco Use Disorder Pure Hypercholesterolemia Acute Gastritis Without Mention of Hemorrhage Abdominal Pain, Unspecified Site Personal History of Colonic Polyps Observation for Suspected Malignant Neoplasm Internal Hemorrhoids Without Mention of Complication Calculus of Gallbladder Without Mention of Cholecystitis Or Obstruction Hematuria Anxiety Urgency of Urination Frequency of Urination Dysuria Essential Hypertension David (Generalized Anxiety Disorder) Sleep Difficulties TMJ (Dislocation of Temporomandibular Joint) Vitamin D Deficiency Left Flank Pain Smoking History AAA (abdominal aortic aneurysm) ([facility]) History of Parkinson's Disease Torticollis B12 Deficiency Fatigue Primary Insomnia Balance Problems Other Irritable Bowel Syndrome Presents today regarding sinusitis symptoms. She notes sinus drainage congestion and pressure, present for weeks. Maxillary facial pressure noted. Afebrile. Current smoker. Notes fatigue. Seeing Dr. Mccormick for pain management. No current neurologist, does not attribute gait difficulties or tremor to neurological difficulty. Review of Systems Constitutional: Positive for fatigue. HENT: Positive for rhinorrhea, sinus pressure and sinus pain. Musculoskeletal: Positive for gait problem. Neurological: Positive for tremors. Objective BP 161/74 Pulse 89 Temp 37.2 C (98.9 F) Resp 16 Wt 52.2 kg (115 lb) SpO2 95% BMI 24.04 kg/m Physical Exam Vitals and nursing note reviewed. Constitutional: General: She is not in acute distress. Appearance: She is not toxic-appearing or diaphoretic. HENT: Head: Normocephalic and atraumatic. Right Ear: Tympanic membrane and ear canal normal. Left Ear: Tympanic membrane and ear canal normal. Nose: Mucosal edema and rhinorrhea present. Rhinorrhea is purulent. Right Sinus: Maxillary sinus tenderness present. Left Sinus: Maxillary sinus tenderness present. Mouth/Throat: Mouth: Mucous membranes are moist. Pharynx: Oropharynx is clear. Tonsils: No tonsillar exudate. Eyes: General: Right eye: No discharge. Left eye: No discharge. Conjunctiva/sclera: Conjunctivae normal. Cardiovascular: Rate and Rhythm: Normal rate and regular rhythm. Heart sounds: Normal heart sounds. Pulmonary: Effort: Pulmonary effort is normal. Breath sounds: Normal breath sounds. Abdominal: General: Abdomen is flat. Bowel sounds are normal. Palpations: Abdomen is soft. Musculoskeletal: General: Deformity (kyphosis) present. No swelling. Cervical back: Torticollis present. Right lower leg: No edema. Left lower leg: No edema. Lymphadenopathy: Cervical: Cervical adenopathy present. Right cervical: Superficial cervical adenopathy present. Skin: General: Skin is warm and dry. Neurological: Mental Status: She is alert and oriented to person, place, and time. Gait: Gait abnormal (short, shuffling, slow to start). Psychiatric: Mood and Affect: Mood normal. Thought Content: Thought content normal. ALLERGIES Allergen Reactions Augmentin [Amoxicil* GI Upset Ceftin [Cefuroxime] Diarrhea Clarithromycin Diarrhea Clindamycin Other: See Comments oral thrush Flexeril [Cyclobenz* Intolerance Hangover effect even with half a pill Flonase [Fluticason* Severe headaches Macrobid [Nitrofura* Other: See Comments Constipation, gi upset, overall sense of feeling ill. Prilosec [Omeprazol* Gi bloating Pseudoephedrine Intolerance drives BP up and causes heart racing Medications zolpidem (AMBIEN) 10 mg Take 0.5-1 tablets by mouth at bedtime as needed (insomnia) for up to 180 days. PARoxetine (PAXIL) 10 mg tablet Take 1 tablet by mouth once daily. lisinopril (ZESTRIL) 40 mg tablet Take 1 tablet by mouth once daily. conjugated estrogens (PREMARIN) vaginal cream use 0.5 grams twice weekly as directed amLODIPine (NORVASC) 2.5 mg tablet Take 1 tablet by mouth once daily. cyanocobalamin 1,000 mcg/mL Inject 1 mL intramuscularly once every month. atorvastatin (LIPITOR) 10 mg tablet Take 1 tablet by mouth once daily. For cholesterol dicyclomine (BENTYL) 20 mg tablet Take 1 tablet by mouth three times daily before meals. nystatin (MYCOSTATIN) 100,000 unit/mL suspension 5 mL four times daily. Swish/swallow or swish/expectorate albuterol HFA (VENTOLIN HFA) 90 mcg/actuation inhaler Inhale 2 Puffs as instructed every 4 hours as needed for wheezing/shortness of breath. esomeprazole (NEXIUM) 20 mg capsule Take 1 capsule by mouth once daily as needed. trihexyphenidyl (ARTANE) 2 mg tablet Take 1 mg by mouth twice daily. Dr. Bond, Neurology Acidophilus-Bif Animalis 10 billion cell cap Take by mouth. FEXOFENADINE HCL (TOÑO ALLERGY ORAL) Take 30 mg by mouth. ciprofloxacin HCl (CIPRO) 250 mg tablet Take 2 tablets by mouth two times a day for 5 days. PAST MEDICAL HISTORY Diagnosis Date Abdominal pain, unspecified site Allergic rhinitis, cause unspecified 12/06/2006 Asthma Chronic airway obstruction, not elsewhere classified Esophageal reflux Goiter, unspecified mulitnodular goiter based on ultrasound Hypertension Mental disorder anxiety Obstructive chronic bronchitis without exacerbation (HCC) 12/06/2006 Other and unspecified hyperlipidemia Peptic ulcer, unspecified site, unspecified as acute or chronic, without mention of hemorrhage, perforation, or obstruction EGD about 15 years ago () Snoring Social History Tobacco Use Smoking status: Every Day Packs/day: 1.00 Years: 35.00 Additional pack years: 0.00 Total pack years: 35.00 Types: Cigarettes Smokeless tobacco: Never Substance Use Topics Alcohol use: No Drug use: No Component Latest Ref Rng & Units 06/06/2021 07/05/2022 Protein, Total 6.3 - 8.0 g/dL 6.9 6.8 Albumin 3.9 - 4.9 g/dL 4.5 4.2 Calcium 8.5 - 10.2 mg/dL 9.5 9.4 Bilirubin, Total 0.2 - 1.3 mg/dL 0.2 0.2 Alkaline Phosphatase 34 - 123 U/L 84 100 AST 13 - 35 U/L 19 16 Glucose 74 - 99 mg/dL 97 83 BUN 7 - 21 mg/dL 13 14 Creatinine 0.58 - 0.96 mg/dL 0.72 0.78 Sodium 136 - 144 mmol/L 139 139 Potassium 3.7 - 5.1 mmol/L 4.2 4.4 Chloride 97 - 105 mmol/L 101 104 CO2 22 - 30 mmol/L 29 27 Anion Gap 9 - 18 mmol/L 9 8 (L) ALT 7 - 38 U/L 9 6 (L) eGFR- >60 eGFR-All Other Races . >60 eGFR >=60 mL/min/1.73m 81 WBC 3.70 - 11.00 k/uL 8.22 7.80 RBC 3.90 - 5.20 m/uL 4.99 4.57 Hemoglobin 11.5 - 15.5 g/dL 15.8 (H) 14.3 Hematocrit 36.0 - 46.0 % 47.9 (H) 41.9 MCV 80.0 - 100.0 fL 96.0 91.7 MCH 26.0 - 34.0 pg 31.7 31.3 MCHC 30.5 - 36.0 g/dL 33.0 34.1 RDW-CV 11.5 - 15.0 % 12.3 12.9 Platelet Count 150 - 400 k/uL 218 220 MPV 9.0 - 12.7 fL 12.7 11.2 Absolute nRBC <0.01 k/uL <0.01 <0.01 Cholesterol, Total <200 mg/dL 173 Triglyceride <150 mg/dL 176 (H) HDL Cholesterol >39 mg/dL 49 Non HDL Cholesterol <130 mg/dL 124 Fasting Time hrs 12 VLDL Cholesterol <30 mg/dL 35 (H) TC:HDL Ratio <5.10 3.53 LDL Cholesterol <100 mg/dL 89 LDL:HDL Ratio <2.54 1.82 Vitamin D 25 Hydroxy 31.0 - 80.0 ng/mL 35.3 35.6 Vitamin B12 232 - 1,245 pg/mL >2,000 (H) 862 TSH 0.270 - 4.200 mIU/L 1.240 1.490 Free T4 0.9 - 1.7 ng/dL 1.0 1.1 Free T3 2.3 - 4.1 pg/mL 3.0 2.9 ASSESSMENT/PLAN: 1. Acute non-recurrent maxillary sinusitis - ICD9: 461.0, ICD10: J01.00 (primary diagnosis) - Will begin treatment with as per antibiotic as written, see orders - Supportive care with plenty of fluids, rest, and analgesia prn. - Follow up if symptoms persist or worsen. 2. Pure hypercholesterolemia - ICD9: 272.0, ICD10: E78.00 - COMP METABOLIC PANEL - LIPID PANEL BASIC 3. Essential hypertension - ICD9: 401.9, ICD10: I10 Suboptimal control. Continue with current treatment unchanged for now, recheck at next visit treat accordingly - Continue current medications - Encouraged sodium restriction, DASH or Mediterranean diet - COMP METABOLIC PANEL - CBC + DIFF - LIPID PANEL BASIC 4. Other acute recurrent sinusitis - ICD9: 461.9, ICD10: J01.81 5. Tobacco use disorder - ICD9: 305.1, ICD10: F17.200 Cessation endorsed - COMP METABOLIC PANEL - CBC + DIFF - LIPID PANEL BASIC 6. B12 deficiency - ICD9: 266.2, ICD10: E53.8 - VITAMIN B12 BLOOD 7. Vitamin D deficiency - ICD9: 268.9, ICD10: E55.9 - VITAMIN D 25 HYDROXY 8. Fatigue, unspecified type - ICD9: 780.79, ICD10: R53.83 - TSH BLD 9. History of Parkinson's disease - ICD9: V12.49, ICD10: Z86.69 Declined at this time - CONSULT TO NEUROLOGY 10. Antibiotic-induced yeast infection - ICD9: 112.9, E930.9, ICD10: B37.9, T36.95XA Fluconazole as needed 11. Acute recurrent frontal sinusitis - ICD9: 461.1, ICD10: J01.11 12. Chronic sinusitis, unspecified location - ICD9: 473.9, ICD10: J32.9 States doxycycline does not seem to help much. Requests Cipro. Continues to follow-up with ENT Dr. Tayla Almendarez APRN.BASE FILLER Medical Decision Making: Problems: Low: Acute, uncomplicated illness or injury Data: Unique test(s) ordered: 3+ Risk: Moderate: Drug management Medical Decision Making Level: 4 - Moderate documented in this encounter [facility] 07-02-2023 Telephone encounter Note The following approved medication requests have been transmitted electronically. Requested Prescriptions Signed Prescriptions Disp Refills zolpidem (AMBIEN) 10 mg 30 tablet 5 Sig: Take 0.5-1 tablets by mouth at bedtime as needed (insomnia) for up to 180 days. Authorizing Provider: STEFANY SHERIDAN MD [facility] 07-02-2023 Miscellaneous Notes The following approved medication requests have been transmitted electronically. Requested Prescriptions Signed Prescriptions Disp Refills zolpidem (AMBIEN) 10 mg 30 tablet 5 Sig: Take 0.5-1 tablets by mouth at bedtime as needed (insomnia) for up to 180 days. Authorizing Provider: STEFANY SHERIDAN MD Patient has been identified by name and date of : Yes Patient phones for refill(s): Requested Prescriptions Pending Prescriptions Disp Refills zolpidem (AMBIEN) 10 mg 30 tablet 5 Sig: Take 0.5-1 tablets by mouth at bedtime as needed (insomnia) for up to 180 days. Date of last office visit in primary care: 02/02/2023 Date of next office visit in primary care: 08/03/2023 Please advise. Thank you. Ella Huerta Pss. documented in this encounter [facility] 07-02-2023 Telephone encounter Note Patient has been identified by name and date of : Yes Patient phones for refill(s): Requested Prescriptions Pending Prescriptions Disp Refills zolpidem (AMBIEN) 10 mg 30 tablet 5 Sig: Take 0.5-1 tablets by mouth at bedtime as needed (insomnia) for up to 180 days. Date of last office visit in primary care: 02/02/2023 Date of next office visit in primary care: 08/03/2023 Please advise. Thank you. Ella Huerta Pss. [facility] 06-12-2023 Miscellaneous Notes Spoke to Patient, she does not take Paxil 10mg every day, just when she needs it, has been taking it that way for years. [facility] had overlapped, so she is now getting low. Asking for refill. Audrey Engel LPN Patient has been identified by name and date of : Yes, Provider Dr. Sheridan Date 06-12-23 Time 10:49 am Patient phones for refill(s): Requested Prescriptions Pending Prescriptions Disp Refills PARoxetine (PAXIL) 10 mg tablet 90 tablet 3 Sig: Take 1 tablet by mouth once daily. Date of last office visit in primary care: 02/02/2023 Date of next office visit in primary care: 08/03/2023 Please advise. Thank you. Desi Sanchez. documented in this encounter [facility] 06-04-2023 History of Present illness Narrative CDM Telephonic Outreach Provider Action/FYI CDM: Chronic Obstructive Bronchitis Left a message to verify symptom status and needs. Instructed to call PCP with any symptom or condition changes. Contacted for: Routine Telephonic Outreach Contact made with patient: No, left message. Cinthia Ramachandran RN June 04, 2023 4:16 PM CDM Telephonic Outreach Provider Action/FYI CDM: COPD, Bronchitis Called Pt, unable to leave?a message to verify symptom status and needs. Contacted for: Routine Telephonic Outreach Contact made with patient: No, unable to leave message. Will reattempt call Cinthia Ramachandran RN May 30, 2023 11:28 AM documented in this encounter [facility] 02-02-2023 History of Present illness Narrative This note was created using [id number]. Subjective Cleve Waggoner is a 72 year old female. Patient presents with: F/U 6 months SUBJECTIVE: Cleve Waggoner is a 72 year old year old lady here today for 6 month follow up appointment for review of medical conditions. Sinus infection for sure. Pain and pressure in sinuses. Needs fluconazole for thrush treatment. No fevers or chills. Started a month ago. Ears and nose plugged up. Torticollis and muscle spasm. Tried with cortisone shots. Bone on bone in cervical spine. B12 shots do help. Tired all the time. Takes nap during the day. Poor balance. Attributes to neck issues. Will follow up with Dr. Mccormick ([place]). PAST MEDICAL HISTORY Diagnosis Date Abdominal pain, unspecified site Allergic rhinitis, cause unspecified 12/06/2006 Asthma Chronic airway obstruction, not elsewhere classified Esophageal reflux Goiter, unspecified mulitnodular goiter based on ultrasound Hypertension Mental disorder anxiety Obstructive chronic bronchitis without exacerbation 12/06/2006 Other and unspecified hyperlipidemia Peptic ulcer, unspecified site, unspecified as acute or chronic, without mention of hemorrhage, perforation, or obstruction EGD about 15 years ago () Snoring Current Outpatient Medications Medication Sig Acidophilus-Bif Animalis 10 billion cell cap Take by mouth. albuterol HFA (VENTOLIN HFA) 90 mcg/actuation inhaler Inhale 2 Puffs as instructed every 4 hours as needed for wheezing/shortness of breath. amLODIPine (NORVASC) 2.5 mg tablet Take 1 tablet by mouth once daily. atorvastatin (LIPITOR) 10 mg tablet Take 1 tablet by mouth once daily. For cholesterol conjugated estrogens (PREMARIN) vaginal cream use 0.5 grams twice weekly as directed cyanocobalamin 1,000 mcg/mL Inject 1 mL intramuscularly once every month. dicyclomine (BENTYL) 20 mg tablet Take 1 tablet by mouth three times daily before meals. esomeprazole (NEXIUM) 20 mg capsule Take 1 capsule by mouth once daily as needed. FEXOFENADINE HCL (TOÑO ALLERGY ORAL) Take 30 mg by mouth. lisinopril (ZESTRIL, PRINIVIL) 40 mg tablet Take 1 tablet by mouth once daily. nystatin (MYCOSTATIN) 100,000 unit/mL suspension 5 mL four times daily. Swish/swallow or swish/expectorate PARoxetine (PAXIL) 10 mg tablet Take 1 tablet by mouth once daily. trihexyphenidyl (ARTANE) 2 mg tablet Take 1 mg by mouth twice daily. Dr. Bond, Neurology zolpidem (AMBIEN) 10 mg Take 0.5-1 tablets by mouth at bedtime as needed (insomnia) for up to 180 days. No current facility-administered medications for this visit. Review of Systems Objective BP 150/84 Pulse 80 Temp 36.1 C (97 F) (Left Tympanic) Resp 20 Wt 52.2 kg (115 lb) BMI 24.04 kg/m Last 5 Encounter Wt Readings: Date: Wt: 02/02/2023 52.2 kg (115 lb) 08/01/2022 51.7 kg (114 lb) 05/11/2022 51.7 kg (114 lb) 01/31/2022 49.9 kg (110 lb) 09/26/2021 50.3 kg (111 lb) No waist measurement recorded Estimated body mass index is 24.04 kg/m as calculated from the following: Height as of 10/27/19: 147.3 cm (4' 10). Weight as of this encounter: 52.2 kg (115 lb). Last 5 Encounter BP Readings: Date: BP: 02/02/2023 150/84 08/01/2022 138/72 05/11/2022 132/71[average bp[ 01/31/2022 128/82 09/26/2021 144/82 Physical Exam Constitutional: Appearance: Normal appearance. HENT: Head: Normocephalic. Comments: Tenderness over sinuses Eyes: Conjunctiva/sclera: Conjunctivae normal. Cardiovascular: Rate and Rhythm: Normal rate and regular rhythm. Heart sounds: Normal heart sounds. Pulmonary: Effort: Pulmonary effort is normal. Breath sounds: Normal breath sounds. Skin: General: Skin is warm and dry. Neurological: General: No focal deficit present. Mental Status: She is alert and oriented to person, place, and time. Psychiatric: Mood and Affect: Mood normal. Behavior: Behavior normal. Thought Content: Thought content normal. Judgment: Judgment normal. Assessment and Plan Encounter Diagnosis ICD-10-CM 1. Essential hypertension I10 amLODIPine (NORVASC) 2.5 mg tablet 2. Acute non-recurrent maxillary sinusitis J01.00 doxycycline (VIBRA-TABS) 100 mg tablet Worse on left; follows with Dr. Hernandez 3. Torticollis M43.6 Continue present management for this and muscle spasm. 4. Balance problems R26.89 5. Parkinson's disease, unspecified whether dyskinesia present, unspecified whether manifestations fluctuate G20.A1 Continue following with neurologist for management 6. Antibiotic-induced yeast infection B37.9 fluconazole (DIFLUCAN) 150 mg tablet T36.95XA 7. B12 deficiency E53.8 cyanocobalamin 1,000 mcg/mL Above issues addressed with patient. Patient involved in shared decision making for management of medical issues. History and medications reviewed. Epic updated as needed Refills and/or prescriptions taken care of and meds adjusted as indicated after reviewed history, exam and labs. Health Maintenance reviewed. Updated record and/or ordered tests as recorded. Encouraged on efforts at healthy diet and regular exercise and adequate sleep. Treating for bacterial sinusitis as needed treated before plus med for yeast infection. Continue current meds as discussed. Further evaluation and treatment as indicated. Stefany Sheridan MD documented in this encounter [facility] 01-02-2023 Miscellaneous Notes Okayed Patient has been identified by name and date of : Yes Last office visit in this department: 08/01/2022 RX INSTRUCTIONS: Patient aware RX will be sent to pharmacy. No need to notify patient. Patient phones requesting refills as follows: Requested Prescriptions Pending Prescriptions Disp Refills atorvastatin (LIPITOR) 10 mg tablet 90 tablet 3 Sig: Take 1 tablet by mouth once daily. For cholesterol Please review and advise. Dorothea Puentes documented in this encounter [facility] 12-07-2022 Miscellaneous Notes Spouse notified prescriptions were sent to the pharmacy. Spouse reported his got an e-mail from [facility] that medications were shipped. She was told by [facility] this was cancelled so not sure if they are coming from [facility]. She will picker medications from local pharmacy. Pt will let our office know. Teresa Vines LPN The following approved medication requests have been transmitted electronically. Requested Prescriptions Signed Prescriptions Disp Refills zolpidem (AMBIEN) 10 mg 30 tablet 5 Sig: Take 0.5-1 tablets by mouth at bedtime as needed (insomnia) for up to 180 days. Authorizing Provider: STEFANY SHERIDAN dicyclomine (BENTYL) 20 mg tablet 90 tablet 5 Sig: Take 1 tablet by mouth three times daily before meals. Authorizing Provider: STEFANY SHERIDAN MD Pt called checking status and her prescriptions below were sent to the wrong pharmacy. Pt reports this needs to be to local pharmacy. Teresa Vines LPN documented in this encounter [facility] 12-06-2022 History of Present illness Narrative See other encounter--taken care of Patient requesting refills as follows: Office staff, Please contact Pt directly for any advisement. Thank You Requested Prescriptions Pending Prescriptions Disp Refills zolpidem (AMBIEN) 10 mg 30 tablet 5 Sig: Take 0.5-1 tablets by mouth at bedtime as needed (insomnia) for up to 180 days. dicyclomine (BENTYL) 20 mg tablet 90 tablet 5 Sig: Take 1 tablet by mouth three times daily before meals. Cinthia Ramachandran RN December 05, 2022 6:39 PM documented in this encounter [facility] 12-06-2022 Miscellaneous Notes Last office visit: 08/01/2022 Next appointment scheduled: 02/02/2023 Patient phones requesting refills as follows: Requested Prescriptions Pending Prescriptions Disp Refills zolpidem (AMBIEN) 10 mg 30 tablet 5 Sig: Take 0.5-1 tablets by mouth at bedtime as needed (insomnia) for up to 180 days. dicyclomine (BENTYL) 20 mg tablet 90 tablet 5 Sig: Take 1 tablet by mouth three times daily before meals. Connie Yoder LPN Patient is calling for status update on prescription refill mentioned in patient outreach encounter on 12/05/22. Please notify when sent so the patient can follow up with her pharmacy. documented in this encounter [facility] 12-05-2022 History of Present illness Narrative CDM Telephonic Outreach Provider Action/FYI CDM: COPD Spk with Pt, provided My Chart Home monitoring location and updates. Pt noted appreciation for the call. Pt request for prescriptions x2 sent in other encounter Contacted for: Engagement Contact made with patient: Yes Patient identified by name and date of . Discussed care with patient Outcomes: Patient forgot, reminder given Are you experiencing any new or worsening symptoms you need to talk about today? No Based on consulting group analyst, the following disposition is advised: No symptoms or symptoms present, not severe. Routed to: No Action Needed VALENTIN Education Provided this Outreach: No Cinthia Ramachandran RN December 05, 2022 6:29 PM CDM Telephonic Outreach Provider Action/FYI CDM: Chronic Bronchitis Called Pt unable to leave a message to verify symptom status or provide My Chart Home Monitoring questionnaire location and updates. Contacted for: Engagement Contact made with patient: No, unable to leave message. Will reattempt call Cinthia Ramachandran RN November 30, 2022 4:01 PM documented in this encounter [facility] 08-30-2022 History of Present illness Narrative OPENED IN ERROR documented in this encounter [facility] 08-01-2022 Miscellaneous Notes UTI symptoms with hematuria, history of persistent hematuria, negative work-up 2017 documented in this encounter [facility] 08-01-2022 Instructions Vicky Almendarez APRN.BASE FILLER - 08/01/2022 12:22 PM EDT Check to see if your insurance covers Tdap vaccine and what location to get the vaccine -usually best covered at your local pharmacy where you get prescriptions filled documented in this encounter [facility] 08-01-2022 History of Present illness Narrative SUBJECTIVE: LUNG CANCER SCREENING Never done BP CONTROLLED (<130/80) due on 08/03/2019 DTAP,TDAP,TD(2 - Td or Tdap) due on 04/11/2021 ADVANCE DIRECTIVE DISCUSSION Never done DEPRESSION ASSESSMENT Never done HPI Cleve Waggoner is a 71 year old female. Her past medical history is significant for Parkinson's, hypertension, hypercholesterolemia, tobacco use disorder, GERD, anxiety, dysuria, vitamin D deficiency. She was seen by PCP January 31, 2022. She noted recurrence of sinusitis. Medication was switched from sertraline to paroxetine for anxiety depression to see if there was less fatigue with this medication. Has seen neurologist in the past but not recently. Still with ataxic gait. Sees Dr Gonzalez associate for injections neck for torticolis. AAA: Notes she has seen vascular surgeon regarding this and [facility]. Bhargav Marquez at [facility]. No changes; stable She reports dysuria and increased frequency x 2 weeks. HTN:Today reports she is without headache, chest pain, palpitations, dyspnea and peripheral edema. Last 14 Encounter BP Readings: Date: BP: 05/11/2022 132/71[average bp[ 01/31/2022 128/82 09/26/2021 144/82 06/06/2021 142/82 01/11/2021 160/89[trubp average[ 11/29/2020 140/77[trubp average[ 05/05/2020 152/72 03/08/2020 148/102 12/02/2019 144/80 10/27/2019 180/90 04/28/2019 180/80 03/27/2019 152/84 03/04/2019 170/88[Lowest of 4 rechecked BPs[ 01/06/2019 170/82 Smoking:yes Ready to quit:no Spa Manager: none current SOB: states stable Cough:states none Wheeze:states none Sees Dr Bourne ENT/foundry worker apprentice Fabi. Notes son is in senior living for fentanyl possession, requests financial support $80/mo. Insomnia: stable on current treatment without AEs. Review of Systems Respiratory: Positive for shortness of breath. Psychiatric/Behavioral: Positive for dysphoric mood. The patient is nervous/anxious. Objective BP 138/72 Pulse 88 Resp (!) 163 Wt 51.7 kg (114 lb) BMI 23.83 kg/m Physical Exam Vitals and nursing note reviewed. Constitutional: General: She is not in acute distress. Appearance: She is not toxic-appearing or diaphoretic. HENT: Head: Normocephalic and atraumatic. Mouth/Throat: Mouth: Mucous membranes are moist. Eyes: General: Right eye: No discharge. Left eye: No discharge. Conjunctiva/sclera: Conjunctivae normal. Cardiovascular: Rate and Rhythm: Normal rate and regular rhythm. Heart sounds: Normal heart sounds. Pulmonary: Effort: Pulmonary effort is normal. Breath sounds: Normal breath sounds. Abdominal: General: Abdomen is flat. Bowel sounds are normal. Palpations: Abdomen is soft. Musculoskeletal: General: Deformity (kyphosis) present. No swelling. Right lower leg: No edema. Left lower leg: No edema. Skin: General: Skin is warm and dry. Neurological: Mental Status: She is alert and oriented to person, place, and time. Gait: Gait abnormal (short, shuffling, slow to start). Psychiatric: Mood and Affect: Mood normal. Thought Content: Thought content normal. ALLERGIES Allergen Reactions Augmentin [Amoxicil* GI Upset Ceftin [Cefuroxime] Diarrhea Clarithromycin Diarrhea Clindamycin Other: See Comments oral thrush Flexeril [Cyclobenz* Intolerance Hangover effect even with half a pill Flonase [Fluticason* Severe headaches Macrobid [Nitrofura* Other: See Comments Constipation, gi upset, overall sense of feeling ill. Prilosec [Omeprazol* Gi bloating Pseudoephedrine Intolerance drives BP up and causes heart racing Medications lisinopril (ZESTRIL, PRINIVIL) 40 mg tablet Take 1 tablet by mouth once daily. zolpidem (AMBIEN) 10 mg Take 0.5-1 tablets by mouth at bedtime as needed (insomnia) for up to 180 days. nystatin (MYCOSTATIN) 100,000 unit/mL suspension 5 mL four times daily. Swish/swallow or swish/expectorate conjugated estrogens (PREMARIN) vaginal cream use 0.5 grams twice weekly as directed PARoxetine (PAXIL) 10 mg tablet Take 1 tablet by mouth once daily. atorvastatin (LIPITOR) 10 mg tablet Take 1 tablet by mouth once daily. For cholesterol albuterol HFA (VENTOLIN HFA) 90 mcg/actuation inhaler Inhale 2 Puffs as instructed every 4 hours as needed for wheezing/shortness of breath. cyanocobalamin 1,000 mcg/mL Inject 1 mL intramuscularly once every month. dicyclomine (BENTYL) 20 mg tablet Take 1 tablet by mouth three times daily before meals. amLODIPine (NORVASC) 2.5 mg tablet Take 1 tablet by mouth once daily. esomeprazole (NEXIUM) 20 mg capsule Take 1 capsule by mouth once daily as needed. Acidophilus-Bif Animalis 10 billion cell cap Take by mouth. FEXOFENADINE HCL (TOÑO ALLERGY ORAL) Take 30 mg by mouth. sulfamethoxazole-trimethoprim (BACTRIM DS) 800-160 mg per tablet Take 1 tablet by mouth twice daily for 3 days. antibiotic, take with food trihexyphenidyl (ARTANE) 2 mg tablet Take 1 mg by mouth twice daily. Dr. Bond, Neurology (Patient not taking: No sig reported) PAST MEDICAL HISTORY Diagnosis Date Abdominal pain, unspecified site Allergic rhinitis, cause unspecified 12/06/2006 Asthma Chronic airway obstruction, not elsewhere classified Esophageal reflux Goiter, unspecified mulitnodular goiter based on ultrasound Hypertension Mental disorder anxiety Obstructive chronic bronchitis without exacerbation (HCC) 12/06/2006 Other and unspecified hyperlipidemia Peptic ulcer, unspecified site, unspecified as acute or chronic, without mention of hemorrhage, perforation, or obstruction EGD about 15 years ago () Snoring Social History Tobacco Use Smoking status: Every Day Packs/day: 1.00 Years: 35.00 Pack years: 35.00 Types: Cigarettes Smokeless tobacco: Never Substance Use Topics Alcohol use: No Drug use: No Component Latest Ref Rng & Units 06/06/2021 07/05/2022 Protein, Total 6.3 - 8.0 g/dL 6.9 6.8 Albumin 3.9 - 4.9 g/dL 4.5 4.2 Calcium 8.5 - 10.2 mg/dL 9.5 9.4 Bilirubin, Total 0.2 - 1.3 mg/dL 0.2 0.2 Alkaline Phosphatase 34 - 123 U/L 84 100 AST 13 - 35 U/L 19 16 Glucose 74 - 99 mg/dL 97 83 BUN 7 - 21 mg/dL 13 14 Creatinine 0.58 - 0.96 mg/dL 0.72 0.78 Sodium 136 - 144 mmol/L 139 139 Potassium 3.7 - 5.1 mmol/L 4.2 4.4 Chloride 97 - 105 mmol/L 101 104 CO2 22 - 30 mmol/L 29 27 Anion Gap 9 - 18 mmol/L 9 8 (L) ALT 7 - 38 U/L 9 6 (L) eGFR- >60 eGFR-All Other Races . >60 eGFR >=60 mL/min/1.73m 81 WBC 3.70 - 11.00 k/uL 8.22 7.80 RBC 3.90 - 5.20 m/uL 4.99 4.57 Hemoglobin 11.5 - 15.5 g/dL 15.8 (H) 14.3 Hematocrit 36.0 - 46.0 % 47.9 (H) 41.9 MCV 80.0 - 100.0 fL 96.0 91.7 MCH 26.0 - 34.0 pg 31.7 31.3 MCHC 30.5 - 36.0 g/dL 33.0 34.1 RDW-CV 11.5 - 15.0 % 12.3 12.9 Platelet Count 150 - 400 k/uL 218 220 MPV 9.0 - 12.7 fL 12.7 11.2 Absolute nRBC <0.01 k/uL <0.01 <0.01 Cholesterol, Total <200 mg/dL 173 Triglyceride <150 mg/dL 176 (H) HDL Cholesterol >39 mg/dL 49 Non HDL Cholesterol <130 mg/dL 124 Fasting Time hrs 12 VLDL Cholesterol <30 mg/dL 35 (H) TC:HDL Ratio <5.10 3.53 LDL Cholesterol <100 mg/dL 89 LDL:HDL Ratio <2.54 1.82 Vitamin D 25 Hydroxy 31.0 - 80.0 ng/mL 35.3 35.6 Vitamin B12 232 - 1,245 pg/mL >2,000 (H) 862 TSH 0.270 - 4.200 mIU/L 1.240 1.490 Free T4 0.9 - 1.7 ng/dL 1.0 1.1 Free T3 2.3 - 4.1 pg/mL 3.0 2.9 Depression screening tool completed and reviewed. Based on score and interview, patient is already diagnosed with depression. Screening tool discussed with patient, and I recommended no further intervention at this time. ASSESSMENT/PLAN: 1. Encounter for screening for lung cancer - ICD9: V76.0, ICD10: Z12.2 (primary diagnosis) - CONSULT LUNG CANCER SCREENING CLINIC 2. Encounter for immunization - ICD9: V03.89, ICD10: Z23 Check insurance for coverage for Tdap 3. Urinary tract infection without hematuria, site unspecified - ICD9: 599.0, ICD10: N39.0 Lifestyle measures Bactrim DS x 3 days - UA DIP, URINE (POC) - URINE CULTURE - SULFAMETHOXAZOLE 800 MG-TRIMETHOPRIM 160 MG TABLET 5. Abdominal aortic aneurysm (AAA) without rupture, unspecified part (HCC) - ICD9: 441.4, ICD10: I71.40 Followed by vascular surgeon Bhargav Marquez at [facility] 7. Obstructive chronic bronchitis without exacerbation (HCC) - ICD9: 491.20, ICD10: J44.9 Stable, currently controlled, continue to monitor. No animal care provider at this time Current smoking, cessation endorsed. 8. Essential hypertension - ICD9: 401.9, ICD10: I10 controlled - Continue current medication(s) - Encouraged dietary sodium restriction/DASH diet - Recommended regular aerobic exercise. 9. Primary insomnia - ICD9: 307.42, ICD10: F51.01 Stable, currently controlled, continue to monitor. 10. Anxiety and depression - ICD9: 300.00, 311, ICD10: F41.9, F32.A Stable, currently controlled, continue to monitor. Feels improved on Paxil. Vicky Almendarez APRN.CNS Medical Decision Making: Problems: Moderate: 2+ stable chronic illnesses Risk: Low: Low risk from testing/treatment Medical Decision Making Level: 3 - Low documented in this encounter [facility] 07-05-2022 Miscellaneous Notes July 06, 2022 PID: [id number] Cleve Waggoner [address] [place] [address] Dear Ms. Waggoner, We are pleased to inform you that the results of your recent breast imaging exam on 07/05/2022 are normal. Your mammogram demonstrates that you have dense breast tissue, which could hide abnormalities. Dense breast tissue, in and of itself, is a relatively common condition. Therefore, this information is not provided to cause undue concern; rather, it is to raise your awareness and promote discussion with your health care provider regarding the presence of dense breast tissue in addition to other risk factors. Early detection of cancer is very important. We also understand recommendations regarding breast cancer screening are controversial. Please discuss with your primary care provider which strategy is best for you and whether a mammogram is right for you. Your imaging studies and report will be kept on file at [facility] as part of your permanent medical record and are available for your continuing care. Thank you for allowing us to help in meeting your health care needs. Sincerely, Dr. Alanis Interpreting Radiologist [facility] (Normal over 40) documented in this encounter [facility] 06-19-2022 Miscellaneous Notes Pt last seen [facility] 05/11/22. Next appt with PACKAGE DRIER 08/01/22. Patient has been identified by name and date of : Yes Requested Prescriptions Pending Prescriptions Disp Refills lisinopril (ZESTRIL, PRINIVIL) 40 mg tablet 90 tablet 3 Sig: Take 1 tablet by mouth once daily. RX INSTRUCTIONS: Patient aware RX escripted to mail away pharmacy. No need to notify patient. Diamante Martin Pss documented in this encounter [facility] 06-07-2022 Miscellaneous Notes The following approved medication requests have been transmitted electronically. Requested Prescriptions Signed Prescriptions Disp Refills zolpidem (AMBIEN) 10 mg 30 tablet 5 Sig: Take 0.5-1 tablets by mouth at bedtime as needed (insomnia) for up to 180 days. Authorizing Provider: STEFANY SHERIDAN MD Patient has been identified by name and date of : Yes, Patient phones for refill(s): Requested Prescriptions Pending Prescriptions Disp Refills zolpidem (AMBIEN) 10 mg 30 tablet 5 Sig: Take 0.5-1 tablets by mouth at bedtime as needed (insomnia) for up to 180 days. Date of last office visit in primary care: 05/11/2022 6 month follow-up: 08/01/2022 Last 2 Encounter Wt Readings: Date: Wt: 05/11/2022 51.7 kg (114 lb) 01/31/2022 49.9 kg (110 lb) Previous labs/tests for medication: Not applicable Please advise. Thank you. Audrey Engel LPN Patient has been identified by name and date of : Yes Last office visit in this department: 05/11/2022 RX INSTRUCTIONS: Patient aware RX will be sent to pharmacy. No need to notify patient. Patient is out of medication. Patient phones requesting refills as follows: Requested Prescriptions Pending Prescriptions Disp Refills zolpidem (AMBIEN) 10 mg 30 tablet 5 Sig: Take 0.5-1 tablets by mouth at bedtime as needed (insomnia) for up to 180 days. Please review and advise. Viry Hayden Pss documented in this encounter [facility] 06-07-2022 History of Present illness Narrative POPULATION HEALTH NAVIGATION OUTREACH Action/BROCK Spoke with Cleve SCHEDULED MAMMOGRAMS BP CONTROLLED (<130/80) due on 08/03/2019 MAMMOGRAM due on 02/14/2022 Patient Identified by Name and : YES, via phone Outreach Outcome/Action Spoke to patient / parent / legal guardian: Patient scheduled Did you use a PCP flex slot to schedule this appointment? N/A Reason for Outreach Care Gap or Scheduling/Wellness visits Payer: Payor: MEDICARE / Plan: MEDICARE A AND B / Product Type: Medicare / Care Gap Reviewed:: Breast Cancer screening Controlling Blood Pressure Reminder: Reminder note to check Health Maintenance for items below Health Maintenance items due: LUNG CANCER SCREENING Never done BP CONTROLLED (<130/80) due on 08/03/2019 DTAP,TDAP,TD(2 - Td or Tdap) due on 04/11/2021 MAMMOGRAM due on 02/14/2022 ADVANCE DIRECTIVE DISCUSSION Never done DEPRESSION ASSESSMENT Never done Navigation Signature: Terra Catalan MA June 07, 2022 11:26 AM documented in this encounter [facility] 05-11-2022 History of Present illness Narrative SUBJECTIVE Cleve Waggoner is a 71 year old female who presents with 1 mo of symptoms. States she was not treated, states she did not have symptoms when she saw him Treated with doxycycline in January. Per PCP. Azithromycin per Dr. Bourne ENT April 03/2022. Symptoms include: Fever (?100.4F): No or Chills: No Cough: Yes, productive, clear Shortness of breath: No or Difficulty breathing: No Fatigue: Yes Muscle aches: No Headache: Yes New loss of smell or taste: No Sore throat: No Nasal congestion: Yes or Rhinorrhea: Yes Nausea: No or Vomiting: No Diarrhea: No OTC meds/remedies that patient has tried: flonase, benadryl. High risk category assessment Age > 60 years old Hypertension Exposures: Sick contacts? No Family or close contacts with confirmed/probable COVID-19 in last 14 days? No No recent antibiotic. Continues to smoke. She reports that she has been smoking cigarettes. She has a 35.00 pack-year smoking history. She has never used smokeless tobacco. OBJECTIVE PHYSICAL EXAM: BP 132/71 Pulse 91 Resp 16 Wt 51.7 kg (114 lb) SpO2 97% BMI 23.83 kg/m General appearance: alert, cooperative, pleasant, in no acute distress Head: Normocephalic Eyes: conjunctiva/corneas normal Ears: R TM - dull, nl light reflex, L TM - dull, nl light reflex Nose: clear rhinorrhea, mucosa erythematous and swollen Oropharynx: moist without lesions Neck: supple and small, benign anterior cervical nodes bilaterally Heart: regular rate and rhythm, without murmur Lungs: clear to auscultation, without rales or wheeze, good air exchange ASSESSMENT/PLAN 1. Recurrent sinusitis - ICD9: 473.9, ICD10: J32.9 (primary diagnosis) Will treat with doxycycline and Flagyl. 2. Thrush - ICD9: 112.0, ICD10: B37.0 Nystatin swish and swallow She will let us know if not feeling improved Vicky Almendarez APRN.BASE FILLER Medical Decision Making: Problems: Low: 2+ self-limited or minor problems Risk: Moderate: Drug management Medical Decision Making Level: 3 - Low documented in this encounter [facility] 05-01-2022 Miscellaneous Notes Patient has been identified by name and date of : Yes Requested Prescriptions Pending Prescriptions Disp Refills lisinopril (ZESTRIL, PRINIVIL) 40 mg tablet 90 tablet 3 Sig: Take 1 tablet by mouth once daily. RX INSTRUCTIONS: Patient aware RX will be sent to pharmacy. No need to notify patient. Martina Clifford [facility] Electronically signed by Martina [facility] [place] 05/01/2022 2:06 PM EST documented in this encounter [facility] 01-31-2022 History of Present illness Narrative This note was created using Reunifyriter. Subjective Cleve Waggoner is a 71 year old female. Patient presents with: F/U 6 months SUBJECTIVE: Cleve Waggoner is a 71 year old year old lady here today for 6 month follow up appointment for review of medical conditions. Major issue fatigue Worse with Zoloft , better on Paxil. Doing okay on reset of meds. BP better today. Negative for depression on screening done. Plans to get COVID Booster after sinuses clear up. Flare up now. Sinus pain and pressure. Been going on for several weeks. Decreased taste. Dozy for [address] Umaña vascular surgeon following for AAA. CT scan to be done this month for follow up. Neuro work up--they ruled out MS, Parkison's, tumor for vertigo, etc. Still balance issues. PAST MEDICAL HISTORY Diagnosis Date Abdominal pain, unspecified site Allergic rhinitis, cause unspecified 12/06/2006 Asthma Chronic airway obstruction, not elsewhere classified Esophageal reflux Goiter, unspecified mulitnodular goiter based on ultrasound Hypertension Mental disorder anxiety Obstructive chronic bronchitis without exacerbation (HCC) 12/06/2006 Other and unspecified hyperlipidemia Peptic ulcer, unspecified site, unspecified as acute or chronic, without mention of hemorrhage, perforation, or obstruction EGD about 15 years ago () Snoring Current Outpatient Medications Medication Sig conjugated estrogens (PREMARIN) vaginal cream use 0.5 grams twice weekly as directed PARoxetine (PAXIL) 10 mg tablet Take 1 tablet by mouth once daily. atorvastatin (LIPITOR) 10 mg tablet Take 1 tablet by mouth once daily. For cholesterol zolpidem (AMBIEN) 10 mg Take 0.5-1 tablets by mouth at bedtime as needed (insomnia) for up to 180 days. albuterol HFA (VENTOLIN HFA) 90 mcg/actuation inhaler Inhale 2 Puffs as instructed every 4 hours as needed for wheezing/shortness of breath. nystatin (MYCOSTATIN) 100,000 unit/mL suspension 5 mL four times daily. Swish/swallow or swish/expectorate lisinopril (ZESTRIL, PRINIVIL) 40 mg tablet Take 1 tablet by mouth once daily. cyanocobalamin 1,000 mcg/mL Inject 1 mL intramuscularly once every month. dicyclomine (BENTYL) 20 mg tablet Take 1 tablet by mouth three times daily before meals. amLODIPine (NORVASC) 2.5 mg tablet Take 1 tablet by mouth once daily. esomeprazole (NEXIUM) 20 mg capsule Take 1 capsule by mouth once daily as needed. Acidophilus-Bif Animalis 10 billion cell cap Take by mouth. FEXOFENADINE HCL (TOÑO ALLERGY ORAL) Take 30 mg by mouth. doxycycline monohydrate (MONODOX) 100 mg capsule Take 1 capsule by mouth twice daily for 14 days. Take with food trihexyphenidyl (ARTANE) 2 mg tablet Take 1 mg by mouth twice daily. Dr. Bond, Neurology (Patient not taking: Reported on 01/31/2022) No current facility-administered medications for this visit. Review of Systems Objective BP 128/82 Pulse 90 Wt 49.9 kg (110 lb) SpO2 96% BMI 22.99 kg/m Last 5 Encounter Wt Readings: Date: Wt: 01/31/2022 49.9 kg (110 lb) 09/26/2021 50.3 kg (111 lb) 06/06/2021 51.3 kg (113 lb) 01/11/2021 54 kg (119 lb) 11/29/2020 55.3 kg (122 lb) No waist measurement recorded Estimated body mass index is 22.99 kg/m as calculated from the following: Height as of 10/27/19: 147.3 cm (4' 10). Weight as of this encounter: 49.9 kg (110 lb). Last 5 Encounter BP Readings: Date: BP: 01/31/2022 128/82 09/26/2021 144/82 06/06/2021 142/82 01/11/2021 160/89[trubp average[ 11/29/2020 140/77[trubp average[ Physical Exam Constitutional: Appearance: Normal appearance. HENT: Head: Normocephalic. Comments: Tender sinuses Eyes: Conjunctiva/sclera: Conjunctivae normal. Cardiovascular: Rate and Rhythm: Normal rate and regular rhythm. Heart sounds: Normal heart sounds. Pulmonary: Effort: Pulmonary effort is normal. Breath sounds: Normal breath sounds. Skin: General: Skin is warm and dry. Neurological: General: No focal deficit present. Mental Status: She is alert and oriented to person, place, and time. Psychiatric: Mood and Affect: Mood normal. Behavior: Behavior normal. Thought Content: Thought content normal. Judgment: Judgment normal. Assessment and Plan ASSESSMENT/PLAN: 1. Acute non-recurrent maxillary sinusitis - ICD9: 461.0, ICD10: J01.00 (primary diagnosis) Been doing will till past few weeks. Treat as usual - DOXYCYCLINE MONOHYDRATE 100 MG CAPSULE 2. Anxiety and depression - ICD9: 300.00, 311, ICD10: F41.9, F32.A Switch back to Paxil and see if less fatigue on this - PAROXETINE 10 MG TABLET 3. Essential hypertension - ICD9: 401.9, ICD10: I10 - good control - Continue current medication(s) - Recommended regular aerobic exercise. - Recommend home blood pressure monitoring, to bring results in on next visit - Goal of BP <130/80 4. Vaginitis and vulvovaginitis - ICD9: 616.10, ICD10: N76.0 - PREMARIN 0.625 MG/GRAM VAGINAL CREAM Stefany Sheridan MD documented in this encounter [facility] 12-08-2021 Miscellaneous Notes Last office visit 09/26/21 Next appt 01/31/22 Patient has been identified by name and date of : Yes Requested Prescriptions Pending Prescriptions Disp Refills atorvastatin (LIPITOR) 10 mg tablet 90 tablet 3 Sig: Take 1 tablet by mouth once daily. For cholesterol RX INSTRUCTIONS: Stated she is just entering request because she used her last refill. Patient aware RX escripted to mail away pharmacy. No need to notify patient. Ella Huerta Pss documented in this encounter [facility] 10-20-2021 History of Present illness Narrative ok [facility] CDM Engagement Provider Action/FYI: Routed updates and request for Nystatin to Vicky Almendarez CNP ( Please send to [facility] in [place]) Pt noted had a bad sinus infection, took Doxycycline which caused Oral Thrush, Pt is requesting Nystatin Swish and swallow to [facility], she is aware to check with Pharmacy for medication fill. Pt seeing Dr. Jimmy Calderon Neurologist out of [facility] in November 16 for balance issues, Pt noted is considering needling for neck spasms, Pt has had acupuncture in the past. Pt denies Sob, wheezing, or coughing or fevers, sinus infection is gone. Instructed on Insight Monitoring questionnaire location Contact Made with Patient: Yes Patient identified by name and . Discussed care with patient Keyanna awan name is Cinthia Ramachandran RN your Post Tronic Machine Operator from Stefany Sheridan MD office at the [facility]. I am reaching out today because I noticed it has been a few weeks since I have seen any responses from you on your questionnaire. I wanted to check on you and make sure you are doing well, and to remind you that your Stefany Sheridan MD recommended this program for you so that you can stay better connected to your health. I will be monitoring your responses on the questionnaire to make sure we are not seeing any changes in your health that your Primary Care Physician needs to know about, or looking for improvements and keeping Stefany Sheridan MD informed about it all. You and I will check in together anytime a problem arises, and determine a solution. I am here to help you stay healthy, and stay connected to your doctor's office. How can I help you in this program? The patient informs that she forgot. Please take some time today to answer the questionnaire. I am looking forward to receiving your answers. If I do not receive your answers in the next 2 business days I will check back in. ---END CALL Cinthia Ramachandran RN October 19, 2021 10:31 AM documented in this encounter [facility] 10-05-2021 History of Present illness Narrative PRIMARY CARE COORDINATION QUICK NOTE Provider Action/FYI Noted: Added Name to the Care Team Tab Patient identified by name and date . Cinthia Ramachandran RN October 05, 2021 3:58 PM [facility] CDM Enrollment Provider Action/FYI: [employer] introduction message sent- read 10/05/21 Next PCP appt 01/31/22 Patient referred by: [facility] Guillaume Contact made with patient: Yes - Patient identified by name and . Discussed care with patient Keyanna this is Raine Min, RN and I am calling from Stefany Sheridan MD office at the [facility]. I am a RN Post Tronic Machine Operator with our [facility] Chronic Disease Management program. Stefany Sheridan MD wanted me to reach out to help you manage your health at home. Our goal is to keep you well at home. We want to help you manage your chronic disease by providing a safety net of resources around you, getting you the care you need in a timely manner, and hopefully keep you out of the ED and hospital. I will send you a few questions once a week through your [employer] account. It will automatically show up for you to complete. There are simple questions that will help us identify if you have any concerns or symptoms and I will call you to help get what you need. We will be able to connect you, review your symptoms, do an on demand visit, or communicate with Stefany Sheridan MD if needed. I am going to sign you up for the program now. Enrollment Questions: Let's get you enrolled in the program. Yes, Do you have regular access to a computer/smartphone? Yes. Goal Setting: I would like to take some time today to discuss your personal health goals. Yes, patient has goals. Capture the goal the patient wants to accomplish: Find why and how to get relief from my constant neck spasm. Does the goal align with programs offered at the [facility]? Yes Chronic Disease Management patient goals yes: Health/wellness Most people know what to do to become healthier, yet struggle to put it into action on their own.It can be hard to maintain a healthy lifestyle, especially when life is so stressful. Can we connect you with a [facility] Health Field Assistant to find a program that could help you meet your goals? No Closing: Patient accepts healthcare marketer Thank you for your time today. I am excited to work together in managing your health! You will receive information on next steps through your [employer] account, and I will check back within a few weeks to ensure you have all that you need to use the program successfully. (Place name in care team and assign [employer] Milking Machine Technician questionnaire) documented in this encounter [facility] 09-26-2021 History of Present illness Narrative SUBJECTIVE Cleve Waggoner is a 70 year old female who presents with 2 mos of symptoms. States she was not treated, states she did not have symptoms when she saw him Symptoms include: Fever (?100.4F): No or Chills: No Cough: Yes, productive, clear Shortness of breath: No or Difficulty breathing: No Fatigue: Yes Muscle aches: No Headache: Yes New loss of smell or taste: No Sore throat: No Nasal congestion: Yes or Rhinorrhea: Yes Nausea: No or Vomiting: No Diarrhea: No OTC meds/remedies that patient has tried: flonase, benadryl. High risk category assessment Age > 60 years old Hypertension Exposures: Sick contacts? No Family or close contacts with confirmed/probable COVID-19 in last 14 days? No No recent antibiotic. Continues to smoke. She reports that she has been smoking cigarettes. She has a 35.00 pack-year smoking history. She has never used smokeless tobacco. OBJECTIVE PHYSICAL EXAM: BP 144/82 Pulse 82 Temp (!) 35.8 C (96.5 F) Resp 16 Wt 50.3 kg (111 lb) SpO2 99% BMI 23.20 kg/m General appearance: alert, cooperative, pleasant, in no acute distress Head: Normocephalic Eyes: conjunctiva/corneas normal Ears: R TM - dull, nl light reflex, L TM - dull, nl light reflex Nose: clear rhinorrhea, mucosa erythematous and swollen Oropharynx: moist without lesions Neck: supple and small, benign anterior cervical nodes bilaterally Heart: regular rate and rhythm, without murmur Lungs: clear to auscultation, without rales or wheeze, good air exchange ASSESSMENT/PLAN 1. Acute non-recurrent maxillary sinusitis - ICD9: 461.0, ICD10: J01.00 - Will begin treatment with as per antibiotic as written, see orders - Supportive care with plenty of fluids, rest, and analgesia prn. - Follow up in 3-5 days if symptoms persist or worsen. - DOXYCYCLINE MONOHYDRATE 100 MG CAPSULE Vicky Almendarez, [employer]A FOUNTAIN MANAGER.BASE FILLER - Discussed symptom monitoring and supportive care - Red flag symptoms requiring follow up discussed This patient encounter involved the screening or treatment of novel coronavirus infection (COVID-19). Medical Decision Making: Problems: Low: Acute, uncomplicated illness or injury Risk: Moderate: Drug management Medical Decision Making Level: 3 - Low documented in this encounter [facility] 09-26-2011 History of Past i llness Narrative Problem Noted Date Diagnosed Date Resolved Date Anxiety 09/26/2011 08/03/2023 documented as of this encounter (statuses as of 08/03/2023) [facility] History of Past illness Narrative* Problem Noted Date Diagnosed Date Resolved Date Anxiety 09/26/2011 08/03/2023 documented as of this encounter (statuses as of 08/04/2023) [facility] note* Diagnosis Acute non-recurrent maxillary sinusitis documented in this encounter [facility] note* Diagnosis Obstructive chronic bronchitis without exacerbation (HCC)- Primary Obstructive chronic bronchitis without exacerbation documented in this encounter [facility] [facility] noteNo assessment information availableWOhioHealth [facility] Work Phone: Evaluation note* Diagnosis Pure hypercholesterolemia documented in this encounter [facility] note* Diagnosis Acute non-recurrent maxillary sinusitis- Primary Anxiety and depression Dysthymic disorder Essential hypertension Unspecified essential hypertension Vaginitis and vulvovaginitis Vaginitis and vulvovaginitis, unspecified Vitamin D deficiency Unspecified vitamin D deficiency B12 deficiency Other B-complex deficiencies Fatigue, unspecified type Encounter for long-term current use of medication [facility] Diagnosis Encounter for screening mammogram for breast cancer [facility] Diagnosis Essential hypertension Unspecified essential hypertension [facility] this [facility] Diagnosis Recurrent sinusitis- Primary Unspecified sinusitis (chronic) Thrush Candidiasis of mouth [facility] this [facility] Diagnosis Primary insomnia Persistent disorder of initiating or maintaining sleep [facility] this [facility] Diagnosis Essential hypertension Unspecified essential hypertension [facility] this [facility] Diagnosis Acute cystitis with hematuria- Primary Acute cystitis Encounter for screening for lung cancer Encounter for immunization Need for other specified prophylactic vaccination against single bacterial disease UTI symptoms Other symptoms involving urinary system Abdominal aortic aneurysm (AAA) without rupture, unspecified part (HCC) Sleep difficulties Sleep disturbance, unspecified Obstructive chronic bronchitis without exacerbation (HCC) Obstructive chronic bronchitis without exacerbation Essential hypertension Unspecified essential hypertension Primary insomnia Persistent disorder of initiating or maintaining sleep Anxiety and depression [facility]ysthymic disorder [facility] Primary insomnia Persistent disorder of initiating or maintaining sleep History of IBS Personal history of other diseases of digestive system [facility] Primary insomnia Persistent disorder of initiating or maintaining sleep History of IBS Personal history of other diseases of digestive system [facility] Diagnosis Primary insomnia Persistent disorder of initiating or maintaining sleep History of IBS Personal history of other diseases of digestive system [facility] Diagnosis Pure hypercholesterolemia [facility] Diagnosis Essential hypertension- Primary Unspecified essential hypertension Acute non-recurrent maxillary sinusitis Torticollis Torticollis, unspecified Balance problems Other symptoms involving nervous and musculoskeletal systems Parkinson's disease, unspecified whether dyskinesia present, unspecified whether manifestations fluctuate Antibiotic-induced yeast infection Candidiasis of unspecified site B12 deficiency Other B-complex deficiencies [facility] Diagnosis Anxiety and depression Dysthymic disorder [facility] Diagnosis Acute non-recurrent maxillary sinusitis- Primary Pure hypercholesterolemia Essential hypertension Unspecified essential hypertension Other acute recurrent sinusitis Tobacco use disorder B12 deficiency Other B-complex deficiencies Vitamin D deficiency Unspecified vitamin D deficiency Fatigue, unspecified type History of Parkinson's disease Personal history of other disorders of nervous system and sense organs Antibiotic-induced yeast infection Candidiasis of unspecified site Acute recurrent frontal sinusitis Acute frontal sinusitis Chronic sinusitis, unspecified location UTI symptoms Other symptoms involving urinary system [facility] Diagnosis Acute recurrent frontal sinusitis- Primary Acute frontal sinusitis UTI symptoms Other symptoms involving urinary system [facility] Diagnosis Encounter for screening mammogram for malignant neoplasm of breast Other screening mammogram [facility] Diagnosis Essential hypertension- Primary Unspecified essential hypertension Encounter for screening for lung cancer Encounter for immunization Need for other specified prophylactic vaccination against single bacterial disease Screening for colon cancer Special screening for malignant neoplasms, colon Parkinson's disease, unspecified whether dyskinesia present, unspecified whether manifestations fluctuate (HCC) Obstructive chronic bronchitis without exacerbation (HCC) Obstructive chronic bronchitis without exacerbation Abdominal aortic aneurysm (AAA) without rupture, unspecified part (HCC) Antibiotic-induced yeast infection Candidiasis of unspecified site Thrush Candidiasis of mouth Encounter for screening for osteoporosis Special screening for osteoporosis Asymptomatic postmenopausal status Osteopenia, unspecified location Primary insomnia Persistent disorder of initiating or maintaining sleep Pure hypercholesterolemia Tobacco use disorder DAVID (generalized anxiety disorder) Generalized anxiety disorder [facility] Diagnosis Rhinosinusitis- Primary Unspecified sinusitis (chronic) [facility] Diagnosis Primary insomnia Persistent disorder of initiating or maintaining sleep [facility] this [facility] Diagnosis Pure hypercholesterolemia documented [facility]* Diagnosis Acute recurrent frontal sinusitis- Primary Acute frontal sinusitis [facility] this [facility]* Diagnosis Gastroesophageal reflux disease, unspecified whether esophagitis present- Primary Pure hypercholesterolemia Vitamin D deficiency Unspecified vitamin D deficiency Essential hypertension Unspecified essential hypertension B12 deficiency Other B-complex deficiencies Fatigue, unspecified type [facility]* Diagnosis Acute non-recurrent pansinusitis- Primary Primary insomnia Persistent disorder of initiating or maintaining sleep Irritable bowel syndrome with constipation Irritable bowel syndrome Essential hypertension Unspecified essential hypertension Obstructive chronic bronchitis without exacerbation (HCC) Obstructive chronic bronchitis without exacerbation Thrush, oral Candidiasis of mouth Urinary incontinence without sensory awareness Incontinence without sensory awareness Tubular adenoma Benign neoplasm of unspecified site Screening for colon cancer Special screening for malignant neoplasms, colon [facility] this [facility] Diagnosis Medicare annual wellness visit, subsequent- Primary Routine general medical examination at a health care facility Obstructive chronic bronchitis without exacerbation (HCC) Obstructive chronic bronchitis without exacerbation Thrush Candidiasis of mouth Antibiotic-induced yeast infection Candidiasis of unspecified site Encounter for screening mammogram for breast cancer Encounter for immunization Need for other specified prophylactic vaccination against single bacterial disease [facility] this [facility] Diagnosis Essential hypertension Unspecified essential hypertension [facility]* Diagnosis Screen for colon cancer- Primary Special screening for malignant neoplasms, colon History of colonic polyps Personal history of colonic polyps [facility] Diagnosis UTI symptoms- Primary Other symptoms involving urinary system B12 deficiency Other B-complex deficiencies Frequent urination Urinary frequency Burning with urination Dysuria Hematuria, microscopic Microscopic hematuria Drug intolerance Other drug allergy documented in this encounter [facility] note* Diagnosis Acute recurrent frontal sinusitis- Primary Acute frontal sinusitis Anxiety and depression Dysthymic disorder documented in this encounter [facility] note* Diagnosis Primary insomnia Persistent disorder of initiating or maintaining sleep documented in this encounter [facility] note* Diagnosis Vaginitis and vulvovaginitis Vaginitis and vulvovaginitis, unspecified documented in this encounter [facility] note* Diagnosis UTI symptoms- Primary Other symptoms involving urinary system Anxiety and depression Dysthymic disorder documented in this encounter [facility] for referral (narrative)* Diagnostic Procedure Only (Routine) - Pending Review Specialty Diagnoses / Procedures Referred By Shawnee rahman Referred To Contact [facility] Diagnoses Encounter for screening mammogram for breast cancer Procedures NAFISA SCREENING SCREENING MAMMOGRAPHY BI 2-VIEW BREAST INC CAD Stefany Sheridan MD [address] [place] [address] [facility] [address] [place] [address] Referral ID Status Reason Start Date Expiration Date Visits Requested Visits Authorized [id number] Pending Review Auto-Generat ed Referral 03/30/2022 04/29/2023 1 1 [facility] for referral (narrative)* Diagnostic Procedure Only (Routine) - Pending Review Specialty Diagnoses / Procedures Referred By Shawnee rahman Referred To Contact XR IMAGING Diagnoses Encounter for screening for osteoporosis Asymptomatic postmenopausal status Osteopenia, unspecified location Procedures DXA-AXIAL SKELETON Vicky Almendarez APRN.CNS [address] [place] [address] [place] [address] Referral ID Status Reason Start Date Expiration Date Visits Requested Visits Authorized [id number] Pending Review Auto-Generat ed Referral 08/03/2023 09/01/2024 1 1 * Consult, Test, Treat (Routine) - Authorized Specialty Diagnoses / Procedures Referred By Shawnee t Referred To Contact General Surgery Diagnoses Screening for colon cancer Procedures CONSULT TO GENERAL SURGERY OFFICE/OUTPATIENT NEW HIGH MDM 60 MINUTES Vicky Almendarez APRN.CNS [address] [place] [address] Referral ID Status Reason Start Date Expiration Date Visits Requested Visits Authorized [id number] Authorized PCP Requested Referral 08/03/2023 08/02/2024 1 1 [facility] for referral (narrative)* Outpatient Procedure (Routine) - New Request Specialty Diagnoses / Procedures Referred By Shawnee rahman Referred To Contact [facility] Diagnoses Tubular adenoma Screening for colon cancer Procedures COLONOSCOPY SCREENING COLONOSCOPY FLX DX W/COLLJ SPEC WHEN Stefany Hernandez MD [address] [place] [address] [facility] [address] [place] [address] Referral ID Status Reason Start Date Expiration Date Visits Requested Visits Authorized [id number] New Request Auto-Generat ed Referral 01/01/2024 12/31/2024 1 1 T [facility] for referral (narrative)* Diagnostic Procedure Only (Routine) - New Request Specialty Diagnoses / Procedures Referred By Shawnee rahman Referred To Contact [facility] Diagnoses Encounter for screening mammogram for breast cancer Procedures NAFISA SCREENING SCREENING MAMMOGRAPHY BI 2-VIEW BREAST INC CAD Stefany Sheridan MD [address] [place] [address] [facility] [address] [place] [address] Referral ID Status Reason Start Date Expiration Date Visits Requested Visits Authorized [id number] New Request Auto-Generat ed Referral 03/05/2025 1 1 T [facility] for referral (narrative)* Outpatient Procedure (Routine) - Authorized Specialty Diagnoses / Procedures Referred By Contac t Referred To Contact [facility] Diagnoses Screen for colon cancer History of colonic polyps Procedures COLONOSCOPY SCREENING COLONOSCOPY FLX DX W/COLLJ SPEC WHEN Arianna Saldaña APRN.CNP [address] [place] [address] [facility] [address] [place] [id number] Referral ID Status Reason Start Date Expiration Date Visits Requested Visits Authorized [id number] Authorized Auto-Generat ed Referral 04/04/2025 1 1 [facility] (narrative)No reason for referral information availableWOhioHealth [facility] Work Phone: Reason for visit Narrative* Diagnostic Procedure Only (Routine) - Closed Specialty Diagnoses / Procedures Referred By Contdeepak t Referred To Contact [facility] Diagnoses Encounter for screening mammogram for malignant neoplasm of breast Procedures NAFISA SCREENING SCREENING MAMMOGRAPHY BI 2-VIEW BREAST INC CAD Stefany Sheridan MD [address] [place] [address] [facility] [address] [place] [address] Referral ID Status Reason Start Date Expiration Date V isits Requested Visits Authorized [id number] Closed Auto-Generate d Referral 04/11/2023 05/10/2024 1 1 [facility] Summary Purpose Family History No Family History Records Found Relationship Condition Age at Onset Recorded Date/T que Not Specified Arthritis Unknown father Cerebrovascular accident (CVA) Unknown Congestive heart failure Unknown Hypertension Unknown sister Malignant neoplasm of breast Unknown grandmother Malignant neoplasm of colon Unknown Advance Directives No Advanced Directives Records FoundDocuments on File Type Date Recorded 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 Advance Directive(s) 10/21/2018 10:21 AM Advance Directive(s) 08/05/2015 11:09 AM Advance Directive Response Recorded Date/ Time Advance Directives Yes August 12 12:04pm Living Will Yes August 12, 2020 12:04pm Power of Manager Operational Yes August 12 12:04pm Advance Directive Response Recorded Date/ Time Advance Directives Yes August 12 11:04am Living Will Yes August 12, 2020 11:04am Power of Manager Operational Yes August 12 11:04am Advance Directive Response Recorded Date/ Time Advance Directives Yes August 12 12:04pm Chief Complaint and Reason for Visit Chief Complaint DYSFUNCTION OF LEFT VESTIBULAR. RX HERE Chief Complaint SELF REFERRED DRY NE EDLE Chief Complaint Acute cystitis with hematuria Health Concerns Problem Noted Date Diagnosed Date High Risk Chronic Disease Home Monitoring [facility] 09/05/2022 Problem Noted Date Diagnosed Date High Risk Chronic Disease Home Monitoring [facility] 09/05/2022 Problem Noted Date Diagnosed Date High Risk Chronic Disease Home Monitoring [facility] 09/05/2022 Problem Noted Date Diagnosed Date High Risk Chronic Disease Home Monitoring [facility] 09/05/2022 Problem Noted Date Diagnosed Date High Risk Chronic Disease Home Monitoring [facility] 09/05/2022 Problem Noted Date Diagnosed Date High Risk Chronic Disease Home Monitoring [facility] 09/05/2022 Problem Noted Date Diagnosed Date High Risk Chronic Disease Home Monitoring [facility] 09/05/2022 Active Problems Noted Date Diagnosed Date High Risk Chronic Disease Home Monitoring [facility] 09/05/2022 Active Problems Noted Date Diagnosed Date High Risk Chronic Disease Home Monitoring [facility] 09/05/2022 Active Problems Noted Date Diagnosed Date High Risk Chronic Disease Home Monitoring [facility] 09/05/2022 Active Problems Noted Date Diagnosed Date High Risk Chronic Disease Home Monitoring [facility] 09/05/2022 Active Problems Noted Date Diagnosed Date High Risk Chronic Disease Home Monitoring [facility] 09/05/2022 Active Problems Noted Date Diagnosed Date High Risk Chronic Disease Home Monitoring [facility] 09/05/2022 Reason for Referral Specialty Diagnoses / Procedures Referred By Shawnee rahman Referred To Contact Neurology Diagnoses History of Parkinson's disease Procedures CONSULT TO NEUROLOGY OFFICE/OUTPATIENT [facility] 60 MINUTES Vicky Almendarez, [employer]OUNTAIN MANAGER.BASE FILLER [address] [place] [address] Referral ID Status Reason Start Date Expiration Date Visits Requested Visits Authorized [id number] Authorized PCP Requested Referral 07/16/2023 07/15/2024 1 1 Additional Source Comments INFORMATION SOURCE (unrecogn ized section and content) DATE CREATED AUTHOR 06/11/2018 [employer] ([place] DATE CREATED AUTHOR AUTHOR'S ORGANIZ ATION 10/03/2024 [facility] DATE CREATED AUTHOR AUTHOR'S ORGANIZ ATION 10/12/2024 [facility] Source Comments (unrecognize d section and content) In the event this informatio n is protected by the Federal Confidentiality of Alcohol and Drug Abuse Patient Records regulations: The Federal rules restrict any use of the information to criminally investigate or prosecute any alcohol or drug abuse patient.[facility] Hospital[facility] the event this information is protected by the Federal Confidentiality of Alcohol and Drug Abuse Patient Records regulations: The Federal rules restrict any use of the information to criminally investigate or prosecute any alcohol or drug abuse patient.[facility] HospitalIn the event this information is protected by the Federal Confidentiality of Alcohol and Drug Abuse Patient Records regulations: The Federal rules restrict any use of the information to criminally investigate or prosecute any alcohol or drug abuse patient.[facility] HospitalIn the event this information is protected by the Federal Confidentiality of Alcohol and Drug Abuse Patient Records regulations: The Federal rules restrict any use of the information to criminally investigate or prosecute any alcohol or drug abuse patient.[facility] HospitalIn the event this information is protected by the Federal Confidentiality of Alcohol and Drug Abuse Patient Records regulations: The Federal rules restrict any use of the information to criminally investigate or prosecute any alcohol or drug abuse patient.[facility] HospitalIn the event this information is protected by the Federal Confidentiality of Alcohol and Drug Abuse Patient Records regulations: The Federal rules restrict any use of the information to criminally investigate or prosecute any alcohol or drug abuse patient.[facility] HospitalIn the event this information is protected by the Federal Confidentiality of Alcohol and Drug Abuse Patient Records regulations: The Federal rules restrict any use of the information to criminally investigate or prosecute any alcohol or drug abuse patient.[facility] HospitalIn the event this information is protected by the Federal Confidentiality of Alcohol and Drug Abuse Patient Records regulations: The Federal rules restrict any use of the information to criminally investigate or prosecute any alcohol or drug abuse patient.[facility] HospitalIn the event this information is protected by the Federal Confidentiality of Alcohol and Drug Abuse Patient Records regulations: The Federal rules restrict any use of the information to criminally investigate or prosecute any alcohol or drug abuse patient.[facility] HospitalIn the event this information is protected by the Federal Confidentiality of Alcohol and Drug Abuse Patient Records regulations: The Federal rules restrict any use of the information to criminally investigate or prosecute any alcohol or drug abuse patient.[facility] HospitalIn the event this information is protected by the Federal Confidentiality of Alcohol and Drug Abuse Patient Records regulations: The Federal rules restrict any use of the information to criminally investigate or prosecute any alcohol or drug abuse patient.[facility] HospitalIn the event this information is protected by the Federal Confidentiality of Alcohol and Drug Abuse Patient Records regulations: The Federal rules restrict any use of the information to criminally investigate or prosecute any alcohol or drug abuse patient.[facility] HospitalIn the event this information is protected by the Federal Confidentiality of Alcohol and Drug Abuse Patient Records regulations: The Federal rules restrict any use of the information to criminally investigate or prosecute any alcohol or drug abuse patient.[facility] HospitalIn the event this information is protected by the Federal Confidentiality of Alcohol and Drug Abuse Patient Records regulations: The Federal rules restrict any use of the information to criminally investigate or prosecute any alcohol or drug abuse patient.[facility] HospitalIn the event this information is protected by the Federal Confidentiality of Alcohol and Drug Abuse Patient Records regulations: The Federal rules restrict any use of the information to criminally investigate or prosecute any alcohol or drug abuse patient.[facility] HospitalIn the event this information is protected by the Federal Confidentiality of Alcohol and Drug Abuse Patient Records regulations: The Federal rules restrict any use of the information to criminally investigate or prosecute any alcohol or drug abuse patient.[facility] HospitalIn the event this information is protected by the Federal Confidentiality of Alcohol and Drug Abuse Patient Records regulations: The Federal rules restrict any use of the information to criminally investigate or prosecute any alcohol or drug abuse patient.[facility] HospitalIn the event this information is protected by the Federal Confidentiality of Alcohol and Drug Abuse Patient Records regulations: The Federal rules restrict any use of the information to criminally investigate or prosecute any alcohol or drug abuse patient.[facility] HospitalIn the event this information is protected by the Federal Confidentiality of Alcohol and Drug Abuse Patient Records regulations: The Federal rules restrict any use of the information to criminally investigate or prosecute any alcohol or drug abuse patient.[facility] HospitalIn the event this information is protected by the Federal Confidentiality of Alcohol and Drug Abuse Patient Records regulations: The Federal rules restrict any use of the information to criminally investigate or prosecute any alcohol or drug abuse patient.[facility] HospitalIn the event this information is protected by the Federal Confidentiality of Alcohol and Drug Abuse Patient Records regulations: The Federal rules restrict any use of the information to criminally investigate or prosecute any alcohol or drug abuse patient.[facility] HospitalIn the event this information is protected by the Federal Confidentiality of Alcohol and Drug Abuse Patient Records regulations: The Federal rules restrict any use of the information to criminally investigate or prosecute any alcohol or drug abuse patient.[facility] HospitalIn the event this information is protected by the Federal Confidentiality of Alcohol and Drug Abuse Patient Records regulations: The Federal rules restrict any use of the information to criminally investigate or prosecute any alcohol or drug abuse patient.[facility] HospitalIn the event this information is protected by the Federal Confidentiality of Alcohol and Drug Abuse Patient Records regulations: The Federal rules restrict any use of the information to criminally investigate or prosecute any alcohol or drug abuse patient.[facility] HospitalIn the event this information is protected by the Federal Confidentiality of Alcohol and Drug Abuse Patient Records regulations: The Federal rules restrict any use of the information to criminally investigate or prosecute any alcohol or drug abuse patient.[facility] HospitalIn the event this information is protected by the Federal Confidentiality of Alcohol and Drug Abuse Patient Records regulations: The Federal rules restrict any use of the information to criminally investigate or prosecute any alcohol or drug abuse patient.[facility] HospitalIn the event this information is protected by the Federal Confidentiality of Alcohol and Drug Abuse Patient Records regulations: The Federal rules restrict any use of the information to criminally investigate or prosecute any alcohol or drug abuse patient.[facility] HospitalIn the event this information is protected by the Federal Confidentiality of Alcohol and Drug Abuse Patient Records regulations: The Federal rules restrict any use of the information to criminally investigate or prosecute any alcohol or drug abuse patient.[facility] HospitalIn the event this information is protected by the Federal Confidentiality of Alcohol and Drug Abuse Patient Records regulations: The Federal rules restrict any use of the information to criminally investigate or prosecute any alcohol or drug abuse patient.[facility] HospitalIn the event this information is protected by the Federal Confidentiality of Alcohol and Drug Abuse Patient Records regulations: The Federal rules restrict any use of the information to criminally investigate or prosecute any alcohol or drug abuse patient.[facility] HospitalIn the event this information is protected by the Federal Confidentiality of Alcohol and Drug Abuse Patient Records regulations: The Federal rules restrict any use of the information to criminally investigate or prosecute any alcohol or drug abuse patient.[facility] HospitalIn the event this information is protected by the Federal Confidentiality of Alcohol and Drug Abuse Patient Records regulations: The Federal rules restrict any use of the information to criminally investigate or prosecute any alcohol or drug abuse patient.[facility] HospitalIn the event this information is protected by the Federal Confidentiality of Alcohol and Drug Abuse Patient Records regulations: The Federal rules restrict any use of the information to criminally investigate or prosecute any alcohol or drug abuse patient.[facility] HospitalIn the event this information is protected by the Federal Confidentiality of Alcohol and Drug Abuse Patient Records regulations: The Federal rules restrict any use of the information to criminally investigate or prosecute any alcohol or drug abuse patient.[facility] HospitalIn the event this information is protected by the Federal Confidentiality of Alcohol and Drug Abuse Patient Records regulations: The Federal rules restrict any use of the information to criminally investigate or prosecute any alcohol or drug abuse patient.[facility] HospitalIn the event this information is protected by the Federal Confidentiality of Alcohol and Drug Abuse Patient Records regulations: The Federal rules restrict any use of the information to criminally investigate or prosecute any alcohol or drug abuse patient.[facility] HospitalIn the event this information is protected by the Federal Confidentiality of Alcohol and Drug Abuse Patient Records regulations: The Federal rules restrict any use of the information to criminally investigate or prosecute any alcohol or drug abuse patient.[facility] HospitalIn the event this information is protected by the Federal Confidentiality of Alcohol and Drug Abuse Patient Records regulations: The Federal rules restrict any use of the information to criminally investigate or prosecute any alcohol or drug abuse patient.[facility] HospitalIn the event this information is protected by the Federal Confidentiality of Alcohol and Drug Abuse Patient Records regulations: The Federal rules restrict any use of the information to criminally investigate or prosecute any alcohol or drug abuse patient.[facility] HospitalIn the event this information is protected by the Federal Confidentiality of Alcohol and Drug Abuse Patient Records regulations: The Federal rules restrict any use of the information to criminally investigate or prosecute any alcohol or drug abuse patient.[facility] HospitalIn the event this information is protected by the Federal Confidentiality of Alcohol and Drug Abuse Patient Records regulations: The Federal rules restrict any use of the information to criminally investigate or prosecute any alcohol or drug abuse patient.[facility] HospitalIn the event this information is protected by the Federal Confidentiality of Alcohol and Drug Abuse Patient Records regulations: The Federal rules restrict any use of the information to criminally investigate or prosecute any alcohol or drug abuse patient.[facility] HospitalIn the event this information is protected by the Federal Confidentiality of Alcohol and Drug Abuse Patient Records regulations: The Federal rules restrict any use of the information to criminally investigate or prosecute any alcohol or drug abuse patient.[facility] HospitalIn the event this information is protected by the Federal Confidentiality of Alcohol and Drug Abuse Patient Records regulations: The Federal rules restrict any use of the information to criminally investigate or prosecute any alcohol or drug abuse patient.[facility] HospitalIn the event this information is protected by the Federal Confidentiality of Alcohol and Drug Abuse Patient Records regulations: The Federal rules restrict any use of the information to criminally investigate or prosecute any alcohol or drug abuse patient.[facility] HospitalIn the event this information is protected by the Federal Confidentiality of Alcohol and Drug Abuse Patient Records regulations: The Federal rules restrict any use of the information to criminally investigate or prosecute any alcohol or drug abuse patient.[facility] HospitalIn the event this information is protected by the Federal Confidentiality of Alcohol and Drug Abuse Patient Records regulations: The Federal rules restrict any use of the information to criminally investigate or prosecute any alcohol or drug abuse patient.[facility] HospitalIn the event this information is protected by the Federal Confidentiality of Alcohol and Drug Abuse Patient Records regulations: The Federal rules restrict any use of the information to criminally investigate or prosecute any alcohol or drug abuse patient.[facility] Reason for Visit (unrecogniz ed section and content) Reason Comments Sinusitis Reason Onset Date Comments Community Monitoring Outreach 10/05/2021 In sight CDM enrollment Reason Onset Date Comments Community Monitoring Outreach 10/19/2021 Ch rontej Obstructive Bronchitis / CDM Outreach Reason Onset Date Comments Refill Request 11/04/2021 Reason Onset Date Comments Refill Request 12/08/2021 Reason Comments F/U 6 months Reason Comments Refill Request Reason Onset Date Comments Population Health Navigation Outreach 06/07/2022 [facility]CO [facility] PCPSA Reason Onset Date Comments Refill Request 06/07/2022 Reason Onset Date Comments Refill Request 06/19/2022 Reason Onset Date Comments Opened In Error 08/30/2022 Reason Onset Date Comments Community Monitoring Outreach 11/30/2022 Reason Onset Date Comments Refill Request 12/06/2022 medication sent to the wrong pharmacy Reason Onset Date Comments Refill Request 01/01/2023 Reason Onset Date Comments Community Monitoring Outreach 05/30/2023 Reason Comments Sinus Problems Reason Onset Date Comments Community Monitoring Outreach 07/16/2023 Reason Comments Med Change Request Reason Comments F/U 6 months Reason Onset Date Comments Community Monitoring Outreach 08/17/2023 Reason Comments Sinus Problem sinus pressure, some drainage x couple weeks Reason Onset Date Comments Refill Request 07/02/2023 Reason Onset Date Comments Community Monitoring Outreach 10/08/2023 Reason Onset Date Comments Community Monitoring Outreach 11/19/2023 Reason Onset Date Comments Refill Request 11/21/2023 Reason Comments Sinus Infection Reason Comments Same Day Appointment X 1 week possible s inus infection Reason Comments Medicare Wellness Exam Reason Onset Date Comments Refill Request 03/07/2024 Reason Comments Consult colonoscopy Specialty Diagnoses / Procedures Referred By Contac t Referred To Contact [facility] Diagnoses Tubular adenoma Screening for colon cancer Procedures COLONOSCOPY SCREENING COLONOSCOPY FLX DX W/COLLJ SPEC WHEN PFRMD Stefany Sheridan MD [address] [place] [id number] [facility] [address] [place] [address] Referral ID Status Reason Start Date Expiration Date V isits Requested Visits Authorized [id number] Closed Auto-Generate d Referral 01/01/2024 12/31/2024 1 1 Reason Comments Same Day Appointment X 2 weeks frequent urination, burning with urination Reason Onset Date Comments Refill Request 06/27/2024 Reason Onset Date Comments Refill Request 07/07/2024 Reason Onset Date Comments Population Health Navigation Outreach 08/28/2024 Fabi/Workbench/ACO Reason Comments uti symptom Care Teams (unrecognized sec tion and content) Burning Supervisor Relationship Specialty Start Date End Date Stefany Sheridan MD [address] [place], [place] [id number] PCP - General 12/06/06 Burning Supervisor Relationship Specialty Start Date End Date Stefany Sheridan MD [address] [place] [address] PCP - General 12/06/06 Raine Min, SHAHRZAD [address] [place] [address] [facility] 10/05/21 Duarte Arroyo, toolroom clerkAutoglazier Internal Medicine 10/05/21 Burning Supervisor Relationship Specialty Start Date End Date Stefany Sheridan MD [address] [facility] [place] [address] PCP - General 12/06/06 Duarte Arroyo, toolroom clerkAutoglazier [facility] 10/05/21 Burning Supervisor Relationship Specialty Start Date End Date Stefany Sheridan MD [address] [facility] [place] [address] PCP - General 12/06/06 Duarte Arroyo, toolroom clerkAutoglazier [facility] 10/05/21 Burning Supervisor Relationship Specialty Start Date End Date Stefany Sheridan MD [address] [facility] [place] [address] PCP - General 12/06/06 Duarte Arroyo, toolroom clerkAutoglazier Internal [facility] 10/05/21 Burning Supervisor Relationship Specialty Start Date End Date Stefany Sehridan MD [address] [facility] [place] [address] PCP - General 12/06/06 Duarte Arroyo, toolroom clerkAutoglazier [facility] 10/05/21 Burning Supervisor Relationship Specialty Start Date End Date Stefany Sheridan MD [address] [facility] [place] [address] PCP - General 12/06/06 Cinthia Ramachandran, toolroom clerkAutoglazier Internal [facility] 10/05/21 Burning Supervisor Relationship Specialty Start Date End Date Stefany Sheridan MD [address] [facility] [place] [address] PCP - General 12/06/06 Cinthia Ramachandran, toolroom clerkAutoglaz[facility] 10/05/21 Burning Supervisor Relationship Specialty Start Date End Date Stefany Sheridan MD [address] [facility] [place] [address] PCP - General 12/06/06 Cinthia Ramachandran, toolroom clerkAutoglazier Internal [facility] 10/05/21 Burning Supervisor Relationship Specialty Start Date End Date Stefany Sheridan MD [address] [facility] [place] [address] PCP - General 12/06/06 Cinthia Ramachandran, toolroom clerkAutoglazier [facility] 10/05/21 Burning Supervisor Relationship Specialty Start Date End Date Stefany Sheridan MD [address] [facility] [place] [address] PCP - General 12/06/06 Cinthia Ramachandran, toolroom clerkAutoglazier Internal [facility] 10/05/21 Burning Supervisor Relationship Specialty Start Date End Date Stefany Sheridan MD [address] [facility] [place] [address] PCP - General 12/06/06 Cinthia Ramachandran, toolroom clerkAutoglazier Internal [facility] 10/05/21 Burning Supervisor Relationship Specialty Start Date End Date Stefany Sheridan MD [address] [facility] [place] [address] PCP - General 12/06/06 Cinthia Ramachandran, toolroom clerkAutoglazier Internal [facility] 10/05/21 Burning Supervisor Relationship Specialty Start Date End Date Stefany Sheridan MD [address] [facility] [place] [address] PCP - General 12/06/06 Cinthia Ramachandran, toolroom clerkAutoglazier Internal [facility] 10/05/21 Team Status: Active Member Role Status Dates Dr. Stefany Sheridan MD Family Provider Active Dr. Stefany Sheridan MD Primary Care Provider Active Team Status: Inactive Member Role Status Dates Dr. Stefany Sheridan MD Primary Care Provider Active Dr. Edmund Boggs MD Attending Provider, Referr ing Provider Active Burning Supervisor Relationship Specialty Start Date End Date Stefany Sheridan MD [address] [facility] [place] [address] PCP - General 12/06/06 Cinthia Ramachandran, toolroom clerkAutoglazier Internal [facility] 10/05/21 Burning Supervisor Relationship Specialty Start Date End Date Stefany Sheridan MD [address] [facility] [place] [address] PCP - General 12/06/06 Cinthia Ramachandran, toolroom clerkAutoglazier Internal [facility] 10/05/21 Burning Supervisor Relationship Specialty Start Date End Date Stefany Sheridan MD [address] [facility] [place] [address] PCP - General 12/06/06 Cinthia Ramachandran, toolroom clerkAutoglazier Internal [facility] 10/05/21 Burning Supervisor Relationship Specialty Start Date End Date Stefany Sheridan MD [address] [place] [address] PCP - General 12/06/06 Cinthia Ramachandran toolroom clerkAutoglazier [facility] 10/05/21 Burning Supervisor Relationship Specialty Start Date End Date Stefany Sheridan MD [address] [place] [address] PCP - General 12/06/06 Cinthia Ramachandran, toolroom clerkAutoglazier [facility] 10/05/21 Burning Supervisor Relationship Specialty Start Date End Date Stefany Sheridan MD [address] [facility] [place] [address] PCP - General 12/06/06 Cinthia Ramachandran, toolroom clerkAutoglazier [facility] 10/05/21 Team Status: Inactive Member Role Status Dates Dr. Stefany Sheridan MD Primary Care Provider Active Dr. Ramos Hernandez MD Attending Provider, Yazan princeing Provider Active Burning Supervisor Relationship Specialty Start Date End Date Stefany Sheridan MD [address] [facility] [place] [address] PCP - General 12/06/06 Cinthia Ramachandran, toolroom clerkAutoglazier Internal [facility] 10/05/21 Burning Supervisor Relationship Specialty Start Date End Date Stefany Sheridan MD [address] [facility] [place] [address] PCP - General 12/06/06 Cinthia Ramachandran, toolroom clerkAutoglazier Internal [facility] 10/05/21 Burning Supervisor Relationship Specialty Start Date End Date Stefany Sheridan MD [address] [facility] [place] [address] PCP - General 12/06/06 Cinthia Ramachandran, toolroom clerkAutoglazier Internal Medicine 10/05/21 Burning Supervisor Relationship Specialty Start Date End Date Stefany Sheridan MD [address] [facility] [place] [address] PCP - General 12/06/06 Cinthia Ramachandran, toolroom clerkAutoglazier Internal Medicine 10/05/21 Burning Supervisor Relationship Specialty Start Date End Date Stefany Sheridan MD [address] [facility] [place] [address] PCP - General 12/06/06 Cinthia Ramachandran, toolroom clerkAutoglazier [facility] 10/05/21 Burning Supervisor Relationship Specialty Start Date End Date Stefany Sheridan MD [address] [facility] [place] [address] PCP - General 12/06/06 Cinthia Ramachandran, toolroom clerkAutoglazier Internal [facility] 10/05/21 Burning Supervisor Relationship Specialty Start Date End Date Stefany Sheridan MD [address] [facility] [place] [address] PCP - General 12/06/06 Cinthia Ramachandran, toolroom clerkAutoglazier [facility] 10/05/21 Burning Supervisor Relationship Specialty Start Date End Date Stefany Sheridan MD [address] [facility] [place] [address] PCP - General 12/06/06 Cinthia Ramachandran, toolroom clerkAutoglazier Internal Medicine 10/05/21 Burning Supervisor Relationship Specialty Start Date End Date Stefany Sheridan MD [address] [facility] [place] [address] PCP - General 12/06/06 Cinthia Ramachandran, toolroom clerkAutoglazier Internal Medicine 10/05/21 Burning Supervisor Relationship Specialty Start Date End Date Stefany Sheridan MD [address] [facility] [place] [address] PCP - General 12/06/06 Burning Supervisor Relationship Specialty Start Date End Date Stefany Sheridan MD [address] [facility] [place] [address] PCP - General 12/06/06 Burning Supervisor Relationship Specialty Start Date End Date Stefany Sheridan MD [address] [facility] [place] [address] PCP - General 12/06/06 Burning Supervisor Relationship Specialty Start Date End Date Stefany Sheridan MD [address] [facility] [place] [address] PCP - General 12/06/06 Burning Supervisor Relationship Specialty Start Date End Date Stefany Sheridan MD [address] [place] [address] PCP - General 12/06/06 Burning Supervisor Relationship Specialty Start Date End Date Stefany Sheridan MD [address] [place] [address] PCP - General 12/06/06 Burning Supervisor Relationship Specialty Start Date End Date Stefany Sheridan MD [address] [place] [address] PCP - General 12/06/06 Vicky Almendarez [employer] FOUNTAIN MANAGER.BASE FILLER [address] [place] [address] Returned Case Inspector Internal Medicine 03/31/24 Sanjuana Garcias APRN.[employer]AVING MACHINE OPERATOR [address] [place] [address] Returned Case Inspector Internal Medicine 03/31/24 Burning Supervisor Relationship Specialty Start Date End Date Stefany Sheridan MD [address] [place] [address] PCP - General 12/06/06 Vicky Almendarez [employer] FOUNTAIN MANAGER.BASE FILLER [address] [facility] [place] [address] Returned Case Inspector Internal Medicine 03/31/24 Sanjuana Garcias APRN.WOOD WE[employer] WEAVING MACHINE OPERATOR [address] [place] [address] Returned Case Inspector Internal Medicine 03/31/24 Burning Supervisor Relationship Specialty Start Date End Date Stefany Sheridan MD [address] [place] [address] PCP - General 12/06/06 Vicky Almendarez, SODA FOUNTAIN MANAGER.BASE FILLER [address] [place] [address] Returned Case Inspector Internal Medicine 03/31/24 Sanjuana Garcias SODA FOUNTAIN MANAGER.WOOD WEB WEAVING MACHINE OPERATOR [address] [place] [address] [facility] Internal Medicine 03/31/24 Burning Supervisor Relationship Specialty Start Date End Date Stefany Sheridan MD [address] [place] [address] PCP - General 12/06/06 Vicky Almendarez, SODA FOUNTAIN MANAGER.BASE FILLER [address] [place] [address] Returned Case Inspector Internal Medicine 03/31/24 Sanjuana Garcias, SODA FOUNTAIN MANAGER.WOOD WEB WEAVING MACHINE OPERATOR [address] [place] [address] [facility] Internal Medicine 03/31/24 Burning Supervisor Relationship Specialty Start Date End Date Stefany Sheridan MD [address] [place] [address] PCP - General 12/06/06 Vicky Almendarez, SODA FOUNTAIN MANAGER.BASE FILLER [address] [place] [address] Returned Case Inspector Internal Medicine 03/31/24 Sanjuana Garcias APRN.WO[employer] WE[employer] WEAVING MACHINE OPERATOR [address] [facility] [place] [address] Returned Case Inspector Internal Medicine 03/31/24 Burning Supervisor Relationship Specialty Start Date End Date Stefany Sheridan MD [address] [facility] [place] [address] PCP - General 12/06/06 Vicky Almendarez, SODA FOUNTAIN MANAGER.BASE FILLER [address] [facility] [place] [address] [facility] Internal Medicine 03/31/24 Sanjuana Garcias SODA FOUNTAIN MANAGER.WOOD WEB WEAVING MACHINE OPERATOR [address] [facility] [place] [address] [facility] Internal Medicine 03/31/24 07/11/24 Sanjuana Garcias APRN.WOOD WEB WEAVING MACHINE OPERATOR [address] [facility] [place] [address] [facility] Internal Medicine 07/15/24 Burning Supervisor Relationship Specialty Start Date End Date Stefany Sheridan MD [address] [facility] [place] [address] PCP - General 12/06/06 Vicky Almendarez, SODA FOUNTAIN MANAGER.BASE FILLER [address] [facility] [place] [address] [facility] Internal Medicine 03/31/24 Sanjuana Garcias APRN.WOOD WEB WEAVING MACHINE OPERATOR [address] [facility] [place] [address] [facility] Internal Medicine 07/15/24 Team Status: Inactive Member Role Status Dates Dr. Stefany Sheridan MD Primary Care Provider Active Start: September 26, 2024 End: September 26, 2024 Dr. Ramos Hernandez MD Attending Provider Activ e Start: September 26, 2024 End: September 26, 2024 Dr. Ramos Hernandez MD Referring Provider Activ e Start: September 26, 2024 End: September 26, 2024 Burning Supervisor Relationship Specialty Start Date End Date Stefany Sheridan MD [address] [place], [place] [address] PCP - General 12/06/06 Sanjuana Garcias, SODA FOUNTAIN MANAGER.WOOD WEB WEAVING MACHINE OPERATOR [address] [place], [place] [id number] [facility] Internal Medicine 07/15/24 Vicky Almendarez, SODA FOUNTAIN MANAGER.BASE FILLER [address] [place], [place] [address] [facility] Internal Medicine 09/10/24 Goals (unrecognized section and content) Goals may be documented in a n alternate sectionGoals may be documented in an alternate sectionGoals may be documented in an alternate sectionGoals may be documented in an alternate sectionGoals may be documented in an alternate section FOR RECORDS PERTAINING TO PATIENTS WHO ARE OR HAVE BEEN ENROLLED IN A CHEMICAL DEPENDENCY/SUBSTANCEABUSE PROGRAM, SOME INFORMATION MAY BE OMITTED. This clinical summary was aggregated from multiple sources. Caution should be exercised in using it in the provision of clinical care. This summary normalizes information from multiple sources, and as a consequence, information in this document may materially change the coding, format and clinical context of patient data. In addition, data may be omitted in some cases. CLINICAL DECISIONS SHOULD BE BASED ON THE PRIMARY CLINICAL RECORDS. [employer] provides no warranty or guarantee of the accuracy or completeness of information in this document.
--- OUTSIDE RECORDS SUMMARY | 2024-11-04 22:19 | XMS RPT_ITS | CCD ---
Author Organization [facility] CliniSyhi Care Team Providers Care Barbering Teacher Name Role Phone DHARMESH SEVILLA JR. Attending [...] MD, Stefany Dc Primary Care Provider Almendarez ELECTRICIAN TELEPHONE.FORECLOSURE HOME INSPECTOR, Vicky Unavailable Dieter ELECTRICIAN TELEPHONE.PATIENT CARE TECHNICIAN INSTRUCTOR, Sanjuana Unavailable Dieter ELECTRICIAN TELEPHONE.PATIENT CARE TECHNICIAN INSTRUCTOR, Sanjuana Unavailable Dieter ELECTRICIAN TELEPHONE.PATIENT CARE TECHNICIAN INSTRUCTOR, Sanjuana Unavailable Dieter ELECTRICIAN TELEPHONE.PATIENT CARE TECHNICIAN INSTRUCTOR, Sanjuana Unavailable Dr. Stefany Sheridan MD Primary Care Provider Dr. Ramos Hernandez MD Attending Provider Dr. Ramos Hernandez MD Referring Provider Stefany Sheridan Primary Care Unavailable Ramos Hernandez Referring UnavailRamos Singh Attending Unavailabl e Almendarez ELECTRICIAN TELEPHONE.FORECLOSURE HOME INSPECTOR, Vicky Unavailable STEFANY SHERIDAN Attending Unavailable STEFANY [...] (1 source) Pseudoephedrine Drug Allergy 3 Intolerance [facility] Amoxicillin / Clavulanate (1 source) Amoxicillin / Clavulanate Drug Allergy 7 GI Upset [facility] Work Phone: Cephalosporins (antibiotic) (2 sources) cefdinir Drug Allergy 8 Unknown, Diarrhea [facility] Work Phone: Corticosteroids (1 source) fluticasone Drug Allergy 8 [facility] Work Phone: cyclobenzaprine (1 source) cyclobenzaprine Drug Allergy 0 Intolerance [facility] Lincosamides (antibiotic) (1 source) Clindamycin Drug Allergy 8 Other: See Comments [facility] Macrolides (antibiotic) (1 source) Clarithromycin Drug Allergy 1 Diarrhea [facility] Work Phone: NITROFURANTOIN, MACROCRYSTALS / Nitrofurantoin, Monohydrate (1 source) NITROFURANTOIN, MACROCRYSTALS / Nitrofurantoin, Monohydrate Drug Allergy 2 Other: See Comments [facility] Proton Pump Inhibitors (1 source) Omeprazole Drug Allergy 8 [facility] (20 sources) Amoxicillin / Clavulanate; Translations: [AMOXICILLIN-POT CLAVULANATE] Drug Allergy 7 GI Upset [facility] Work Phone: (20 sources) Cefuroxime; Translations: [CEFUROXIME] Drug Allergy 8 Diarrhea [facility] Work Phone: [phone] (20 sources) Clarithromycin; Translations: [CLARITHROMYCIN] Drug Allergy 1 Diarrhea [facility] Work Phone: (20 sources) Clindamycin; Translations: [CLINDAMYCIN] Drug Allergy 8 Other: See Comments [facility] (20 sources) cyclobenzaprine; Translations: [CYCLOBENZAPRINE HCL] Drug Allergy 0 Intolerance [facility] Work Phone: (20 sources) fluticasone; Translations: [FLUTICASONE PROPIONATE] Drug Allergy 8 [facility] Work Phone: (20 sources) NITROFURANTOIN, MACROCRYSTALS / Nitrofurantoin, Monohydrate; Translations: [NITROFURANTOIN MONOHYD/M-CRYST] Drug Allergy 2 Other: See Comments [facility] Work Phone: [phone] (20 sources) Omeprazole; Translations: [OMEPRAZOLE] Drug Allergy 8 [facility] Work Phone: (20 sources) Pseudoephedrine; Translations: [PSEUDOEPHEDRINE] Drug Allergy 3 Intolerance [facility] Work Phone: [phone] (20 sources) cefdinir; Translations: [CEFDINIR] Drug Allergy 1 Unknown [facility] (1 source) cefdinir Drug Allergy 1 [facility] Repository Medications Current Medications Medication Drug Class(es) Dates Sig (Normalized) Sig (Original) [id number] 200 actuat albuterol 0.09 mg/actuat metered dose [...] on above: Take 2 tablets by mo [facility] two times a day for 5 days. [facility] [...] on above: Take 1 capsule by mo [facility] twice daily for 14 days. Take with food Take 1 tablet by [facility] two times a day for 10 days. esomeprazole 20 mg delayed release oral capsule (20 sources) Proton Pump Inhibitor Start: 6 End: take 1 capsule by mouth once daily as needed esomeprazole (NEXIUM) 20 mg capsule Take 1 capsule by mouth once daily as needed. 05/05/2020 Active Comment on above: Take 1 capsule by mo [facility] once daily as needed. estrogens, conjugated (long-term) 0.625 mg/ml vaginal cream (20 sources) Estrogen [...] recurrent yeast infection as directed lactobacillus acidophilus [id number] unt oral capsule (20 sources) Start: 6 [...] jeanette th once daily. polyethylene glycol 3350 400333 mg / potassium chloride 2970 mg / sodium bicarbonate 6740 mg / sodium chloride 5860 mg / sodium sulfate 25548 mg powder for oral solution (1 source) [...] 2015 12:00am March 02, 2020 3:55pm nystatin 466100 unt/ml oral suspension (20 sources) Polyene Antifungal [...] (4 sources) Patient encounter status; Translations: [Other longwall foreman (current) drug therapy] Episodic Other and unspecified [...] 10,000 -<50,000 CFU/ml Normal urogenital kirk Normal [facility] Comment on above: Performed By: #### 6 30-4 ####[facility] LABCLIA [id number] [address] [facility] CNOVon 10-09-2024 CNOV Office Visit (INTMWS ) CLEVE WAGGONER ([id number]) 1950 F Date Time Provider Department 10/09/24 1:40 PM VICKY ALMENDAREZ INTMWS During your visit today, we recorded the following information about you: Temperature Pulse Respiration Blood pressure 97.8 degrees 106/minute 16/minute 159/72 Weight 52 kg Vicky Almendarez, DEREJE.FORECLOSURE HOME INSPECTOR 10/09/2024 2:11 PM Signed Subjective Patient ID: [...] tract infection. - Prescribed Macrobid, sent to [facility]. 2. Anxiety and depression (F41.9) - Previously on Zoloft, discontinued due to excessive somnolence. - Resumed Paxil with reported improvement in symptoms. - Refilled Paxil prescription, sent to [facility]. Vicky Almendarez APRN.FORECLOSURE HOME INSPECTOR Medical Decision Making: Problems: Low: Acute, uncomplicated [...] depression [F41.9, F32.A] Order(s):UA DIP, URINE (POC) [8457413] Order #: [id number]. #:[id number] BACTERIAL CULTURE, URINE [SQURCUL] Order #: [id number]. #:[id number] PARoxetine (PAXIL) 10 mg tabletTake 1 tablet [...] capsule Ta (more content not included)... Normal [facility] UA DIP, URINE (POC)on 2024 BILIRUBIN UA (POCT) Negative Negative [facility] CLARITY UA (POCT) Cloudy [facility] COLOR UA (POCT) Yellow [facility] GLUCOSE UA (POCT) Negative Negative mg/dL [facility] Hemoglobin Ql (U) Moderate Abnormal Negative [facility] Interpretation and review of laboratory results Abnormal [facility] KETONE UA (POCT) Negative Negative mg/dL [facility] LEUKOCYTES UA (POCT) Negative Negative [facility] NITRITE UA (POCT) Negative Negative [facility] PH UA (POCT) 5.5 4.5 - 8.0 [facility] Protein Ql (U) Negative Negative mg/dL [facility] SPECIFIC GRAVITY UA (POCT) <=1.005 Abnormal 1.005 - 1.030 [facility] UROBILINOGEN UA (POCT) 0.2 Annita l E.U./dL [facility] Location:[address], [place], [address] [facility] POINT OF CARE [facility] Gram Stainon 09-29-2024 GS Gram Stain Rare Gram positive cocci 1+ Epithelial cells * This is an amended result. * A prior result that was reported as final has been changed. 09/29/24 1324 by CHAO Normal [facility] Comment on above: Performed By: #### M 100.1999, M100.2500 #### [facility] [address] [place], [place], [id number] Nasopharyngeal Cultureon NAC No growth in 48 hours. Normal [facility] Comment on above: Performed By: #### M 100.1999, M100.2500 #### [facility] [address] [place], [place], [id number] Gram stainOrdered By: Israel Hernandez on 09-26-2024 Microscopic observation Gram stain Nom (Unsp spec) [facility] CNOVon 08-15-2024 CNOV Office Visit (INTMWS ) CLEVE WAGGONER ([id number]) 1950 F Date Time Provider Department 08/15/24 1:40 PM VICKY ALMENDAREZ INTMWS During your visit today, we recorded the following information about you: Pulse Respiration Blood pressure Weight 97/minute 16/minute 145/68 53 kg Vicky Almendarez APRN.FORECLOSURE HOME INSPECTOR 08/15/2024 2:13 PM Signed SUBJECTIVE: Lung Cancer [...] Sinus: Frontal sinus tenderness present. Mouth/Throat: Lips: [place]. Mouth: Mucous membranes are moist. Pharynx: Oropharynx [...] obstruction, not (more content not included)... Normal [facility] CNOVon 06-09-2024 CNOV Office Visit (INTMWS ) CLEVE WAGGONER ([id number]) 1950 F Date Time Provider Department 06/09/24 12:00 PM VICKY ALMENDAREZ INTMWS During your visit today, we recorded the following information about you: Pulse Respiration Blood pressure Weight 79/minute 16/minute 155/77 53 kg Vicky Almendarez, DEREJE.FORECLOSURE HOME INSPECTOR 06/09/2024 1:10 PM Signed SUBJECTIVE: Lung Cancer [...] Sinus: Frontal sinus tenderness present. Mouth/Throat: Lips: [place]. Mouth: Mucous membranes are moist. Pharynx: Oropharynx [...] classified Esoph (more content not included)... Normal [facility] [id number] 05-16-2024 [id number] HNO ID: [id number] Author: LANCE YOO RN Service: ? Author Type: Registered Nurse Type: [id number] Filed: 05/16/2024 11:56 Note Text: The patient received a copy of Colonoscopy discharge instructions that contain information for how to contact the physician who performed the procedure and when to seek medical care. Normal [facility] Colonoscopyon 05-16-2024 Colonoscopy [place] [facility] Gastrointestinal Endoscopy Patient Name: Cleve Waggoner Procedure [...] the patient. Procedure Code(s): --- Professional --- 69847, Colonoscopy, flexible; with biopsy, single or multiple G0500, Moderate sedation services provided by the same physician or other qualified health skin care specialist performing a gastrointestinal endoscopic service that sedation supports, requiring the presence of an independent trained observer to assist in the monitoring of the patient's level of consciousness and physiological status; initial 15 minutes of intra-service time; patient age 5 years or older (additional time may be reported with 52787, as appropriate) CPT copyright 2020 [employer]. All rights reserved. The codes documented in this report are preliminary and upon coder operator review may be revised to meet current compliance requirements. Attending Participation: I (more content not included)... Normal [facility] HISTORY PHYSICALon HISTORY PHYSICAL HNO ID: [id number] Author: CHRISTOPHE RAMOS MD Service: General Surgery [...] MA Note Details Progress Notes Arianna Perez, DEREJE.PATIENT CARE TECHNICIAN INSTRUCTOR (Nurse Practitioner) General Surgery Expand All Collapse All HISTORY AND PHYSICAL Cleve Rubin Jump : 1950 REFERRING PHYSICIAN: Stefany Sheridan [address] [facility] [address] CHIEF COMPLAINT: Patient presents with: Consult: colonoscopy HPI: Cleve is a 73 year old female referred for endoscopy. Cleve notes due for screening colonoscopy- hx of polyps (2018, 2013). [place] notes occasional abdominal cramping. -relieved with bentyl Cleve denies diarrhea. [place] notes occasional constipation. -will take milk of mag as needed with good relief Cleve denies a change in bowel habits. [place] denies melena. [place] denies bright red blood per rectum. [place] denies hemorrhoids. [place] notes occasional heartburn. -will use nexium PRN when eating a large meal [place] denies dysphagia. [place] denies a history of ulcers/ peptic ulcer disease. [place] notes family history of colon issues. Maternal grandmother with colon cancer. Cleve has undergone prior endoscopy. Last colonoscopy was 10/2018 at [facility] with Dr. Seymour. Sedation:Fentanyl 100 micrograms IV, [...] Take 1 (more content not included)... Normal [facility] SURGICAL PATHOLOGYon 025 CASE REPORT Normal [facility] Comment on above: Order Comment: Speci men Type: TISSUE SPECIMENOrdering Facility: [facility] Address: [address] [place] [address] Result Comment: [facility] Pathology Report Case: [id number] Authorizing Provider: Christophe Ramos MD Collected: 05/16/2024 11:42 AM Ordering Location: Ambulatory Surgery Received: 05/16/2024 01:21 PM Pathologist: Dharmesh Reno MD Specimen: Colon, Hepatic Flexure, Polyp Performed By: #### S ####[facility]ORY[facility] [id number] [address] LABCLIA [id number] [address] FINAL DIAGNOSIS Normal [facility] Comment on above: Order Comment: Speci men Type: TISSUE SPECIMENOrdering Facility: [facility] Address: [address] [place] [address] Result Comment: Hepa tic flexure polyp, biopsy: - Sessile serrated polyp. JEL 05/19/2024 Performed By: #### S ####[facility]ORATORYCLIA [id number] [address] LABCLIA [id number] [place] [address] [place] FINAL PERFORMING LAB Normal [facility] Comment on above: Order Comment: Speci men Type: TISSUE SPECIMENOrdering Facility: [facility] Address: [address] [place] [address] Result Comment: Diag nostic interpretation performed at: [facility], [address] [id number] CLIA# [id number] Blueprint Duplicator: Nate Mcclain MD Performed By: #### S ####[facility] [id number] [address] LABCLIA [id number] [address] [place] GROSS DESCRIPTION Normal [facility] Comment on above: Order Comment: Speci men Type: TISSUE SPECIMENOrdering Facility: [facility] Address: [address] [place] [address] Result Comment: A. C olon, Hepatic Flexure, Polyp Received in formalin are multiple pieces of rai, soft tissue aggregating to 0.6 x 0.4 x 0.2 cm. Totally submitted in one cassette. [facility] May 16, 2024 8:48 PM Gross examination performed at [facility], [address] [place] [address] Performed By: #### S ####[facility] [id number] [address] LABCLIA [id number] [place] [address] [place] Bacteria Ur Culton [...] technique or straight catheterization for???urine???collectio n. Normal [facility] Comment on above: Performed By: #### 6 30-4 ####[facility] LABCLIA [id number] [address] [place] [id number] [id number] [place] CNOVon 04-14-2024 CNOV Office Visit (INTMWS ) CLEVE WAGGONER ([id number]) 1950 F Date Time Provider Department 04/14/24 3:40 PM STEFANY SHERIDAN INTMWS During your visit today, we recorded the following information about you: Temperature Pulse Respiration Blood pressure 96.1 degrees 91/minute 16/minute 118/68 Weight 52.2 kg Stefany Sheridan MD 04/14/2024 4:38 PM Signed This note was created using [employer] Subjective Cleve Waggoner is a 73 year [...] B12 injections, which she previously received from [facility]. PAST MEDICAL HISTORY Diagnosis Date Abdominal pain, [...] is a (more content not included)... Normal [facility] UA DIP, URINE (POC)on 2023 BILIRUBIN UA (POCT) Negative Negative [facility] CLARITY UA (POCT) Slightly Cloudy Cl [facility] COLOR UA (POCT) Yellow [facility] GLUCOSE UA (POCT) Negative Negative mg/dL [facility] Hemoglobin Ql (U) Small Abnormal Negative [facility] Interpretation and review of laboratory results Abnormal [facility] KETONE UA (POCT) Negative Negative mg/dL [facility] LEUKOCYTES UA (POCT) Negative Negative [facility] NITRITE UA (POCT) Negative Negative [facility] PH UA (POCT) 5.5 4.5 - 8.0 [facility] Protein Ql (U) Negative Negative mg/dL [facility] SPECIFIC GRAVITY UA (POCT) >=1.030 1.005 - 1.030 [facility] UROBILINOGEN UA (POCT) 0.2 Annita l E.U./dL [facility] Location:[address], [place], [place], [address] [place] [address] POINT OF CARE [facility] Urinalysis complete panel (U )on 04-14-2024 BACTERIA UL 4336.7 uL High Negative [facility] Comment on above: Order Comment: Speci men Type: URINE SPECIMENOrdering Facility: [facility] Address: [address] [place] [address] Performed By: #### 2 4356-8 ####[facility] LABCLIA [id number] [place] [address] [place] Bilirubin Ql (U) Negative Normal Negative [facility] Comment on above: Order Comment: Speci men Type: URINE SPECIMENOrdering Facility: [facility] Address: [address] [place] [address] Performed By: #### 2 4356-8 ####[facility] LABCLIA [id number] [place] [address] [place] Clarity (Unsp spec) Clear Normal Clear [facility] Comment on above: Order Comment: Speci men Type: URINE SPECIMENOrdering Facility: [facility] Address: [address] [place] [address] Performed By: #### 2 4356-8 ####[facility] LABCLIA [id number] [place] [address] [place] Color (U) Yellow Normal Yellow [facility] Comment on above: Order Comment: Speci men Type: URINE SPECIMENOrdering Facility: [facility] Address: [address] [place] [address] Performed By: #### 2 4356-8 ####[facility] LABCLIA [id number] [place] [address] [place] Epithelial cells LM.HPF (Urine sed) [#/Area] Few Normal [facility] Comment on above: Order Comment: Speci men Type: URINE SPECIMENOrdering Facility: [facility] Address: [address] [place] [address] Performed By: #### 2 4356-8 ####[facility] LABCLIA [id number] [place] [address] [place] Glucose Test strip (U) [Mass/Vol] Negative Normal Negative [facility] Comment on above: Order Comment: Speci men Type: URINE SPECIMENOrdering Facility: [facility] Address: [address] [place] [address] Performed By: #### 2 4356-8 ####[facility] LABCLIA [id number] [place] [address] [place] Hemoglobin Ql (U) Trace Abnormal Negative [facility] Comment on above: Order Comment: Speci men Type: URINE SPECIMENOrdering Facility: [facility] Address: [address] [place] [address] Performed By: #### 2 4356-8 ####[facility] LABCLIA [id number] [place] [address] [place] Hyaline casts (Urine sed) [#/Area] 1-3 /LPF Abnormal 0 /LPF [facility] Comment on above: Order Comment: Speci men Type: URINE SPECIMENOrdering Facility: [facility] Address: [address] [place] [address] Performed By: #### 2 4356-8 ####[facility] LABCLIA [id number] [place] [address] [place] Ketones Ql (U) Negative Normal Negative [facility] Comment on above: Order Comment: Speci men Type: URINE SPECIMENOrdering Facility: [facility] Address: [address] [place] [address] Performed By: #### 2 4356-8 ####[facility] LABCLIA [id number] [place] [address] [place] Leukocyte esterase Test strip Ql (U) Negative Normal Negative [facility] Comment on above: Order Comment: Speci men Type: URINE SPECIMENOrdering Facility: [facility] Address: [address] [place] [address] Performed By: #### 2 4356-8 ####[facility] LABCLIA [id number] [place] [address] [place] Nitrite Ql (U) Negative Normal Negative [facility] Comment on above: Order Comment: Speci men Type: URINE SPECIMENOrdering Facility: [facility] Address: [address] [place] [address] Performed By: #### 2 4356-8 ####[facility] LABIA [id number] [place] [address] [place] pH (U) 5.5 [pH] Normal <8.5 [facility] Comment on above: Order Comment: Speci men Type: URINE SPECIMENOrdering Facility: [facility] Address: [address] [place] [address] Performed By: #### 2 4356-8 ####[facility] LABCLIA [id number] [place] [address] [place] Protein (U) [Mass/Vol] Negative Normal Negative [facility] Comment on above: Order Comment: Speci men Type: URINE SPECIMENOrdering Facility: [facility] Address: [address] [place] [address] Performed By: #### 2 4356-8 ####[facility] LABIA [id number] [place] [address] [place] RBC LM.HPF (Urine sed) [#/Area] 3-5 /HPF Abnormal 0-2 /HPF [facility] Comment on above: Order Comment: Speci men Type: URINE SPECIMENOrdering Facility: [facility] Address: [address] [place] [address] Performed By: #### 2 4356-8 ####[facility] LABIA [id number] [place] [address] [place] Specific gravity (U) [Rel density] 1.019 Normal 1.005-1.030 [facility] Comment on above: Order Comment: Speci men Type: URINE SPECIMENOrdering Facility: [facility] Address: [address] [place] [address] Performed By: #### 2 4356-8 ####[facility] LABIA [id number] [place] [address] [place] Urobilinogen Ql (U) 0.2 EU/dL Normal 0.2-1.0 EU/dL [facility] Comment on above: Order Comment: Speci men Type: URINE SPECIMENOrdering Facility: [facility] Address: [address] [place] [address] Performed By: #### 2 4356-8 ####[facility] LABIA [id number] [place] [address] [place] WBC LM.HPF (Urine sed) [#/Area] 0-5 /HPF Normal 0-5 /HPF [facility] Comment on above: Order Comment: Speci men Type: URINE SPECIMENOrdering Facility: [facility] Address: [address] [place] [address] Performed By: #### 2 4356-8 ####[facility] LABIA [id number] [place] [address] [place] CNPNahed 04-07-2024 CNPN Telephone ([employer]) CLEVE WAGGONER ([id number]) 1950 F Date Time Provider Department 04/07/24 [...] Encounter Status:Closed by CHAZ GENTILE on 07/21/24 [facility] CNOVon 04-04-2024 CNOV Office Visit (GENSWS ) CLEVE WAGGONER ([id number]) 1950 F Date Time Provider Department 04/04/24 1:30 PM ARIANNA PEREZ During your visit today, we recorded the following information about you: Pulse Blood pressure Weight 82/minute 155/75 52.2 kg Arianna Perez APRN.CNP 04/04/2024 2:22 PM Signed HISTORY AND PHYSICAL Cleve Waggoner : 1950 REFERRING PHYSICIAN: Stefany Sheridan [address] [facility] [address] CHIEF COMPLAINT: Patient presents with: Consult: colonoscopy [...] prior endoscopy. Last colonoscopy was 10/2018 at [facility] with Dr. Seymour. Sedation:Fentanyl 100 micrograms IV, [...] TOTAL ABDOMIN (more content not included)... Normal [facility] CNOVon 02-04-2024 CNOV Office Visit (INTMWS ) CLEVE WAGGONER ([id number]) 1950 F Date Time Provider Department 02/04/24 [...] Neurology--[place] (?sp); Dr. Malloy (pain management in [place]),Dr. Hernandez--ENT. Dr. Lele Pulliam (banking teacher) Medical/Family history review Reviewed and updated problem [...] concerns w (more content not included)... Normal [facility] 25(OH)D3 SerPl-mCncon 2023 25-hydroxyvitamin D3 [Mass/Vol] 31.5 ng/mL Normal 31.0-80.0 [facility] Comment on above: Order Comment: Speci men Type: BLOOD SPECIMENOrdering Facility: [facility] Address: [address] [place] [address] Result Comment: Clas sification of 25 OH Vitamin D status: Deficiency/Insufficiency: < or = 30 ng/ml. Sufficiency/Optimal Levels: 31-80 ng/mL Toxicity: > 100 ng/mL. Test performed by chemiluminescent immunoassay. Performed By: #### 1 989-3 ####[facility] LABCLIA [id number] [place] [address] [place] CBC W Auto Differential pane l (Bld)on 01-01-2024 Basophils (Bld) [#/Vol] 0.06 10*3/uL Normal <0.11 [facility] Comment on above: Order Comment: Speci men Type: BLOOD SPECIMENOrdering Facility: [facility] Address: [address] [place] [address] Performed By: #### 5 7021-8 ####[facility] LABCLIA [id number] [place] [address] [place] Basophils/100 WBC (Bld) 0.8 % Normal [facility] Comment on above: Order Comment: Speci men Type: BLOOD SPECIMENOrdering Facility: [facility] Address: [address] [place] [address] Performed By: #### 5 7021-8 ####[facility] LABCLIA [id number] [place] [address] [place] Differential cell count method Nom (Bld) Auto Normal [facility] Comment on above: Order Comment: Speci men Type: BLOOD SPECIMENOrdering Facility: [facility] Address: [address] [place] [address] Performed By: #### 5 7021-8 ####[facility] LABCLIA [id number] [place] [address] [place] Eosinophils (Bld) [#/Vol] 0.13 10*3/uL Normal <0.46 [facility] Comment on above: Order Comment: Speci men Type: BLOOD SPECIMENOrdering Facility: [facility] Address: [address] [place] [address] Performed By: #### 5 7021-8 ####[facility] LABIA [id number] [place] [address] [place] Eosinophils/100 WBC (Bld) 1.7 % Normal [facility] Comment on above: Order Comment: Speci men Type: BLOOD SPECIMENOrdering Facility: [facility] Address: [address] [place] [address] Performed By: #### 5 7021-8 ####[facility] LABIA [id number] [place] [address] [place] Erythrocyte distribution width (RBC) [Ratio] 12.7 % Normal 11.5-15.0 [facility] Comment on above: Order Comment: Speci men Type: BLOOD SPECIMENOrdering Facility: [facility] Address: [address] [place] [address] Performed By: #### 5 7021-8 ####[facility] LABIA [id number] [place] [address] [place] Hematocrit (Bld) [Volume fraction] 45.1 % Normal 36.0-46.0 [facility] Comment on above: Order Comment: Speci men Type: BLOOD SPECIMENOrdering Facility: [facility] Address: [address] [place] [address] Performed By: #### 5 7021-8 ####[facility] LABCLIA [id number] [place] [address] [place] Hemoglobin (Bld) [Mass/Vol] 14.7 g/dL Normal 11.5-15.5 [facility] Comment on above: Order Comment: Speci men Type: BLOOD SPECIMENOrdering Facility: [facility] Address: [address] [place] [address] Performed By: #### 5 7021-8 ####[facility] LABCLIA [id number] [place] [address] [place] Immature granulocytes (Bld) [#/Vol] 10*3/uL Normal <0.10 [facility] Comment on above: Order Comment: Speci men Type: BLOOD SPECIMENOrdering Facility: [facility] Address: [address] [place] [address] Performed By: #### 5 7021-8 ####[facility] LABIA [id number] [place] [address] [place] Immature granulocytes/100 WBC (Bld) 0.0 % Normal [facility] Comment on above: Order Comment: Speci men Type: BLOOD SPECIMENOrdering Facility: [facility] Address: [address] [place] [address] Performed By: #### 5 7021-8 ####[facility] LABIA [id number] [place] [address] [place] Lymphocytes (Bld) [#/Vol] 2.08 10*3/uL Normal 1.00-4.00 [facility] Comment on above: Order Comment: Speci men Type: BLOOD SPECIMENOrdering Facility: [facility] Address: [address] [place] [address] Performed By: #### 5 7021-8 ####[facility] LABIA [id number] [place] [address] [place] Lymphocytes/100 WBC (Bld) 28.0 % Normal [facility] Comment on above: Order Comment: Speci men Type: BLOOD SPECIMENOrdering Facility: [facility] Address: [address] [place] [address] Performed By: #### 5 7021-8 ####[facility] LABIA [id number] [place] [address] [place] MCH (RBC) [Entitic mass] 29.9 pg Normal 26.0-34.0 [facility] Comment on above: Order Comment: Speci men Type: BLOOD SPECIMENOrdering Facility: [facility] Address: [address] [place] [address] Performed By: #### 5 7021-8 ####[facility] LABIA [id number] [place] [address] [place] MCHC (RBC) [Mass/Vol] 32.6 g/dL Normal 30.5-36.0 [facility] Comment on above: Order Comment: Speci men Type: BLOOD SPECIMENOrdering Facility: [facility] Address: [address] [place] [address] Performed By: #### 5 7021-8 ####[facility] LABIA [id number] [place] [address] [place] MCV (RBC) [Entitic vol] 91.9 fL Normal 80.0-100.0 [facility] Comment on above: Order Comment: Speci men Type: BLOOD SPECIMENOrdering Facility: [facility] Address: [address] [place] [address] Performed By: #### 5 7021-8 ####[facility] LABIA [id number] [place] [address] [place] Monocytes (Bld) [#/Vol] 0.39 10*3/uL Normal <0.87 [facility] Comment on above: Order Comment: Speci men Type: BLOOD SPECIMENOrdering Facility: [facility] Address: [address] [place] [address] Performed By: #### 5 7021-8 ####[facility] LABCLIA [id number] [place] [address] [place] Monocytes/100 WBC (Bld) 5.2 % Normal [facility] Comment on above: Order Comment: Speci men Type: BLOOD SPECIMENOrdering Facility: [facility] Address: [address] [place] [address] Performed By: #### 5 7021-8 ####[facility] LABCLIA [id number] [place] [address] [place] Neutrophils (Bld) [#/Vol] 4.78 10*3/uL Normal 1.45-7.50 [facility] Comment on above: Order Comment: Speci men Type: BLOOD SPECIMENOrdering Facility: [facility] Address: [address] [place] [address] Performed By: #### 5 7021-8 ####[facility] LABCLIA [id number] [place] [address] [place] Neutrophils/100 WBC (Bld) 64.3 % Normal [facility] Comment on above: Order Comment: Speci men Type: BLOOD SPECIMENOrdering Facility: [facility] Address: [address] [place] [address] Performed By: #### 5 7021-8 ####[facility] LABCLIA [id number] [place] [address] [place] Nucleated RBC (Bld) [#/Vol] 10*3/uL Normal <0.01 [facility] Comment on above: Order Comment: Speci men Type: BLOOD SPECIMENOrdering Facility: [facility] Address: [address] [place] [address] Performed By: #### 5 7021-8 ####[facility] LABCLIA [id number] [address] [address] [address] [place] Nucleated RBC/100 WBC (Bld) [Ratio] 0.0 /100 WBC Normal [facility] Comment on above: Order Comment: Speci men Type: BLOOD SPECIMENOrdering Facility: [facility] Address: [address] [place] [address] Performed By: #### 5 7021-8 ####[facility] LABCLIA [id number] [place] [address] [place] Platelet mean volume (Bld) [Entitic vol] 12.2 fL Normal 9.0-12.7 [facility] Comment on above: Order Comment: Speci men Type: BLOOD SPECIMENOrdering Facility: [facility] Address: [address] [place] [address] Performed By: #### 5 7021-8 ####[facility] LABCLIA [id number] [place] [address] [place] Platelets (Bld) [#/Vol] 232 10*3/uL Normal 150-400 [facility] Comment on above: Order Comment: Speci men Type: BLOOD SPECIMENOrdering Facility: [facility] Address: [address] [place] [address] Performed By: #### 5 7021-8 ####[facility] LABCLIA [id number] [place] [address] [place] RBC (Bld) [#/Vol] 4.91 10*6/uL Normal 3.90-5.20 [facility] Comment on above: Order Comment: Speci men Type: BLOOD SPECIMENOrdering Facility: [facility] Address: [address] [place] [address] Performed By: #### 5 7021-8 ####[facility] LABCLIA [id number] [place] [address] [place] WBC (Bld) [#/Vol] 7.44 10*3/uL Normal 3.70-11.00 [facility] Comment on above: Order Comment: Speci men Type: BLOOD SPECIMENOrdering Facility: [facility] Address: [address] [place] [address] Performed By: #### 5 7021-8 ####[facility] LABCLIA [id number] [id number] [id number] [place] CNOVon 01-01-2024 CNOV Office Visit (INTMWS ) CLEVE WAGGONER ([id number]) 1950 F Date Time Provider Department 01/01/24 1:20 PM STEFANY SHERIDAN INTMWS During your visit today, we recorded the following information about you: Temperature Pulse Respiration Blood pressure 96.6 degrees 95/minute 16/minute 112/72 Weight 52.2 kg Stefany Sheridan MD 01/01/2024 2:14 PM Signed This note was created using [employer] Subjective Cleve Waggoner is a 73 year [...] schedule them recently due to her 's mcc and desire to accompany her to appointments. [...] (NEXIUM) 20 (more content not included)... Normal [facility] Comprehensive metabolic 2000 panelon 01-01-2024 Albumin [Mass/Vol] 4.2 g/dL Normal 3.9-4.9 [facility] Comment on above: Order Comment: Speci men Type: BLOOD SPECIMENOrdering Facility: [facility] Address: [address] [place] [address] Performed By: #### 2 4323-8, 47839-0, 2131-12, 3015-3 ####[facility] LABCLIA [id number] [place] [address] [place] ALP [Catalytic activity/Vol] 106 U/L Normal 34-123 [facility] Comment on above: Order Comment: Speci men Type: BLOOD SPECIMENOrdering Facility: [facility] Address: [address] [place] [address] Performed By: #### 2 4323-8, 90480-9, 2131-12, 6-3 ####[facility] LABCLIA [id number] [address] [address] [place] ALT [Catalytic activity/Vol] 10 U/L Normal 7-38 [facility] Comment on above: Order Comment: Speci men Type: BLOOD SPECIMENOrdering Facility: [facility] Address: [address] [place] [address] Performed By: #### 2 4323-8, 54840-0, 2131-12, 3015-3 ####[facility] LABCLIA [id number] [place] [address] [place] Anion gap [Moles/Vol] 11 mmol/L Normal 8-15 [facility] Comment on above: Order Comment: Speci men Type: BLOOD SPECIMENOrdering Facility: [facility] Address: [address] [place] [address] Performed By: #### 2 4323-8, 02326-5, 2131-12, 3015-3 ####[facility] LABIA [id number] [place] [address] [place] AST [Catalytic activity/Vol] 21 U/L Normal 13-35 [facility] Comment on above: Order Comment: Speci men Type: BLOOD SPECIMENOrdering Facility: [facility] Address: [address] [place] [address] Performed By: #### 2 4323-8, 37574-1, 2131-12, 3015-3 ####[facility] LABCLIA [id number] [place] [address] [place] Bilirubin [Mass/Vol] 0.2 mg/dL Normal 0.2-1.3 [facility] Comment on above: Order Comment: Speci men Type: BLOOD SPECIMENOrdering Facility: [facility] Address: [address] [place] [address] Performed By: #### 2 4323-8, 09376-3, 2131-12, 6-3 ####[facility] LABCLIA [id number] [address] [address] [place] Calcium [Mass/Vol] 9.4 mg/dL Normal 8.5-10.2 [facility] Comment on above: Order Comment: Speci men Type: BLOOD SPECIMENOrdering Facility: [facility] Address: [address] [place], [place] [address] Performed By: #### 2 4323-8, 56665-0, 2131-12, 3015-3 ####[facility] LABCLIA [id number] [address] [address] [place] Chloride [Moles/Vol] 101 mmol/L Normal 98-107 [facility] Comment on above: Order Comment: Speci men Type: BLOOD SPECIMENOrdering Facility: [facility] Address: [address] [place] [address] Performed By: #### 2 4323-8, 83053-8, 2131-12, 3015-3 ####[facility] LABCLIA [id number] [place] [address] [place] CO2 [Moles/Vol] 26 mmol/L Normal 22-30 [facility] Comment on above: Order Comment: Speci men Type: BLOOD SPECIMENOrdering Facility: [facility] Address: [address] [place] [address] Performed By: #### 2 4323-8, 77817-1, 2131-12, 3015-3 ####[facility] LABCLIA [id number] [address] [address] [place] Creatinine [Mass/Vol] 0.89 mg/dL Normal 0.58-0.96 [facility] Comment on above: Order Comment: Speci men Type: BLOOD SPECIMENOrdering Facility: [facility] Address: [address] [place], [place] [address] Performed By: #### 2 4323-8, 78847-8, 2131-12, 6-3 ####[facility] LABCLIA [id number] [place] [address] [place] Creatinine and Glomerular filtration rate.predicted panel (S/P/Bld) 69 mL/min/1.73m??? Normal >=60 [facility] Comment on above: Order Comment: Christy campbell Type: BLOOD SPECIMENOrdering Facility: [facility] Address: [address] [place] [address] Result Comment: Leny mated Glomerular Filtration Rate [...] actual GFR. Performed By: #### 2 4323-8, 48468-7, 2131-12, 6-3 ####[facility] LABCLIA [id number] [place] [address] [place] Glucose [Mass/Vol] 87 mg/dL Normal 74-99 [facility] Comment on above: Order Comment: Christy campbell Type: BLOOD SPECIMENOrdering Facility: [facility] Address: [address] [place] [address] Result Comment: The [place] Diabetes [employer] (ADA) provides guidance for cutoff [...] Standards of Medical Care in Diabetes 2016, [place] [employer]. Diabetes Care. 2016.39(Suppl 1). Performed By: #### 2 4323-8, 00292-4, 9, 6-3 ####[facility] LABCLIA [id number] [address] [address] [place] Potassium [Moles/Vol] 4.8 mmol/L Normal 3.7-5.1 [facility] Comment on above: Order Comment: Speci men Type: BLOOD SPECIMENOrdering Facility: [facility] Address: [address] [place] [address] Performed By: #### 2 4323-8, 65693-4, 2131-12, 3015-3 ####[facility] LABCLIA [id number] [address] [address] [place] Protein [Mass/Vol] 6.7 g/dL Normal 6.3-8.0 [facility] Comment on above: Order Comment: Speci men Type: BLOOD SPECIMENOrdering Facility: [facility] Address: [address] [place] [address] Performed By: #### 2 4323-8, 73699-3, 2131-12, 3015-3 ####[facility] LABCLIA [id number] [place] [address] [place] Sodium [Moles/Vol] 138 mmol/L Normal 136-144 [facility] Comment on above: Order Comment: Speci men Type: BLOOD SPECIMENOrdering Facility: [facility] Address: [address] [place] [address] Performed By: #### 2 4323-8, 68537-0, 2131-12, 3015-3 ####[facility] LABCLIA [id number] [address] [address] [place] Urea nitrogen [Mass/Vol] 15 mg/dL Normal 7-21 [facility] Comment on above: Order Comment: Speci men Type: BLOOD SPECIMENOrdering Facility: [facility] Address: [address] [place], [place] [address] Performed By: #### 2 4323-8, 85053-2, 2131-12, 3015-3 ####[facility] LABCLIA [id number] [address] [address] [place] Lipid 1996 panelon 4 Cholesterol [Mass/Vol] 176 mg/dL Normal <200 [facility] Comment on above: Order Comment: Speci men Type: BLOOD SPECIMENOrdering Facility: [facility] Address: [address] [place] [address] Result Comment: <200 mg/dL, Desirable 200-239 mg/dL, Borderline high >239 mg/dL, High Performed By: #### 2 4323-8, 86566-9, 2131-12, 3015-3 ####[facility] LABCLIA [id number] [place] [address] [place] Cholesterol in HDL [Mass/Vol] 56 mg/dL Normal >39 [facility] Comment on above: Order Comment: Speci men Type: BLOOD SPECIMENOrdering Facility: [facility] Address: [address] [place] [address] Result Comment: 40-5 9 mg/dL, Acceptable >59 mg/dL, High: Negative risk factor for coronary heart disease <40 mg/dL, Low: Positive risk factor for coronary heart disease Performed By: #### 2 4323-8, 41428-3, 2131-12, 6-3 ####[facility] LABCLIA [id number] [place] [id number] [place] Cholesterol in LDL [Mass/Vol] 94 mg/dL Normal <100 [facility] Comment on above: Order Comment: Speci men Type: BLOOD SPECIMENOrdering Facility: [facility] Address: [address] [place] [address] Result Comment: <100 mg/dL, Optimal 100-129 mg/dL, Near optimal/above optimal 130-159 mg/dL, Borderline high 160-189 mg/dL, High >189 mg/dL, Very high Secondary prevention optimal LDL Cholesterol levels are recommended to be < 70 mg/dL Performed By: #### 2 4323-8, 59827-5, 2131-12, 3015-3 ####[facility] LABCLIA [id number] [place] [address] [place] Cholesterol in LDL/Cholesterol in HDL [Mass ratio] 1.68 {ratio} Normal <2.54 [facility] Comment on above: Order Comment: Speci men Type: BLOOD SPECIMENOrdering Facility: [facility] Address: [address] [place] [address] Result Comment: Yazan keller: 1. National Cholesterol Education Program ATP III Guideline At-A-Glance Quick Desk Reference: National Heart, Lung, and Blood [place]. National Institutes of Health. 2001: NIH Publication No. 01-3305. 2. An International Atherosclerosis Society position paper: global recommendations for the management of dyslipidemia: executive summary, Atherosclerosis. 2014: 232(2):410-413. Performed By: #### 2 4323-8, 62814-2, 2131-9, 3016-3 ####[facility] LABCLIA [id number] [place] [address] [place] Cholesterol in VLDL [Mass/Vol] 26 mg/dL Normal <30 [facility] Comment on above: Order Comment: Speci men Type: BLOOD SPECIMENOrdering Facility: [facility] Address: [address] [place] [address] Performed By: #### 2 4323-8, 52116-8, 2131-9, 3016-3 ####[facility] LABCLIA [id number] [place] [address] [place] Cholesterol non HDL [Mass/Vol] 120 mg/dL Normal <130 [facility] Comment on above: Order Comment: Speci men Type: BLOOD SPECIMENOrdering Facility: [facility] Address: [address] [place] [address] Result Comment: <130 mg/dL, Optimal 130-159 mg/dL, Near optimal/above optimal 160-189 mg/dL, Borderline high 190-219 mg/dL, High >219 mg/dL, Very high Secondary prevention optimal non HDL Cholesterol levels are recommended to be <100 mg/dL Performed By: #### 2 4323-8, 00361-1, 2131-12, 3 ####[facility] LABCLIA [id number] [place] [address] [place] Cholesterol.total/Chol esterol in HDL [Mass ratio] 3.14 {ratio} Normal <5.10 [facility] Comment on above: Order Comment: Speci men Type: BLOOD SPECIMENOrdering Facility: [facility] Address: [address] [place] [address] Performed By: #### 2 4323-8, 01733-3, 2131-12, 3 ####[facility] LABIA [id number] [place] [address] [place] FASTING TIME 7 hrs Normal [facility] Comment on above: Order Comment: Speci men Type: BLOOD SPECIMENOrdering Facility: [facility] Address: [address] [place] [address] Result Comment: Per patient Dr. Sheridan said to do it even thoe she had something to eat. Performed By: #### 2 4323-8, 90168-6, 2131-12, 3 ####[facility] LABIA [id number] [place] [address] [place] Triglyceride [Mass/Vol] 129 mg/dL Normal <150 [facility] Comment on above: Order Comment: Speci men Type: BLOOD SPECIMENOrdering Facility: [facility] Address: [address] [place] [address] Result Comment: <150 mg/dL, Normal 150-199 mg/dL, Borderline high 200-499 mg/dL, High >499 mg/dL, Very high Performed By: #### 2 4323-8, 87879-5, 2131-12, 3 ####[facility] LABCLIA [id number] [place] [id number] [place] TSH SerPl-aCncon 01-01-2024 TSH Qn 1.390 m[IU]/L Normal 0.270-4.200 [facility] Comment on above: Order Comment: Specmark campbell Type: BLOOD SPECIMENOrdering Facility: [facility] Address: [address] [place] [address] Performed By: #### 2 4323-8, 40194-7, 2131-9, 6-3 ####[facility] LABCLIA [id number] [address] [place] Vit B12 [facility] Cobalamin (Vitamin B12) [Mass/Vol] 943 pg/mL Normal 232-1245 [facility] Comment on above: Order Comment: Christy shannan Type: BLOOD SPECIMENOrdering Facility: [facility] Address: [address] [place], [place] [address] [address] Performed By: #### 2 4323-8, 72782-2, 9, 6-3 ####[facility] LABCLIA [id number] [address] [place] CNPNon 11-30-2023 CNPN Telephone (INTMWS) CLEVE WAGGONER ([id number]) 1950 F Date Time Provider Department 11/30/23 STEFANY SHERIDAN INTMWS During your visit today, we recorded the following information about you: Kaylee Conrad LPN 11/30/2023 2:13 PM Signed Patient calling, states that lab work was to be placed at her OV on 11/28. Asking for these to be placed. Aware that provider is not in until Sunday. Vicky Almendarez APRN.FORECLOSURE HOME INSPECTOR 12/03/2023 7:46 AM Signed She had labs [...] [R53.83] Order(s):COMPREHENSIVE METABOLIC PANEL [SQCMP] Order #: [id number] FUTURE COMPLETE BLOOD COUNT AND DIFFERENTIAL [SQCBCDIF] Order #: [id number] FUTURE THYROID STIMULATING HORMONE [SQTSH] Order #: [id number] FUTURE LIPID PANEL BASIC [SQLIPB] Order #: [id number] FUTURE VITAMIN D 25 HYDROXY [SQVITD] Order #: [id number] FUTURE VITAMIN B12 [SQB12] Order #: [id number] FUTURE Prescriptions as of 12/03/2023 - ciprofloxacin [...] Primary insomni (more content not included)... Normal [facility] CNOVon 11-29-2023 CNOV Office Visit (INTMWS ) CLEVE WAGGONER ([id number]) 1950 F Date Time Provider Department 11/29/23 1:00 PM VICKY ALMENDAREZ INTMWS During your visit today, we recorded the following information about you: Temperature Pulse Respiration Blood pressure 96 degrees 78/minute 16/minute 152/66 Weight 53.8 kg Vicky Almendarez APRN.FORECLOSURE HOME INSPECTOR 11/29/2023 1:52 PM Signed SUBJECTIVE: Lung Cancer [...] Sinus: Frontal sinus tenderness present. Mouth/Throat: Lips: [place]. Mouth: Mucous membranes are moist. Pharynx: Oropharynx [...] cause unspe (more content not included)... Normal [facility] Gram stain for investigation of transfusion reactionOrdered By: Ramos Hernandez on 04-18-2023 Microscopic observation Gram stain Nom (Unsp spec) [facility] No Panel InformationOrdered By: Ramos Hernandez on 04-18-2023 Nasopharyngeal Culture No growth in 48 hours. [facility] Culture, urineOrdered By: Yasmin Boggs on 11-28-2022 Bacteria identified Cx Nom (U) Culture exhibits no growth. [facility] UA DIP, URINE (POC)on 2022 BILIRUBIN UA (POCT) Negative Negative [facility] CLARITY UA (POCT) Clear [facility] COLOR UA (POCT) Yellow [facility] GLUCOSE UA (POCT) Negative Negative mg/dL [facility] HEMOGLOBIN/BLOOD UA (POCT) Small Abnormal Negative [facility] KETONE UA (POCT) Negative Negative mg/dL [facility] LEUKOCYTES UA (POCT) Negative Negative [facility] NITRITE UA (POCT) Negative Negative [facility] PH UA (POCT) 5.5 4.5 - 8.0 [facility] Protein Ql (U) Negative Negative mg/dL [facility] SPECIFIC GRAVITY UA (POCT) 1.015 1.005 - 1.030 [facility] UROBILINOGEN UA (POCT) 0.2 E.U./dL Annita l E.U./dL [facility] MRI BRAIN W/ + W/O CONTRASTo n [...] PM Sign Date: 06/07/2018 12:44:09 PM Normal [facility] ([place]) Vital Signs Date Time Vital Sign Value Performing Clinician [facility] 10-09-2024 13:50-0400 Diastolic blood pressure 72 mm[Hg] Vicky Almendarez ELECTRICIAN TELEPHONE.FORECLOSURE HOME INSPECTOR Work Phone: [facility] 10-09-2024 13:50-0400 Heart rate 106 /min Vicky Almendarez ELECTRICIAN TELEPHONE.FORECLOSURE HOME INSPECTOR Work Phone: [facility] 10-09-2024 13:50-0400 Systolic blood pressure 159 mm[Hg] Vicky Almendarez ELECTRICIAN TELEPHONE.FORECLOSURE HOME INSPECTOR Work Phone: [facility] 10-09-2024 13:48-0400 Body mass index (BMI) [Ratio] 23.96 kg/m2 Vicky Almendarez ELECTRICIAN TELEPHONE.FORECLOSURE HOME INSPECTOR Work Phone: [facility] 10-09-2024 13:48-0400 Body temperature 97.81 [degF] Vicky Almendarez ELECTRICIAN TELEPHONE.FORECLOSURE HOME INSPECTOR Work Phone: [facility] 10-09-2024 13:48-0400 Body weight 52 kg Vicky Almendarez ELECTRICIAN TELEPHONE.FORECLOSURE HOME INSPECTOR Work Phone: [facility] 10-09-2024 13:48-0400 Respiratory rate 16 /min Vicky Almendarez ELECTRICIAN TELEPHONE.FORECLOSURE HOME INSPECTOR Work Phone: [facility] 06-09-2024 12:15-0500 Diastolic blood pressure 77 mm[Hg] Vicky Almendarez ELECTRICIAN TELEPHONE.FORECLOSURE HOME INSPECTOR Work Phone: [facility] 06-09-2024 12:15-0500 Heart rate 79 /min Vicky Almendarez ELECTRICIAN TELEPHONE.FORECLOSURE HOME INSPECTOR Work Phone: [facility] 06-09-2024 12:15-0500 Systolic blood pressure 155 mm[Hg] Vicky Almendarez ELECTRICIAN TELEPHONE.FORECLOSURE HOME INSPECTOR Work Phone: [facility] 06-09-2024 12:14-0500 Body mass index (BMI) [Ratio] 24.42 kg/m2 Vicky Almendarez ELECTRICIAN TELEPHONE.FORECLOSURE HOME INSPECTOR Work Phone: [facility] 06-09-2024 12:14-0500 Body weight 53 kg Vicky Almendarez ELECTRICIAN TELEPHONE.FORECLOSURE HOME INSPECTOR Work Phone: [facility] 06-09-2024 12:14-0500 Respiratory rate 16 /min [facility] ELECTRICIAN TELEPHONE.FORECLOSURE HOME INSPECTOR Work Phone: [facility] 04-14-2024 16:17-0500 Body mass index (BMI) [Ratio] 24.04 kg/m2 Stefany Sheridan MD Work Phone: [facility] 04-14-2024 16:17-0500 Body temperature 96.1 [degF] Stefany Sheridan MD Work Phone: [facility] 04-14-2024 16:17-0500 Body weight 52.16 kg Stefany Sheridan MD Work Phone: [facility] 04-14-2024 16:17-0500 Diastolic blood pressure 68 mm[Hg] Stefany Sheridan MD Work Phone: [facility] 04-14-2024 16:17-0500 Heart rate 91 /min Stefany Sheridan MD Work Phone: [facility] 04-14-2024 16:17-0500 Respiratory rate 16 /min Stefany Sheridan MD Work Phone: [facility] 04-14-2024 16:17-0500 SaO2% (BldA) [Mass fraction] 96 % Stefany Sheridan MD Work Phone: [facility] 04-14-2024 16:17-0500 Systolic blood pressure 118 mm[Hg] Stefany Sheridan MD Work Phone: [facility] 04-04-2024 13:22-0500 Body mass index (BMI) [Ratio] 24.04 kg/m2 Arianna Sukhdev ELECTRICIAN TELEPHONE.PATIENT CARE TECHNICIAN INSTRUCTOR Work Phone: [facility] 04-04-2024 13:22-0500 Body weight 52.16 kg Arianna Sukhdev ELECTRICIAN TELEPHONE.PATIENT CARE TECHNICIAN INSTRUCTOR Work Phone: [facility] 04-04-2024 13:22-0500 Diastolic blood pressure 75 mm[Hg] Arianna Sukhdev ELECTRICIAN TELEPHONE.PATIENT CARE TECHNICIAN INSTRUCTOR Work Phone: [facility] 04-04-2024 13:22-0500 Heart rate 82 /min Arianna Sukhdev ELECTRICIAN TELEPHONE.PATIENT CARE TECHNICIAN INSTRUCTOR Work Phone: [facility] 04-04-2024 13:22-0500 SaO2% (BldA) [Mass fraction] 98 % Arianna Sukhdev ELECTRICIAN TELEPHONE.PATIENT CARE TECHNICIAN INSTRUCTOR Work Phone: [facility] 04-04-2024 13:22-0500 Systolic blood pressure 155 mm[Hg] Arianna Sukhdev ELECTRICIAN TELEPHONE.PATIENT CARE TECHNICIAN INSTRUCTOR Work Phone: [facility] 02-04-2024 16:00-0400 Body mass index (BMI) [Ratio] 24.47 kg/m2 Stefany Sheridan MD Work Phone: [facility] 02-04-2024 16:00-0400 Body temperature 96.91 [degF] Stefany Sheridan MD Work Phone: [facility] 02-04-2024 16:00-0400 Body weight 53.1 kg Stefany Sheridan MD Work Phone: [facility] 02-04-2024 16:00-0400 Diastolic blood pressure 78 mm[Hg] Stefany Sheridan MD Work Phone: [facility] 02-04-2024 16:00-0400 Heart rate 90 /min Stefany Sheridan MD Work Phone: [facility] 02-04-2024 16:00-0400 Respiratory rate 16 /min Stefany Sheridan MD Work Phone: [facility] 02-04-2024 16:00-0400 SaO2% (BldA) [Mass fraction] 98 % Stefany Sheridan MD Work Phone: [facility] 02-04-2024 16:00-0400 Systolic blood pressure 142 mm[Hg] Stefany Sheridan MD Work Phone: [facility] 01-01-2024 13:36-0400 Body mass index (BMI) [Ratio] 24.05 kg/m2 Stefany Sheridan MD Work Phone: [facility] 01-01-2024 13:36-0400 Body temperature 96.6 [degF] Setfany Sheridan MD Work Phone: [facility] 01-01-2024 13:36-0400 Body weight 52.2 kg Stefany Sheridan MD Work Phone: [facility] 01-01-2024 13:36-0400 Diastolic blood pressure 72 mm[Hg] Stefany Sheridan MD Work Phone: [facility] 01-01-2024 13:36-0400 Heart rate 95 /min Stefany Sheridan MD Work Phone: [facility] 01-01-2024 13:36-0400 Respiratory rate 16 /min Stefany Sheridan MD Work Phone: [facility] 01-01-2024 13:36-0400 SaO2% (BldA) [Mass fraction] 97 % Stefany Sheridan MD Work Phone: [facility] 01-01-2024 13:36-0400 Systolic blood pressure 112 mm[Hg] Stefany Sheridan MD Work Phone: [facility] 11-29-2023 13:08-0400 Body temperature 96.01 [degF] Vicky Almendarez APRN.FORECLOSURE HOME INSPECTOR Work Phone: [facility] 11-29-2023 13:08-0400 Diastolic blood pressure 66 mm[Hg] Vicky Almendarez APRN.FORECLOSURE HOME INSPECTOR Work Phone: [facility] 11-29-2023 13:08-0400 Systolic blood pressure 152 mm[Hg] Vicky Almendarez ELECTRICIAN TELEPHONE.FORECLOSURE HOME INSPECTOR Work Phone: [facility] 11-29-2023 13:06-0400 Body mass index (BMI) [Ratio] 24.79 kg/m2 Vicky Almendarez ELECTRICIAN TELEPHONE.FORECLOSURE HOME INSPECTOR Work Phone: [facility] 11-29-2023 13:06-0400 Body weight 53.8 kg Vicky Almendarez ELECTRICIAN TELEPHONE.FORECLOSURE HOME INSPECTOR Work Phone: [facility] 11-29-2023 13:06-0400 Heart rate 78 /min Vicky Almendarez ELECTRICIAN TELEPHONE.FORECLOSURE HOME INSPECTOR Work Phone: [facility] 11-29-2023 13:06-0400 Respiratory rate 16 /min Vicky Almendarez ELECTRICIAN TELEPHONE.FORECLOSURE HOME INSPECTOR Work Phone: [facility] 09-08-2023 13:22-0400 Body mass index (BMI) [Ratio] 23.96 kg/m2 Elodia Schulz ELECTRICIAN TELEPHONE.PATIENT CARE TECHNICIAN INSTRUCTOR Work Phone: [facility] 09-08-2023 13:22-0400 Body temperature 97.39 [degF] Elodia Schulz ELECTRICIAN TELEPHONE.PATIENT CARE TECHNICIAN INSTRUCTOR Work Phone: [facility] 09-08-2023 13:22-0400 Body weight 52 kg Elodia Schulz ELECTRICIAN TELEPHONE.PATIENT CARE TECHNICIAN INSTRUCTOR Work Phone: [facility] 09-08-2023 13:22-0400 Diastolic blood pressure 80 mm[Hg] Elodia Schulz ELECTRICIAN TELEPHONE.PATIENT CARE TECHNICIAN INSTRUCTOR Work Phone: [facility] 09-08-2023 13:22-0400 Heart rate 102 /min Elodia Schulz ELECTRICIAN TELEPHONE.PATIENT CARE TECHNICIAN INSTRUCTOR Work Phone: [facility] 09-08-2023 13:22-0400 Respiratory rate 18 /min Elodia Schulz ELECTRICIAN TELEPHONE.PATIENT CARE TECHNICIAN INSTRUCTOR Work Phone: [facility] 09-08-2023 13:22-0400 SaO2% (BldA) [Mass fraction] 98 % Elodia Schulz ELECTRICIAN TELEPHONE.PATIENT CARE TECHNICIAN INSTRUCTOR Work Phone: [facility] 09-08-2023 13:22-0400 Systolic blood pressure 128 mm[Hg] Elodia Schulz ELECTRICIAN TELEPHONE.PATIENT CARE TECHNICIAN INSTRUCTOR Work Phone: [facility] 08-03-2023 13:02-0400 Body weight 51.26 kg Vicky Almendarez ELECTRICIAN TELEPHONE.FORECLOSURE HOME INSPECTOR Work Phone: [facility] 08-03-2023 13:02-0400 Diastolic blood pressure 67 mm[Hg] Vicky Almendarez ELECTRICIAN TELEPHONE.FORECLOSURE HOME INSPECTOR Work Phone: [facility] 08-03-2023 13:02-0400 Heart rate 101 /min Vicky Almendarez ELECTRICIAN TELEPHONE.FORECLOSURE HOME INSPECTOR Work Phone: [facility] 08-03-2023 13:02-0400 Respiratory rate 16 /min Vicky Almendarez ELECTRICIAN TELEPHONE.FORECLOSURE HOME INSPECTOR Work Phone: [facility] 08-03-2023 13:02-0400 Systolic blood pressure 135 mm[Hg] Vicky Almendarez ELECTRICIAN TELEPHONE.FORECLOSURE HOME INSPECTOR Work Phone: [facility] 07-16-2023 12:06-0400 Diastolic blood pressure 74 mm[Hg] Vicky Almendarez ELECTRICIAN TELEPHONE.FORECLOSURE HOME INSPECTOR Work Phone: [facility] 07-16-2023 12:06-0400 Heart rate 89 /min Vicky Almendarez ELECTRICIAN TELEPHONE.FORECLOSURE HOME INSPECTOR Work Phone: [facility] 07-16-2023 12:06-0400 Systolic blood pressure 161 mm[Hg] Vicky Almendarez ELECTRICIAN TELEPHONE.FORECLOSURE HOME INSPECTOR Work Phone: [facility] 07-16-2023 11:57-0400 Body temperature 98.91 [degF] Vicky Almendarez ELECTRICIAN TELEPHONE.FORECLOSURE HOME INSPECTOR Work Phone: [facility] 07-16-2023 11:57-0400 Body weight 52.16 kg Vicky Almendarez ELECTRICIAN TELEPHONE.FORECLOSURE HOME INSPECTOR Work Phone: [facility] 07-16-2023 11:57-0400 Respiratory rate 16 /min Vicky Almendarez ELECTRICIAN TELEPHONE.FORECLOSURE HOME INSPECTOR Work Phone: [facility] 07-16-2023 11:57-0400 SaO2% (BldA) [Mass fraction] 95 % Vicky Almendarez ELECTRICIAN TELEPHONE.FORECLOSURE HOME INSPECTOR Work Phone: [facility] 02-02-2023 14:50-0400 Diastolic blood pressure 80 mm[Hg] Stefany Sheridan MD Work Phone: [facility] 02-02-2023 14:50-0400 Systolic blood pressure 156 mm[Hg] Stefany Sheridan MD Work Phone: [facility] 02-02-2023 13:45-0400 Body temperature 97 [degF] Stefany Sheridan MD Work Phone: [facility] 02-02-2023 13:45-0400 Body weight 52.16 kg Stefany Sheridan MD Work Phone: [facility] 02-02-2023 13:45-0400 Heart rate 80 /min Stefany Sheridan MD Work Phone: [facility] 02-02-2023 13:45-0400 Respiratory rate 20 /min Stefany Sheridan MD Work Phone: [facility] 08-01-2022 11:57-0400 Body weight 51.71 kg Vicky Almendarez ELECTRICIAN TELEPHONE.FORECLOSURE HOME INSPECTOR Work Phone: [facility] 08-01-2022 11:57-0400 Diastolic blood pressure 72 mm[Hg] Vicky Almendarez ELECTRICIAN TELEPHONE.FORECLOSURE HOME INSPECTOR Work Phone: [facility] 08-01-2022 11:57-0400 Heart rate 88 /min Vicky Almendarez ELECTRICIAN TELEPHONE.FORECLOSURE HOME INSPECTOR Work Phone: [facility] 08-01-2022 11:57-0400 Respiratory rate 16 /min Vicky Almendarez ELECTRICIAN TELEPHONE.FORECLOSURE HOME INSPECTOR Work Phone: [facility] 08-01-2022 11:57-0400 Systolic blood pressure 138 mm[Hg] Vicky Almendarez ELECTRICIAN TELEPHONE.FORECLOSURE HOME INSPECTOR Work Phone: [facility] 05-11-2022 14:14-0500 Diastolic blood pressure 71 mm[Hg] Vicky Almendarez ELECTRICIAN TELEPHONE.FORECLOSURE HOME INSPECTOR Work Phone: [facility] 05-11-2022 14:14-0500 Systolic blood pressure 132 mm[Hg] Vicky Almendarez ELECTRICIAN TELEPHONE.FORECLOSURE HOME INSPECTOR Work Phone: [facility] 05-11-2022 14:09-0500 Body weight 51.71 kg Vicky Almendarez ELECTRICIAN TELEPHONE.FORECLOSURE HOME INSPECTOR Work Phone: [facility] 05-11-2022 14:09-0500 Heart rate 91 /min Vicky Almendarez ELECTRICIAN TELEPHONE.FORECLOSURE HOME INSPECTOR Work Phone: [facility] 05-11-2022 14:09-0500 Respiratory rate 16 /min Vicky Almendarez ELECTRICIAN TELEPHONE.FORECLOSURE HOME INSPECTOR Work Phone: [facility] 05-11-2022 14:09-0500 SaO2% (BldA) [Mass fraction] 97 % Vicky Almendarez ELECTRICIAN TELEPHONE.FORECLOSURE HOME INSPECTOR Work Phone: [facility] 01-31-2022 16:05-0400 Body weight 49.9 kg Stefany Sheridan MD Work Phone: [facility] 01-31-2022 16:05-0400 Diastolic blood pressure 82 mm[Hg] Stefany Sheridan MD Work Phone: [facility] 01-31-2022 16:05-0400 Heart rate 90 /min Stefany Sheridan MD Work Phone: [facility] 01-31-2022 16:05-0400 SaO2% (BldA) [Mass fraction] 96 % Stefany Sheridan MD Work Phone: [facility] 01-31-2022 16:05-0400 Systolic blood pressure 128 mm[Hg] Stefany Sheridan MD Work Phone: [facility] 09-26-2021 11:07-0400 Diastolic blood pressure 82 mm[Hg] Vicky Almendarez ELECTRICIAN TELEPHONE.FORECLOSURE HOME INSPECTOR Work Phone: [facility] 09-26-2021 11:07-0400 Systolic blood pressure 144 mm[Hg] Vicky Almendarez ELECTRICIAN TELEPHONE.FORECLOSURE HOME INSPECTOR Work Phone: [facility] 09-26-2021 11:03-0400 Body temperature 96.49 [degF] Vicky Almendarez ELECTRICIAN TELEPHONE.FORECLOSURE HOME INSPECTOR Work Phone: [facility] 09-26-2021 11:03-0400 Body weight 50.35 kg Vicky Almendarez ELECTRICIAN TELEPHONE.FORECLOSURE HOME INSPECTOR Work Phone: [facility] 09-26-2021 11:03-0400 Heart rate 82 /min Vicky Almendarez ELECTRICIAN TELEPHONE.FORECLOSURE HOME INSPECTOR Work Phone: [facility] 09-26-2021 11:03-0400 Respiratory rate 16 /min Vicky Almendarez ELECTRICIAN TELEPHONE.FORECLOSURE HOME INSPECTOR Work Phone: [facility] 09-26-2021 11:03-0400 SaO2% (BldA) [Mass fraction] 99 % Vicky Ramírezs ELECTRICIAN TELEPHONE.FORECLOSURE HOME INSPECTOR Work Phone: [facility] Encounters Encounter Date Encounter Type Care Provider Facility Start: 10-09-2024 End: 10-09-2024 Office outpatient visit 25 minutes Vicky Almendarez ELECTRICIAN TELEPHONE.FORECLOSURE HOME INSPECTOR Work Phone: [facility] [place] Comment on above: UTI symptoms (Primar y Dx); Anxiety and depression Start: 10-09-2024 End: 10-09-2024 ambulatory [facility] Facility:[facility] Start: 09-26-2024 End: 09-26-[address] Stefany Sheridan MD Work Phone: [facility] Work Phone: Start: 09-26-2024 End: 09-26-[address] Ramos Hernandez MD -Laboratory Specimen Work Phone: Start: 09-26-2024 End: 09-26-2024 ambulatory Stefany Sheridan Facility:[facility] Start: 08-28-2024 End: [facility] Start: 08-28-2024 End: 08-28-2024 Patient encounter procedure Kassy Lilly MA [facility] Comment on above: Population Health Na vigation Outreach (Fabi/Workbench/ACO ) Start: 08-15-2024 End: 08-15-2024 ambulatory [facility] Facility:[facility] Start: 07-07-2024 End: 07-08-2024 Refill Stefany Sheridan MD Work Phone: [facility] [place] Comment on above: Refill Request Start: 06-27-2024 End: 06-27-2024 Refill Stefany Sheridan MD Work Phone: [facility] [place] Comment on above: Refill Request Start: 06-09-2024 End: 06-09-2024 ambulatory [facility] Facility:[facility] Start: 06-09-2024 End: 06-09-2024 Office outpatient visit 25 minutes Vicky Almendarez APRN.FORECLOSURE HOME INSPECTOR Work Phone: [facility] [place] Comment on above: Acute recurrent fron alec sinusitis (Primary Dx); Anxiety and depression Start: 05-16-2024 End: 05-16-2024 ambulatory CHRISTOPHE RAMOS Facility:[facility] Start: 04-14-2024 End: 04-14-2024 ambulatory STEFANY SHERIDAN Facility:[facility] Start: 04-14-2024 End: 04-14-2024 Office outpatient visit 25 minutes Stefany Sheridan MD Work Phone: [facility] [place] Comment on above: UTI symptoms (Primar y Dx); B12 deficiency; Frequent urination; Burning with urination; Hematuria, microscopic; Drug intolerance Start: 04-07-2024 End: 07-21-2024 Telephone encounter Arianna Perez APRN.PATIENT CARE TECHNICIAN INSTRUCTOR Work Phone: General Surgery Start: 04-04-2024 End: 04-04-2024 ambulatory ARIANNA PEREZ Facility:[facility] Start: 04-04-2024 End: 04-04-2024 Patient encounter procedure Arianna Perez APRN.PATIENT CARE TECHNICIAN INSTRUCTOR Work Phone: General Surgery Comment on above: Screen for colon can cer (Primary Dx); History of colonic polyps Start: 03-07-2024 End: 03-07-2024 Refill Stefany Sheridan MD Work Phone: [facility] [place] Comment on above: Refill Request Start: 02-04-2024 End: 02-04-2024 ambulatory STEFANY SHERIDAN Facility:[facility] Start: 02-04-2024 End: 02-04-2024 Patient encounter procedure Stefany Sheridan MD Work Phone: [facility] [place] Comment on above: Medicare annual critical access hospital ness visit, subsequent (Primary Dx); Obstructive chronic bronchitis without exacerbation (HCC); Thrush; Antibiotic-induced yeast infection; Encounter for screening mammogram for breast cancer; Encounter for immunization Start: 01-01-2024 End: 01-01-2024 [facility] Facility:[facility] Start: 01-01-2024 End: 01-01-2024 ambulatory STEFANY SHERIDAN Facility:[facility] Start: 01-01-2024 End: 01-01-2024 Office outpatient visit [...] Office outpatient visit 15 minutes Vicky Almendarez ELECTRICIAN TELEPHONE.FORECLOSURE HOME INSPECTOR Work Phone: [facility] [place] Comment on above: Acute recurrent fron alec sinusitis (Primary Dx) Start: 11-29-2023 End: 11-29-2023 [facility] Facility:[facility] Start: 11-21-2023 Refill Stefany rubin MD Work Phone: [facility] [place] Comment on above: Refill Request Start: 11-19-2023 ambulatory Cinthia Ramachandran RN [facility] Comment on above: Community Monitoring Outreach Start: 10-08-2023 ambulatory Cinthia Ramachandran RN [facility] Comment on above: Community Monitoring Outreach Start: 09-08-2023 End: 09-08-2023 Patient encounter procedure Elodia Schulz ELECTRICIAN TELEPHONE.PATIENT CARE TECHNICIAN INSTRUCTOR Work Phone: [place] [facility] Comment on above: Rhinosinusitis (Prim remi Dx) Start: 08-17-2023 ambulatory Cinthia Ramachandran RN Am bulatory Care Management Comment on above: Community Monitoring Outreach Start: 08-03-2023 End: 08-03-2023 Office outpatient visit 25 minutes Vicky Almendarez APRN.FORECLOSURE HOME INSPECTOR Work Phone: [facility] [place] Comment on above: Essential hypertensi on (Primary [...] 08-02-2023 Documentation procedure Mammog hector Coordinator [facility] Start: 08-02-2023 Letter encounter Mammography Coordinator [facility] Department Start: 08-01-2023 End: 08-01-2023 Subsequent hospital visit by physician Screen Mammo [facility] Comment on above: Encounter for screen ing mammogram for malignant neoplasm of breast [Z12.31] Start: 07-16-2023 ambulatory Cinthia Ramachandran RN [facility] Care Management Comment on above: Community Monitoring Outreach Start: 07-16-2023 Refill Vicky HUFFFORECLOSURE HOME INSPECTOR Work Phone: [facility] [place] Comment on above: Med Change Request Start: 07-16-2023 End: 07-16-2023 Office outpatient visit 25 minutes Vicky Almendarez APRN.FORECLOSURE HOME INSPECTOR Work Phone: [facility] [place] Comment on above: Acute non-recurrent maxillary sinusitis (Primary Dx); Pure hypercholesterolemia; Essential hypertension; Other acute recurrent sinusitis; Tobacco use disorder; B12 deficiency; Vitamin D deficiency; Fatigue, unspecified type; History of Parkinson's disease; Antibiotic-induced yeast infection; Acute recurrent frontal sinusitis; Chronic sinusitis, unspecified location; UTI symptoms Start: 07-02-2023 Refill Stefany rubin MD Work Phone: [facility] [place] Comment on above: Refill Request Start: 06-12-2023 Refill Stefany rubin MD Work Phone: [facility] [place] Comment on above: Refill Request Start: 05-30-2023 ambulatory Cinthia Ramachandran RN [facility] Management Comment on above: Community Monitoring Outreach Start: 04-18-2023 End: 04-18-2023 [facility] Work Phone: Start: 04-18-2023 End: 04-18-2023 Patient encounter procedure [facility]-Laboratory, Specimen Work Phone: Start: 02-02-2023 End: 02-02-2023 Office outpatient visit 25 minutes Stefany Sheridan MD Work Phone: [facility] [place] Comment on above: Essential hypertensi on (Primary Dx); Acute non-recurrent maxillary sinusitis; Torticollis; Balance problems; Parkinson's disease, unspecified whether dyskinesia present, unspecified whether manifestations fluctuate; Antibiotic-induced yeast infection; B12 deficiency Start: 01-01-2023 Refill Stefany rubin MD Work Phone: [facility] [place] Comment on above: Refill Request Start: 12-06-2022 Refill Stefany rubin MD Work Phone: [facility] [place] Comment on above: Refill Request Refill Request (medi cation sent to the wrong pharmacy) Start: 12-05-2022 ambulatory Cinthia Ramachandran RN [facility] Care Management Start: 11-30-2022 ambulatory Cinthia Ramachandran RN Am bul[facility] Management Comment on above: Community Monitoring Outreach Start: 11-28-2022 End: 11-28-2022 [facility] Work Phone: Start: 11-28-2022 End: 11-28-2022 [facility] [facility] Work Phone: Start: 08-30-2022 ambulatory Terra Catalan MA [facility] [place] Comment on above: Opened In Error Start: 08-01-2022 End: 08-01-2022 Office outpatient visit 15 minutes Vicky Ramírezs ELECTRICIAN TELEPHONE.FORECLOSURE HOME INSPECTOR Work Phone: Internal Medicine [place] Comment on above: Acute cystitis with hematuria (Primary Dx); Encounter for screening for lung cancer; Encounter for immunization; UTI symptoms; Abdominal aortic aneurysm (AAA) without rupture, unspecified part (HCC); Sleep difficulties; Obstructive chronic bronchitis without exacerbation (HCC); Essential hypertension; Primary insomnia; Anxiety and depression Start: 07-05-2022 Documentation procedure Mammog hector Coordinator [facility] Start: 07-05-2022 Letter encounter Mammography Coordinator [facility] Department Start: 06-19-2022 Refill Stefany rubin MD Work Phone: Internal [facility] Comment on above: Refill Request Start: 06-07-2022 ambulatory Terra Catalan MA [facility] [place] Comment on above: Population [facility] [place] ([facility]) Refill Request Start: 05-11-2022 End: 05-11-2022 Office outpatient visit 15 minutes Vicky Almendarez ELECTRICIAN TELEPHONE.FORECLOSURE HOME INSPECTOR Work Phone: Internal [facility] Comment on above: Recurrent sinusitis (Primary Dx); Thrush Start: 05-01-2022 Refill Stefany rubin MD Work Phone: Family [facility] [place] Comment on above: Refill Request Start: 03-30-2022 ambulatory Stefany rubin MD Work Phone: Internal Medicine [facility] Start: 01-31-2022 End: 01-31-2022 Office outpatient visit 25 minutes Stefany Sheridan MD Work Phone: Internal Medicine [place] Comment on above: Acute non-recurrent maxillary sinusitis (Primary Dx); Anxiety and depression; Essential hypertension; Vaginitis and vulvovaginitis; Vitamin D deficiency; B12 deficiency; Fatigue, unspecified type; Encounter for long-term current use of medication Start: 12-13-2021 End: 12-13-2021 ambulatory [facility] Work Phone: Start: 12-13-2021 End: 12-13-2021 [facility] Start: 12-08-2021 Refill Stefany rubin MD Work Phone: Internal Medicine [place] Comment on above: Refill Request Start: 11-04-2021 Refill Vicky Thomason PRNAyshaFORECLOSURE HOME INSPECTOR Work Phone: Internal [facility] Comment on above: Refill Request Start: 10-19-2021 ambulatory Duarte Arroyo RN [facility] Comment on above: Community Monitoring Outreach (Chronic Obstructive Bronchitis / CDM Outreach) Start: 10-05-2021 ambulatory Raine Min RN Work Phone: [employer] [facility] Comment on above: Community Monitoring Outreach ([facility] CDM enrollment) Start: 09-26-2021 End: 09-26-2021 Patient encounter procedure Vicky Almendarez ELECTRICIAN TELEPHONE.FORECLOSURE HOME INSPECTOR Work Phone: [facility] Comment on above: Acute non-recurrent maxillary sinusitis Start: 08-15-2021 End: 08-15-2021 [facility] Start: 06-07-2018 End: 06-08-2018 Patient encounter procedure DHARMESH Purcell JR[facility] Facility[facility]B Procedures Date Procedure Procedure Detail Performing Clinician Start: 10-09-2024 Urnls dip stick/tabl et rgnt auto w/o microscopy Vicky Almendarez ELECTRICIAN TELEPHONE.FORECLOSURE HOME INSPECTOR Work Phone: Start: 09-26-2024 Gram stain microscopy Dao Sheridan MD Work Phone: Start: 09-26-2024 End: 09-26-[address] Stefany Sheridan MD Work Phone: Start: 05-16-2024 Colonoscopy Vicky forbes ELECTRICIAN TELEPHONE.FORECLOSURE HOME INSPECTOR Work Phone: Start: 04-14-2024 Urnls dip stick/tabl [...] et rgnt auto w/o microscopy Vicky Almendarez ELECTRICIAN TELEPHONE.FORECLOSURE HOME INSPECTOR Work Phone: Start: 07-05-2022 Lipid 1996 panel - S emma or Plasma Stefany Sheridan MD Work Phone: Start: 07-05-2022 Mammography Mammograph y Coordinator Start: 06-06-2021 Adult depression scr eening assessment Vicky Almendarez ELECTRICIAN TELEPHONE.FORECLOSURE HOME INSPECTOR Work Phone: Start: 02-14-2021 Mammography Vicky forbes ELECTRICIAN TELEPHONE.FORECLOSURE HOME INSPECTOR Work Phone: Start: 10-21-2018 Colonoscopy Vicky Broo andrei ELECTRICIAN TELEPHONE.FORECLOSURE HOME INSPECTOR Work Phone: Plan of Treatment Date Care Activity Detail Author Start: 05-16-2029 Screening for malignant neoplasm of colon [facility] Start: 12-31-2028 Lipid panel Lipid Screening [facility] Start: 07-22-2028 Lipid panel Lipid Screening [facility] Start: 07-06-2027 Lipid 1996 panel - Serum or Plasma Lipid Screening [facility] Start: 07-06-2027 Lipid panel Lipid Screening [facility] Start: 07-06-2027 LIPID SCREEN LIPID SCREEN [facility] Start: 12-31-2026 Diabetes Screening Diabetes Screening [facility] Start: 07-22-2026 Diabetes Screening Diabetes Screening [facility] Start: 2025 RSV Vaccine (1 - 1-dose 75+ series) RSV Vaccine (1 - 1-dose 75+ series) [facility] Start: 11-29-2025 LIPID SCREEN LIPID SCREEN [facility] Start: 07-05-2025 DIABETES SCREEN DIABETES SCREEN [facility] Start: 07-05-2025 Diabetes Screening Diabetes Screening [facility] Start: 04-14-2025 Annual PCP Team Chronic Disease Visit Annual PCP Team Chronic Disease Visit [facility] Start: 04-14-2025 BP Controlled (<130/80) BP Controlled (<130/80) [facility] Start: 02-03-2025 Annual PCP Team Chronic Disease Visit Annual PCP Team Chronic Disease Visit [facility] Start: 02-03-2025 Medicare Annual Wellness Visit Medicare Annual Wellness Visit [facility] Start: 12-31-2024 Annual PCP Team Chronic Disease Visit Annual PCP Team Chronic Disease Visit [facility] Start: 12-31-2024 BP Controlled (<130/80) BP Controlled (<130/80) [facility] Start: 12-31-2024 Covid-19 Vaccine () Covid-19 Vaccine () [facility] Comment on above: Postponed from 12/23/2023 (Not Currently Available) Start: 12-10-2024 End: 12-10-2024 Patient encounter procedure 12/10/2024 4:00 PM EDT Office Visit [facility] [address] [place] [address] Stefany Sheridan MD [address] [place] [address] Medicare Wellness [facility] Comment on above: Medicare Wellness Start: 10-20-2024 Influenza vaccination Influ[facility] (#[facility] Comment on above: Postponed from 12/23/2023 (Declined at t his time) Start: 08-02-2024 BP Controlled (<130/80) BP Controlled (<130/80) [facility] Start: 08-02-2024 Depression Screening Depression Screening [facility] Start: 07-31-2024 Screening for malignant neoplasm of breast Mammogram Screening [facility] Start: 06-06-2024 DIABETES SCREEN DIABETES SCREEN [facility] Start: 05-16-2024 End: 05-16-2024 Patient encounter procedure 05/16/2024 11:15 AM EST Appointment Ambulatory Surgery [address] [place] [address] Christophe Ramos MD [address] [place] [address] Ambulatory Surgery Start: 04-23-2024 Advance Directive Discussion Advance Directive Discussion [facility] Start: 04-14-2024 End: 07-14-2024 Urinalysis complete panel - Urine URINALYSIS, WITH MICROSCOPIC Lab Routine UTI symptoms Frequent urination Burning with urination Hematuria, microscopic Expected: 04/14/2024, Expires: 07/14/2024 [facility] Comment on above: Expected: 04/14/2024, Expires: Start: 04-02-2024 End: 04-02-2024 Patient encounter procedure 04/02/2024 1:30 PM EST Office Visit General Surgery [address] [place] [address] Arianna Perez APRN.PATIENT CARE TECHNICIAN INSTRUCTOR [address] [place] [address] colonoscopy consult / Patient requesting Dr. Ramos for colonoscopy General Surgery Comment on above: colonoscopy consult / Patient requesting Dr. Ramos for colonoscopy Start: 03-18-2024 Covid-19 Vaccine ( season) Covid-19 Vaccine () [facility] Start: 02-04-2024 End: 02-04-2024 Patient encounter procedure 02/04/2024 3:40 PM EDT Office Visit Internal Medicine [facility] [address] [place] [address] Stefany Sheridan MD [address] [place] [address] Physical Internal Medicine [facility] Comment on above: Physical Start: 02-03-2024 Annual PCP Team Chronic Disease Visit Annual PCP Team Chronic Disease Visit [facility] Start: 02-03-2024 Urine microalbumin profile DTaP,Tdap,Td Vaccine (2 - Td or Tdap) [facility] Comment on above: Postponed from 04/11/2021 (Declined at t his time) Start: 01-21-2024 End: 11-21-2024 25-hydroxyvitamin D3 [Mass/volume] in Serum or Plasma VITAMIN D 25 HYDROXY Lab Routine Vitamin D deficiency Fatigue, unspecified type Expected: 01/21/2024 (Approximate), Expires: 11/21/2024 [facility] Comment on above: Expected: 01/21/2024 (Approximate), Expi res: 11/21/2024 Start: 01-21-2024 End: 11-21-2024 CBC W Auto Differential panel - Blood COMPLETE BLOOD COUNT AND DIFFERENTIAL Lab Routine Gastroesophageal reflux disease, unspecified whether esophagitis present Essential hypertension Fatigue, unspecified type Expected: 01/21/2024 (Approximate), Expires: 11/21/2024 [facility] Comment on above: Expected: 01/21/2024 (Approximate), Expi res: 11/21/2024 Start: 01-21-2024 End: 11-21-2024 Cobalamin (Vitamin B12) [Mass/volume] in Serum or Plasma VITAMIN B12 Lab Routine B12 deficiency Fatigue, unspecified type Expected: 01/21/2024 (Approximate), Expires: 11/21/2024 [facility] Comment on above: Expected: 01/21/2024 (Approximate), Expi res: 11/21/2024 Start: 01-21-2024 End: 11-21-2024 Comprehensive metabolic 2000 panel - Serum or Plasma COMPREHENSIVE METABOLIC PANEL Lab Routine Gastroesophageal reflux disease, unspecified whether esophagitis present Pure hypercholesterolemia Essential hypertension Fatigue, unspecified type Expected: 01/21/2024 (Approximate), Expires: 11/21/2024 [facility] Work Phone: Comment on above: Expected: 01/21/2024 (Approximate), Expi res: 11/21/2024 Start: 01-21-2024 End: 11-21-2024 Lipid 1996 panel - Serum or Plasma LIPID PANEL BASIC Lab Routine Pure hypercholesterolemia Fatigue, unspecified type Expected: 01/21/2024 (Approximate), Expires: 11/21/2024 [facility] Comment on above: Expected: 01/21/2024 (Approximate), Expi res: 11/21/2024 Start: 01-21-2024 End: 11-21-2024 Thyrotropin [Units/volume] in Serum or Plasma THYROID STIMULATING HORMONE Lab Routine Fatigue, unspecified type Expected: 01/21/2024 (Approximate), Expires: 11/21/2024 [facility] Comment on above: Expected: 01/21/2024 (Approximate), Expi res: 11/21/2024 Start: 12-23-2023 Influenza vaccination Influenza Vaccine (#1) [facility] Start: 10-22-2023 Colonoscopy COLONOSCOPY [facility] Start: 10-22-2023 COLORECTAL CANCER SCREENING COLORECTAL CANCER SCREENING [facility] Start: 10-22-2023 Screening for malignant neoplasm of colon [facility] Start: 08-02-2023 BP CONTROLLED (<130/80) BP CONTROLLED (<130/80) [facility] Start: 07-16-2023 End: 10-15-2023 25-hydroxyvitamin D3 [Mass/volume] in Serum or Plasma VITAMIN D 25 HYDROXY Lab Routine Vitamin D deficiency Expected: 07/16/2023, Expires: 10/15/2023 [facility] Work Phone: Comment on above: Expected: 07/16/2023, Expires: Start: 07-16-2023 End: 10-15-2023 CBC W Auto Differential panel - Blood CBC + DIFF Lab Routine Essential hypertension Tobacco use disorder Expected: 07/16/2023, Expires: 10/15/2023 [facility] Work Phone: Comment on above: Expected: 07/16/2023, Expires: Start: 07-16-2023 End: 10-15-2023 Cobalamin (Vitamin B12) [Mass/volume] in Serum or Plasma VITAMIN B12 BLOOD Lab Routine B12 deficiency Expected: 07/16/2023, Expires: 10/15/2023 [facility] Work Phone: Comment on above: Expected: 07/16/2023, Expires: Start: 07-16-2023 End: 10-15-2023 Comprehensive metabolic 2000 panel - Serum or Plasma COMP METABOLIC PANEL Lab Routine Pure hypercholesterolemia Essential hypertension Tobacco use disorder Expected: 07/16/2023, Expires: 10/15/2023 [facility] Work Phone: Comment on above: Expected: 07/16/2023, Expires: Start: 07-16-2023 End: 10-15-2023 Lipid 1996 panel - Serum or Plasma LIPID PANEL BASIC Lab Routine Pure hypercholesterolemia Essential hypertension Tobacco use disorder Expected: 07/16/2023, Expires: 10/15/2023 [facility] Work Phone: Comment on above: Expected: 07/16/2023, Expires: Start: 07-16-2023 End: 10-15-2023 Thyrotropin [Units/volume] in Serum or Plasma TSH BLD Lab Routine Fatigue, unspecified type Expected: 07/16/2023, Expires: 10/15/2023 [facility] Work Phone: Comment on above: Expected: 07/16/2023, Expires: Start: 07-06-2023 Mammography [facility] Start: 07-06-2023 Screening for malignant neoplasm of breast Mammogram Screening [facility] Start: 05-25-2023 Covid-19 Vaccine () Covid-19 Vaccine () [facility] Start: 04-23-2023 Advance Directive Discussion Advance Directive Discussion [facility] Start: 04-23-2023 Behavioral Health Screening Behavioral Health Screening [facility] Start: 04-23-2023 Depression Assessment Depression Assessment [facility] Start: 01-31-2023 ANNUAL PCP TEAM CHRONIC DISEASE VISIT ANNUAL PCP TEAM CHRONIC DISEASE VISIT [facility] Start: 2022 Influenza vaccination [facility] Start: 08-01-2022 End: 10-01-2022 25-hydroxyvitamin D3 [Mass/volume] in Serum or Plasma VITAMIN D 25 HYDROXY Lab Routine Essential hypertension Vitamin D deficiency Fatigue, unspecified type Encounter for long-term current use of medication Expected: 08/01/2022 (Approximate), Expires: 10/01/2022 [facility] Work Phone: Comment on above: Expected: 08/01/2022 (Approximate), Expi res: 10/01/2022 Start: 08-01-2022 End: 10-01-2022 CBC panel - Blood by Automated count CBC Lab Routine Essential hypertension Fatigue, unspecified type Encounter for long-term current use of medication Expected: 08/01/2022 (Approximate), Expires: 10/01/2022 [facility] Work Phone: Comment on above: Expected: 08/01/2022 (Approximate), Expi res: 10/01/2022 Start: 08-01-2022 End: 10-01-2022 Cobalamin (Vitamin B12) [Mass/volume] in Serum or Plasma VITAMIN B12 BLOOD Lab Routine Essential hypertension B12 deficiency Fatigue, unspecified type Encounter for long-term current use of medication Expected: 08/01/2022 (Approximate), Expires: 10/01/2022 [facility] Work Phone: Comment on above: Expected: 08/01/2022 (Approximate), Expi res: 10/01/2022 Start: 08-01-2022 End: 10-01-2022 Comprehensive metabolic 2000 panel - Serum or Plasma COMP METABOLIC PANEL Lab Routine Essential hypertension Fatigue, unspecified type Encounter for long-term current use of medication Expected: 08/01/2022 (Approximate), Expires: 10/01/2022 [facility] Work Phone: Comment on above: Expected: 08/01/2022 (Approximate), Expi res: 10/01/2022 Start: 08-01-2022 End: 10-01-2022 Lipid 1996 panel - Serum or Plasma LIPID PANEL BASIC Lab Routine Essential hypertension Fatigue, unspecified type Encounter for long-term current use of medication Expected: 08/01/2022 (Approximate), Expires: 10/01/2022 [facility] Work Phone: Comment on above: Expected: 08/01/2022 (Approximate), Expi res: 10/01/2022 Start: 08-01-2022 End: 10-01-2022 Thyrotropin [Units/volume] in Serum or Plasma TSH BLD Lab Routine Essential hypertension Fatigue, unspecified type Encounter for long-term current use of medication Expected: 08/01/2022 (Approximate), Expires: 10/01/2022 [facility] Work Phone: Comment on above: Expected: 08/01/2022 (Approximate), Expi res: 10/01/2022 Start: 08-01-2022 End: 10-01-2022 Thyroxine (T4) free [Mass/volume] in Serum or Plasma T4 FREE/FREE THYROX Lab Routine Essential hypertension Fatigue, unspecified type Encounter for long-term current use of medication Expected: 08/01/2022 (Approximate), Expires: 10/01/2022 [facility] Work Phone: Comment on above: Expected: 08/01/2022 (Approximate), Expi res: 10/01/2022 Start: 08-01-2022 End: 10-01-2022 Triiodothyronine (T3) Free [Mass/volume] in Serum or Plasma T3 FREE BLD Lab Routine Essential hypertension Fatigue, unspecified type Encounter for long-term current use of medication Expected: 08/01/2022 (Approximate), Expires: 10/01/2022 [facility] Work Phone: Comment on above: Expected: 08/01/2022 (Approximate), Expi res: 10/01/2022 Start: 06-27-2022 COVID-19 VACCINE (6 - Moderna series) COVID-19 VACCINE (6 - Moderna series) [facility] Start: 06-06-2022 Adult depression screening assessment DEPRESSION SCREENING [facility] Start: 06-06-2022 ANNUAL PCP TEAM CHRONIC DISEASE VISIT ANNUAL PCP TEAM CHRONIC DISEASE VISIT [facility] Start: 06-06-2022 Urine microalbumin profile DTAP,TDAP,TD (2 - Td or Tdap) [facility] Comment on above: Postponed from 04/11/2021 (Declined at t his time) Start: 04-23-2022 ADVANCE DIRECTIVE DISCUSSION ADVANCE DIRECTIVE DISCUSSION [facility] Start: 04-23-2022 DEPRESSION ASSESSMENT DEPRESSION ASSESSMENT [facility] Start: 02-14-2022 Mammography MAMMOGRAM [facility] Start: 01-06-2022 COVID-19 VACCINE (5 - Booster for Moderna series) COVID-19 VACCINE (5 - Booster for Moderna series) [facility] Start: 2021 Influenza vaccination [facility] Start: 11-29-2021 Influenza vaccination LUNG CANCER SCREENING [facility] Comment on above: Postponed from 2000 (Declined at t his time) Start: 08-06-2021 COVID-19 VACCINE (4 - Booster for Moderna series) COVID-19 VACCINE (4 - Booster for Moderna series) [facility] Start: 04-23-2021 ADVANCE DIRECTIVE DISCUSSION ADVANCE DIRECTIVE DISCUSSION [facility] Start: 04-23-2021 DEPRESSION ASSESSMENT DEPRESSION ASSESSMENT [facility] Start: 04-11-2021 Urine microalbumin profile [facility] Start: 08-03-2019 BP CONTROLLED (<130/80) BP CONTROLLED (<130/80) [facility] Start: 04-25-2011 FECAL OCCULT BLOOD FECAL OCCULT BLOOD [facility] Start: 04-25-2011 Screening for malignant neoplasm of colon Fecal Occult Blood [facility] Start: 2010 RSV Vaccine (1 - 1-dose 60+ series) RSV Vaccine (1 - 1-dose 60+ series) [facility] Start: 2000 Influenza vaccination LUNG CANCER SCREENING [facility] Start: 2000 Screening for malignant neoplasm of lung Lung Cancer Screening [facility] Start: 12-23-1995 COLOGUARD (FIT-DNA) COLOGUARD (FIT-DNA) [facility] Start: 12-23-[address] COLONOGRAPHY [facility] Start: 12-23-1995 Screening for malignant neoplasm of colon [facility] Start: 12-23-1995 SIGMOIDOSCOPY SIGMOIDOSCOPY [facility] Bacteria identified in Urine by Culture URINE CULTURE Microbiology Routine Acute cystitis with hematuria 08/01/2022 12:43 PM EDT [facility] Work Phone: Bacteria identified in Urine by Culture URINE CULTURE Microbiology Routine UTI symptoms Frequent urination Burning with urination Hematuria, microscopic Ordered: 04/14/2024 [facility] Comment on above: Ordered: 04/14/2024 Bacteria identified in Urine by Culture BACTERIAL CULTURE, URINE Microbiology Routine UTI symptoms 10/09/2024 2:07 PM EDT [facility] Work Phone: End: 09-01-2024 BD DXA TRABECULAR BONE SCORE (TBS) BD DXA TRABECULAR BONE SCORE (TBS) Radiology Routine Encounter for screening for osteoporosis Asymptomatic postmenopausal status Osteopenia, unspecified location 1 Occurrences starting 08/03/2023 until 09/01/2024 [facility] Work Phone: Comment on above: 1 Occurrences starting 08/03/2023 until 09/01/2024 End: 09-01-2024 DXA Skeletal system.axial Views for bone density DXA-AXIAL SKELETON Radiology Routine Encounter for screening for osteoporosis Asymptomatic postmenopausal status Osteopenia, unspecified location 1 Occurrences starting 08/03/2023 until 09/01/2024 [facility] Work Phone: Comment on above: 1 Occurrences starting 08/03/2023 until 09/01/2024 End: 04-29-2023 NAFISA SCREENING NAFISA SCREENING Radiology Routine Encounter for screening mammogram for breast cancer 1 Occurrences starting 03/30/2022 until 04/29/2023 [facility] Work Phone: Comment on above: 1 Occurrences starting 03/30/2022 until 04/29/2023 MG Breast Screening NAFISA SCREENIN G Radiology Routine Encounter for screening mammogram for malignant neoplasm of breast 08/01/2023 1:52 PM EDT [facility] Work Phone: End: 03-05-2025 MG Breast Screening NAFISA SCREENING Radiology Routine Encounter for screening mammogram for breast cancer 1 Occurrences starting 02/04/2024 until 03/05/2025 [facility] Work Phone: Comment on above: 1 Occurrences starting 02/04/2024 until 03/05/2025 End: 12-31-2024 Screening colonoscopy COLONOSCOPY SCREENING Endoscopy Routine Tubular adenoma Screening for colon cancer 1 Occurrences starting 01/01/2024 until 12/31/2024 [facility] Work Phone: Comment on above: 1 Occurrences starting 01/01/2024 until 12/31/2024 End: 04-04-2025 Screening colonoscopy COLONOSCOPY SCREENING Endoscopy Routine Screen for colon cancer History of colonic polyps 1 Occurrences starting 04/04/2024 until 04/04/2025 [facility] Work Phone: Comment on above: 1 Occurrences starting 04/04/2024 until 04/04/2025 UA DIP, URINE (POC) UA DIP, URIN E (POC) Lab Routine UTI symptoms Ordered: 04/14/2024 [facility] Work Phone: Comment on above: Ordered: 04/14/2024 [facility] Immunizations Immunization Date Immunization Notes Care Provider Ana ramirez 01-22-2024 COVID-19 original vaccine, booster dose, monovalent (MODERNA) Stefany Sheridan MD Work Phone: [facility] 01-22-2024 Seasonal trivalent influenza vaccine, adjuvanted, preservative free Stefany Sheridan MD Work Phone: [facility] 01-22-2023 influenza (aIIV4) vaccine, age 65+ yr, quadrivalent, PF (FLUAD QUAD) Stefany Sheridan MD Work Phone: [facility] 01-22-2023 influenza virus vacc ine, unspecified formulation Cinthia Ramachandran RN [facility] 02-27-2022 COVID-19 booster vaccine, age 12+ yr, bivalent (MODERNA) Stefany Sheridan MD Work Phone: [facility] Work Phone: 02-27-2022 influenza (aIIV4) vaccine, age 65+ yr, quadrivalent, PF (FLUAD QUAD) Stefany Sheridan MD Work Phone: [facility] Work Phone: 02-27-2022 influenza, injectabl e, quadrivalent, contains preservative Stefany Sheridan MD Work Phone: [facility] Work Phone: 02-27-2022 influenza virus vacc ine, unspecified formulation Stefany Sheridan MD Work Phone: [facility] 11-11-2021 COVID-19 vaccine, booster dose (MODERNA) Stefany Sheridan MD Work Phone: [facility] Work Phone: 08-18-2020 COVID-19 vaccine, fu ll dose (MODERNA) Vicky Almendarez APRN.CNS Work Phone: [facility] Work Phone: 07-21-2020 COVID-19 vaccine, fu ll dose (MODERNA) Vicky Almendarez ELECTRICIAN TELEPHONE.FORECLOSURE HOME INSPECTOR Work Phone: [facility] Work Phone: 04-12-2020 zoster vaccine recombinant Vicky Almendarez ELECTRICIAN TELEPHONE.FORECLOSURE HOME INSPECTOR Work Phone: [facility] Work Phone: 01-19-2020 influenza (aIIV4) vaccine, age 65+ yr, quadrivalent, PF (FLUAD QUADRIVALENT) Vicky Almendarez ELECTRICIAN TELEPHONE.FORECLOSURE HOME INSPECTOR Work Phone: [facility] Work Phone: 01-19-2020 influenza, high dose seasonal, preservative-free Vicky Almendarez ELECTRICIAN TELEPHONE.FORECLOSURE HOME INSPECTOR Work Phone: [facility] Work Phone: 01-19-2020 influenza, injectabl e, quadrivalent, contains preservative Vicky Almendarez ELECTRICIAN TELEPHONE.FORECLOSURE HOME INSPECTOR Work Phone: [facility] Work Phone: 12-15-2019 zoster vaccine recombinant Vicky Almendarez ELECTRICIAN TELEPHONE.FORECLOSURE HOME INSPECTOR Work Phone: [facility] Work Phone: 03-04-2019 influenza, high dose seasonal, preservative-free Vicky Almendarez ELECTRICIAN TELEPHONE.FORECLOSURE HOME INSPECTOR Work Phone: [facility] 02-13-2018 influenza, high dose seasonal, preservative-free Vicky Almendarez ELECTRICIAN TELEPHONE.FORECLOSURE HOME INSPECTOR Work Phone: [facility] Work Phone: 03-07-2017 pneumococcal polysaccharide vaccine, 23 valent Vicky Almendarez ELECTRICIAN TELEPHONE.FORECLOSURE HOME INSPECTOR Work Phone: [facility] Work Phone: 01-30-2017 influenza, high dose seasonal, preservative-free Vicky Almendarez ELECTRICIAN TELEPHONE.FORECLOSURE HOME INSPECTOR Work Phone: [facility] 02-17-2016 influenza, high dose seasonal, preservative-free Vicky Almendarez ELECTRICIAN TELEPHONE.FORECLOSURE HOME INSPECTOR Work Phone: [facility] Work Phone: 02-17-2016 pneumococcal conjuga te vaccine, 13 valent Vicky Almendarez ELECTRICIAN TELEPHONE.FORECLOSURE HOME INSPECTOR Work Phone: [facility] Work Phone: 02-16-2015 influenza, injectabl e, quadrivalent, contains preservative Vicky Almendarez ELECTRICIAN TELEPHONE.FORECLOSURE HOME INSPECTOR Work Phone: [facility] 02-16-2015 zoster vaccine, live Vicky B rolando ELECTRICIAN TELEPHONE.FORECLOSURE HOME INSPECTOR Work Phone: [facility] 02-20-2014 influenza, seasonal, injectable Vicky Almendarez ELECTRICIAN TELEPHONE.FORECLOSURE HOME INSPECTOR Work Phone: [facility] 03-05-2012 influenza virus vacc ine, unspecified formulation Vicky Almendarez ELECTRICIAN TELEPHONE.FORECLOSURE HOME INSPECTOR Work Phone: [facility] 04-11-2011 influenza virus vacc ine, unspecified formulation Vicky Almendarez ELECTRICIAN TELEPHONE.FORECLOSURE HOME INSPECTOR Work Phone: [facility] 04-11-2011 pneumococcal polysaccharide vaccine, 23 valent Vicky Almendarez ELECTRICIAN TELEPHONE.FORECLOSURE HOME INSPECTOR Work Phone: [facility] 04-11-2011 tetanus toxoid, redu trinity diphtheria toxoid, and acellular pertussis vaccine, adsorbed Vicky Almendarez ELECTRICIAN TELEPHONE.FORECLOSURE HOME INSPECTOR Work Phone: [facility] 02-24-2010 influenza virus vacc ine, unspecified formulation Vicky Almendarez ELECTRICIAN TELEPHONE.FORECLOSURE HOME INSPECTOR Work Phone: [facility] 01-21-2009 influenza virus vacc ine, unspecified formulation Vicky Almendarez ELECTRICIAN TELEPHONE.FORECLOSURE HOME INSPECTOR Work Phone: [facility] Work Phone: 03-21-2007 influenza virus vacc ine, unspecified formulation Vicky Almendarez ELECTRICIAN TELEPHONE.FORECLOSURE HOME INSPECTOR Work Phone: [facility] Payers Date Payer Category Payer Self-pay [id number] 2018 Medicare [id number] 2016 Private Health Insurance [facility] AARP SUPPLEMENT [id number] 2016-Present [phone] [address] [place] [address] Indemnity [id number] 2016 Private Health Insurance [id number] 2016 Private Health Insurance [id number] 2015 Medicare MEDICARE MEDICAR E A AND B [id number] 2015-Present [phone] [address] [address] [place] [address] Medicare [id number] 2015 Medicare [id number] 2015 Medicare [id number] 1950 Unknown [id number] Unknown [id number] Social History Date Type Detail Facility Start: 05-02-2012 End: 04-04-2024 Tobacco smoking status OKIS Smokes tobacco daily [facility] Work Phone: History of tobacco use Cigarette Smoker C [facility] Work Phone: Start: 09-26-2021 End: 10-09-2024 Alcohol intake Current non-drinker of alcohol (finding) [facility] Start: 03-24-2019 End: 01-24-2022 History SDOH Alcohol Frequency 1 [facility] Start: 01-28-2020 End: 01-24-2022 History SDOH Social Connections Phone 3 [facility] Start: 10-12-2019 End: 01-24-2022 History SDOH Social Connections Get Together 2 [facility] Start: 03-24-2019 End: 01-24-2022 History SDOH Financial 5 [facility] Start: 10-12-2019 Education 17 [facility] Start: 1950 Sex Assigned At Female C [facility] Start: 09-16-2021 End: 01-31-2022 Exposure to SARS-CoV-2 (event) Not sure [facility] Work Phone: Start: 08-31-2020 End: 08-31-2020 Tobacco smoking status NHIS Unknown if ever smoked [facility] Start: 05-02-2012 End: 01-26-2023 Cigarettes smoked current (pack per day) - Reported 1 [facility] Start: 05-02-2012 End: 04-04-2024 Tobacco use and exposure Smokeless tobacco non-user [facility] Start: 01-24-2022 History SDOH Alcohol Std Drinks 0 [facility] Start: 01-24-2022 End: 01-26-2023 Social connection and isolation panel [facility] Do you belong to any clubs or organizations such as hindu groups, unions, fraternal or athletic groups, or school groups? No [facility] Are you now , , , , never or living with a partner? [facility] How often to you hav e a drink containing alcohol? Never [facility] How many standard dr inks containing alcohol do you have on a typical day? Patient does not drink [facility] Do you feel stress - tense, restless, nervous, or anxious, or unable to sleep at night because your mind is troubled all the time - these days [OSQ] Only a little [facility] (I/We) worried wheth er (my/our) food would run out before (I/we) got money to buy more. Never true [facility] Start: 11-05-2018 Gender identity Identifies as female gender (finding) [facility] Do you feel stress - tense, restless, nervous, or anxious, or unable to sleep at night because your mind is troubled all the time - these days [OSQ] Not at all [facility] Goals Date Patient Goal Desired Activity /State [...] 10/30/2014 1:03 PM Gilda Boogie Cma No [facility] 10-30-2014 Are you blind, or do you have serious difficulty seeing, even when wearing glasses No 10/30/2014 1:03 PM Gilda Boogie Cma No [facility] 10-30-2014 Do you have serious difficulty walking or climbing stairs No 10/30/2014 1:03 PM Gilda Boogie Cma No [facility] 10-30-2014 Do you have difficul ty dressing or bathing No 10/30/2014 1:03 PM Gilda Boogie Cma No [facility] 10-30-2014 Because of a physica l, mental, or emotional condition, do you have difficulty doing errands alone such as visiting a physician's office or shopping No 10/30/2014 1:03 PM Gilda Boogie Cma No [facility] Mental Status Date Assessment Result Facility 10-30-2014 Because of a physica l, mental, or emotional condition, do you have serious difficulty concentrating, remembering, or making decisions No 10/30/2014 1:03 PM Gilda Boogie Cma No [facility] Clinical Notes 09-26-2011 to 10-09-2024 AlmendarezAna Lilia rubinDEREJE flores.FORECLOSURE HOME INSPECTOR - 10/09/2024 1:40 PM Kassy King MA [...] tract infection. - Prescribed Macrobid, sent to [facility]. 2. Anxiety and depression (F41.9) - Previously [...] 4 - Moderate documented in this encounter [facility] 10-09-2024 Note HNO ID: [id number] Author: VICKY ALMENDAREZ APRN.FORECLOSURE HOME INSPECTOR Service: ? Author Type: Nurse Specialist Type: [...] Paxil prescription, sent to [facility]. Vicky Almendarez APRN.FORECLOSURE HOME INSPECTOR Medical Decision Making: Problems: Low: Acute, uncomplicated illness or injury Moderate: 2+ stable chronic illnesses Data: Unique test(s) ordered: 2 Risk: Moderate: Drug management Medical Decision Making Level: 4 - Moderate [facility] 08-28-2024 Note HNO ID: [id number] Author: KASSY LILLY MA Service: ? Author Type: Seaweed Harvester Type: Progress Notes Filed: 08/28/2024 10:52 Note [...] Wellness Visit Controlling Blood Pressure 12/10/2024 in [facility] with STEFANY SHERIDAN - Medicare Wellness, HCC gap closure HCC related Navigation Signature: Kassy Lilly MA August 28, 2024 10:52 AM [facility] 08-28-2024 History of Present illness Narrative POPULATION [...] Wellness Visit Controlling Blood Pressure 12/10/2024 in [facility] with STEFANY SHERIDAN - Medicare Wellness, HCC gap closure HCC related Navigation Signature: Kassy Lilly MA August 28, 2024 10:52 AM documented in this encounter [facility] 08-28-2024 Note Patient Outreach (NE TNAV) CLEVE WAGGONER Karie ([id number]) 1950 F Date Time Provider Department 08/28/24 [...] Wellness Visit Controlling Blood Pressure 12/10/2024 in [facility] with STEFANY SHERIDAN - Medicare [...] Date Reviewed: 08/15/2024 Reviewed by: Vicky Almendarez APRN.FORECLOSURE HOME INSPECTOR - Fully Assessed Reason for Visit: Population [...] history [Z87.891] 03/23/2016 AAA (abdominal aortic aneurysm) ([facility]) [I71.40] 10/09/2017 History of Parkinson's disease [Z86.69] 04/28/2019 Torticollis [M43.6] 04/28/2019 B12 deficiency [E53.8] 06/09/2021 Fatigue [R53.83] 06/09/2021 Primary insomnia [F51.01] 06/09/2021 Balance problems [R26.89] 06/09/2021 Other irritable bowel syndrome [K58.8] 06/09/2021 Parkinson's disease, unspecified whether dyskin*08/03/2023 Encounter Status:Closed by BESANCON, KASSY on 08/28/24 [facility] 08-15-2024 Note HNO ID: [id number] Author: VICKY ALMENDAREZ APRN.FORECLOSURE HOME INSPECTOR Service: ? Author Type: Nurse Specialist Type: [...] Sinus: Frontal sinus tenderness present. Mouth/Throat: Lips: [place]. Mouth: Mucous membranes are moist. Pharynx: Oropharynx [...] unspecified hyperlipidemia Pept (more content not included)... [facility] 07-07-2024 Telephone encounter Note The following approved medication requests have been transmitted electronically. Requested Prescriptions Pending Prescriptions Disp Refills conjugated estrogens (PREMARIN) vaginal cream 90 g 3 Sig: use 0.5 grams twice weekly as directed Stefany Sheridan MD [facility] 07-07-2024 Miscellaneous Notes The following approved medication [...] 2024 12:51 PM documented in this encounter [facility] 07-07-2024 Telephone encounter Note Prescription Refill Information [...] Mariella Rain July 07, 2024 12:51 PM [facility] 06-27-2024 Telephone encounter Note Prescription Refill Information [...] Martha Reyna June 27, 2024 1:01 PM [facility] 06-27-2024 Miscellaneous Notes Prescription Refill Information The [...] 2024 1:01 PM documented in this encounter [facility] 06-09-2024 Note HNO ID: [id number] Author: VICKY ALMENDAREZ APRN.FORECLOSURE HOME INSPECTOR Service: ? Author Type: Nurse Specialist Type: [...] Sinus: Frontal sinus tenderness present. Mouth/Throat: Lips: [place]. Mouth: Mucous membranes are moist. Pharynx: Oropharynx [...] unspecified site, u (more content not included)... [facility] 06-09-2024 History of Present illness Narrative SUBJECTIVE: [...] Sinus: Frontal sinus tenderness present. Mouth/Throat: Lips: [place]. Mouth: Mucous membranes are moist. Pharynx: Oropharynx [...] - SERTRALINE 25 MG TABLET Vicky Almendarez APRN.FORECLOSURE HOME INSPECTOR Medical Decision Making: Problems: Low: Acute, uncomplicated illness or injury Moderate: 1+ chronic illnesses with change Risk: Moderate: Drug management Medical Decision Making Level: 4 - Moderate documented in this encounter [facility] 04-14-2024 Instructions Stefany Sheridan MD - 04/14/2024 4:38 PM EST - Take Doxycycline as prescribed for 7 days; prescription sent to [facility]. - Drink plenty of water to stay hydrated. - B12 shots prescription sent to [facility]. - Urine sample sent for culture; await results. documented in this encounter [facility] 04-14-2024 History of Present illness Narrative This note was created using [employer] Subjective Cleve Waggoner is a 73 year [...] B12 injections, which she previously received from [facility]. PAST MEDICAL HISTORY Diagnosis Date Abdominal pain, [...] 3 doses with 3 refills, sent to [facility]. - Discussed potential insurance coverage issues; advised patient on possible agl-ru-wzyhhr expenses. # Drug intolerance (Z78.9) - Documented intolerances to Augmentin, cefdinir, cefdin, clarithromycin, clindamycin, and Macrobid, primarily due to gastrointestinal side effects. - Doxycycline and Cipro are well-tolerated; Doxycycline preferred for current UTI treatment. Stefany Sheridan MD documented in this encounter [facility] 04-14-2024 Note HNO ID: [id number] Author: STEFANY SHERIDAN MD Service: ? Author Type: Physician Type: Progress Notes Filed: 04/14/2024 16:38 Note Text: This note was created using [employer] Subjective Cleve Waggoner is a 73 year [...] B12 injections, which she previously received from [facility]. PAST MEDICAL HISTORY Diagnosis Date Abdominal pain, unspecified site Allergic rhinitis, cause unspecified 12/06/2006 Anxiety 09/26/2011 Asthma Chronic airway obstruction, not elsewhere classified Esophageal reflux Goiter, unspecified mulitnodular goiter based on ultrasound Hypertension Mental disorder anxiety Obstructive chronic bronchitis without exacerbation ([facility]) 12/06/2006 Other and unspecified hyperlipidemia Peptic ulcer, [...] with urination (R30.0) (more content not included)... [facility] 04-07-2024 Telephone encounter Note 05-16-2024 [facility] provider gave all prep information and patient has direct number to call with any questions Chaz Gentile [facility] 04-07-2024 Miscellaneous Notes 05-16-2024 [facility] provider gave all prep information and patient has direct number to call with any questions Chaz Gentile documented in this encounter [facility] 04-04-2024 Note HNO ID: [id number] Author: TERESA BOSCH MA Service: ? Author Type: Seaweed Harvester Type: Progress Notes Filed: 04/04/2024 14:22 Note [...] 07/2023 Last Colonoscopy: 10/21/2018 Teresa Bosch MA [facility] 04-04-2024 History of Present illness Narrative REVIEW [...] : 1950 REFERRING PHYSICIAN: Stefany Sheridan [address] [place] [address] CHIEF COMPLAINT: Patient presents with: Consult: colonoscopy [...] prior endoscopy. Last colonoscopy was 10/2018 at [facility] with Dr. Seymour. Sedation:Fentanyl 100 micrograms IV, [...] were answered. Cleve chooses IV conscious sedation. Cleve was counseled that if there are changes [...] Arianna Perez APRN.CNP documented in this encounter [facility] 04-04-2024 Note HNO ID: [id number] Author: ARIANNA PEREZ APRN.CNP Service: ? Author Type: Nurse Practitioner Type: Progress Notes Filed: 04/04/2024 14:22 Note Text: HISTORY AND PHYSICAL Cleve Waggoner : 1950 REFERRING PHYSICIAN: Stefany Sheridan [address] [facility] [address] CHIEF COMPLAINT: Patient presents with: Consult: colonoscopy [...] prior endoscopy. Last colonoscopy was 10/2018 at [facility] with Dr. Seymour. Sedation:Fentanyl 100 micrograms IV, [...] Father other (Perip (more content not included)... [facility] 03-07-2024 Telephone encounter Note Prescription Refill Information [...] Diamante Sanchez March 07, 2024 3:19 PM [facility] 03-07-2024 Miscellaneous Notes Prescription Refill Information The [...] 2024 3:19 PM documented in this encounter [facility] 02-04-2024 Note HNO ID: [id number] Author: STEFANY SHERIDAN MD Service: ? Author [...] Neurology--Willy (?sp); Dr. Malloy (pain management in [place]),Dr. Hernandez--ENT. Dr. Lele Pulliam (banking teacher) Medical/Family history review Reviewed and updated problem [...] rubs or gallops. (more content not included)... [facility] 02-04-2024 History of Present illness Narrative Images [...] Neurology--Willy (?sp); Dr. Malloy (pain management in [place]),Dr. Hernandez--ENT. Dr. Lele Pulliam (banking teacher) Medical/Family history review Reviewed and updated problem [...] under the care of Dr. Bond at [facility] for neck spasms contributing to imbalance. - [...] - Patient has a healthcare power of contract attorney, Sahil, and will provide a copy for [...] Prescription sent to [facility] in [place]. # Encounter for screening mammogram for breast cancer (Z12.31) - Last mammogram performed in July. - Ordered next screening mammogram for July of the following year. # Encounter for immunization (Z23) - Discussed tetanus vaccination; advised patient to obtain at the pharmacy as it is not covered in the doctor's office. Stefany Sheridan MD documented in this encounter [facility] 02-04-2024 Instructions Stefany Sheridan MD - 02/04/2024 4:14 PM EDT - Continue taking Paxil as prescribed. - Refill for Albuterol sent to [facility]. - Refill for Diflucan 150 mg sent to [facility] in [place]; take one tablet and repeat in 3-5 [...] a copy of your healthcare power of contract attorney to be uploaded to your medical record. [...] review all the medicines you take, even lrvq-kbm-cdhyvjz medicines. As you get older, the way [...] review all the medicines you take, even kqcg-czf-blaklun medicines. As you get older, the way [...] certain medical conditions. documented in this encounter [facility] 01-01-2024 Instructions Stefany Sheirdan MD - 01/01/2024 2:03 PM EDT Images [...] If you do not have a responsible taxicab driver (family member or friend) with you to take you home, your exam cannot be done with sedation and will be cancelled. Please bring a list of all of your current medications, including any Mvch-uru-Bfoockk medications with you. Medications If you take [...] exam. 2 03/2019 documented in this encounter [facility] 01-01-2024 History of Present illness Narrative This note was created using [employer] Subjective Cleve Waggoner is a 73 year [...] schedule them recently due to her 's mcc and desire to accompany her to appointments. [...] Stefany Sheridan MD documented in this encounter [facility] 01-01-2024 Note HNO ID: [id number] Author: STEFANY SHERIDAN MD Service: ? Author Type: Physician Type: Progress Notes Filed: 01/01/2024 14:14 Note Text: This note was created using [employer]. Subjective Cleve Waggoner is a 73 year [...] schedule them recently due to her 's mcc and desire to accompany her to appointments. [...] No current facility- (more content not included)... [facility] 12-03-2023 Telephone encounter Note She had labs July 2023. I placed orders for her January appt. [facility] 12-03-2023 Miscellaneous Notes She had labs July 2023. I placed orders for her January appt. Patient calling, states that lab work was to be placed at her OV on 11/28. Asking for these to be placed. Aware that provider is not in until Sunday. documented in this encounter [facility] 11-30-2023 Telephone encounter Note Patient calling, states that lab work was to be placed at her OV on 11/28. Asking for these to be placed. Aware that provider is not in until Sunday. [facility] 11-29-2023 History of Present illness Narrative SUBJECTIVE: [...] Sinus: Frontal sinus tenderness present. Mouth/Throat: Lips: [place]. Mouth: Mucous membranes are moist. Pharynx: Oropharynx [...] Abs Lymph 1.00 - 4.00 k/uL 3.37 [place]% % 5.1 Abs [place] <0.87 k/uL 0.64 Eosin% % 1.1 Abs [...] Jan 2024 follow up MD Vicky You APRN.FORECLOSURE HOME INSPECTOR Medical Decision Making: Problems: Low: Acute, uncomplicated illness or injury Risk: Moderate: Drug management Medical Decision Making Level: 3 - Low documented in this encounter [facility] 11-29-2023 Note HNO ID: [id number] Author: VICKY ALMENDAREZ APRN.FORECLOSURE HOME INSPECTOR Service: ? Author Type: Nurse Specialist Type: [...] Sinus: Frontal sinus tenderness present. Mouth/Throat: Lips: [place]. Mouth: Mucous membranes are moist. Pharynx: Oropharynx [...] disorder Comment: anxiet (more content not included)... [facility] 11-21-2023 Telephone encounter Note The following approved medication requests have been transmitted electronically. Requested Prescriptions Pending Prescriptions Disp Refills atorvastatin (LIPITOR) 10 mg tablet 90 tablet 3 Sig: Take 1 tablet by mouth once daily. For cholesterol Stefany Sheridan MD [facility] 11-21-2023 Miscellaneous Notes The following approved medication [...] mouth once daily. For cholesterol Diamante Martin [facility] November 21, 2023 3:44 PM documented in this encounter [facility] 11-21-2023 Telephone encounter Note Prescription Refill Information [...] Martin Pss November 21, 2023 3:44 PM [facility] 11-19-2023 Note HNO ID: [id number] Author: CINTHIA RAMACHANDRAN RN Service: ? Author [...] to talk about today? No Based on backing in machine tender, the following disposition is advised: No symptoms or symptoms present, not severe. Routed to: No Action Needed VALENTIN Education Provided this Outreach: No Cinthia Ramachandran RN November 20, 2023 11:59 AM [facility] 11-19-2023 History of Present illness Narrative CDM [...] to talk about today? No Based on backing in machine tender, the following disposition is advised: No symptoms or symptoms present, not severe. Routed to: No Action Needed VALENTIN Education Provided this Outreach: No Cinthia Ramachandran RN November 20, 2023 11:59 AM documented in this encounter [facility] 11-19-2023 Note Patient Outreach ([facility] CLEVE WAGGONER ([id number]) 1950 F Date Time Provider Department 11/19/23 [...] to talk about today? No Based on backing in machine tender, the following disposition is advised: No symptoms [...] history [Z87.891] 03/23/2016 AAA (abdominal aortic aneurysm) ([facility]) [I71.40] 10/09/2017 History of Parkinson's disease [Z86.69] 04/28/2019 Torticollis [M43.6] 04/28/2019 B12 deficiency [E53.8] 06/09/2021 Fatigue [R53.83] 06/09/2021 Primary insomnia [F51.01] 06/09/2021 Balance problems [R26.89] 06/09/2021 Other irritable bowel syndrome [K58.8] 06/09/2021 Parkinson's disease, unspecified whether dyskin*08/03/2023 Encounter Number: [id number] (more content not included)... [facility] 10-09-2023 History of Present illness Narrative CDM [...] to talk about today? Yes Based on backing in machine tender, the following disposition is advised: No symptoms [...] 2023 2:11 PM documented in this encounter [facility] 09-08-2023 History of Present illness Narrative This note was created using [employer] Subjective Cleve Waggoner is a 72 year [...] history is provided by the patient. No web marketing analyst was used. Sinus Problem This is a [...] if symptoms persist or worsen. Elodia Schulz APRN.PATIENT CARE TECHNICIAN INSTRUCTOR documented in this encounter [facility] 08-17-2023 History of Present illness Narrative CDM [...] to talk about today? Yes Based on backing in machine tender, the following disposition is advised: No symptoms or symptoms present, not severe. Routed to: No Action Needed VALENTIN Education Provided this Outreach: No Cinthia Ramachandran RN August 17, 2023 3:37 PM documented in this encounter [facility] 08-03-2023 Instructions Vicky Almendarez APRN.FORECLOSURE HOME INSPECTOR - 08/03/2023 1:46 PM EDT BONE MINERAL [...] usual activities immediately. documented in this encounter [facility] 08-03-2023 History of Present illness Narrative SUBJECTIVE: [...] Followed by Dr. Mccormick pain management at [facility], C6-C7 nerve ablation is planned for August 21. AAA: Notes she has seen vascular surgeon regarding this and SHASHANK, vascular provider in [place]. Has had imaging there since she was [...] Abs Lymph 1.00 - 4.00 k/uL 3.37 Houghton% % 5.1 Abs Houghton <0.87 k/uL 0.64 Eosin% % 1.1 Abs [...] ICD10: I71.40 Followed by vascular doctor in [place] 8. Antibiotic-induced yeast infection - ICD9: 112.9, [...] 6 mo follow up MD Vicky You APRN.FORECLOSURE HOME INSPECTOR Medical Decision Making: Problems: Moderate: 2+ stable chronic illnesses Data: Unique test(s) ordered: 1 Risk: Moderate: Drug management Medical Decision Making Level: 4 - Moderate documented in this encounter [facility] 08-02-2023 Miscellaneous Notes August 02, 2023 PID: [id number] Cleve Waggoner [address] [place] [address] Dear Ms. Waggoner, We are pleased to [...] report will be kept on file at [facility] as part of your permanent medical record and are available for your continuing care. Thank you for allowing us to help in meeting your health care needs. Sincerely, Dr. Abbasi Interpreting Radiologist [facility] (Normal over 40) documented in this encounter [facility] 08-01-2023 History of Present illness Narrative Radiology [...] PATIENT PRESENTS WITH AN IMPLANTABLE OR ATTACHED GAS APPLIANCE SERVICER: No RADIOLOGY DEPARTMENT: Mammography PERIPHERAL IV DATA: Not applicable SIGNED BY: Nida Sánchez August 01, 2023 1:41 PM documented in this encounter [facility] 07-16-2023 Miscellaneous Notes Addended by: VICKY ALMENDAREZ on: 07/16/2023 03:25 PM Modules accepted: Orders ok Please see note from pharmacist on pended order. Krystin Rogel MA documented in this encounter [facility] 07-16-2023 History of Present illness Narrative CDM Telephonic Outreach Provider Dipti/BROCK Left a message to verify symptom status, instructed to contact PCP for condition changes and needs. My Chart Home Monitoring questionnaire location and updates provided Contacted for: Engagement Contact made with patient: No, left message. Cinthia Ramachandran RN July 16, 2023 12:04 PM documented in this encounter [facility] 07-16-2023 History of Present illness Narrative SUBJECTIVE: [...] Pain Smoking History AAA (abdominal aortic aneurysm) ([facility]) History of Parkinson's Disease Torticollis B12 Deficiency [...] to follow-up with ENT Dr. Tayla Almendarez APRN.FORECLOSURE HOME INSPECTOR Medical Decision Making: Problems: Low: Acute, uncomplicated illness or injury Data: Unique test(s) ordered: 3+ Risk: Moderate: Drug management Medical Decision Making Level: 4 - Moderate documented in this encounter [facility] 07-02-2023 Telephone encounter Note The following approved medication requests have been transmitted electronically. Requested Prescriptions Signed Prescriptions Disp Refills zolpidem (AMBIEN) 10 mg 30 tablet 5 Sig: Take 0.5-1 tablets by mouth at bedtime as needed (insomnia) for up to 180 days. Authorizing Provider: STEFANY SHERIDAN MD [facility] 07-02-2023 Miscellaneous Notes The following approved medication [...] Ella Huerta Pss. documented in this encounter [facility] 07-02-2023 Telephone encounter Note Patient has been [...] Please advise. Thank you. Ella Huerta Pss. [facility] 06-12-2023 Miscellaneous Notes Spoke to Patient, she [...] you. Desi Sanchez. documented in this encounter [facility] 06-04-2023 History of Present illness Narrative CDM [...] 2023 11:28 AM documented in this encounter [facility] 02-02-2023 History of Present illness Narrative This note was created using [employer]. Subjective Cleve Waggoner is a 72 year [...] issues. Will follow up with Dr. Mccormick ([place]). PAST MEDICAL HISTORY Diagnosis Date Abdominal pain, [...] Stefany Sheridan MD documented in this encounter [facility] 01-02-2023 Miscellaneous Notes Okayed Patient has been [...] advise. Dorothea Puentes documented in this encounter [facility] 12-07-2022 Miscellaneous Notes Spouse notified prescriptions were sent to the pharmacy. Spouse reported his got an e-mail from [employer] that medications were shipped. She was told by [facility] this was cancelled so not sure if they are coming from [facility] also. She will cigar packer and picker medications from local pharmacy. Pt will [...] Teresa Vines LPN documented in this encounter [facility] 12-06-2022 History of Present illness Narrative See [...] 2022 6:39 PM documented in this encounter [facility] 12-06-2022 Miscellaneous Notes Last office visit: 08/01/2022 [...] with her pharmacy. documented in this encounter [facility] 12-05-2022 History of Present illness Narrative CDM [...] to talk about today? No Based on backing in machine tender, the following disposition is advised: No symptoms [...] 2022 4:01 PM documented in this encounter [facility] 08-30-2022 History of Present illness Narrative OPENED IN ERROR documented in this encounter [facility] 08-01-2022 Miscellaneous Notes UTI symptoms with hematuria, history of persistent hematuria, negative work-up 2017 documented in this encounter [facility] 08-01-2022 Instructions Vicky Almendarez APRN.FORECLOSURE HOME INSPECTOR - 08/01/2022 12:22 PM EDT Check to see if your insurance covers Tdap vaccine and what location to get the vaccine -usually best covered at your local pharmacy where you get prescriptions filled documented in this encounter [facility] 08-01-2022 History of Present illness Narrative SUBJECTIVE: [...] regarding this and SHASHANK. Bhargav Marquez at [facility]. No changes; stable She reports dysuria and [...] BPs[ 01/06/2019 170/82 Smoking:yes Ready to quit:no Stock Crane Operator: none current SOB: states stable Cough:states none Wheeze:states none Sees Dr Bourne ENT/android platform developer Fabi. Notes son is in fdc for fentanyl possession, requests financial support $80/mo. [...] Followed by vascular surgeon Bhargav Marquez at [facility] 7. Obstructive chronic bronchitis without exacerbation (HCC) - ICD9: 491.20, ICD10: J44.9 Stable, currently controlled, continue to monitor. No kettle worker at this time Current smoking, cessation endorsed. [...] 3 - Low documented in this encounter [facility] 07-05-2022 Miscellaneous Notes July 06, 2022 PID: [id number] Cleve Waggoner [address] [place] [address] Dear Ms. Waggoner, We are pleased to [...] report will be kept on file at [facility] as part of your permanent medical record and are available for your continuing care. Thank you for allowing us to help in meeting your health care needs. Sincerely, Dr. Alanis Interpreting Radiologist [facility] (Normal over 40) documented in this encounter [facility] 06-19-2022 Miscellaneous Notes Pt last seen DOCUMENT CONTROLLER 05/11/22. Next appt with DOCUMENT CONTROLLER 08/01/22. Patient has been identified by name and date of : Yes Requested Prescriptions Pending Prescriptions Disp Refills lisinopril (ZESTRIL, PRINIVIL) 40 mg tablet 90 tablet 3 Sig: Take 1 tablet by mouth once daily. RX INSTRUCTIONS: Patient aware RX escripted to mail away pharmacy. No need to notify patient. Diamante Martin Pss documented in this encounter [facility] 06-07-2022 Miscellaneous Notes The following approved medication [...] Viry Hayden Pss documented in this encounter [facility] 06-07-2022 History of Present illness Narrative POPULATION [...] 2022 11:26 AM documented in this encounter [facility] 05-11-2022 History of Present illness Narrative SUBJECTIVE [...] know if not feeling improved Vicky Almendarez APRN.FORECLOSURE HOME INSPECTOR Medical Decision Making: Problems: Low: 2+ self-limited or minor problems Risk: Moderate: Drug management Medical Decision Making Level: 3 - Low documented in this encounter [facility] 05-01-2022 Miscellaneous Notes Patient has been identified by name and date of : Yes Requested Prescriptions Pending Prescriptions Disp Refills lisinopril (ZESTRIL, PRINIVIL) 40 mg tablet 90 tablet 3 Sig: Take 1 tablet by mouth once daily. RX INSTRUCTIONS: Patient aware RX will be sent to pharmacy. No need to notify patient. Martina Clifford [facility] Electronically signed by Martina [facility] at 05/01/2022 2:06 PM EST documented in this encounter [facility] 01-31-2022 History of Present illness Narrative This note was created using [employer]. Subjective Cleve Waggoner is a 71 year [...] Stefany Sheridan MD documented in this encounter [facility] 12-08-2021 Miscellaneous Notes Last office visit 09/26/21 [...] Ella Huerta Pss documented in this encounter [facility] 10-20-2021 History of Present illness Narrative ok inSight CDM Engagement Provider Action/FYI: Routed updates and request for Nystatin to Vicky Almendarez CNP ( Please send to [facility] in [place]) Pt noted had a bad sinus infection, took Doxycycline which caused Oral Thrush, Pt is requesting Nystatin Swish and swallow to [facility], she is aware to check with Pharmacy for medication fill. Pt seeing Dr. Jimmy Calderon Neurologist out of [facility] in November 16 for balance issues, Pt noted is considering needling for neck spasms, Pt has had acupuncture in the past. Pt denies Sob, wheezing, or coughing or fevers, sinus infection is gone. Instructed on Insight Monitoring questionnaire location Contact Made with Patient: Yes Patient identified by name and . Discussed care with patient Keyanna awan name is Cinthia Ramachandran RN your Document Review Specialist from Stefany Sheridan MD office at the [facility]. I am reaching out today because I [...] 2021 10:31 AM documented in this encounter [facility] 10-05-2021 History of Present illness Narrative PRIMARY CARE COORDINATION QUICK NOTE Provider Action/FYI Noted: Added Name to the Care Team Tab Patient identified by name and date . Cinthia Ramachandran RN October 05, 2021 3:58 PM InSight CDM Enrollment Provider Action/FYI: [employer] introduction message sent- read 10/05/21 Next PCP appt 01/31/22 Patient referred by: [facility] Guillaume Contact made with patient: Yes - Patient identified by name and . Discussed care with patient Keyanna this is Raine Min, RN and I am calling from Stefany Sheridan MD office at the [facility]. I am a RN Document Review Specialist with our inSight Chronic Disease Management program. [...] few questions once a week through your [employer] account. It will automatically show up for [...] goal align with programs offered at the [facility]? Yes Chronic Disease Management patient goals yes: Health/wellness Most people know what to do to become healthier, yet struggle to put it into action on their own.It can be hard to maintain a healthy lifestyle, especially when life is so stressful. Can we connect you with a [facility] Health Barrel Straightener to find a program that could help you meet your goals? No Closing: Patient accepts child care director Thank you for your time today. I am excited to work together in managing your health! You will receive information on next steps through your [employer] account, and I will check back within a few weeks to ensure you have all that you need to use the program successfully. (Place name in care team and assign [employer] Assistant Tennis Coach questionnaire) documented in this encounter [facility] 09-26-2021 History of Present illness Narrative SUBJECTIVE [...] DOXYCYCLINE MONOHYDRATE 100 MG CAPSULE Vicky Almendarez, ELECTRICIAN TELEPHONE.FORECLOSURE HOME INSPECTOR - Discussed symptom monitoring and supportive care - Red flag symptoms requiring follow up discussed This patient encounter involved the screening or treatment of novel coronavirus infection (COVID-19). Medical Decision Making: Problems: Low: Acute, uncomplicated illness or injury Risk: Moderate: Drug management Medical Decision Making Level: 3 - Low documented in this encounter [facility] 09-26-2011 History of Past i llness Narrative Problem Noted Date Diagnosed Date Resolved Date Anxiety 09/26/2011 08/03/2023 documented as of this encounter (statuses as of 08/03/2023) [facility] History of Past illness Narrative* Problem Noted Date Diagnosed Date Resolved Date Anxiety 09/26/2011 08/03/2023 documented as of this encounter (statuses as of 08/04/2023) [facility] note* Diagnosis Acute non-recurrent maxillary sinusitis documented in this encounter [facility] note* Diagnosis Obstructive chronic bronchitis without exacerbation (HCC)- Primary Obstructive chronic bronchitis without exacerbation [facility] noteNo assessment information availableWLake[facility] Work Phone: Evaluation note* Diagnosis Pure hypercholesterolemia documented in this encounter [facility] note* Diagnosis Acute non-recurrent maxillary sinusitis- Primary Anxiety and depression Dysthymic disorder Essential hypertension Unspecified essential hypertension Vaginitis and vulvovaginitis Vaginitis and vulvovaginitis, unspecified Vitamin D deficiency Unspecified vitamin D deficiency B12 deficiency Other B-complex deficiencies Fatigue, unspecified type Encounter for long-term current use of medication documented in this encounter [facility]* Diagnosis Encounter for screening mammogram for breast cancer documented in this encounter [facility]* Diagnosis Essential hypertension Unspecified essential hypertension documented [facility] this encounter [facility] [place]* Diagnosis Recurrent sinusitis- Primary Unspecified sinusitis (chronic) Thrush Candidiasis of mouth documented in this encounter [facility] [place] [facility]* Diagnosis Primary insomnia Persistent disorder of initiating or maintaining sleep documented [facility] this encounter [facility] [place]* Diagnosis Essential hypertension Unspecified essential hypertension documented [facility] this encounter [facility] [place]* Diagnosis Acute cystitis with hematuria- Primary [...] depression Dysthymic disorder [facility] Primary insomnia Persistent disorder of initiating or maintaining sleep History of IBS Personal history of other diseases of digestive system [facility] Diagnosis Primary insomnia Persistent disorder of initiating or maintaining sleep History of IBS Personal history of other diseases of digestive system [facility] Diagnosis Primary insomnia Persistent disorder of initiating or maintaining sleep History of IBS Personal history of other diseases of digestive system [facility] Diagnosis Pure hypercholesterolemia [facility] Diagnosis Essential hypertension- Primary Unspecified essential hypertension Acute non-recurrent maxillary sinusitis Torticollis Torticollis, unspecified Balance problems Other symptoms involving nervous and musculoskeletal systems Parkinson's disease, unspecified whether dyskinesia present, unspecified whether manifestations fluctuate Antibiotic-induced yeast infection Candidiasis of unspecified site B12 deficiency Other B-complex deficiencies [facility] [place]* Diagnosis Anxiety and depression Dysthymic disorder [facility] Diagnosis Acute non-recurrent maxillary sinusitis- [...] involving urinary system [facility] Diagnosis Acute recurrent frontal sinusitis- Primary Acute frontal sinusitis UTI symptoms Other symptoms involving urinary system [facility] Encounter for screening mammogram for malignant neoplasm of breast Other screening mammogram [facility] [place] [facility] Diagnosis Essential hypertension- Primary Unspecified essential [...] Generalized anxiety disorder [facility] [place] [facility] Diagnosis Rhinosinusitis- Primary Unspecified sinusitis (chronic) [facility] [place] [facility] Diagnosis Primary insomnia Persistent disorder of initiating or maintaining sleep documented [facility] [place]* Diagnosis Pure hypercholesterolemia [facility] [place] [facility]* Diagnosis Acute recurrent frontal sinusitis- Primary Acute frontal sinusitis documented [facility] this encounter [facility] [place]* Diagnosis Gastroesophageal reflux disease, unspecified whether esophagitis present- Primary Pure hypercholesterolemia Vitamin D deficiency Unspecified vitamin D deficiency Essential hypertension Unspecified essential hypertension B12 deficiency Other B-complex deficiencies Fatigue, unspecified type [facility] [place] [facility]* Diagnosis Acute non-recurrent pansinusitis- Primary Primary [...] malignant neoplasms, colon documented [facility] this encounter [facility] [place]* Diagnosis Medicare annual wellness visit, subsequent- Primary Routine general medical examination at a health care facility Obstructive chronic bronchitis without exacerbation (HCC) Obstructive chronic bronchitis without exacerbation Thrush Candidiasis of mouth Antibiotic-induced yeast infection Candidiasis of unspecified site Encounter for screening mammogram for breast cancer Encounter for immunization Need for other specified prophylactic vaccination against single bacterial disease documented [facility] [place]* Diagnosis Essential hypertension Unspecified essential hypertension [facility] [place]* Diagnosis Screen for colon cancer- Primary Special screening for malignant neoplasms, colon History of colonic polyps Personal history of colonic polyps [facility] UTI symptoms- Primary Other symptoms involving urinary system B12 deficiency Other B-complex deficiencies Frequent urination Urinary frequency Burning with urination Dysuria Hematuria, microscopic Microscopic hematuria Drug intolerance Other drug allergy documented in this encounter [facility] note* Diagnosis Acute recurrent frontal sinusitis- Primary Acute frontal sinusitis Anxiety and depression Dysthymic disorder documented in this encounter [facility] note* Diagnosis Primary insomnia Persistent disorder of initiating or maintaining sleep documented in this encounter [facility] note* Diagnosis Vaginitis and vulvovaginitis Vaginitis and vulvovaginitis, unspecified documented in this encounter [facility] note* Diagnosis UTI symptoms- Primary Other symptoms involving urinary system Anxiety and depression Dysthymic disorder documented in this encounter [facility] for referral (narrative)* Diagnostic Procedure Only (Routine) - Pending Review Specialty Diagnoses / Procedures Referred By Shawnee rahman Referred To Contact [facility] Diagnoses Encounter for screening mammogram for breast cancer Procedures NAFISA SCREENING SCREENING MAMMOGRAPHY BI 2-VIEW BREAST INC CAD Stefany Sheridan MD [address] [place] [address] [facility] [address] [place] [address] Referral ID Status Reason Start Date Expiration Date Visits Requested Visits Authorized [id number] Pending Review Auto-Generat ed Referral 03/30/2022 04/29/2023 1 1 Healthcare for referral (narrative)* Diagnostic Procedure Only (Routine) - Pending Review Specialty Diagnoses / Procedures Referred By Shawnee rahman Referred To Contact XR IMAGING Diagnoses Encounter for screening for osteoporosis Asymptomatic postmenopausal status Osteopenia, unspecified location Procedures DXA-AXIAL SKELETON Vicky Almendarez APRN.CNS [address] [place] [address] [place] [address] Referral ID Status Reason Start Date Expiration Date Visits Requested Visits Authorized [id number] Pending Review Auto-Generat ed Referral 08/03/2023 09/01/2024 1 1 * Consult, Test, Treat (Routine) - Authorized Specialty Diagnoses / Procedures Referred By Shawnee t Referred To Contact General Surgery Diagnoses Screening for colon cancer Procedures CONSULT TO GENERAL SURGERY OFFICE/OUTPATIENT NEW HIGH MDM 60 MINUTES Vicky Almendarez APRN.CNS [address] [place] [address] Referral ID Status Reason Start Date Expiration Date Visits Requested Visits Authorized [id number] Authorized PCP Requested Referral 08/03/2023 08/02/2024 1 1 [facility] for referral (narrative)* Outpatient Procedure (Routine) - New Request Specialty Diagnoses / Procedures Referred By Shawnee rahman Referred To Contact [facility] Diagnoses Tubular adenoma Screening for colon cancer Procedures COLONOSCOPY SCREENING COLONOSCOPY FLX DX W/COLLJ SPEC WHEN Stefany Hernandez MD [address] [place] [address] [facility] [address] [place] [address] Referral ID Status Reason Start Date Expiration Date Visits Requested Visits Authorized [id number] New Request Auto-Generat ed Referral 01/01/2024 12/31/2024 1 1 T [facility] for referral (narrative)* Diagnostic Procedure Only (Routine) - New Request Specialty Diagnoses / Procedures Referred By Shawnee rahman Referred To Contact [facility] Diagnoses Encounter for screening mammogram for breast cancer Procedures NAFISA SCREENING SCREENING MAMMOGRAPHY BI 2-VIEW BREAST INC CAD Stefany Sheridan MD [address] [place] [address] [facility] [address] [place] [address] Referral ID Status Reason Start Date Expiration Date Visits Requested Visits Authorized [id number] New Request Auto-Generat ed Referral 03/05/2025 1 1 T [facility] for referral (narrative)* Outpatient Procedure (Routine) - Authorized Specialty Diagnoses / Procedures Referred By Contac t Referred To Contact [facility] Diagnoses Screen for colon cancer History of colonic polyps Procedures COLONOSCOPY SCREENING COLONOSCOPY FLX DX W/COLLJ SPEC WHEN Arianna Saldaña APRN.CNP [address] [place] [address] [facility] [address] [place] [id number] Referral ID Status Reason Start Date Expiration Date Visits Requested Visits Authorized [id number] Authorized Auto-Generat ed Referral 04/04/2025 1 1 [facility])No reason for referral information availableWLakeHealth [facility] Work Phone: Reason for visit Narrative* Diagnostic Procedure Only (Routine) - Closed Specialty Diagnoses / Procedures Referred By Contdeepak t Referred To Contact [facility] Diagnoses Encounter for screening mammogram for malignant neoplasm of breast Procedures NAFISA SCREENING SCREENING MAMMOGRAPHY BI 2-VIEW BREAST INC CAD Stefany Sheridan MD [address] [place] [address] [facility] [address] [place] [address] Referral ID Status Reason Start Date Expiration Date V isits Requested Visits Authorized [id number] Closed Auto-Generate d Referral 04/11/2023 05/10/2024 1 1 [facility] Summary Purpose Family History No Family History Records Found Relationship Condition Age at Onset Recorded Date/T que Not Specified Arthritis Unknown father Cerebrovascular accident (CVA) Unknown Congestive heart failure Unknown Hypertension Unknown sister Malignant neoplasm of breast Unknown grandmother Malignant neoplasm of colon Unknown Advance Directives No Advanced Directives Records FoundDocuments on File Type Date Recorded 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 Advance Directive(s) 10/21/2018 10:21 AM Advance Directive(s) 08/05/2015 11:09 AM Advance Directive Response Recorded Date/ Time Advance Directives Yes August 12 12:04pm Living Will Yes August 12, 2020 12:04pm Power of Sewage Disposal Worker Yes August 12 12:04pm Advance Directive Response Recorded Date/ Time Advance Directives Yes August 12 11:04am Living Will Yes August 12, 2020 11:04am Power of Sewage Disposal Worker Yes August 12 11:04am Advance Directive Response [...] Date High Risk Chronic Disease Home Monitoring [facility] 09/05/2022 Problem Noted Date Diagnosed Date High Risk Chronic Disease Home Monitoring [facility] 09/05/2022 Problem Noted Date Diagnosed Date High Risk Chronic Disease Home Monitoring [facility] 09/05/2022 Problem Noted Date Diagnosed Date High Risk Chronic Disease Home Monitoring [facility] 09/05/2022 Problem Noted Date Diagnosed Date High Risk Chronic Disease Home Monitoring [facility] 09/05/2022 Active Problems Noted Date Diagnosed Date High Risk Chronic Disease Home Monitoring [facility] 09/05/2022 Active Problems Noted Date Diagnosed Date High Risk Chronic Disease Home Monitoring [facility] 09/05/2022 Active Problems Noted Date Diagnosed Date High Risk Chronic Disease Home Monitoring [facility] 09/05/2022 Active Problems Noted Date Diagnosed Date High Risk Chronic Disease Home Monitoring [facility] 09/05/2022 Active Problems Noted Date Diagnosed Date High Risk Chronic Disease Home Monitoring [facility] 09/05/2022 Active Problems Noted Date Diagnosed Date High Risk Chronic Disease Home Monitoring [facility] 09/05/2022 Reason for Referral Specialty Diagnoses / Procedures Referred By Shawnee rahman Referred To Contact Neurology Diagnoses History of Parkinson's disease Procedures CONSULT TO NEUROLOGY OFFICE/OUTPATIENT [facility] 60 MINUTES Vicky Almendarez, ELECTRICIAN TELEPHONE.FORECLOSURE HOME INSPECTOR [address] [place] [address] Referral ID Status Reason Start Date Expiration Date Visits Requested Visits Authorized [id number] Authorized PCP Requested Referral 07/16/2023 07/15/2024 1 1 Additional Source Comments INFORMATION SOURCE (unrecogn ized section and content) DATE CREATED AUTHOR 06/11/2018 [employer] ([place]) DATE CREATED AUTHOR AUTHOR'S ORGANIZ ATION 10/03/2024 [facility] DATE CREATED AUTHOR AUTHOR'S ORGANIZ ATION 10/12/2024 [facility] Source Comments (unrecognize d section and content) In the event this informatio n is protected by the Federal Confidentiality of Alcohol and Drug Abuse Patient Records regulations: The Federal rules restrict any use of the information to criminally investigate or prosecute any alcohol or drug abuse patient.[facility] CenterIn the event this information is protected by the Federal Confidentiality of Alcohol and Drug Abuse Patient Records regulations: The Federal rules restrict any use of the information to criminally investigate or prosecute any alcohol or drug abuse patient.[facility] CenterIn the event this information is protected by the Federal Confidentiality of Alcohol and Drug Abuse Patient Records regulations: The Federal rules restrict any use of the information to criminally investigate or prosecute any alcohol or drug abuse patient.[facility] CenterIn the event this information is protected by the Federal Confidentiality of Alcohol and Drug Abuse Patient Records regulations: The Federal rules restrict any use of the information to criminally investigate or prosecute any alcohol or drug abuse patient.[facility] CenterIn the event this information is protected by the Federal Confidentiality of Alcohol and Drug Abuse Patient Records regulations: The Federal rules restrict any use of the information to criminally investigate or prosecute any alcohol or drug abuse patient.[facility] CenterIn the event this information is protected by the Federal Confidentiality of Alcohol and Drug Abuse Patient Records regulations: The Federal rules restrict any use of the information to criminally investigate or prosecute any alcohol or drug abuse patient.[facility] CenterIn the event this information is protected by the Federal Confidentiality of Alcohol and Drug Abuse Patient Records regulations: The Federal rules restrict any use of the information to criminally investigate or prosecute any alcohol or drug abuse patient.[facility] CenterIn the event this information is protected by the Federal Confidentiality of Alcohol and Drug Abuse Patient Records regulations: The Federal rules restrict any use of the information to criminally investigate or prosecute any alcohol or drug abuse patient.[facility] CenterIn the event this information is protected by the Federal Confidentiality of Alcohol and Drug Abuse Patient Records regulations: The Federal rules restrict any use of the information to criminally investigate or prosecute any alcohol or drug abuse patient.[facility] CenterIn the event this information is protected by the Federal Confidentiality of Alcohol and Drug Abuse Patient Records regulations: The Federal rules restrict any use of the information to criminally investigate or prosecute any alcohol or drug abuse patient.[facility] CenterIn the event this information is protected by the Federal Confidentiality of Alcohol and Drug Abuse Patient Records regulations: The Federal rules restrict any use of the information to criminally investigate or prosecute any alcohol or drug abuse patient.[facility] CenterIn the event this information is protected by the Federal Confidentiality of Alcohol and Drug Abuse Patient Records regulations: The Federal rules restrict any use of the information to criminally investigate or prosecute any alcohol or drug abuse patient.[facility] CenterIn the event this information is protected by the Federal Confidentiality of Alcohol and Drug Abuse Patient Records regulations: The Federal rules restrict any use of the information to criminally investigate or prosecute any alcohol or drug abuse patient.[facility] CenterIn the event this information is protected by the Federal Confidentiality of Alcohol and Drug Abuse Patient Records regulations: The Federal rules restrict any use of the information to criminally investigate or prosecute any alcohol or drug abuse patient.[facility] CenterIn the event this information is protected by the Federal Confidentiality of Alcohol and Drug Abuse Patient Records regulations: The Federal rules restrict any use of the information to criminally investigate or prosecute any alcohol or drug abuse patient.[facility] CenterIn the event this information is protected by the Federal Confidentiality of Alcohol and Drug Abuse Patient Records regulations: The Federal rules restrict any use of the information to criminally investigate or prosecute any alcohol or drug abuse patient.[facility] CenterIn the event this information is protected by the Federal Confidentiality of Alcohol and Drug Abuse Patient Records regulations: The Federal rules restrict any use of the information to criminally investigate or prosecute any alcohol or drug abuse patient.[facility] CenterIn the event this information is protected by the Federal Confidentiality of Alcohol and Drug Abuse Patient Records regulations: The Federal rules restrict any use of the information to criminally investigate or prosecute any alcohol or drug abuse patient.[facility] CenterIn the event this information is protected by the Federal Confidentiality of Alcohol and Drug Abuse Patient Records regulations: The Federal rules restrict any use of the information to criminally investigate or prosecute any alcohol or drug abuse patient.[facility] CenterIn the event this information is protected by the Federal Confidentiality of Alcohol and Drug Abuse Patient Records regulations: The Federal rules restrict any use of the information to criminally investigate or prosecute any alcohol or drug abuse patient.[facility] CenterIn the event this information is protected by the Federal Confidentiality of Alcohol and Drug Abuse Patient Records regulations: The Federal rules restrict any use of the information to criminally investigate or prosecute any alcohol or drug abuse patient.[facility] CenterIn the event this information is protected by the Federal Confidentiality of Alcohol and Drug Abuse Patient Records regulations: The Federal rules restrict any use of the information to criminally investigate or prosecute any alcohol or drug abuse patient.[facility] CenterIn the event this information is protected by the Federal Confidentiality of Alcohol and Drug Abuse Patient Records regulations: The Federal rules restrict any use of the information to criminally investigate or prosecute any alcohol or drug abuse patient.[facility] CenterIn the event this information is protected by the Federal Confidentiality of Alcohol and Drug Abuse Patient Records regulations: The Federal rules restrict any use of the information to criminally investigate or prosecute any alcohol or drug abuse patient.[facility] CenterIn the event this information is protected by the Federal Confidentiality of Alcohol and Drug Abuse Patient Records regulations: The Federal rules restrict any use of the information to criminally investigate or prosecute any alcohol or drug abuse patient.[facility] CenterIn the event this information is protected by the Federal Confidentiality of Alcohol and Drug Abuse Patient Records regulations: The Federal rules restrict any use of the information to criminally investigate or prosecute any alcohol or drug abuse patient.[facility] CenterIn the event this information is protected by the Federal Confidentiality of Alcohol and Drug Abuse Patient Records regulations: The Federal rules restrict any use of the information to criminally investigate or prosecute any alcohol or drug abuse patient.[facility] CenterIn the event this information is protected by the Federal Confidentiality of Alcohol and Drug Abuse Patient Records regulations: The Federal rules restrict any use of the information to criminally investigate or prosecute any alcohol or drug abuse patient.[facility] CenterIn the event this information is protected by the Federal Confidentiality of Alcohol and Drug Abuse Patient Records regulations: The Federal rules restrict any use of the information to criminally investigate or prosecute any alcohol or drug abuse patient.[facility] CenterIn the event this information is protected by the Federal Confidentiality of Alcohol and Drug Abuse Patient Records regulations: The Federal rules restrict any use of the information to criminally investigate or prosecute any alcohol or drug abuse patient.[facility] CenterIn the event this information is protected by the Federal Confidentiality of Alcohol and Drug Abuse Patient Records regulations: The Federal rules restrict any use of the information to criminally investigate or prosecute any alcohol or drug abuse patient.[facility] CenterIn the event this information is protected by the Federal Confidentiality of Alcohol and Drug Abuse Patient Records regulations: The Federal rules restrict any use of the information to criminally investigate or prosecute any alcohol or drug abuse patient.[facility] CenterIn the event this information is protected by the Federal Confidentiality of Alcohol and Drug Abuse Patient Records regulations: The Federal rules restrict any use of the information to criminally investigate or prosecute any alcohol or drug abuse patient.[facility] CenterIn the event this information is protected by the Federal Confidentiality of Alcohol and Drug Abuse Patient Records regulations: The Federal rules restrict any use of the information to criminally investigate or prosecute any alcohol or drug abuse patient.[facility] CenterIn the event this information is protected by the Federal Confidentiality of Alcohol and Drug Abuse Patient Records regulations: The Federal rules restrict any use of the information to criminally investigate or prosecute any alcohol or drug abuse patient.[facility] CenterIn the event this information is protected by the Federal Confidentiality of Alcohol and Drug Abuse Patient Records regulations: The Federal rules restrict any use of the information to criminally investigate or prosecute any alcohol or drug abuse patient.[facility] CenterIn the event this information is protected by the Federal Confidentiality of Alcohol and Drug Abuse Patient Records regulations: The Federal rules restrict any use of the information to criminally investigate or prosecute any alcohol or drug abuse patient.[facility] CenterIn the event this information is protected by the Federal Confidentiality of Alcohol and Drug Abuse Patient Records regulations: The Federal rules restrict any use of the information to criminally investigate or prosecute any alcohol or drug abuse patient.[facility] CenterIn the event this information is protected by the Federal Confidentiality of Alcohol and Drug Abuse Patient Records regulations: The Federal rules restrict any use of the information to criminally investigate or prosecute any alcohol or drug abuse patient.[facility] CenterIn the event this information is protected by the Federal Confidentiality of Alcohol and Drug Abuse Patient Records regulations: The Federal rules restrict any use of the information to criminally investigate or prosecute any alcohol or drug abuse patient.[facility] CenterIn the event this information is protected by the Federal Confidentiality of Alcohol and Drug Abuse Patient Records regulations: The Federal rules restrict any use of the information to criminally investigate or prosecute any alcohol or drug abuse patient.[facility] CenterIn the event this information is protected by the Federal Confidentiality of Alcohol and Drug Abuse Patient Records regulations: The Federal rules restrict any use of the information to criminally investigate or prosecute any alcohol or drug abuse patient.[facility] CenterIn the event this information is protected by the Federal Confidentiality of Alcohol and Drug Abuse Patient Records regulations: The Federal rules restrict any use of the information to criminally investigate or prosecute any alcohol or drug abuse patient.[facility] CenterIn the event this information is protected by the Federal Confidentiality of Alcohol and Drug Abuse Patient Records regulations: The Federal rules restrict any use of the information to criminally investigate or prosecute any alcohol or drug abuse patient.[facility] CenterIn the event this information is protected by the Federal Confidentiality of Alcohol and Drug Abuse Patient Records regulations: The Federal rules restrict any use of the information to criminally investigate or prosecute any alcohol or drug abuse patient.[facility] CenterIn the event this information is protected by the Federal Confidentiality of Alcohol and Drug Abuse Patient Records regulations: The Federal rules restrict any use of the information to criminally investigate or prosecute any alcohol or drug abuse patient.[facility] CenterIn the event this information is protected by the Federal Confidentiality of Alcohol and Drug Abuse Patient Records regulations: The Federal rules restrict any use of the information to criminally investigate or prosecute any alcohol or drug abuse patient.[facility] CenterIn the event this information is protected by the Federal Confidentiality of Alcohol and Drug Abuse Patient Records regulations: The Federal rules restrict any use of the information to criminally investigate or prosecute any alcohol or drug abuse patient.[facility] Reason for Visit (unrecogniz ed section and [...] W/COLLJ SPEC WHEN PFRMD Stefany Sheridan MD [address] [place] [address] [facility] [address] [place] [address] Referral ID Status Reason Start Date Expiration Date V isits Requested Visits Authorized [id number] Closed Auto-Generate d Referral 01/01/2024 12/31/2024 1 1 Reason Comments Same Day Appointment X 2 weeks frequent urination, burning with urination Reason Onset Date Comments Refill Request 06/27/2024 Reason Onset Date Comments Refill Request 07/07/2024 Reason Onset Date Comments Population Health Navigation Outreach 08/28/2024 Fabi/Workbench/ACO Reason Comments uti symptom Care Teams (unrecognized sec tion and content) Barbering Teacher Relationship Specialty Start Date End Date Stefany Sheridan MD [address] [place], [place] [id number] PCP - General 12/06/06 Barbering Teacher Relationship Specialty Start Date End Date Stefany Sheridan MD [address] [place] [address] PCP - General 12/06/06 Raine Min, SHAHRZAD [address] [place] [address] Hydrogen Power Plant Manager Internal Medicine 10/05/21 Duarte Arroyo, strategy associateHydrogen Power Plant Manager Internal Medicine 10/05/21 Barbering Teacher Relationship Specialty Start Date End Date Stefany Sheridan MD [address] [place] [address] PCP - General 12/06/06 Duarte Arroyo, strategy associateHydrogen Power Plant Manager Internal Medicine 10/05/21 Barbering Teacher Relationship Specialty Start Date End Date Stefany Sheridan MD [address] [facility] [place] [address] PCP - General 12/06/06 Duarte Arroyo, strategy associateHydrogen Power Plant Manager Internal Medicine 10/05/21 Barbering Teacher Relationship Specialty Start Date End Date Stefany Sheridan MD [address] [facility] [address] PCP - General 12/06/06 Duarte Arroyo, strategy associateHydrogen Power Plant Manager Internal Medicine 10/05/21 Barbering Teacher Relationship Specialty Start Date End Date Stefany Sheridan MD [address] [place] [address] PCP - General 12/06/06 Duarte Arroyo, strategy associateHydrogen Power Plant Manager Internal Medicine 10/05/21 Barbering Teacher Relationship Specialty Start Date End Date Stefany Sheridan MD [address] [place] [address] PCP - General 12/06/06 Cinthia Ramachandran, strategy associateHydrogen Power Plant Manager Internal Medicine 10/05/21 Barbering Teacher Relationship Specialty Start Date End Date Stefany Sheridan MD [address] [place] [address] PCP - General 12/06/06 Cinthia Ramachandran, strategy associateHydrogen Power Plant Manager Internal Medicine 10/05/21 Barbering Teacher Relationship Specialty Start Date End Date Stefany Sheridan MD [address] [place] [address] PCP - General 12/06/06 Cinthia Ramachandran, strategy associateHydrogen Power Plant Manager Internal Medicine 10/05/21 Barbering Teacher Relationship Specialty Start Date End Date Stefany Sheridan MD [address] [place] [address] PCP - General 12/06/06 Cinthia Ramachandran, strategy associateHydrogen Power Plant Manager Internal Medicine 10/05/21 Barbering Teacher Relationship Specialty Start Date End Date Stefany Sheridan MD [address] [place] [address] PCP - General 12/06/06 Cinthia Ramachandran, strategy associateHydrogen Power Plant Manager Internal Medicine 10/05/21 Barbering Teacher Relationship Specialty Start Date End Date Stefany Sheridan MD [address] [place] [address] PCP - General 12/06/06 Cinthia Ramachandran, strategy associateHydrogen Power Plant Manager Internal Medicine 10/05/21 Barbering Teacher Relationship Specialty Start Date End Date Stefany Sheridan MD [address] [place] [address] PCP - General 12/06/06 Cinthia Ramachandran, strategy associateHydrogen Power Plant Manager Internal Medicine 10/05/21 Barbering Teacher Relationship Specialty Start Date End Date Stefany Sheridan MD [address] [place] [address] PCP - General 12/06/06 Cinthia Ramachandran, strategy associateHydrogen Power Plant Manager Internal Medicine 10/05/21 Team Status: Active Member Role Status Dates Dr. Stefany Sheridan MD Family Provider Active Dr. Stefany Sheridan MD Primary Care Provider Active Team Status: Inactive Member Role Status Dates Dr. Stefany Sheridan MD Primary Care Provider Active Dr. Edmund Boggs MD Attending Provider, Referr ing Provider Active Barbering Teacher Relationship Specialty Start Date End Date Stefany Sheridan MD [address] [place] [address] PCP - General 12/06/06 Cinthia Ramachandran, strategy associateHydrogen Power Plant Manager Internal Medicine 10/05/21 Barbering Teacher Relationship Specialty Start Date End Date Stefany Sheridan MD [address] [place] [address] PCP - General 12/06/06 Cinthia Ramachandran, strategy associateHydrogen Power Plant Manager Internal Medicine 10/05/21 Barbering Teacher Relationship Specialty Start Date End Date Stefany Sheridan MD [address] [place] [place] [address] PCP - General 12/06/06 Cinthia Ramachandran, strategy associateHydrogen Power Plant Manager Internal Medicine 10/05/21 Barbering Teacher Relationship Specialty Start Date End Date Stefany Sheridan MD [address] [place] [address] PCP - General 12/06/06 Cinthia Ramachandran strategy associateHydrogen Power Plant Manager Internal Medicine 10/05/21 Barbering Teacher Relationship Specialty Start Date End Date Stefany Sheridan MD [address] [place] [address] PCP - General 12/06/06 Cinthia Ramachandran, strategy associateHydrogen Power Plant Manager Internal Medicine 10/05/21 Barbering Teacher Relationship Specialty Start Date End Date Stefany Sheridan MD [address] [facility] [place] [address] PCP - General 12/06/06 Cinthia Ramachandran, strategy associateHydrogen Power Plant Manager Internal Medicine 10/05/21 Team Status: Inactive Member Role Status Dates Dr. Stefany Sheridan MD Primary Care Provider Active Dr. Ramos Hernandez MD Attending Provider, Yazan princeing Provider Active Barbering Teacher Relationship Specialty Start Date End Date Stefany Sheridan MD [address] [place] [address] PCP - General 12/06/06 Cinthia Ramachandran, strategy associateHydrogen Power Plant Manager Internal Medicine 10/05/21 Barbering Teacher Relationship Specialty Start Date End Date Stefany Sheridan MD [address] [place] [address] PCP - General 12/06/06 Cinthia Ramachandran, strategy associateHydrogen Power Plant Manager Internal Medicine 10/05/21 Barbering Teacher Relationship Specialty Start Date End Date Stefany Sheridan MD [address] [place] [address] PCP - General 12/06/06 Cinthia Ramachandran, strategy associateHydrogen Power Plant Manager Internal Medicine 10/05/21 Barbering Teacher Relationship Specialty Start Date End Date Stefany Sheridan MD [address] [place] [address] PCP - General 12/06/06 Cinthia Ramachandran, strategy associateHydrogen Power Plant Manager Internal Medicine 10/05/21 Barbering Teacher Relationship Specialty Start Date End Date Stefany Sheridan MD [address] [place] [address] PCP - General 12/06/06 Cinthia Ramachandran, strategy associateHydrogen Power Plant Manager Internal Medicine 10/05/21 Barbering Teacher Relationship Specialty Start Date End Date Stefany Sheridan MD [address] [place] [address] PCP - General 12/06/06 Cinthia Ramachandran, strategy associateHydrogen Power Plant Manager Internal Medicine 10/05/21 Barbering Teacher Relationship Specialty Start Date End Date Stefany Sheridan MD [address] [place] [address] PCP - General 12/06/06 Cinthia Ramachandran, strategy associateHydrogen Power Plant Manager Internal Medicine 10/05/21 Barbering Teacher Relationship Specialty Start Date End Date Stefany Sheridan MD [address] [place] [address] PCP - General 12/06/06 Cinthia Ramachandran, strategy associateHydrogen Power Plant Manager Internal Medicine 10/05/21 Barbering Teacher Relationship Specialty Start Date End Date Stefany Sheridan MD [address] [place] [address] PCP - General 12/06/06 Cinthia Ramachandran, strategy associateHydrogen Power Plant Manager Internal Medicine 10/05/21 Barbering Teacher Relationship Specialty Start Date End Date Stefany Sheridan MD [address] [place] [address] PCP - General 12/06/06 Barbering Teacher Relationship Specialty Start Date End Date Stefany Sheridan MD [address] [place] [address] PCP - General 12/06/06 Barbering Teacher Relationship Specialty Start Date End Date Stefany Sheridan MD [address] [place] [address] PCP - General 12/06/06 Barbering Teacher Relationship Specialty Start Date End Date Stefany Sheridan MD [address] [place] [address] PCP - General 12/06/06 Barbering Teacher Relationship Specialty Start Date End Date Stefany Sheridan MD [address] [place] [address] PCP - General 12/06/06 Barbering Teacher Relationship Specialty Start Date End Date Stefany Sheridan MD [address] [place] [address] PCP - General 12/06/06 Barbering Teacher Relationship Specialty Start Date End Date Stefany Sheridan MD [address] [place] [address] PCP - General 12/06/06 Vicky Almendarez ELECTRICIAN TELEPHONE.FORECLOSURE HOME INSPECTOR [address] [place] [address] Leather Roller Internal Medicine 03/31/24 Sanjuana Garcias APRN.PATIENT CARE TECHNICIAN INSTRUCTOR [address] [place] [address] Leather Roller Internal Medicine 03/31/24 Barbering Teacher Relationship Specialty Start Date End Date Stefany Sheridan MD [address] [place] [address] PCP - General 12/06/06 Vicky Almendarez ELECTRICIAN TELEPHONE.FORECLOSURE HOME INSPECTOR [address] [place] [address] Leather Roller Internal Medicine 03/31/24 Sanjuana Garcias APRN.PATIENT CARE TECHNICIAN INSTRUCTOR [address] [place] [address] Leather Roller Internal Medicine 03/31/24 Barbering Teacher Relationship Specialty Start Date End Date Stefany Sheridan MD [address] [place] [address] PCP - General 12/06/06 Vicky Almendarez, ELECTRICIAN TELEPHONE.FORECLOSURE HOME INSPECTOR [address] [place] [address] Leather Roller Internal Medicine 03/31/24 Sanjuana Garcias ELECTRICIAN TELEPHONE.PATIENT CARE TECHNICIAN INSTRUCTOR [address] [place] [address] [facility] Internal Medicine 03/31/24 Barbering Teacher Relationship Specialty Start Date End Date Stefany Sheridan MD [address] [place] [address] PCP - General 12/06/06 Vicky Almendarez, ELECTRICIAN TELEPHONE.FORECLOSURE HOME INSPECTOR [address] [place] [address] Leather Roller Internal Medicine 03/31/24 Sanjuana Garcias, ELECTRICIAN TELEPHONE.PATIENT CARE TECHNICIAN INSTRUCTOR [address] [place] [address] [facility] Internal Medicine 03/31/24 Barbering Teacher Relationship Specialty Start Date End Date Stefany Sheridan MD [address] [place] [address] PCP - General 12/06/06 Vicky Almendarez, ELECTRICIAN TELEPHONE.FORECLOSURE HOME INSPECTOR [address] [place] [address] Leather Roller Internal Medicine 03/31/24 Sanjuana Garcias APRN.PATIENT CARE TECHNICIAN INSTRUCTOR [address] [place] [address] Leather Roller Internal Medicine 03/31/24 Barbering Teacher Relationship Specialty Start Date End Date Stefany Sheridan MD [address] [place] [address] PCP - General 12/06/06 Vicky Almendarez, ELECTRICIAN TELEPHONE.FORECLOSURE HOME INSPECTOR [address] [place] [address] [facility] Internal Medicine 03/31/24 Sanjuana Garcias ELECTRICIAN TELEPHONE.PATIENT CARE TECHNICIAN INSTRUCTOR [address] [place] [address] [facility] Internal Medicine 03/31/24 07/11/24 Sanjuana Garcias APRN.PATIENT CARE TECHNICIAN INSTRUCTOR [address] [place] [address] [facility] Internal Medicine 07/15/24 Barbering Teacher Relationship Specialty Start Date End Date Stefany Sheridan MD [address] [place] [address] PCP - General 12/06/06 Vicky Almendarez, ELECTRICIAN TELEPHONE.FORECLOSURE HOME INSPECTOR [address] [place] [address] [facility] Internal Medicine 03/31/24 Sanjuana Garcias APRN.PATIENT CARE TECHNICIAN INSTRUCTOR [address] [place] [address] [facility] Internal Medicine 07/15/24 Team Status: Inactive Member Role Status Dates Dr. Stefany Sheridan MD Primary Care Provider Active Start: September 26, 2024 End: September 26, 2024 Dr. Ramos Hernandez MD Attending Provider Activ e Start: September 26, 2024 End: September 26, 2024 Dr. Ramos Hernandez MD Referring Provider Activ e Start: September 26, 2024 End: September 26, 2024 Barbering Teacher Relationship Specialty Start Date End Date Stefany Sheridan MD [address] [place], [place] [id number] PCP - General 12/06/06 Sanjuana Garcias, ELECTRICIAN TELEPHONE.PATIENT CARE TECHNICIAN INSTRUCTOR [address] [place], [place] [id number] [facility] Internal Medicine 07/15/24 Vicky Almendarez, ELECTRICIAN TELEPHONE.FORECLOSURE HOME INSPECTOR [address] [place], [place] [address] [facility] Internal Medicine 09/10/24 Goals (unrecognized section and [...] BE BASED ON THE PRIMARY CLINICAL RECORDS. [employer] provides no warranty or guarantee of the accuracy or completeness of information in this document.
== END | disposition home or self-care (01) ==
LOC: LABSPEC 16:16
PROVIDERS: PCP Internal Medicine; Referring Provider Urology; Visit Provider Urology
DX: R31.21 Asymptomatic microscopic hematuria (principal)
CPT/HCPCS: 87086; 87088

== ENCOUNTER → 2024-12-01 | Outpatient (CLI) | payer MEDICARE, OTHER, SELFPAY ==
--- NOTE | 2024-12-01 18:40 | CT_ITS ---
PROCEDURE: ABDOMEN/PELVIS WITHOUT CONT 12/01/2024 REASON FOR EXAM: ASYMPTOMATIC MICROSCOPIC HEMATURIA TECHNIQUE: ABDOMEN/PELVIS WITHOUT CONT Noncontrast technique limits evaluation of the abdominal and pelvic viscera. Coronal and Sagittal reconstruction series were provided. One or more dose reduction techniques were used (e.g., Automated exposure control, adjustment of the mA and/or kV according to patient size, use of iterative reconstruction technique). RADIATION DOSE SUMMARY: CTDlvol: 5.18 mGy DLP: 232.61 mGycm COMPARISON: None FINDINGS: Lung bases: Lung bases are clear. Coronary artery calcification. Liver: Normal size. No obvious mass. Gallbladder: Surgically absent. Spleen: Normal size. Pancreas: Diffuse fatty atrophy. Adrenals: Unremarkable Kidneys: No urolithiasis. No hydronephrosis. Bladder: Unremarkable Reproductive Organs: Prior hysterectomy. Adnexal regions are unremarkable. Bowel: Colonic diverticulosis without diverticulitis. Appendix: The appendix is not identified. There is no inflammatory process identified in the right lower quadrant to suggest appendicitis. Lymph nodes: Unremarkable. Vasculature: Mild diffuse atherosclerotic calcifications are noted. Dilated infrarenal abdominal aorta with a transverse dimension of 31.6 mm. Peritoneum / Retroperitoneum: Unremarkable Bones: Degenerative changes of the spine. Levoscoliosis. CT/Abdomen/Pelvis without Cont IMPRESSION: Diffuse fatty atrophy of the pancreas. No intrarenal calcification seen. Reading Location: [place] [address]
--- NOTE | 2024-12-01 18:40 | CT_ITS ---
PROCEDURE: ABDOMEN/PELVIS WITHOUT CONT 12/01/2024 REASON FOR EXAM: ASYMPTOMATIC MICROSCOPIC HEMATURIA TECHNIQUE: ABDOMEN/PELVIS WITHOUT CONT Noncontrast technique limits evaluation of the abdominal and pelvic viscera. Coronal and Sagittal reconstruction series were provided. One or more dose reduction techniques were used (e.g., Automated exposure control, adjustment of the mA and/or kV according to patient size, use of iterative reconstruction technique). RADIATION DOSE SUMMARY: CTDlvol: 5.18 mGy DLP: 232.61 mGycm COMPARISON: None FINDINGS: Lung bases: Lung bases are clear. Coronary artery calcification. Liver: Normal size. No obvious mass. Gallbladder: Surgically absent. Spleen: Normal size. Pancreas: Diffuse fatty atrophy. Adrenals: Unremarkable Kidneys: No urolithiasis. No hydronephrosis. Bladder: Unremarkable Reproductive Organs: Prior hysterectomy. Adnexal regions are unremarkable. Bowel: Colonic diverticulosis without diverticulitis. Appendix: The appendix is not identified. There is no inflammatory process identified in the right lower quadrant to suggest appendicitis. Lymph nodes: Unremarkable. Vasculature: Mild diffuse atherosclerotic calcifications are noted. Dilated infrarenal abdominal aorta with a transverse dimension of 31.6 mm. Peritoneum / Retroperitoneum: Unremarkable Bones: Degenerative changes of the spine. Levoscoliosis. CT/Abdomen/Pelvis without Cont IMPRESSION: Diffuse fatty atrophy of the pancreas. No intrarenal calcification seen. Reading Location: [place] [address]
== END | disposition home or self-care (01) ==
PROVIDERS: PCP Internal Medicine; Referring Provider Urology; Visit Provider Urology
DX: R31.21 Asymptomatic microscopic hematuria (principal); R10.84 Generalized abdominal pain
CPT/HCPCS: 74176